=== PATIENT | female | born 1980 | race African-American/Black ===

== ENCOUNTER 2017-03-17 15:59 | Emergency (ER) | payer MEDICARE, SELFPAY ==
[2017-03-17 15:59] VITALS: BP 178/109; PULSE 102; RESP 20; TEMP 37.2; O2SAT 96; BMI 31.6
--- NOTE | 2017-03-17 16:37 | RAD_ITS ---
STUDY: X-RAY CHEST REASON FOR EXAM: Female, 37 years old. Cough TECHNIQUE: Frontal and lateral views of the chest. COMPARISON: None. FINDINGS: There is a right Port-A-Cath and/or mediport in place. The tip is in the superior vena cava. The lungs are clear and expanded. There is no demonstrated pleural abnormality. Normal size heart. Normal mediastinum and rolan. Normal visualized pulmonary arteries. Normal visualized aortic arch and descending thoracic aorta. Normal visualized thoracic spine. Normal visualized ribs, clavicles, and shoulders. There is no demonstrated abnormality of the visualized soft tissue structures of the upper abdomen. RAD/Chest PA and Lateral IMPRESSION: Normal x-ray examination of the chest. Electronically Signed: Chase Barraza MD at 17:09 EST , Service support ,
--- NOTE | 2017-03-17 16:41 | ED.VISSUMM ---
- ER Visit Summary Date of Service: 03/17/17 Chief Complaint: [] Shortness of breath History of Present Illness: The patient is a 37 F [] complaining of cough and shortness of breath. She reports she was seen at her PCPs office and diagnosed with influenza via nasal swab. She was provided outpatient prescriptions for doxycycline and dextromethorphan. She reports a history of Crohn's for which she gets Remicade. She reports because of the influenza diagnosis she was not allowed to get her Remicade today. She reports her PCP felt that if she had worsening symptoms she should go to the emergency department to get a chest x-ray to rule out a pneumonia. Patient reports nonproductive cough. Denies fevers. No other complaints at this time. Physical Examination: [] Afebrile, vital signs stable. Cardiovascular exam is regular rate and rhythm. Lungs are clear to auscultation. Abdomen is obese, soft, nontender. There was mild bilateral flank muscular tenderness on palpation. Test Results: [] Chest x-ray 2 views: Negative. Emergency Department Course and Treatment: [] Patient provided Phenergan and oxycodone for symptom relief. On serial exam she is feeling improvement of symptoms. She was counseled regarding her negative x-ray. She was given prescriptions for naproxen and Phenergan. She reports she can take naproxen despite her history of Crohn's as long as she takes it with food. The patient was encouraged to follow-up with her primary care physician. Treatment Plan: [] Follow-up with PCP. Disposition: [] Discharge, stable. Impression: [] Influenza History of Crohn's This note was generated with [employer] dictation software. It may contain incorrect words, spelling, and punctuation that were not noted in review of the chart prior to signing ED Disposition - Plan for ED Patient: Chief Complaint: Shortness of Breath Referrals: Araseli Bueno MD [Primary Care Provider] -
[2017-03-17] MEDS: oxyCODONE 5 MG Tablet 10 MG PO (16:52)
[2017-03-17 17:10] VITALS: O2SAT 98
--- NOTE | 2017-03-17 17:36 | ED.DEP ---
ED Disposition - Plan for ED Patient: Disposition: Home or Assisted Living Chief Complaint: Shortness of Breath Instructions: ED Flu Prescriptions: ProMETHAzine [Phenergan] 25 mg PO Q4H PRN PRN #20 tab PRN Reason: Nausea Naproxen [Naprosyn] 500 mg PO BID PRN #20 tab Referrals: Araseli Bueno MD [Primary Care Provider] -
[2017-03-17 17:54] VITALS: BP 160/106; PULSE 91; RESP 16; O2SAT 100
--- NOTE | 2017-03-17 17:54 | ED.RN ---
PT GIVEN WRITTEN AND VERBAL DISCHARGE INSTRUCTIONS, THIS RN PROVIDED PT WITH EDUCATION ON HOME GOING PRESCRIPTIONS WELL. PT VERBALIZES UNDERSTANDING. TOLD NOT TO DRIVE AFTER HAVING NARCOTIC MEDICATION. PT REPORTS NO FURTHER QUESTIONS. PT EDUCATED TO CHECK HER BP REGULARLY AND TAKE MEDICATION PRESCRIBED. PT TO RETURN FOR ANY WORSENED OR NEW SX.
== END 2017-03-17 17:57 | disposition home or self-care (01) ==
PROVIDERS: Emergency Provider Emergency Medicine; Family Provider Internal Medicine; PCP Internal Medicine
DX: J11.1 Influenza due to unidentified influenza virus with other respiratory manifestations (principal); K50.90 Crohn's disease, unspecified, without complications; K21.9 Gastro-esophageal reflux disease without esophagitis; E66.9 Obesity, unspecified; Z72.0 Tobacco use; Z90.49 Acquired absence of other specified parts of digestive tract
CPT/HCPCS: 71046; 99283

== ENCOUNTER 2017-05-26 02:02 | Emergency (ER) | payer MEDICARE, SELFPAY ==
[2017-05-26 02:03] VITALS: BP 190/97; PULSE 78; RESP 18; TEMP 36.9; O2SAT 99; BMI 45.1
[2017-05-26 03:00] LABS: Absolute Lymphocyte Count 4.12 X10^3/ul (0.83-4.51); Absolute Neutrophil Count 4.2 X10^3/uL (2.0-7.7); Basophil# 0.05 X10^3/uL; Basophil% 0.5 % (0-1); Eosinophil# 0.13 X10^3/uL; Eosinophils% 1.4 % (0-5); Hematocrit 35.3 % (37-47); Hemoglobin 11.6 g/dl (12.0-15.0); Lymphocyte # 4.12 X10^3/ul (4.0); Lymphocyte % 44.8 % (19-41); Mean Corp Hgb Conc 32.9 g/gl (32-36); Mean Corpuscular Volume 85.3 fL (81-99); Mean Platelet Vol. 12.1 fl (6.2-12.0); Monocyte% 7.6 % (0-10); Neutrophil # 4.18 X10^3/uL (2.7-7.7); Neutrophil % 45.5 % (47-70); Platelet Count 198 K/mm3 (150-450); RBC Distribution Width CV 14.7 % (11.6-14.6); Red Blood Count 4.14 M/mm3 (4.2-5.4); White Blood Count 9.2 K/mm3 (4.4-11.0)
[2017-05-26 03:02] LABS: POSITIVE COUNT NO; POSITIVE DIFFERENTIAL NO; POSITIVE MORPHOLOGY NO
--- NOTE | 2017-05-26 03:03 | ED.DCSUM_ITS ---
- ER Visit Summary Date of Service: 05/26/17 Chief Complaint: Vaginal bleeding History of Present Illness: The patient is a 37 F vaginal bleeding for 10 days. Small clots. Gone through 6 pads. Late on menstrual period for a month and a half. Negative urine 3 weeks ago. 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 Try calling her OB office, however states her physicians are currently not there. No chest pains or lightheaded symptoms. Occasional lower abdominal cramping. No urinary symptoms. Physical Examination: General: Alert and oriented ?3, no acute distress HEENT: Normocephalic, atraumatic. Moist mucosa membranes Neck: supple, nontender. Cardiovascular: Regular rate and rhythm, no murmurs Respiratory: Normal breath sounds, symmetric, no distress Abdomen: Soft, nontender, nondistended : No external lesions. Speculum noted small clots in the vault. No active bleeding. Cervix normal. Extremities: Nontender, no edema, pulses intact ?4 Neuro: no focal neurological deficits. Test Results: HCG negative. Hemoglobin 11.6. Emergency Department Course and Treatment: Patient no active bleeding. HCG negative. Hemoglobin 11.6. Started on Tylenol. Discussed dysfunctional uterine bleeding. She is given follow-up with on-call gynecology. Monitoring symptoms. Return if any worsening symptoms. All questions were answered. Treatment Plan: [] Disposition: Discharge Impression: 1. Dysfunctional uterine bleeding This note was generated with [employer] dictation software. It may contain incorrect words, spelling, and punctuation that were not noted in review of the chart prior to signing ED Disposition - Plan for ED Patient: Disposition: Home or Assisted Living Chief Complaint: Vag Bleeding Diagnosis: Dysfunctional uterine bleeding Instructions: ED Bleed Irregular Vaginal Referrals: Araseli Bueno MD [Primary Care Provider] - Iveth Lassiter [STAFF PHYSICIAN] - 3-5 Days Additional Instructions: Hemoglobin 11.6. Serum negative.
[2017-05-26] MEDS: Acetaminophen 500 MG Tablet 1000 MG PO (03:12)
[2017-05-26 03:34] LABS: Pregnancy, Serum, hCG Quali. NEGATIVE Negative (0-9 Nonpreg)
[2017-05-26 04:16] VITALS: BP 152/83; PULSE 82; RESP 18; O2SAT 98
== END 2017-05-26 04:16 | disposition home or self-care (01) ==
PROVIDERS: Emergency Provider Emergency Medicine; Family Provider Internal Medicine; PCP Internal Medicine
DX: N93.8 Other specified abnormal uterine and vaginal bleeding (principal); K50.90 Crohn's disease, unspecified, without complications; K21.9 Gastro-esophageal reflux disease without esophagitis; F41.9 Anxiety disorder, unspecified; Z79.899 Other long term (current) drug therapy; Z86.19 Personal history of other infectious and parasitic diseases
CPT/HCPCS: 84703; 85025; 99282

== ENCOUNTER 2017-09-26 18:57 | Emergency (ER) | payer MEDICARE, MEDICAID, SELFPAY ==
[2017-09-26 18:57] VITALS: BP 159/102; PULSE 69; RESP 16; TEMP 37.2; O2SAT 99; BMI 41.3
--- NOTE | 2017-09-26 19:14 | ED.DCSUM_ITS ---
- ER Visit Summary Date of Service: 09/26/17 Chief Complaint: Crohn's flare History of Present Illness: The patient is a 37 F with 3 day history of nausea, abdominal cramping, and diarrhea. She reports fever to the 101-102 range. Patient states today she had blood with her diarrhea. She believes this is secondary to a Crohn's flare, but states she has not had a flare this bad in quite some time. Patient is currently on Remicade and Imuran. Physical Examination: Blood pressure is 159/102, temperature 98.9, heart rate 69 , respiratory rate 16, pulse ox 99% on room air. Patient sitting upright in bed no acute distress. Heart is regular rate and rhythm. Lung sounds are clear. Abdomen is soft with mild diffuse tenderness. No guarding or rebound. Hypoactive bowel sounds are noted. Test Results: CBC was normal white count and differential. Hemoglobin is 11.4 which is consistent with her prior labs. Chemistry studies, LFTs, lipase normal. Coags normal. CT abdomen pelvis with IV contrast reveals no acute process or focal inflammation. Emergency Department Course and Treatment: Patient was given morphine, Zofran, and IV fluids. This was followed by a single small dose of Dilaudid for pain control. Repeat evaluation patient is resting comfortably. She has not been up to the bathroom with diarrhea. At this time patient be treated with Imodium , Zofran, and a few Percocet for breakthrough pain. She is to follow-up with her primary care physician or GI specialist. If her symptoms worsen she is to return for repeat evaluation. Treatment Plan: [] Disposition: Discharge Impression: Gastroenteritis This note was generated with [employer] dictation software. It may contain incorrect words, spelling, and punctuation that were not noted in review of the chart prior to signing ED Disposition - Plan for ED Patient: Disposition: Home or Assisted Living Chief Complaint: Abd Pain Instructions: ED Gastroenteritis Viral Prescriptions: Loperamide [Imodium] 2 mg PO Q6H PRN PRN #14 cap PRN Reason: Diarrhea Oxycodone HCl/Acetaminophen [Percocet 5/325] 1 tablet PO Q6H PRN PRN 5 Days #20 tablet PRN Reason: Pain Ondansetron [Zofran Odt] 4 mg PO Q8H PRN PRN #10 tab PRN Reason: Nausea Referrals: Abhi Ramírez MD [STAFF PHYSICIAN] - Araseli Bueno MD [Primary Care Provider] -
[2017-09-26] MEDS: Ondansetron 4 MG/2 ML Vial IV (19:33)
[2017-09-26] MEDS: Morphine 4 MG/ML Syringe IV (19:33)
[2017-09-26] MEDS: 0.9% Normal Saline 1,000 ML 150 ML IV (19:34)
[2017-09-26 19:41] LABS: Absolute Lymphocyte Count 3.92 X10^3/ul (0.83-4.51); Absolute Neutrophil Count 5.4 X10^3/uL (2.0-7.7); Basophil# 0.07 X10^3/uL; Basophil% 0.7 % (0-1); Differential Indicated SCAN CRITERIA MET; Eosinophil# 0.16 X10^3/uL; Eosinophils% 1.6 % (0-5); Hematocrit 37.3 % (37-47); Hemoglobin 11.4 g/dl (12.0-15.0); Lymphocyte # 3.92 X10^3/ul (4.0); Lymphocyte % 39.2 % (19-41); Mean Corp Hgb Conc 30.6 g/gl (32-36); Mean Corpuscular Volume 75.4 fL (81-99); Mean Platelet Vol. 11.5 fl (6.2-12.0); Monocyte# 0.42 X10^3/uL; Monocyte% 4.2 % (0-10); Neutrophil # 5.42 X10^3/uL (2.7-7.7); Neutrophil % 54.2 % (47-70); POSITIVE COUNT NO; POSITIVE DIFFERENTIAL NO; POSITIVE MORPHOLOGY YES; Platelet Count 198 K/mm3 (150-450); RBC Distribution Width CV 16.7 % (11.6-14.6); RBC Distribution Width SD 45.8 fl (35.1-43.9); Red Blood Count 4.95 M/mm3 (4.2-5.4)
[2017-09-26 19:42] LABS: Prothrombin Time (Protime)PT. 12.7 SECONDS (11.7-14.9)
[2017-09-26 19:43] LABS: Partial Thromboplast Time 40.6 Seconds (24.1-36.2)
[2017-09-26 19:58] LABS: Differential Comment SCANNED
[2017-09-26 20:10] LABS: AST(SGOT) 15 U/L (15-37); Alanine Aminotransfer ALT/SGPT 21 U/L (13-56); Albumin, Serum 3.5 g/dL (3.2-5.0); Alkaline Phosphatase 78 U/L (45-117); Anion Gap 5 (5-15); BUN 10 mg/dL (7-18); BUN/Creat Ratio 12.3 RATIO (10-20); Bilirubin, Direct 0.09 mg/dL (0.00-0.30); Calcium,Total 8.4 mg/dL (8.5-10.1); Chloride 108 mmol/L (98-107); Creatinine, Serum 0.81 mg/dL (0.55-1.02); EST Glomerular Filtration Rate 84 mL/min (>60); Est Glom Filt Rate - Afr Amer 101 mL/min (>60); Estimated Creatinine Clearance 108.67 ml/min; Globulin 4.6 g/dL (2.2-4.2); Glucose 92 mg/dL (74-106); Lipase 125 U/L (73-393); Potassium 3.8 mmol/L (3.5-5.1); Protein, Total 8.1 g/dL (6.4-8.2); Sodium Level 140 mmol/L (136-145)
[2017-09-26] MEDS: HYDROmorphone 0.5 MG/0.5 ML SYRINGE IV (20:25)
[2017-09-26 21:47] VITALS: BP 152/102; O2SAT 100
--- NOTE | 2017-09-26 22:25 | ED.DEP ---
ED Disposition - Plan for ED Patient: Disposition: Home or Assisted Living Chief Complaint: Abd Pain Instructions: ED Gastroenteritis Viral Prescriptions: Loperamide [Imodium] 2 mg PO Q6H PRN PRN #14 cap PRN Reason: Diarrhea Oxycodone HCl/Acetaminophen [Percocet 5/325] 1 tablet PO Q6H PRN PRN 5 Days #20 tablet PRN Reason: Pain Ondansetron [Zofran Odt] 4 mg PO Q8H PRN PRN #10 tab PRN Reason: Nausea Referrals: Araseli Bueno MD [Primary Care Provider] - Abhi Ramírez MD [STAFF PHYSICIAN] -
[2017-09-26] MEDS: Ondansetron ODT 4 MG Tablet PO (22:54)
[2017-09-26] MEDS: oxyCODONE 5 MG Tablet PO (22:54)
== END 2017-09-26 23:00 | disposition home or self-care (01) ==
PROVIDERS: Emergency Provider Emergency Medicine; Family Provider Internal Medicine; PCP Internal Medicine
DX: K50.90 Crohn's disease, unspecified, without complications (principal); K52.9 Noninfective gastroenteritis and colitis, unspecified; R50.9 Fever, unspecified; R10.9 Unspecified abdominal pain; I10 Essential (primary) hypertension; K21.9 Gastro-esophageal reflux disease without esophagitis; E66.9 Obesity, unspecified; Z72.0 Tobacco use; Z79.899 Other long term (current) drug therapy; Z86.19 Personal history of other infectious and parasitic diseases; Z90.49 Acquired absence of other specified parts of digestive tract
CPT/HCPCS: 36591; 74177; 80048; 80076; 83690; 85025; 85610; 85730; 96361; 96374; 96375; 99282; J7030; J7040; Q9967; A4216; J2405

== ENCOUNTER 2018-02-17 18:55 | Emergency (ER) | payer MEDICARE, BC, SELFPAY ==
[2018-01-17 09:52] VITALS: BMI 45.6
[2018-02-17 18:56] VITALS: BP 159/95; PULSE 102; RESP 24; TEMP 37.9; O2SAT 100; BMI 45.3
[2018-02-17 20:04] LABS: Absolute Lymphocyte Count 3.75 X10^3/ul (0.83-4.51); Absolute Neutrophil Count 11.8 X10^3/uL (2.0-7.7); Basophil# 0.04 X10^3/uL; Basophil% 0.2 % (0-1); Eosinophil# 0.03 X10^3/uL; Eosinophils% 0.2 % (0-5); Hematocrit 35.3 % (37-47); Hemoglobin 10.9 g/dl (12.0-15.0); Lymphocyte # 3.75 X10^3/ul (4.0); Lymphocyte % 22.5 % (19-41); Mean Corp Hgb Conc 30.9 g/gl (32-36); Mean Corpuscular Hgb 22.1 pg (27.0-32.0); Mean Corpuscular Volume 71.6 fL (81-99); Monocyte# 1.01 X10^3/uL; Neutrophil # 11.84 X10^3/uL (2.7-7.7); Neutrophil % 70.9 % (47-70); Platelet Count 185 K/mm3 (150-450); RBC Distribution Width CV 16.9 % (11.6-14.6); Red Blood Count 4.93 M/mm3 (4.2-5.4); White Blood Count 16.7 K/mm3 (4.4-11.0)
[2018-02-17] MEDS: HYDROmorphone 1 MG/ML Syringe 0.5 MG IV (20:04)
[2018-02-17] MEDS: Ondansetron 4 MG/2 ML Vial IV ×2 (20:04→21:02)
[2018-02-17 20:08] VITALS: BP 151/104; PULSE 89; RESP 17; TEMP 36.9; O2SAT 100
[2018-02-17 20:08] LABS: Anion Gap 8 (5-15); BUN 7 mg/dL (7-18); BUN/Creat Ratio 7.6 RATIO (10-20); Calcium,Total 8.5 mg/dL (8.5-10.1); Chloride 104 mmol/L (98-107); Creatinine, Serum 0.92 mg/dL (0.55-1.02); EST Glomerular Filtration Rate 73 mL/min (>60); Est Glom Filt Rate - Afr Amer 88 mL/min (>60); Estimated Creatinine Clearance 95.68 ml/min; Glucose 94 mg/dL (74-106); Potassium 3.4 mmol/L (3.5-5.1); Sodium Level 136 mmol/L (136-145)
[2018-02-17 20:17] LABS: Bacteria 0 SEEN /hpf (None Seen); Mucous, Urine 0 SEEN /hpf (<or=2+)
[2018-02-17 20:26] LABS: Differential Indicated SCAN CRITERIA MET; POSITIVE COUNT NO; POSITIVE DIFFERENTIAL NO; POSITIVE MORPHOLOGY YES
[2018-02-17 20:26] LABS: Color, Urine Yellow (Yellow); Glucose, Dipstick Normal (Normal); Ketone-Dipstick Negative (Negative); Leukocyte Esterase-Dipstick Negative /ul (Negative); Nitrite-Dipstick Negative (Negative); Occult Blood-Urine 25 /ul (Negative); Protein-Dipstick Negative (Negative); Urine Bilirubin Dipstick Negative (Negative); Urine Clarity Clear (Clear); Urine Urobilinogen Normal (Normal)
[2018-02-17 20:27] LABS: Anisocytosis 1+; Platelet Estimate ADEQUATE (ADEQ)
[2018-02-17 20:28] LABS: Hypochromasia RARE; Microcytosis 1+; Target Cells RARE
[2018-02-17 20:30] LABS: Red Blood Cells-Urine 0-5 SEEN /hpf (0-5); Squamous Epithelial Cells - UA 0-5 SEEN /hpf (5-10); White Blood Cells 0-5 SEEN /hpf (0-5)
--- NOTE | 2018-02-17 20:44 | CT_ITS ---
STUDY: CT ABDOMEN AND PELVIS WITH CONTRAST REASON FOR EXAM: Female, 37 years old. Abdominal pain and weakness with dizziness for 4 days, leukocytosis, history of Crohn's disease RADIATION DOSAGE (If Supplied By Facility): CTDIvol = ( 23.73 ) mGy, DLP = ( 1349.66 ) mGycm TECHNIQUE: Transaxial images were obtained from the dome of the diaphragm to the symphysis pubis with oral contrast. 100ML ml of Isovue 300 contrast was administered. Sagittal and coronal images were reconstructed. Individualized dose optimization techniques were used for this CT. COMPARISON: None. FINDINGS: The visualized lung bases are unremarkable. The visualized portions of the heart are within normal limits. Metallic density in the right atrium likely represents a central venous catheter tip. Normal liver. There are surgical clips in the gallbladder fossa consistent with a prior cholecystectomy. Normal spleen. Normal pancreas. Normal bilateral adrenal glands. Normal right kidney. Nonobstructing punctate calculus of the left kidney is evident on image 47. No hydronephrosis or ureteral calculi seen. Normal visualized stomach. Normal small intestine. No colon wall thickening. There are surgical sutures along the cecum. There is non-visualization of the appendix. Normal abdominal aorta. Normal inferior vena cava. Normal retroperitoneum. Normal urinary bladder. There is localized soft tissue thickening of the right paramedial anterior pubic wall on axial image 124 that is chronic and is evident on prior CT from 2016. May represent sequela of prior surgery, infection or injury. Normal osseous structures. CT/Abdomen/Pelvis WITH Contrast IMPRESSION: 1. No bowel wall thickening, obstruction or acute inflammatory process. No focal fluid collection. 2. Stable chronic changes as noted above and prior studies. Electronically Signed: Pj Tan MD at 23:09 EST , Service support ,
[2018-02-17 20:53] LABS: Pregnancy, Serum, hCG Quali. NEGATIVE Negative (0-9 Nonpreg)
[2018-02-17 21:00] VITALS: BP 147/99; PULSE 81; RESP 16; TEMP 37; O2SAT 98
[2018-02-17] MEDS: 0.9% Normal Saline 1,000 ML 150 ML IV (21:02)
[2018-02-17] MEDS: HYDROmorphone 1 MG/ML Syringe IV (21:02)
[2018-02-17 22:00] VITALS: BP 136/86; PULSE 88; RESP 17; TEMP 36.6; O2SAT 98
[2018-02-17 23:00] VITALS: BP 142/87; PULSE 84; RESP 19; TEMP 37; O2SAT 94
--- NOTE | 2018-02-17 23:38 | ED.DCSUM_ITS ---
- ER Visit Summary Date of Service: 02/17/18 Chief Complaint: Abdominal pain History of Present Illness: The patient is a 37 F with a 4-day history of left lower quadrant abdominal pain. She has had nausea but no vomiting. Patient states she always has diarrhea secondary to her Crohn's but has had more fr equent episodes of the past 4 days. She has had subjective fever at home. She reports prior cholecystectomy, appendectomy, and bowel resections. She follows with Dr. Ramírez at [facility]. Physical Examination: Vital signs significant for temperature 100.3, otherwise unremarkable. Patient is lying in bed. She appears ill but no acute distress. Heart is regular rate and rhythm. Lung sounds are clear. Abdomen is soft with tenderness in the left lower quadrant. No guarding or rebound. Hypoactive bowel sounds are noted throughout. Test Results: CBC was a white count of 16.7 and hemoglobin of 10.9. Differential is unremarkable. Chemistry studies significant only for potassium 3.4. Urinalysis normal. CT abdomen pelvis shows no bowel wall thickening, obstruction, or acute inflammatory process. No fluid collection noted. Emergency Department Course and Treatment: Patient was given Dilaudid, Zofran, and IV fluids. On repeat evaluation patient is sitting upright in bed eating a spicy chicken bowl from [facility]. She will be discharged with analgesics and antiemetics. She is to follow-up with her GI specialist. Treatment Plan: [] Disposition: Discharge Impression: Abdominal pain, uncertain etiology This note was generated with [employer] dictation software. It may contain incorrect words, spelling, and punctuation that were not noted in review of the chart prior to signing ED Disposition - Plan for ED Patient: Chief Complaint: Abd Pain Referrals: Araseli Bueno MD [Primary Care Provider] -
--- NOTE | 2018-02-17 23:39 | DCINST.ED_ITS ---
ED Disposition - Plan for ED Patient: Disposition: Home or Assisted Living Chief Complaint: Abd Pain Instructions: ED Abdominal Pain Unkn Cause Prescriptions: Hydrocodone Bitart/Apap 5-325 [[place] 5MG-325MG] 1 tablet PO Q6H PRN PRN 3 Days #10 tablet PRN Reason: Pain Ondansetron [Zofran Odt] 4 mg PO Q8H PRN PRN #10 tablet PRN Reason: Nausea Referrals: Araseli Bueno MD [Primary Care Provider] - 1 Week
[2018-02-18] MEDS: Ondansetron ODT 4 MG Tablet PO (00:01)
[2018-02-18] MEDS: HYDROcodone Bitartrate/Apap 5/325 Tablet PO (00:02)
[2018-02-18 00:03] VITALS: BP 124/110; BP 124/111; PULSE 89; RESP 16; TEMP 36.9; O2SAT 97
== END 2018-02-18 00:06 | disposition home or self-care (01) ==
PROVIDERS: Emergency Provider Emergency Medicine; Family Provider Internal Medicine; PCP Internal Medicine
DX: R10.32 Left lower quadrant pain (principal); K50.90 Crohn's disease, unspecified, without complications; R19.7 Diarrhea, unspecified; I10 Essential (primary) hypertension; K21.9 Gastro-esophageal reflux disease without esophagitis; Z72.0 Tobacco use; Z79.899 Other long term (current) drug therapy; Z86.14 Personal history of Methicillin resistant Staphylococcus aureus infection; Z86.19 Personal history of other infectious and parasitic diseases; Z90.49 Acquired absence of other specified parts of digestive tract
CPT/HCPCS: 36591; 74177; 80048; 81001; 84703; 85025; 96374; 96375; 96376; 99283; J7030; J7040; Q9967; A4216; J2405

== ENCOUNTER 2018-03-06 06:16 | Day surgery (SDC) | payer MEDICARE, SELFPAY ==
--- NOTE | 2018-03-05 21:51 | HP.PCM_ITS ---
History and Physical Date of Admission: 03/06/18 HISTORY OF PRESENT ILLNESS 37 year old woman presents for evaluation of her chronic hidradenitis because of recent flare ups in her left abdominal wall and right medial thigh. She also has complaints of painful scarring with some contracture involving her left vulval area and left inguinal area. She states that her urinary stream sprays at times. She has had previous excision of hidradenitis in her bilateral axillary areas and she has noticed intermittent flare ups in these areas as well. At present, her axillary areas are stable. She has also noticed over the last several months that she has developed some clitoral hypertrophy which has led to increased discomfort after sexual intercourse. She is still on Remicade for her Crohn's disease and she states it is stable presently. She presents today for further evaluation and treatment. PAST MEDICAL HISTORY Acute anxiety Anemia Crohns disease GERD (gastroesophageal reflux disease) Hepatitis B Hidradenitis suppurativa History of MRSA infection IBS (irritable bowel syndrome) Obesity Sinus problem Vitamin deficiency High blood pressure PAST SURGICAL HISTORY Hidradenitis suppurativa POWERPORT SMALL BOWEL SURGERIES Surgically constructed arteriovenous fistula ALLERGIES No Known Allergies MEDICATIONS Azathioprine [Imuran] Infliximab [Remicade] Lamivudine [Epivir] Omeprazole [Prilosec] minocycline FAMILY HISTORY Father - Hypertension, Anemia Mother - Arthritis, Hypertension, Anemia Brother - Asthma, History of psychiatric care Son - Asthma Daughter - Severe allergy Aunt -Hypertension Uncle - Arthritis, Hypertension, Asthma Grandmother - Arthritis, Asthma, Hypertension Other - Breast cancer, Cancer, Cervical cancer, Colon cancer SOCIAL HISTORY Smoking Status: Current every day smoker second hand exposure: Yes alcohol intake: current alcohol intake frequency: a few times a month Alcohol type: wine substance use type: does not use REVIEW OF SYSTEMS General - Denies fever and weight loss. Has fatigue. Has history of MRSA. Eyes - Denies cataracts and glaucoma. ENT - Denies nasal congestion and sore throat. Endocrine - Denies excessive thirst and urination. Has hepatitis. Skin - Denies skin cancer. Has hidradenitis flare ups involving left abdominal wall and right medial thigh and bilateral axillary areas. Has painful scar contracture left vulval and inguinal areas from previous hidradenitis surgery. Musculoskeletal - Denies joint pain, joint stiffness and back pain. Denies muscle weakness and arthritis. Neuro - Denies headaches. Cardiovascular - Denies chest pain, fatigue, and shortness of breath with exertion. Psych - Has anxiety. Denies depression. Respiratory - Denies chronic cough and shortness of breath. Patient is a smoker. Gastrointestinal - Denies nausea, vomiting and constipation. Has diarrhea. Has Crohn's disease. Hematologic - Denies abnormal bruising and bleeding. Genitourinary - Denies hematuria and urinary frequency. PHYSICAL EXAMINATION General - Alert and Oriented. HEENT - PERRL. EOMI. Throat is clear. Neck - Supple and nontender. No cervical adenopathy. Lungs - Clear to auscultation. Heart - Regular rate and rhythm. Abdomen - Soft and nondistended. Has an area of induration and redness left abdominal wall. In the left vulval and left inguinal areas are scar contractures from previous hidradenitis surgery. Tender to palpation. No ulceration. No evidence of infection. Measures 3 cm. No fluctuance. No purulent drainage. Some tenderness to palpation. Genital - There is clitoral hypertrophy that has some swelling and is tender to palpation. There is hidradenitis scar contracture left vulva involving the mons pubis and genitocrural area. Tender to palpation. Extremities - FROM. No axillary adenopathy. No inguinal adenopathy. Radial pulses are palpable. Dorsalis pedis pulses are palpable. In the right medial thigh is a cluster of induration and redness that is tender to palpation. Measures 6 cm. No fluctuance. No purulent drainage. In her bilateral axillary areas are scattered areas of induration. Nontender at this time. No evidence of infection at present. The right axillary area measures 8 cm. The left axillary area measures 6 cm. Neuro - CN II-XII grossly intact. Psych - Normal mood and affect. ASSESSMENT 1. Left abdominal wall hidradenitis. 2. Right medial thigh hidradenitis cluster. 3. Hidradenitis scar contracture left vulva involving the mons pubis and genitocrural area. 4. Hidradenitis scar contracture left inguinal area. 5. Recurrent bilateral axillary hidradenitis, stable. 6. Clitoral hypertrophy. 7. History of MRSA. 8. Smoker. PLAN For her recent flare ups of hidradenitis, will begin Doxycycline antibiotics. Will send script to her Pharmacy. This will temporize her flare ups until surgical excision is done. The painful areas on her right medial thigh and left abdominal wall will be done first. Will leave the wounds open and begin wound care with the VAC or with daily Silver dressing changes. Will send tissue to Pathology for analysis to rule out carcinoma and to Microbiology for culture. A positive culture will necessitate antibiotic therapy. After healing has occurred, will address the hidradenitis scar contractures in her left vulval area and left inguinal area. After excision of the scar contracture, will proceed with skin grafting. This should improve her intermittent urinary spraying. Her axillary areas are stable at this time. With regard to her clitoral hypertrophy, she may benefit from Urogynecological therapy. There is a therapist in [place]. Will set up that appointment. The therapist may also know referrals for surgical treatment of the clitoral hypertrophy. This would necessitate evaluation and treatment at a tertiary center with someone who specializes in aesthetic genital surgery or gender reassignment surgery. She would like to wait if possible to see if she can get symptomatic relief from her therapy before proceeding with surgical excision of her hidradenitis. Followup after her therapy. Encouraged patient to stop smoking as it may have deleterious effects on wound healing.
[2018-03-06] VITALS (10 sets, daily range): BP systolic 124–153; BP diastolic 66–93; PULSE 60–90; RESP 16–20; TEMP 36–36.8; O2SAT 95–100; BMI 47.3
--- NOTE | 2018-03-06 | MASS_PTH ---
PATIENT: KIARA ORTIZCCT #:[id number] [place] [facility] [id number] AGE/SX: 37/F ROOM: RE03/06/[address]: Dr. Maikol Feliciano MD : 1980 BED: DIS: 03/07/2018 SPEC #: [id number] RECD: 03/06/18 14:32 STATUS: RHIANNA REIsabel #: [id number] DEMOND: 03/06/18 00:[address]: Maikol Feliciano DEPT: SURGICAL PATHOLOGY RECD BY: Rohit Martin ENTERED: 03/06/18 14:33 SP TYPE: Mass OTHR DR: Dr. Araseli Bueno MD Tissues: A - Abdomen, NOS B - Thigh, NOS Procedures: Surgery Specimen Level III HEADER OPERATION: Incision & drain, excision hidradenitis, left abdominal wall and right medial thigh PRE-OP DIAGNOSIS: Left abdominal wall hidradenitis; right medial thigh hidradenitis cluster TISSUE SUBMITTED: A - Soft tissue abdomen, B - Soft tissue right medial thigh MICROSCOPIC DIAGNOSIS A. Skin and soft tissue of abdomen, excision: Epidermal inclusion cyst with associated reactive and inflammatory change consistent with hidradenitis. B. Soft tissue of right medial thigh, excision: Granulation with acute and chronic inflammation and associated reparative reactive change consistent with hidradenitis. AM:nithya 03/07/18 MICROSCOPIC DESCRIPTION Slides are reviewed. GROSS DESCRIPTION A - Received in fixative is one container labeled with the patient's name and designated soft tissue abdomen. The specimen consists of an ellipse of black skin with attached yellow fatty tissue measuring 7.8 x 4 x 1.5 cm. Serial sections do not reveal mass lesions. Regional Sales Engineer sections are submitted in one cassette. B - Received in fixative is one container labeled with the patient's name and designated right medial thigh soft tissue. The specimen consists of an ellipse of black skin with attached yellow fatty tissue measuring 8.5 x 7 x 3.5 cm. Serial sections do not reveal mass lesions. Regional Sales Engineer sections are submitted in one cassette. / AM:nithya 03/06/18 TC:2 CPT: 86922 x2
[2018-03-06 07:02] LABS: Internal QC Validated? YES +Cl - CLEAR BKGD; Pregnancy, Urine Negative Negative
[2018-03-06] MEDS: Vancomycin IV 1,000 MG/200 ML BAG 200 MG IV (07:27)
--- NOTE | 2018-03-06 09:47 | OP.PN_ITS ---
Immediate Post-Op Note Date of Procedure: 03/06/18 Primary Surgeon/Physician: Maikol Feliciano MD bobbin winder tender: None Pre-Operative Diagnosis: 1. 3 cm left abdominal wall hidradenitis. 2. 6 cm right medial thigh hidradenitis cluster. 3. History of MRSA. 4. Smoker. Post-Operative Diagnosis: Same. Surgery/Procedure Performed:: 1. Excision 3 cm left abdominal wall hidradenitis with 10 cm complex closure repair. 2. Surgical preparation right medial thigh with excision 6 cm hidradenitis cluster (70 cm2). Description of Surgical Findings:: 37 year old woman presents for evaluation of her chronic hidradenitis because of recent flare ups in her left abdominal wall and right medial thigh. She also has complaints of painful scarring with some contracture involving her left vulval area and left inguinal area. She states that her urinary stream sprays at times. She has had previous excision of hidradenitis in her bilateral axillary areas and she has noticed intermittent flare ups in these areas as well. At present, her axillary areas are stable. She has also noticed over the last several months that she has developed some clitoral hypertrophy which has led to increased discomfort after sexual intercourse. She is still on Remicade for her Crohn's disease and she states it is stable presently. Today the patient underwent excision 3 cm left abdominal wall hidradenitis with 10 cm complex closure repair and surgical preparation right medial thigh with excision 6 cm hidradenitis cluster (70 cm2). I used Pilar absorbable hemostat. Reference Number - [id number]. Lot Number - [id number]. Expiration - October 10, 2022. Estimated Blood Loss: 20 ml. Specimen's removed: 1. Left abdominal wall hidradenitis to Pathology and Microbiology. 2. Right medial thigh hidradenitis cluster to Pathology and Microbiology. Drains: None. Type of Anesthesia:: General - Admit VTE Documentation VTE Present on Admission: No VTE Mechan Device Prophylaxis: SCD's VTE Pharm Prophylaxis ordered?: No
[2018-03-06] MEDS: Mupirocin Ointment 22gm Tube 1 APPLIC (09:50)
[2018-03-06] MEDS: Lactated Ringers 1,000 ML 60 ML IV ×2 (10:24→22:47)
[2018-03-06] MEDS: HYDROmorphone 1 MG/ML Syringe IV ×4 (11:06→21:03)
[2018-03-06] MEDS: 0.9% NaCl VAD Flush 10 ML IV ×2 (14:22→17:42)
--- NOTE | 2018-03-06 15:08 | PCM.RX.CS ---
Consult Pharmacy has been consulted to manage selected antiobiotic: Vancomycin Type of Consult: New start Suspected Infection: Skin/Soft tissue Prior Doses of Antibiotics Received/Current Regimen: Vancomycin 1000mg IV x1 preop 03/06/18 at 0730 Microbiology: Microbiology 03/06/18 09:50 Tissue - Leg, Right Gram Stain - Final 03/06/18 09:50 Tissue - Abdominal Gram Stain - Final Weight used for dosin kg Estimated Creatinine Clearance: 96ml/min Goal Trough: 10-15 mcg/mL Pharmacy Plan for Drug Dosing: Recommend Vancomycin 1500mg IV q12h starting 03/06/18 at 1400. Trough will be drawn 03/07/18 at 1330. Goal trough is 10-15 Pharmacy Service will continue to monitor and adjust dosing as required. Follow-Up Labs: Trough Vancomycin - trough Labs to be done on [date and time ordered]: trough level 02/25/18 at 1330
--- NOTE | 2018-03-06 16:42 | PCM.OPRPT ---
Report of Operation Date of Procedure: 03/06/18 Pre-Operative Diagnosis: 1. 3 cm left abdominal wall hidradenitis. 2. 6 cm right medial thigh hidradenitis cluster. 3. History of MRSA. 4. Smoker. Post-Operative Diagnosis: Same. Surgery/Procedure Performed:: 1. Excision 3 cm left abdominal wall hidradenitis with 10 cm complex closure repair. 2. Surgical preparation right medial thigh with excision 6 cm hidradenitis cluster (70 cm2). Description of Surgical Findings:: 37 year old woman presents for evaluation of her chronic hidradenitis because of recent flare ups in her left abdominal wall and right medial thigh. She also has complaints of painful scarring with some contracture involving her left vulval area and left inguinal area. She states that her urinary stream sprays at times. She has had previous excision of hidradenitis in her bilateral axillary areas and she has noticed intermittent flare ups in these areas as well. At present, her axillary areas are stable. She has also noticed over the last several months that she has developed some clitoral hypertrophy which has led to increased discomfort after sexual intercourse. She is still on Remicade for her Crohn's disease and she states it is stable presently. Patient was informed of the risks and complications of the procedure including alternatives to surgery. These were discussed with the patient personally. Patient voices understanding and wishes to proceed. Some of the risks and complications were included in a form from the [employer] [employer]. Encouraged patient to stop smoking as it may have deleterious effects on wound healing. I used Pilar absorbable hemostat. Reference Number - [id number]. Lot Number - [id number]. Expiration - October 10, 2022. regional project manager: None Type of Anesthesia:: General Specimen's removed: 1. Left abdominal wall hidradenitis to Pathology and Microbiology. 2. Right medial thigh hidradenitis cluster to Pathology and Microbiology. Drains: None. Estimated Blood Loss (mL): 20 ml. Description of Procedure: Patient was taken to OR in supine position and was placed under general anesthesia. The left abdominal wall and right medial thigh areas were prepped and draped in the usual fashion. SCD's were placed for DVT prophylaxis. Perioperative antibiotics were given intravenously. Using xylocaine with epinephrine, the left abdominal wall and right medial thigh areas were infiltrated. After waiting 5 minutes for the anesthetic to take effect, I made a horizontal elliptical incision around the area of hidradenitis left abdominal wall. Excision was carried down deep to Lory's fascia to the abdominal wall fascia. The underlying fat necrosis was excised. No pus was seen today. Hemostasis was obtained with electrocautery. The wound was irrigated with saline. I sprayed the wound with Pilar absorbable hemostat to minimize seroma formation. Tissue that was excised was sent to Pathology for analysis to rule out carcinoma and to Microbiology for culture. A positive culture will necessitate antibiotic therapy. The size of the hidradenitis lesion was about 3 cm and was excised with a 2 mm margin in all directions thus making it a 3.4 cm excision and a 10 cm complex closure repair. The multiple layered repair was started with 2-0 Vicryl figure of eight interrupted sutures for Lory's fascial layer. The deep dermis and subcutaneous tissue was approximated with 3-0 Monocryl interrupted sutures. The skin was approximated with 3-0 Prolene simple interrupted and vertical mattress interrupted sutures. Antibiotic ointment was applied to the suture line followed by a gauze dressing. I then proceeded with surgical preparation of the hidradenitis cluster on her right medial thigh. The cluster measured 6 cm. I incised through the subcutaneous tissue until the muscular fascia was seen. A lot of fat necrosis was seen. No pus was noted today. Hemostasis was obtained with electrocautery. The wound was irrigated with saline. I sprayed the wound with Pilar absorbable hemostat to minimize seroma formation. Tissue that was excised was sent to Pathology for analysis to rule out carcinoma and to Microbiology for culture. A positive culture will necessitate antibiotic therapy. The size of the defect after excision of the hidradenitis cluster was 10 x 7 x 4 cm or 70 cm2. The wound was dressed with Mepitel nonadherent dressing followed by Kerlix gauze and Betadine followed by dry Kerlix gauze and an ABD pad compression dressing followed by an DA wrap. Patient tolerated the procedure well and was sent to PACU in satisfactory condition. Patient will be sent upstairs for continued postop care. The VAC will be applied tomorrow. Will followup [facility]. If there is a plateau in the healing process, can proceed with delayed closure with skin grafting. Will remove the sutures left abdominal wall in 2 weeks. Grafts/Implants Used: None. - Complications None. - Admit VTE Documentation VTE Present on Admission: No VTE Mechan Device Prophylaxis: SCD's VTE Pharm Prophylaxis ordered?: No Code Visit Surgery Charges CPT - 16963 ICD-10 - L73.2, Z86.14, F17.200 83034 L73.2, Z86.14, F17.200 86494 L73.2, Z86.14, F17.200 84665 S71.101A, L73.2, Z86.14, F17.200
[2018-03-06] MEDS: oxyCODONE 5 MG Tablet 10 MG PO (20:18)
[2018-03-07] MEDS: HYDROmorphone 1 MG/ML Syringe IV ×5 (00:03→14:43)
[2018-03-07 02:32] VITALS: BP 149/86; PULSE 55; RESP 18; TEMP 36.8; O2SAT 94
[2018-03-07 06:19] LABS: Hematocrit 32.9 % (37-47); Hemoglobin 9.9 g/dl (12.0-15.0); Mean Corp Hgb Conc 30.1 g/gl (32-36); Mean Corpuscular Volume 73.1 fL (81-99); Mean Platelet Vol. 11.1 fl (6.2-12.0); Platelet Count 160 K/mm3 (150-450); RBC Distribution Width CV 17.4 % (11.6-14.6); RBC Distribution Width SD 46.8 fl (35.1-43.9); White Blood Count 10.5 K/mm3 (4.4-11.0)
[2018-03-07 06:21] LABS: ALB/GLOB Ratio 0.8 RATIO (0.9-2.4); AST(SGOT) 14 U/L (15-37); Alanine Aminotransfer ALT/SGPT 22 U/L (13-56); Albumin, Serum 3.1 g/dL (3.2-5.0); Alkaline Phosphatase 69 U/L (45-117); Anion Gap 9 (5-15); BUN 9 mg/dL (7-18); BUN/Creat Ratio 9.9 RATIO (10-20); Calcium,Total 8.2 mg/dL (8.5-10.1); Chloride 107 mmol/L (98-107); Creatinine, Serum 0.91 mg/dL (0.55-1.02); EST Glomerular Filtration Rate 73 mL/min (>60); Est Glom Filt Rate - Afr Amer 89 mL/min (>60); Estimated Creatinine Clearance 93.69 ml/min; Globulin 4.1 g/dL (2.2-4.2); Glucose 121 mg/dL (74-106); Potassium 3.8 mmol/L (3.5-5.1); Protein, Total 7.2 g/dL (6.4-8.2); Sodium Level 140 mmol/L (136-145)
[2018-03-07 06:25] LABS: Scan Indicated on CBC? Y/N YES- FLAGS NOTED
[2018-03-07] MEDS: 0.9% NaCl VAD Flush 10 ML IV ×4 (06:52→14:44)
[2018-03-07 06:57] LABS: Differential Comment SCAN
[2018-03-07 07:33] VITALS: BP 156/87; PULSE 63; RESP 16; TEMP 36.6; O2SAT 100
[2018-03-07] MEDS: azaTHIOprine 50 MG Tablet PO (07:48)
[2018-03-07] MEDS: Pantoprazole Sodium 20 MG Tablet PO (07:51)
[2018-03-07] MEDS: Atenolol 25 MG Tablet PO (07:51)
[2018-03-07] MEDS: oxyCODONE 5 MG Tablet 10 MG PO (09:02)
--- NOTE | 2018-03-07 09:45 | NURSING ---
Wound Photo: Right Thigh
--- NOTE | 2018-03-07 09:46 | NURSING ---
Wound Photo: Left Lower Abdomen
[2018-03-07 10:09] VITALS: BP 155/82; PULSE 64; RESP 18; TEMP 36.7; O2SAT 98
--- NOTE | 2018-03-07 10:55 | CASEMGMT ---
RN CM Face to Face with patient for initial transition planning/care coordination assessment. RN CM introduced self and role at [facility]. Patient lying in bed, alert and oriented. Patient willing to participate in assessment and is able to answer all questions appropriately. Care providers, pharmacy, and demographics verified. Patient wishes to discharge home and would like [facility] for wound vac dressing changes. Referrals sent to [facility], [facility], [facility], A, and all denied patient either due to staffing or not in service area. Referral sent to [facility], pending response. Patient denies further needs at this time. Patient states she has no further needs or concerns at this time. CM to follow for discharge planning needs that may arise. Disposition Plan: Patient to discharge home with [facility], family support, and follow-up plans in place. Doris WINKLER, RN, CM
--- NOTE | 2018-03-07 12:45 | CASEMGMT ---
[facility] has accepted the patient with start of care for Monday with next vac change. SARAH YANG updated patient. Dr. Feliciano updated and discharge instructions faxed to [facility].
--- NOTE | 2018-03-07 13:43 | OP.PCM_ITS ---
Report of Operation Date of Procedure: 03/06/18 Pre-Operative Diagnosis: 1. 3 cm left abdominal wall hidradenitis. 2. 6 cm right medial thigh hidradenitis cluster. 3. History of MRSA. 4. Smoker. Post-Operative Diagnosis: Same. Surgery/Procedure Performed:: 1. Excision 3 cm left abdominal wall hidradenitis with 10 cm complex closure repair. 2. Surgical preparation right medial thigh with excision 6 cm hidradenitis cluster (70 cm2). Description of Surgical Findings:: 37 year old woman presents for evaluation of her chronic hidradenitis because of recent flare ups in her left abdominal wall and right medial thigh. She also has complaints of painful scarring with some contracture involving her left vulval area and left inguinal area. She states that her urinary stream sprays at times. She has had previous excision of hidradenitis in her bilateral axillary areas and she has noticed intermittent flare ups in these areas as well. At present, her axillary areas are stable. She has also noticed over the last several months that she has developed some clitoral hypertrophy which has led to increased discomfort after sexual intercourse. She is still on Remicade for her Crohn's disease and she states it is stable presently. Patient was informed of the risks and complications of the procedure including alternatives to surgery. These were discussed with the patient personally. Patient voices understanding and wishes to proceed. Some of the risks and complications were included in a form from the [place] [employer]. Encouraged patient to stop smoking as it may have deleterious effects on wound healing. I used Pilar absorbable hemostat. Reference Number - [id number]. Lot Number - [id number]. Expiration - October 10, 2022. washhouse hand: None Type of Anesthesia:: General Specimen's removed: 1. Left abdominal wall hidradenitis to Pathology and Microbiology. 2. Right medial thigh hidradenitis cluster to Pathology and Microbiology. Drains: None. Estimated Blood Loss (mL): 20 ml. Description of Procedure: Patient was taken to OR in supine position and was placed under general anesthesia. The left abdominal wall and right medial thigh areas were prepped and draped in the usual fashion. SCD's were placed for DVT prophylaxis. Perioperative antibiotics were given intravenously. Using xylocaine with epinephrine, the left abdominal wall and right medial thigh areas were infiltrated. After waiting 5 minutes for the anesthetic to take effect, I made a horizontal elliptical incision around the area of hidradenitis left abdominal wall. Excision was carried down deep to Lory's fascia to the abdominal wall fascia. The underlying fat necrosis was excised. No pus was seen today. Hemostasis was obtained with electrocautery. The wound was irrigated with saline. I sprayed the wound with Pilar absorbable hemostat to minimize seroma formation. Tissue that was excised was sent to Pathology for analysis to rule out carcinoma and to Microbiology for culture. A positive culture will necessitate antibiotic therapy. The size of the hidradenitis lesion was about 3 cm and was excised with a 2 mm margin in all directions thus making it a 3.4 cm excision and a 10 cm complex closure repair. The multiple layered repair was started with 2-0 Vicryl figure of eight interrupted sutures for Lory's fascial layer. The deep dermis and subcutaneous tissue was approximated with 3-0 Monocryl interrupted sutures. The skin was approximated with 3-0 Prolene simple interrupted and vertical mattress interrupted sutures. Antibiotic ointment was applied to the suture line followed by a gauze dressing. I then proceeded with surgical preparation of the hidradenitis cluster on her right medial thigh. The cluster measured 6 cm. I incised through the subcutaneous tissue until the muscular fascia was seen. A lot of fat necrosis was seen. No pus was noted today. Hemostasis was obtained with electrocautery. The wound was irrigated with saline. I sprayed the wound with Pilar absorbable hemostat to minimize seroma formation. Tissue that was excised was sent to Pathology for analysis to rule out carcinoma and to Microbiology for culture. A positive culture will necessitate antibiotic therapy. The size of the defect after excision of the hidradenitis cluster was 10 x 7 x 4 cm or 70 cm2. The wound was dressed with Mepitel nonadherent dressing followed by Kerlix gauze and Betadine followed by dry Kerlix gauze and an ABD pad compression dressing followed by an DA wrap. Patient tolerated the procedure well and was sent to PACU in satisfactory condition. Patient will be sent upstairs for continued postop care. The VAC will be applied tomorrow. Will followup at the [facility]. If there is a plateau in the healing process, can proceed with delayed closure with skin grafting. Will remove the sutures left abdominal wall in 2 weeks. Grafts/Implants Used: None. - Complications None. - Admit VTE Documentation VTE Present on Admission: No VTE Mechan Device Prophylaxis: SCD's VTE Pharm Prophylaxis ordered?: No Code Visit Surgery Charges CPT - 32921 ICD-10 - L73.2, Z86.14, F17.200 61484 L73.2, Z86.14, F17.200 18827 L73.2, Z86.14, F17.200 56104 S71.101A, L73.2, Z86.14, F17.200
--- NOTE | 2018-03-07 13:43 | PCM.PN.SRG ---
Subjective: Postop #1 Patient complains of wound pain. VAC applied today. - Physical Exam General: Alert, Oriented x3 HEENT: PERRLA, EOMI Oral: Moist Mucosa Neck: Supple Abdomen: Soft, Non-Distended Skin: Ulcer/ Wound - right medial thigh wound is stable. No bleeding noted. VAC applied today., Incision - left abdominal wall incision dry and intact. Neurological: Cranial nerves II-XII grossly intact Psych/Mental Status: Normal Affect, Appropriate Vital Signs Temp Pulse Resp BP Pulse Ox 98.1 F 64 18 155/82 H 98 03/07/18 10:09 03/07/18 10:09 03/07/18 10:09 03/07/18 10:09 03/07/18 10:09 Oxygen Delivery Method Room Air Weight: 339 lb 11.717 oz Body Mass Index (BMI) 47.3 Intake and Output for Last 24 Hours 03/05/18 03/06/18 03/07/18 23:59 23:59 23:59 Intake Total 2453 / 2453 2499 / 2499 Output Total 600 / 600 2350 / 2350 Balance 1853 / 1853 149 / 149 Microbiology Past 72 Hours 03/06/18 09:50 Gram Stain - Final Tissue - Leg, Right Wound Culture - Preliminary No growth-Final to follow 03/06/18 09:50 Gram Stain - Final Tissue - Abdominal Wound Culture - Preliminary No growth-Final to follow Laboratory Tests Past 24 Hrs 03/07/18 03/07/18 03/07/18 05:40 05:40 13:20 WBC 10.5 RBC 4.50 Hgb 9.9 L Hct 32.9 L MCV 73.1 L MCH 22.0 L MCHC 30.1 L RDW 17.4 H RDW Differential 46.8 H Plt Count 160 MPV 11.1 Differential Comment SCAN Sodium 140 Potassium 3.8 Chloride 107 Carbon Dioxide 24.0 Anion Gap 9 BUN 9 Creatinine 0.91 Estim Creat Clear Calc 93.69 Est GFR (MDRD) Af Amer 89 Est GFR (MDRD) Non-Af 73 BUN/Creatinine Ratio 9.9 L Glucose 121 H Calcium 8.2 L Total Bilirubin 0.30 AST 14 L ALT 22 Alkaline Phosphatase 69 Total Protein 7.2 Albumin 3.1 L Globulin 4.1 Albumin/Globulin Ratio 0.8 L Prealbumin 15.0 L Vancomycin Trough Pending Medical Necessity - Tobacco Use Smoking Status: Current every day smoker Assessment/Plan All Active Problems (Last Updated 01/17/18 @ 09:42 by Marli Chowdary) Open wound of left thigh (Acute) Open wound of inguinal region with complication (Acute) Hidradenitis (Acute) 1. Left abdominal wall hidradenitis and right medial thigh hidradenitis cluster. 2. Open surgical hidradenitis wound left abdominal wall. 3. Open surgical hidradenitis wound right medial thigh. 4. History of MRSA. 5. Smoker. 6. s/p excision 3 cm left abdominal wall hidradenitis with 10 cm complex closure repair and surgical preparation right medial thigh with excision 6 cm hidradenitis cluster (70 cm2). Right medial thigh wound is stable. No bleeding noted. VAC applied today. To be changed three times per week at 150 mmHg continuous suction. VAC has been approved for home. Home Health to assist with VAC changes. Operative cultures are pending. Will stop the Vancomycin and discharge her home on Minocycline. Prealbumin was 15.0. Encourage nutritional supplementation with protein to help the healing process. Discharge home today. Followup office one week. Wrote scripts for Minocycline for 30 days and 2 refills for flare-ups in the future and for Diflucan for 30 days and 2 refills. Wrote script for Acidophilus (60 tabs) and 2 refills. Wrote scripts for Percocet for pain (60 tabs) and for Valium for spasm (30 tabs) and for Duragesic Patch for pain, 50mcg (2 patches). Wrote script for Neurontin for burning nerve pain (60 tabs) and a refill. Wrote script for Colace for constipation (60 tabs) and 2 refills. She may shower on the days the vac is changed. Elevate right leg when sitting. Minimize standing. Encouraged patient to stop smoking as it may have deleterious effects on wound healing.
[2018-03-07 14:08] LABS: Vancomycin, Trough Level 9.8 ug/mL (5.0-15.0)
--- NOTE | 2018-03-07 14:13 | DCINST_ITS ---
You will use the following diet at home:: No restrictions, Other - encourage nutritional supplementation with protein to help the healing process. Discharge Activity: May not drive while taking narcotic pain medications., May Shower - on the days the vac is changed., - - elevate right leg when sitting. minimize standing. ok to ambulate. May shower in (days): 2 - on the days the vac is changed. May resume sexual activity in: No Restrictions Weight Bearing Status: Weight bearing as tolerated Keep extremity elevated above heart level: Right Leg Call your doctor if your incision/area has: Continuous Slow Oozing, Sudden Increased Bleeding, Increased Pain/ Swelling, Increased Redness, Foul Smelling Discharge, Swelling at the incision site Call your doctor if you observe: Fever of 101 or Higher, Coldness, Increased Pain, Shortness of breath, Chest pain, Calf discomfort, Uncontrolled pain Suture Line Care: - - apply antibiotic ointment to suture line left abdominal wall daily. vac changes to right thigh three times per week at 150 mmHg continuous suction. Change Dressing in (Days):: 2 - vac changes three times per week. Cleanse incision/area with: Soap & Water - may cleanse the right thigh wound with soap and water at the time of the vac change., - - may take a shower on the days the vac is changed. Additional Dressing/Incision Instructions:: Home Health to assist with the vac changes to right thigh three times per week at 150 mmHg continuous suction. may cleanse the wound with soap and water at the time of the vac change. Allergies/Adverse Reactions: Allergies No Known Allergies Allergy (Verified 03/06/18 07:05) Medications to take at Discharge Azathioprine [Imuran] 50 mg PO DAILY@0800 11/20/12 Infliximab [Remicade] 5 mg IV X1 11/20/12 Lamivudine [Epivir] 100 mg PO DAILY 11/20/12 Omeprazole [Prilosec] 20 mg PO DAILY 10/24/13 Atenolol [Tenormin (beta rashaad)] 25 mg PO DAILY 02/17/18 Lorazepam [Ativan] 1 mg PO DAILY PRN PRN 03/02/18 Nicotine [Nicoderm] 14 mg TRANSDERM. DAILY 03/02/18 Diazepam [Valium] 5 mg PO 4X/DAY PRN PRN #30 tab 03/07/18 Docusate Sodium [Colace] 100 mg PO BID #60 cap 03/07/18 Fluconazole [Diflucan] 100 mg PO DAILY #30 tab 03/07/18 Gabapentin [Neurontin] 300 mg PO BID #60 cap 03/07/18 Lactobacillus Acidophilus/Fos [Acidophilus Probiotic Tablet] 1 ea PO BID #60 tab 03/07/18 Minocycline [Minocin] 100 mg PO BID #60 cap 03/07/18 Oxycodone HCl/Acetaminophen [Percocet 5/325] 1 - 2 tab PO 4X/DAY PRN PRN 7 Days #60 tab 03/07/18 fentaNYL patch [Duragesic patch] 50 mcg TRANSDERM. Q72H 6 Days #2 patch 03/07/18 proMETHazine tablet [Phenergan tablet] 25 mg PO Q4H PRN PRN tablet 03/07/18 The following prescriptions were given: Diazepam [Valium] 5 mg PO 4X/DAY PRN PRN #30 tab PRN Reason: Spasms fentaNYL patch [Duragesic patch] 50 mcg TRANSDERM. Q72H 6 Days #2 patch Fluconazole [Diflucan] 100 mg PO DAILY #30 tab Oxycodone HCl/Acetaminophen [Percocet 5/325] 1 - 2 tab PO 4X/DAY PRN PRN 7 Days #60 tab PRN Reason: Pain Docusate Sodium [Colace] 100 mg PO BID #60 cap Gabapentin [Neurontin] 300 mg PO BID #60 cap Lactobacillus Acidophilus/Fos [Acidophilus Probiotic Tablet] 1 ea PO BID #60 tab Minocycline [Minocin] 100 mg PO BID #60 cap Orders to be completed after discharge: ,Urine Time Frame: 03/06/18, Location: Laboratory Primary Care Physician: Araseli Bueno MD [Primary Care Provider] - Test Results: Test results from this visit will be discussed in further detail at your follow- up appointment, if applicable. Please Follow Up With: Maikol Feliciano MD When: one week. call [phone] for appt. Proposed Discharge Date: 03/07/18
[2018-03-07 14:45] VITALS: BP 144/82; PULSE 61; RESP 16; TEMP 37.1; O2SAT 98
--- NOTE | 2018-03-07 16:40 | CASEMGMT ---
RN CM Face to Face with patient for initial transition planning/care coordination assessment. RN CM introduced self and role at [facility]. Patient lying in bed, alert and oriented. Patient willing to participate in assessment and is able to answer all questions appropriately. Care providers, pharmacy, and demographics verified. Patient wishes to discharge home and would like [facility] for wound vac dressing changes. Referrals sent to [facility], [facility], [facility], A, and all denied patient either due to staffing or not in service area. Referral sent to [facility], pending response. Patient denies further needs at this time. Patient states she has no further needs or concerns at this time. CM to follow for discharge planning needs that may arise. Disposition Plan: Patient to discharge home with [facility], family support, and follow-up plans in place. Doris WINKLER, RN, CM
--- OUTSIDE RECORDS SUMMARY | 2018-05-08 06:53 | XMS RPT_ITS ---
:1980 Author Organization OHIP Support Name Relationship Address Phone GISSEL, CHRISTIANO Unavailable [address] + [place] [address] GISSEL, CHRISTIANO Unavailable [address] + [place] [address] KIN KILGORE Unavailable [address] + [place] [address] D Unavailable Unavailable Unavailable GISSEL, CHRISTIANO Unavailable [address] + [place] [address] KIN KILGORE Unavailable [address] + [place] [address] D Unavailable Unavailable Unavailable GISSEL, CHRISTIANO Unavailable [address] + [place] [address] KIN KILGORE Unavailable [address] + [place] [address] D Unavailable Unavailable Unavailable GISSEL, CHRISTIANO Unavailable [address] + [place] [address] KIN KILGORE Unavailable [address] + [place] [address] D Unavailable Unavailable Unavailable GISSEL, CHRISTIANO Unavailable [address] + [place] [address] JAME MAVIS Unavailable [address] + [place] [address] D Unavailable Unavailable Unavailable GISSEL, CHRISTIANO Unavailable [address] + [place] [address] JAME MAVIS Unavailable [address] + [place] [address] D Unavailable Unavailable Unavailable GISSEL, CHRISTIANO Unavailable [address] + [place] [address] GISSEL, CHRISTIANO Unavailable [address] + [place] [address] GISSEL, CHRISTIANO Unavailable [address] + [place] [address] BROWN, MAVIS Unavailable [address] + [place] [address] D Unavailable Unavailable Unavailable GISSEL, CHRISTIANO Unavailable [address] [phone] [place] [address] BROWN, MAVIS Unavailable [address] + [place] [address] D Unavailable Unavailable Unavailable GISSEL, CHRISTIANO Unavailable [address] [phone] [place] [address] BROWN, MAVIS Unavailable [address] + [place] [address] D Unavailable Unavailable Unavailable GISSEL, CHRISTIANO Unavailable [address] [phone] [place] [address] Care Team Providers Name Role Phone BRADEN MILLER MD Attending Unavailable ASHLEIGH JACKSON, DR. EPPS Primary Care Unavailable ALMA JACKSON, DR. JONATHAN Burgess Attending Unavailable ASHLEIGH JACKSON, DR. EPPS Primary Care Unavailable TASIAGOTT, ABHI MONTILLA Referring Unavailable BAGGOTT, ABHI MONTILLA Referring Unavailable TALAMPAS, SUPRIYA D Referring Unavailable TALAMPAS, SUPRIYA D Attending Unavailable BAGGOTT, ABHI MONTILLA Referring Unavailable BAGGOTT, ABHI MONTILLA Referring Unavailable TALAMPAS, SUPRIYA D Referring Unavailable LESLEY LOPEZ (TELEVISION CABINET FINISHER) Attending Unavailable BAGGOTT, ABHI MONTILLA Referring Unavailable BAGGOTT, ABHI MONTILLA Referring Unavailable TALAMPAS, SUPRIYA D Attending Unavailable MAURO KENDRICK (TELEVISION CABINET FINISHER) Referring Unavailable TALAMPAS, SUPRIYA D Referring Unavailable BAGGOTT, ABHI MONTILLA Referring Unavailable MIKAELA HERNANDEZ (END MATCHER) Referring Unavailable BAGGOTT, ABHI MONTILLA Attending Unavailable TALAMPAS, SUPRIYA D Attending Unavailable BAGGOTT, ABHI MONTILLA Attending Unavailable BAGGOTT, ABHI MONTILLA Referring Unavailable BAGGOTT, ABHI MONTILLA Referring Unavailable THORPEMIKAELA (END MATCHER) Referring Unavailable BAGGOTT, ABHI MONTILLA Referring Unavailable BAGGOTT, ABHI MONTILLA Referring Unavailable Slaby, Jonathan Attending Unavailable Talampas, Supriya Referring Unavailable Talampas, Supriya Primary Care Unavailable Kita Vogt Attending Unavailable Slaby, Jonathan Attending Unavailable Slaby, Jonathan Referring Unavailable Talampas, Supriya Primary Care Unavailable Slaby, Jonathan Consulting Unavailable Slaby, Jonathan Attending Unavailable Slaby, Jonathan Referring Unavailable Talampas, Supriya Primary Care Unavailable Slaby, Jonathan Consulting Unavailable Talampas, Supriya Primary Care Unavailable Ahmed, Josh Attending Unavailable Slaby, Jonathan Attending Unavailable Slaby, Jonathan Referring Unavailable Talampas, Supriya Primary Care Unavailable Talampas, Supriya Primary Care Unavailable Vogt, Kita Attending Unavailable Talampas, Supriya Primary Care Unavailable Silverio Morejon Attending Unavailable Slaby, Jonathan Attending Unavailable Talampas, Supriya Referring Unavailable PROBLEMS PROBLEMS DATE TYPE CONDITION / CODE ATTENDING STATUS SOURCE 03/07/2018 Unknown G89.18 - Other acute Jonathan Feliciano Active [facility]ural [facility] / G89.18(ICD-10) Hospital Repository 02/22/2018 Active Unknown / NA Active [facility] UNK(Unknown) [facility] Main [place] Repository 02/18/2018 Unknown R10.9 - Unspecified Kita Vogt Active [facility] abdominal pain / Community R10.9(ICD-10) Hospital Repository 11/10/2016 Active Intestinal NA Active [facility] malabsorption, Clinic Main unspecified / [place] K90.9(ICD-10) Repository 03/17/2012 Active Vitamin D NA Active [facility] deficiency, Clinic Main unspecified / [place] E55.9(ICD-10) Repository 11/24/2017 Active Crohn's disease of NA Active [facility] small intestine Clinic Main without [place] complications / Repository K50.00(ICD-10) 11/24/2017 Active Essential (primary) NA Active [facility] hypertension / Clinic Main I10(ICD-10) [facility] Repository 11/03/2017 Unknown K50.90 - Crohn's Kita Vogt Active [facility] disease, Community unspecified, without Hospital complications / Repository K50.90(ICD-10) 05/04/2017 Active Gastro-esophageal ABHI RAMÍREZ Active [facility] reflux disease [facility] without esophagitis [place] / K21.9(ICD-10) Repository 04/27/2017 Active Iron deficiency NA Active [facility] anemia, unspecified Clinic Main / D50.9(ICD-10) [facility] Repository 04/27/2017 Active Other cigar packer NA Active [facility] (current) drug Clinic Main therapy / [facility] Z79.899(ICD-10) Repository 06/26/2017 Unknown R06.02 - Shortness Josh Alarcon Active [facility] of breath / Community R06.02(ICD-10) Hospital Repository PROCEDURES PROCEDURES No Procedure Records FoundRESULTS RESULTS HISTORY AND PHYSICAL Observed: 03/07/2018 Status: F Source: IAEGER EXAM 9:28 PM [facility] REPOSITORY [facility] Medical Records Department [address] [place] [address] History and Physical 03/05/18 2151 MR#: [id number] Acct: [id number] Name: NATIONEMILY DAVIS Rep #: [id number] : 1980 37 From: Jonathan Feliciano MD PCP: Supriya Sotelo MD Status: DEP [facility] Y Location: [facility] History and Physical Date of Admission: 03/06/18 HISTORY OF PRESENT ILLNESS 37 year old woman presents for evaluation of her chronic hidradenitis because of recent flare ups in her left abdominal wall and right medial thigh. She also has complaints of painful scarring with some contracture involving her left vulval area and left inguinal area. She states that her urinary stream sprays at times. She has had previous excision of hidradenitis in her bilateral axillary areas and she has noticed intermittent flare ups in these areas as well. At present, her axillary areas are stable. She has also noticed over the last several months that she has developed some clitoral hypertrophy which has led to increased discomfort after sexual intercourse. She is still on Remicade for her Crohn's disease and she states it is stable presently. She presents today for further evaluation and treatment. PAST MEDICAL HISTORY Acute anxiety Anemia Crohns disease GERD (gastroesophageal reflux disease) Hepatitis B Hidradenitis suppurativa History of MRSA infection IBS (irritable bowel syndrome) Obesity Sinus problem Vitamin deficiency High blood pressure PAST SURGICAL HISTORY Hidradenitis suppurativa POWERPORT SMALL BOWEL SURGERIES Surgically constructed arteriovenous fistula ALLERGIES No Known Allergies MEDICATIONS Azathioprine [Imuran] Infliximab [Remicade] Lamivudine [Epivir] Omeprazole [Prilosec] minocycline FAMILY HISTORY Father - Hypertension, Anemia Mother - Arthritis, Hypertension, Anemia Brother - Asthma, History of psychiatric care Son - Asthma Daughter - Severe allergy Aunt -Hypertension Uncle - Arthritis, Hypertension, Asthma Grandmother - Arthritis, Asthma, Hypertension Other - Breast cancer, Cancer, Cervical cancer, Colon cancer SOCIAL HISTORY Smoking Status: Current every day smoker second hand exposure: Yes alcohol intake: current alcohol intake frequency: a few times a month Alcohol type: wine substance use type: does not use REVIEW OF SYSTEMS General - Denies fever and weight loss. Has fatigue. Has history of MRSA. Eyes - Denies cataracts and glaucoma. ENT - Denies nasal congestion and sore throat. Endocrine - Denies excessive thirst and urination. Has hepatitis. Skin - Denies skin cancer. Has hidradenitis flare ups involving left abdominal wall and right medial thigh and bilateral axillary areas. Has painful scar contracture left vulval and inguinal areas from previous hidradenitis surgery. Musculoskeletal - Denies joint pain, joint stiffness and back pain. Denies muscle weakness and arthritis. Neuro - Denies headaches. Cardiovascular - Denies chest pain, fatigue, and shortness of breath with exertion. Psych - Has anxiety. Denies depression. Respiratory - Denies chronic cough and shortness of breath. Patient is a smoker. Gastrointestinal - Denies nausea, vomiting and constipation. Has diarrhea. Has Crohn's disease. Hematologic - Denies abnormal bruising and bleeding. Genitourinary - Denies hematuria and urinary frequency. PHYSICAL EXAMINATION General - Alert and Oriented. HEENT - PERRL. EOMI. Throat is clear. Neck - Supple and nontender. No cervical adenopathy. Lungs - Clear to auscultation. Heart - Regular rate and rhythm. Abdomen - Soft and nondistended. Has an area of induration and redness left abdominal wall. In the left vulval and left inguinal areas are scar contractures from previous hidradenitis surgery. Tender to palpation. No ulceration. No evidence of infection. Measures 3 cm. No fluctuance. No purulent drainage. Some tenderness to palpation. Genital - There is clitoral hypertrophy that has some swelling and is tender to palpation. There is hidradenitis scar contracture left vulva involving the mons pubis and genitocrural area. Tender to palpation. Extremities - FROM. No axillary adenopathy. No inguinal adenopathy. Radial pulses are palpable. Dorsalis pedis pulses are palpable. In the right medial thigh is a cluster of induration and redness that is tender to palpation. Measures 6 cm. No fluctuance. No purulent drainage. In her bilateral axillary areas are scattered areas of induration. Nontender at this time. No evidence of infection at present. The right axillary area measures 8 cm. The left axillary area measures 6 cm. Neuro - CN II-XII grossly intact. Psych - Normal mood and affect. ASSESSMENT 1. Left abdominal wall hidradenitis. 2. Right medial thigh hidradenitis cluster. 3. Hidradenitis scar contracture left vulva involving the mons pubis and genitocrural area. 4. Hidradenitis scar contracture left inguinal area. 5. Recurrent bilateral axillary hidradenitis, stable. 6. Clitoral hypertrophy. 7. History of MRSA. 8. Smoker. PLAN For her recent flare ups of hidradenitis, will begin Doxycycline antibiotics. Will send script to her Pharmacy. This will temporize her flare ups until surgical excision is done. The painful areas on her right medial thigh and left abdominal wall will be done first. Will leave the wounds open and begin wound care with the VAC or with daily Silver dressing changes. Will send tissue to Pathology for analysis to rule out carcinoma and to Microbiology for culture. A positive culture will necessitate antibiotic therapy. After healing has occurred, will address the hidradenitis scar contractures in her left vulval area and left inguinal area. After excision of the scar contracture, will proceed with skin grafting. This should improve her intermittent urinary spraying. Her axillary areas are stable at this time. With regard to her clitoral hypertrophy, she may benefit from Urogynecological therapy. There is a therapist in [place]. Will set up that appointment. The therapist may also know referrals for surgical treatment of the clitoral hypertrophy. This would necessitate evaluation and treatment at a tertiary center with someone who specializes in aesthetic genital surgery or gender reassignment surgery. She would like to wait if possible to see if she can get symptomatic relief from her therapy before proceeding with surgical excision of her hidradenitis. Followup after her therapy. Encouraged patient to stop smoking as it may have deleterious effects on wound healing. 01/23/19 2128 <Electronically signed by Jonathan Feliciano MD> Date Jonathan Feliciano MD Cosigner Signature: Date (if applicable) CC: Jonathan Feliciano MD; Supriya Sotelo MD; [facility] Signed DISCHARGE INSTRUCTION Observed: 03/07/2018 Status: F Source: IAEGER 2:15 PM [facility] REPOSITORY [facility] Medical Records Department [address] [place] [address] [place] [address] Instructions for Home/Discharge Instructions 03/07/18 1409 MR#: [id number] Acct: [id number] Name: EMILY ORTIZ Rep #: [id number] : 1980 37 From: Jonathan Feliciano MD PCP: Supriya Sotelo MD Status: REG [facility] You will use the following diet at home:: No restrictions, Other - encourage nutritional supplementation with protein to help the healing process. Discharge Activity: May not drive while taking narcotic pain medications., May Shower - on the days the vac is changed., - - elevate right leg when sitting. minimize standing. ok to ambulate. May shower in (days): 2 - on the days the vac is changed. May resume sexual activity in: No Restrictions Weight Bearing Status: Weight bearing as tolerated Keep extremity elevated above heart level: Right Leg Call your doctor if your incision/area has: Continuous Slow Oozing, Sudden Increased Bleeding, Increased Pain/ Swelling, Increased Redness, Foul Smelling Discharge, Swelling at the incision site Call your doctor if you observe: Fever of 101 or Higher, Coldness, Increased Pain, Shortness of breath, Chest pain, Calf discomfort, Uncontrolled pain Suture Line Care: - - apply antibiotic ointment to suture line left abdominal wall daily. vac changes to right thigh three times per week at 150 mmHg continuous suction. Change Dressing in (Days):: 2 - vac changes three times per week. Cleanse incision/area with: Soap AND Water - may cleanse the right thigh wound with soap and water at the time of the vac change., - - may take a shower on the days the vac is changed. Additional Dressing/Incision Instructions:: Home Health to assist with the vac changes to right thigh three times per week at 150 mmHg continuous suction. may cleanse the wound with soap and water at the time of the vac change. Allergies/Adverse Reactions: Allergies No Known Allergies Allergy (Verified 03/06/18 07:05) Medications to take at Discharge Azathioprine [Imuran] 50 mg PO DAILY@0800 11/20/12 Infliximab [Remicade] 5 mg IV X1 11/20/12 Lamivudine [Epivir] 100 mg PO DAILY 11/20/12 Omeprazole [Prilosec] 20 mg PO DAILY 10/24/13 Atenolol [Tenormin (beta rashaad)] 25 mg PO DAILY 02/17/18 Lorazepam [Ativan] 1 mg PO DAILY PRN PRN 03/02/18 Nicotine [Nicoderm] 14 mg TRANSDERM. DAILY 03/02/18 Diazepam [Valium] 5 mg PO 4X/DAY PRN PRN #30 tab 03/07/18 Docusate Sodium [Colace] 100 mg PO BID #60 cap 03/07/18 Fluconazole [Diflucan] 100 mg PO DAILY #30 tab 03/07/18 Gabapentin [Neurontin] 300 mg PO BID #60 cap 03/07/18 Lactobacillus Acidophilus/Fos [Acidophilus Probiotic Tablet] 1 ea PO BID #60 tab 03/07/18 Minocycline [Minocin] 100 mg PO BID #60 cap 03/07/18 Oxycodone HCl/Acetaminophen [Percocet 5/325] 1 - 2 tab PO 4X/DAY PRN PRN 7 Days #60 tab 03/07/18 fentaNYL patch [Duragesic patch] 50 mcg TRANSDERM. Q72H 6 Days #2 patch 03/07/18 proMETHazine tablet [Phenergan tablet] 25 mg PO Q4H PRN PRN tablet 03/07/18 The following prescriptions were given: Diazepam [Valium] 5 mg PO 4X/DAY PRN PRN #30 tab PRN Reason: Spasms fentaNYL patch [Duragesic patch] 50 mcg TRANSDERM. Q72H 6 Days #2 patch Fluconazole [Diflucan] 100 mg PO DAILY #30 tab Oxycodone HCl/Acetaminophen [Percocet 5/325] 1 - 2 tab PO 4X/DAY PRN PRN 7 Days #60 tab PRN Reason: Pain Docusate Sodium [Colace] 100 mg PO BID #60 cap Gabapentin [Neurontin] 300 mg PO BID #60 cap Lactobacillus Acidophilus/Fos [Acidophilus Probiotic Tablet] 1 ea PO BID #60 tab Minocycline [Minocin] 100 mg PO BID #60 cap Orders to be completed after discharge: ,Urine Time Frame: 03/06/18, Location: Laboratory Primary Care Physician: Supriya Sotelo MD [Primary Care Provider] - Test Results: Test results from this visit will be discussed in further detail at your follow-up appointment, if applicable. Please Follow Up With: Jonathan Feliciano MD When: one week. call [phone] for appt. Proposed Discharge Date: 03/07/18 03/07/18 1415 <Electronically signed by Jonathan Feliciano MD> Date Jonathan Feliciano MD CC: Supriya Sotelo MD; [facility] Signed VANCOMYCIN, TROUGH Collected: 03/07/2018 Status: F Source: IAEGER LEVEL 1:20 PM [facility] REPOSITORY Order Comment: Has pt arrived? Y Time Medication is to be Given? 1400 TYPE CODE TESTS RESULT OUT OF RANGE REFERENCE UNITS LAB L501.8820 5.0-15.0 ug/mL Normal VANCO, TROUGH 9.8 Result Comment: VANCOMYCIN STANDARED DRUG THERAPY TROUGH LEVEL: 5.0 - 15.0 mg/L VANCOMYCIN HIGH INTENSITY THERAPY TROUGH LEVEL: 15.0 - 20.0 mg/L High Intensity therapy recommended for serious life threatening infections include: - Meningitis -Endocarditis -Pneumonia (Ventilator/Healtcare Associated) -Sepsis PLEASE CONTACT PHARMACY SERVICES (#[id number]) FOR INTERPRETATION OF RESULTS. Performed By: #### L501.8820 #### [facility] [place], [address] COMPREHENSIVE METABOLIC Collected: 03/07/2018 Status: F Source: JAMIE ABDI 5:40 AM [facility] REPOSITORY Order Comment: SPECIMEN OBTAINED FROM LINE DRAW TYPE CODE TESTS RESULT OUT OF RANGE REFERENCE UNITS LAB L501.0100 74-106 mg/dL High GLU 121 Result Comment: Fasting Glucose result from 100 to 125 mg/dL suggests IMPAIRED HOMEOSTASIS per A.D.A. criteria. Please note revised GLUCOSE reference range effective 2017. LAB L501.1000 7-18 mg/dL Normal BUN 9 LAB L501.1100 0.55-1.02 mg/dL Normal CREAT,SERUM 0.91 Result Comment: The validity of the calculated GFR AND GFRAA in patients over 70 years has not been determined. Clinical correlation is essential. LAB L501.1110 >60 mL/min Normal EST GFR 73 Result Comment: Non- GFR Calc LAB L501.1115 >60 mL/min Normal EST GFR - AA 89 Result Comment: GFR Calc LAB L501.1255 ml/min Normal Estimated CRCL 93.69 LAB L501.1300 10-20 RATIO Low BUN/CRE 9.9 LAB L501.1500 6.4-8. g/dL Normal 2 T PROT 7.2 LAB L501.1800 3.2-5. g/dL Low 0 ALB 3.1 LAB L501.1950 2.2-4. g/dL Normal 2 GLOB 4.1 LAB L501.2000 0.9-2. RATIO Low 4 A/G 0.8 LAB L501.2200 8.5-10 mg/dL Low .1 CA 8.2 LAB L501.4100 15-37 U/L Low AST 14 LAB L501.4305 45-117 U/L Normal ALK P 69 LAB L501.4405 13-56 U/L Normal ALT 22 LAB L501.4600 0.20-1 mg/dL Normal .00 T BILI 0.30 LAB L501.5300 136-14 mmol/L Normal 5 NA 140 LAB L501.5600 3.5-5. mmol/L Normal 1 K 3.8 LAB L501.5900 98-107 mmol/L Normal CL 107 LAB L501.6100 21.0-3 mmol/L Normal 2.0 CO2 24.0 LAB L501.6200 5-15 Normal GAP 9 Performed By: #### L500.4050, L506.0500 #### [facility] [address] [place], [place], [id number] PREALBUMIN Collected: 03/07/2018 Status: F Source: JAMIE 5:40 AM [facility] REPOSITORY Order Comment: SPECIMEN OBTAINED FROM LINE DRAW TYPE CODE TESTS RESULT OUT OF REFERENCE UNITS RANGE LAB L506.0500 20.0-40.0 mg/dL Low PREALBUMIN 15.0 Performed By: #### L500.4050, L506.0500 #### [facility] [address] [place], [address] CBC-COMPLETE BLOOD CNT Collected: 03/07/2018 Status: F Source: JAMIE NO DIFF 5:40 AM [facility] REPOSITORY Order Comment: SPECIMEN OBTAINED FROM LINE DRAW TYPE CODE TESTS RESULT OUT OF RANGE REFERENCE UNITS LAB L100.1000 4.4-11.0 K/mm3 Normal WBC 10.5 LAB L100.1200 4.2-5.4 M/mm3 Normal RBC 4.50 LAB L100.1300 12.0-15.0 g/dl Low HGB 9.9 LAB L100.1400 37-47 % Low HCT 32.9 LAB L100.1500 81-99 fL Low MCV 73.1 LAB L100.1600 27.0-32.0 pg Low MCH 22.0 LAB L100.1700 32-36 g/gl Low MCHC 30.1 LAB L100.1810 11.6-14.6 % High RDW CV 17.4 LAB L100.1820 35.1-43.9 fl High RDW SD 46.8 LAB L100.1900 150-450 K/mm3 Normal PLT 160 LAB L100.2000 6.2-12.0 fl Normal MPV 11.1 Performed By: #### L100.0500, L100.4500 #### [facility] [address] [place], [place], [address] DIFFERENTIAL COMMENT Collected: 03/07/2018 Status: F Source: IAEGER 5:40 AM [facility] REPOSITORY Order Comment: SPECIMEN OBTAINED FROM LINE DRAW TYPE CODE TESTS RESULT OUT OF RANGE REFERENCE UNITS LAB L100.4500 Normal SMEAR COMMENT SCAN Result Comment: LARGE PLATELETS OBSERVED. Performed By: #### L100.0500, L100.4500 #### [facility] [address] [place], [address] Observed: 03/06/2018 Status: P Source: JAMIE CULTURE, DEEP WOUND 9:50 AM [facility] REPOSITORY Order Date: 09/14/16 Comments: SOFT TISSUE ABDOMEN Gram Stain Gram Stain 2+ Red Blood Cells No organisms seen Wound Culture No growth aerobically. Cult, Anaerobic No growth in 48 hours. Performed By: #### M100.1500 #### [facility] [address] [place], [address] Observed: 03/06/2018 Status: P Source: JAMIE CULTURE, DEEP WOUND 9:50 AM [facility] REPOSITORY Order Date: 09/14/16 Comments: SOFT TISSUE RIGHT MEDIAL THIGH Gram Stain Gram Stain No organisms seen Wound Culture No growth aerobically. Cult, Anaerobic No growth in 48 hours. Performed By: #### M100.1500 #### [facility] [address] [place], [address] ,URINE Collected: 03/06/2018 Status: F Source: JAMIE 6:55 AM [facility] REPOSIT[facility] TYPE CODE TESTS RESULT OUT OF REFERENCE UNITS RANGE LAB L400.8000 Negative Normal HCGUQUAL Negative Result Comment: Very dilute urine specimens, as indicated by a low specific gravity, may not contain school admissions representative levels of hCG. If is still suspected, a first morning urine specimen should be collected 48 hours later and tested. Performed By: #### L400.7600 #### [facility] [address] [place], [address] OBSOLETE Observed: 03/06/2018 Status: COMPLETED Source: NELY 12:00 AM [facility] REPOSITORY Refill (INTMWS) EMILY ORTIZ ([id number]) 1980 F Date Time Provider Department 03/06/18 SUPRIYA SOTELO INTMWS During your visit today, we recorded the following information about you: Carrie Yates RN, RN 03/06/2018 4:24 PM Signed Patient has been identified by name and date of : Yes Pharmacy phones for refill(s): Pending Prescriptions Disp Refills OMEPRAZOLE 20 MG CAPSULE,DELAYED RELEASE 30 capsule 11 Sig: Take 1 capsule by mouth daily before breakfast. 1/2 hr before meal. EDYTA: No Date of last office visit in primary care: 11/24/17, next 04/30/18 Last 2 Encounter Wt Readings: Date: Wt: 01/11/2018 151.5 kg (334 lb) 11/24/2017 150.6 kg (332 lb) Previous labs/tests for medication: Not applicable Please advise. Thank you. Carrie Yates RN Allergies As of Date: 03/06/2018 (No Known Allergies) Date Reviewed: 02/22/2018 Reviewed by: Mayte Hernandez (Rn) SARAH Galdamez - Fully Assessed Reason for Visit: Refill Request [94] Visit Diagnosis:Crohn's disease of small and large intestines with complication (HCC) [K50.819] Order(s):omeprazole (PRILOSEC) 20 mg capsuleTake 1 capsule by mouth daily before breakfast. 1/2 hr before meal.Disp: 30 capsuleRfl: 11 Prescriptions as of 03/06/2018 Sig: OMEPRAZOLE 20 MG CAPSULE,DARIELA* Take 1 capsule by mouth daily* INFLIXIMAB 100 MG INTRAVENOUS* Inject 1,500 mg intravenously* ATENOLOL 25 MG TABLET Take 1 tablet by mouth once d* KETOCONAZOLE 2 % SHAMPOO Apply 1 application to affect* MOMETASONE 0.1 % TOPICAL CREAM Apply 1 application to affect* LIDOCAINE-PRILOCAINE 2.5 %-2.* Apply to [place] [facility] * LAMIVUDINE 100 MG TABLET Take 1 tablet by mouth once d* AZATHIOPRINE 50 MG TABLET Take 1 tablet by mouth once d* NICOTINE 21 MG/24 HR DAILY TR* Apply 1 Patch as directed felton* CHOLECALCIFEROL (VITAMIN D3) * Take 1 capsule by mouth once * ZOLPIDEM 10 MG TABLET Take 1 tablet by mouth at bed* PYRIDOXINE (VITAMIN B6) 100 M* Take 1 tablet by mouth once d* BUDESONIDE-FORMOTEROL HFA 160* Inhale 2 Puffs as instructed * CLINDAMYCIN 1 % TOPICAL GEL Apply 1 application to affect* FERROUS GLUCONATE 324 MG (36 * Take 1 tablet by mouth twice * ALBUTEROL SULFATE HFA 90 MCG/* Inhale 2 Puffs as instructed * DIPHENHYDRAMINE 50 MG/ML INJE* Inject 25 mg intravenously as* SODIUM CHLORIDE 0.9% FLUSH Access implanted vascular acc* HEPARIN LOCK FLUSH (PORCINE) * Access implanted vascular acc* Problem List As Of Date 03/06/2018 Noted Resolved HEMATOCHEZIA [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 ABDOMINAL PAIN OTHER SPEC SITE [R10.9] INVALID FOR* JOINT PAIN-MULT JTS [M25.50] INVALID FOR* FISTULA ANAL [K60.3] INVALID FOR*02/10/2010 Hepatitis [K75.9] INVALID FOR* Reactive depression [F32.9] INVALID FOR* SLEEP APNEA NOS [G47.30] INVALID FOR* Headache [R51] INVALID FOR*02/10/2010 DEBILITY NOS [R53.81] INVALID FOR* MALAISE AND FATIGUE NEC [R53.81, R53.83] INVALID FOR* HIDRADENITIS [L73.2] INVALID FOR* ACNE NEC [L70.8] INVALID FOR* PYODERMA NOS [L08.0] INVALID FOR* SCAR AND FIBROSIS OF SKIN [L90.5] INVALID FOR* FOLLICULITIS///HAIR DISEASES NEC [L73.8] INVALID FOR* Sebaceous cyst [L72.3] INVALID FOR*02/10/2010 HYPERPIGMENTATION///DYSCHROMIA UNSPECIFIED [L81*INVALID FOR* GENERALIZED ANXIETY DIS [F41.1] INVALID FOR* PANIC ATTACKS [F41.0] INVALID FOR* CHRONIC PAIN NEC [G89.29] INVALID FOR* Vitamin d deficiency [E55.9] INVALID FOR* Rosacea [L71.9] More... Pustular psoriasis [L40.1] Regional enteritis of large intestine (HCC) [K5*INVALID FOR*01/15/2014 Low blood potassium [E87.6] INVALID FOR* Mild intermittent asthma without complication [*INVALID FOR* More... 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 1/2 hr before meal. Medications Discontinued During This Encounter omeprazole (PRILOSEC) 20 mg capsule 30 c* 11 03/14/2017 03/08/2018 Route: ORAL Sig: Take 1 capsule by mouth daily before breakfast. 1/2 hr before meal. Disc: Reason for discontinue is not on file. Encounter Status:Closed by WILVER DASILVA on 03/08/18 MASS (DEFINE AREA) Observed: 03/06/2018 Status: F Source: [place] 12:00 AM [facility] REPOSITORY Patient: EMILY ORTIZ : 1980 (37/F) Acct Num: [id number] Phys: Jonathan Feliciano MD Unit Num: [id number] Loc: MS3 [id number] Specimen: [id number] Received: 03/06/18 - 1432 Spec Type: Mass TISSUES 1 TISSUES: A. ABDOMINAL B. Thigh, NOS GROSS DESCRIPTION A - Received in fixative is one container labeled with the patient's name and designated soft tissue abdomen. The specimen consists of an ellipse of black skin with attached yellow fatty tissue measuring 7.8 x 4 x 1.5 cm. Serial sections do not reveal mass lesions. [employer] sections are submitted in one cassette. B - Received in fixative is one container labeled with the patient's name and designated right medial thigh soft tissue. The specimen consists of an ellipse of black skin with attached yellow fatty tissue measuring 8.5 x 7 x 3.5 cm. Serial sections do not reveal mass lesions. [employer] sections are submitted in one cassette. / AM:nithya 03/06/18 TC:2 CPT: 45747 x2 HEADER OPERATION: Incision AND drain, excision hidradenitis, left abdominal wall and right medial thigh PRE-OP DIAGNOSIS: Left abdominal wall hidradenitis; right medial thigh hidradenitis cluster TISSUE SUBMITTED: A - Soft tissue abdomen, B - Soft tissue right medial thigh MICROSCOPIC DESCRIPTION Slides are reviewed. MICROSCOPIC DIAGNOSIS A. Skin and soft tissue of abdomen, excision: Epidermal inclusion cyst with associated reactive and inflammatory change consistent with hidradenitis. B. Soft tissue of right medial thigh, excision: Granulation with acute and chronic inflammation and associated reparative reactive change consistent with hidradenitis. AM:nithya 03/07/18 Signed Scott Loving DO 03/07/18 <signature on file> Performed By: #### PMASS #### [facility] [address] [place] [address]. [place], [address] PROGRESS Observed: 02/22/2018 Status: COMPLETED Source: [place] 9:47 AM [facility] [place] REPOSITORY [facility] ID: [id number] Author: Anaid Moon (Sw) Service: (none) Author Type: Sport Intern Type: Progress Notes Filed: 02/22/2018 9:49 AM Note Text: Social Work Problem Referral Note INFORMATION/REFERRAL : Emily Chauhan 37 year old female [facility] for the following reason(s): financial assistance - meals, parking, etc. PERSONS INTERVIEWED: patient INTERVENTION: Phone Contact and Information AND Referral Service Co-ordination Affect/Mood: The patient is noted as appropriate IDENTIFIED PROBLEMS/NEEDS: Financial Intervention/Referral to be provided:Arrangements made for continuity of care Financial: Applications(s) sent to: Other: [employer] IMPRESSION/PLAN: MAYANK received referral from pharmacy to help patient apply for assistance for Remicade. MAYANK called patient on 02/21/18 and arranged for her to meet with MAYANK on 02/22/18 and to bring income information. MAYANK completed application with patient on this day and faxed to [employer]. Patient only had bank statements with her and they did not show spouse's income information. Application will likely be placed on hold until patient can bring in tax forms from last year. Patient is aware of this. F/U APPOINTMENT: HARDEEP Sparrow CNSW Observed: 02/22/2018 Status: COMPLETED Source: [place] 12:00 AM [facility] REPOSITORY Social Work (FRANKO) EMILY ORTIZ ([id number]) 1980 F Date Time Provider Department 02/22/18 ANAID MOON) FRANKO During your visit today, we recorded the following information about you: HARDEEP Flores 02/22/2018 9:49 AM Signed Social Work Problem Referral Note INFORMATION/REFERRAL : Emily Chauhan 37 year old female was referred by pharmacy to [facility] Social Work for the following reason(s): financial assistance - meals, parking, etc. PERSONS INTERVIEWED: patient INTERVENTION: Phone Contact and Information AND Referral Service Co-ordination Affect/Mood: The patient is noted as appropriate IDENTIFIED PROBLEMS/NEEDS: Financial Intervention/Referral to be provided:Arrangements made for continuity of care Financial: Applications(s) sent to: Other: [employer] IMPRESSION/PLAN: MAYANK received referral from pharmacy to help patient apply for assistance for Remicade. MAYANK called patient on 02/21/18 and arranged for her to meet with SW on 02/22/18 and to bring income information. MAYANK completed application with patient on this day and faxed to [employer]. Patient only had bank statements with her and they did not show spouse's income information. Application will likely be placed on hold until patient can bring in tax forms from last year. Patient is aware of this. F/U APPOINTMENT: HARDEEP Sparrow Allergies As of Date: 02/22/2018 (No Known Allergies) Date Reviewed: 02/22/2018 Reviewed by: Mayte Hernandez (Rn) SARAH Galdamez - Fully Assessed Reason for Visit: Social Work Services [507] Prescriptions as of 02/22/2018 Sig: INFLIXIMAB 100 MG INTRAVENOUS* Inject 1,500 mg intravenously* ATENOLOL 25 MG TABLET Take 1 tablet by mouth once d* KETOCONAZOLE 2 % SHAMPOO Apply 1 application to affect* MOMETASONE 0.1 % TOPICAL CREAM Apply 1 application to affect* LIDOCAINE-PRILOCAINE 2.5 %-2.* Apply to [facility] site 30-45 * LAMIVUDINE 100 MG TABLET Take 1 tablet by mouth once d* AZATHIOPRINE 50 MG TABLET Take 1 tablet by mouth once d* NICOTINE 21 MG/24 HR DAILY TR* Apply 1 Patch as directed felton* CHOLECALCIFEROL (VITAMIN D3) * Take 1 capsule by mouth once * OMEPRAZOLE 20 MG CAPSULE,DARIELA* Take 1 capsule by mouth daily* ZOLPIDEM 10 MG TABLET Take 1 tablet by mouth at bed* PYRIDOXINE (VITAMIN B6) 100 M* Take 1 tablet by mouth once d* BUDESONIDE-FORMOTEROL HFA 160* Inhale 2 Puffs as instructed * CLINDAMYCIN 1 % TOPICAL GEL Apply 1 application to affect* FERROUS GLUCONATE 324 MG (36 * Take 1 tablet by mouth twice * ALBUTEROL SULFATE HFA 90 MCG/* Inhale 2 Puffs as instructed * DIPHENHYDRAMINE 50 MG/ML INJE* Inject 25 mg intravenously as* SODIUM CHLORIDE 0.9% FLUSH Access implanted vascular acc* HEPARIN LOCK FLUSH (PORCINE) * Access implanted vascular acc* Problem List As Of Date 02/22/2018 Noted Resolved HEMATOCHEZIA [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 ABDOMINAL PAIN OTHER SPEC SITE [R10.9] INVALID FOR* JOINT PAIN-MULT JTS [M25.50] INVALID FOR* FISTULA ANAL [K60.3] INVALID FOR*02/10/2010 Hepatitis [K75.9] INVALID FOR* Reactive depression [F32.9] INVALID FOR* SLEEP APNEA NOS [G47.30] INVALID FOR* Headache [R51] INVALID FOR*02/10/2010 DEBILITY NOS [R53.81] INVALID FOR* MALAISE AND FATIGUE NEC [R53.81, R53.83] INVALID FOR* HIDRADENITIS [L73.2] INVALID FOR* ACNE NEC [L70.8] INVALID FOR* PYODERMA NOS [L08.0] INVALID FOR* SCAR AND FIBROSIS OF SKIN [L90.5] INVALID FOR* FOLLICULITIS///HAIR DISEASES NEC [L73.8] INVALID FOR* Sebaceous cyst [L72.3] INVALID FOR*02/10/2010 HYPERPIGMENTATION///DYSCHROMIA UNSPECIFIED [L81*INVALID FOR* GENERALIZED ANXIETY DIS [F41.1] INVALID FOR* PANIC ATTACKS [F41.0] INVALID FOR* CHRONIC PAIN NEC [G89.29] INVALID FOR* Vitamin d deficiency [E55.9] INVALID FOR* Rosacea [L71.9] More... Pustular psoriasis [L40.1] Regional enteritis of large intestine (HCC) [K5*INVALID FOR*01/15/2014 Low blood potassium [E87.6] INVALID FOR* Mild intermittent asthma without complication [*INVALID FOR* More... 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] INVALID FOR* Iron deficiency anemia due to chronic blood los*INVALID FOR* Crohn's disease of small intestine with complic*INVALID FOR* Encounter Status:Closed by ANAID MOON on 02/22/18 PROGRESS Observed: 02/21/2018 Status: COMPLETED Source: [place] 2:01 PM [facility] [place] REPOSITORY O ID: [id number] Author: Anaid Singh) Arie Service: (none) Author Type: Sport Intern Type: Progress Notes Filed: 02/21/2018 2:02 PM Note Text: Social Work Problem Referral Note INFORMATION/REFERRAL : Emily Chauhan 37 year old female was referred by pharmacy to [facility] Work for the following reason(s): financial assistance - meals, parking, etc. PERSONS INTERVIEWED: patient INTERVENTION: Phone Contact Affect/Mood: The patient is noted as appropriate IDENTIFIED PROBLEMS/NEEDS: Financial Intervention/Referral to be provided:Arrangements made for continuity of care IMPRESSION/PLAN: SW received referral for financial assistance for Remicade from pharmacy. SW completed and had doctor review/sign. SW then called patient to ask her to bring income documentation to her appointment tomorrow and patient is agreeable. Patient denies other needs. F/U APPOINTMENT: 02/22/18 HARDEEP Flores CNSW Observed: 02/21/2018 Status: COMPLETED Source: [place] 12:00 AM [facility] REPOSITORY Social Work (FRANKO) EMILY ORTIZ ([id number]) 1980 F [facility] Date Time Provider Department 02/21/18 ANAID MOON) FRANKO During your visit today, we recorded the following information about you: HARDEEP Flores 02/21/2018 2:02 PM Signed Social Work Problem Referral Note INFORMATION/REFERRAL : Emily Chauhan 37 year old female was referred by pharmacy to [facility] Social Work for the following reason(s): financial assistance - meals, parking, etc. PERSONS INTERVIEWED: patient INTERVENTION: Phone Contact Affect/Mood: The patient is noted as appropriate IDENTIFIED PROBLEMS/NEEDS: Financial Intervention/Referral to be provided:Arrangements made for continuity of care IMPRESSION/PLAN: SW received referral for financial assistance for Remicade from pharmacy. SW completed and had doctor review/sign. SW then called patient to ask her to bring income documentation to her appointment tomorrow and patient is agreeable. Patient denies other needs. F/U APPOINTMENT: 02/22/18 HARDEEP Flores Allergies As of Date: 02/21/2018 (No Known Allergies) Date Reviewed: 01/11/2018 Reviewed by: Rosa Torres, RN, RN - Fully Assessed Reason for Visit: Social Work Services [507] Prescriptions as of 02/21/2018 Sig: INFLIXIMAB 100 MG INTRAVENOUS* Inject 1,500 mg intravenously* ATENOLOL 25 MG TABLET Take 1 tablet by mouth once d* KETOCONAZOLE 2 % SHAMPOO Apply 1 application to affect* MOMETASONE 0.1 % TOPICAL CREAM Apply 1 application to affect* LIDOCAINE-PRILOCAINE 2.5 %-2.* Apply to [facility] site 30-45 * LAMIVUDINE 100 MG TABLET Take 1 tablet by mouth once d* AZATHIOPRINE 50 MG TABLET Take 1 tablet by mouth once d* NICOTINE 21 MG/24 HR DAILY TR* Apply 1 Patch as directed felton* CHOLECALCIFEROL (VITAMIN D3) * Take 1 capsule by mouth once * OMEPRAZOLE 20 MG CAPSULE,DARIELA* Take 1 capsule by mouth daily* ZOLPIDEM 10 MG TABLET Take 1 tablet by mouth at bed* PYRIDOXINE (VITAMIN B6) 100 M* Take 1 tablet by mouth once d* BUDESONIDE-FORMOTEROL HFA 160* Inhale 2 Puffs as instructed * CLINDAMYCIN 1 % TOPICAL GEL Apply 1 application to affect* FERROUS GLUCONATE 324 MG (36 * Take 1 tablet by mouth twice * ALBUTEROL SULFATE HFA 90 MCG/* Inhale 2 Puffs as instructed * DIPHENHYDRAMINE 50 MG/ML INJE* Inject 25 mg intravenously as* SODIUM CHLORIDE 0.9% FLUSH Access implanted vascular acc* HEPARIN LOCK FLUSH (PORCINE) * Access implanted vascular acc* Problem List As Of Date 02/21/2018 Noted Resolved HEMATOCHEZIA [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 ABDOMINAL PAIN OTHER SPEC SITE [R10.9] INVALID FOR* JOINT PAIN-MULT JTS [M25.50] INVALID FOR* FISTULA ANAL [K60.3] INVALID FOR*02/10/2010 Hepatitis [K75.9] INVALID FOR* Reactive depression [F32.9] INVALID FOR* SLEEP APNEA NOS [G47.30] INVALID FOR* Headache [R51] INVALID FOR*02/10/2010 DEBILITY NOS [R53.81] INVALID FOR* MALAISE AND FATIGUE NEC [R53.81, R53.83] INVALID FOR* HIDRADENITIS [L73.2] INVALID FOR* ACNE NEC [L70.8] INVALID FOR* PYODERMA NOS [L08.0] INVALID FOR* SCAR AND FIBROSIS OF SKIN [L90.5] INVALID FOR* FOLLICULITIS///HAIR DISEASES NEC [L73.8] INVALID FOR* Sebaceous cyst [L72.3] INVALID FOR*02/10/2010 HYPERPIGMENTATION///DYSCHROMIA UNSPECIFIED [L81*INVALID FOR* GENERALIZED ANXIETY DIS [F41.1] INVALID FOR* PANIC ATTACKS [F41.0] INVALID FOR* CHRONIC PAIN NEC [G89.29] INVALID FOR* Vitamin d deficiency [E55.9] INVALID FOR* Rosacea [L71.9] More... Pustular psoriasis [L40.1] Regional enteritis of large intestine (HCC) [K5*INVALID FOR*01/15/2014 Low blood potassium [E87.6] INVALID FOR* Mild intermittent asthma without complication [*INVALID FOR* More... 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] INVALID FOR* Iron deficiency anemia due to chronic blood los*INVALID FOR* Crohn's disease of small intestine with complic*INVALID FOR* Encounter Status:Closed by ANAID MOON on 02/21/18 OBSOLETE Observed: 02/21/2018 Status: COMPLETED Source: [place] 12:00 AM [facility] REPOSITORY Refill (GASTMN) EMILY ORTIZ ([id number]) 1980 F Date Time Provider Department 02/21/18 ABHI RAMÍREZ GASTMN During your visit today, we recorded the following information about you: Yara Villagomez 02/21/2018 10:31 AM Signed Patient's request for medication is as follows: Pending Prescriptions Disp Refills INFLIXIMAB 100 MG INTRAVENOUS SOLUTION 15 Vial 6 Sig: Inject 1,500 mg intravenously as directed. Every six weeks EDYTA: No Please approve the above prescription(s) to electronically send to pharmacy. Yara Villagomez Allergies As of Date: 02/21/2018 (No Known Allergies) Date Reviewed: 01/11/2018 Reviewed by: Rosa Torres RN, RN - Fully Assessed Reason for Visit: Refill Request [94] Order(s):inFLIXimab (REMICADE) 100 mg injectionInject 1,500 mg intravenously as directed. Every six weeksDisp: 15 VialRfl: 6 Prescriptions as of 02/21/2018 Sig: INFLIXIMAB 100 MG INTRAVENOUS* Inject 1,500 mg intravenously* ATENOLOL 25 MG TABLET Take 1 tablet by mouth once d* KETOCONAZOLE 2 % SHAMPOO Apply 1 application to affect* MOMETASONE 0.1 % TOPICAL CREAM Apply 1 application to affect* LIDOCAINE-PRILOCAINE 2.5 %-2.* Apply to [facility] site 30-45 * LAMIVUDINE 100 MG TABLET Take 1 tablet by mouth once d* AZATHIOPRINE 50 MG TABLET Take 1 tablet by mouth once d* NICOTINE 21 MG/24 HR DAILY TR* Apply 1 Patch as directed felton* CHOLECALCIFEROL (VITAMIN D3) * Take 1 capsule by mouth once * OMEPRAZOLE 20 MG CAPSULE,DARIELA* Take 1 capsule by mouth daily* ZOLPIDEM 10 MG TABLET Take 1 tablet by mouth at bed* PYRIDOXINE (VITAMIN B6) 100 M* Take 1 tablet by mouth once d* BUDESONIDE-FORMOTEROL HFA 160* Inhale 2 Puffs as instructed * CLINDAMYCIN 1 % TOPICAL GEL Apply 1 application to affect* FERROUS GLUCONATE 324 MG (36 * Take 1 tablet by mouth twice * ALBUTEROL SULFATE HFA 90 MCG/* Inhale 2 Puffs as instructed * DIPHENHYDRAMINE 50 MG/ML INJE* Inject 25 mg intravenously as* SODIUM CHLORIDE 0.9% FLUSH Access implanted vascular acc* HEPARIN LOCK FLUSH (PORCINE) * Access implanted vascular acc* Problem List As Of Date 02/21/2018 Noted Resolved HEMATOCHEZIA [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 ABDOMINAL PAIN OTHER SPEC SITE [R10.9] INVALID FOR* JOINT PAIN-MULT JTS [M25.50] INVALID FOR* FISTULA ANAL [K60.3] INVALID FOR*02/10/2010 Hepatitis [K75.9] INVALID FOR* Reactive depression [F32.9] INVALID FOR* SLEEP APNEA NOS [G47.30] INVALID FOR* Headache [R51] INVALID FOR*02/10/2010 DEBILITY NOS [R53.81] INVALID FOR* MALAISE AND FATIGUE NEC [R53.81, R53.83] INVALID FOR* HIDRADENITIS [L73.2] INVALID FOR* ACNE NEC [L70.8] INVALID FOR* PYODERMA NOS [L08.0] INVALID FOR* SCAR AND FIBROSIS OF SKIN [L90.5] INVALID FOR* FOLLICULITIS///HAIR DISEASES NEC [L73.8] INVALID FOR* Sebaceous cyst [L72.3] INVALID FOR*02/10/2010 HYPERPIGMENTATION///DYSCHROMIA UNSPECIFIED [L81*INVALID FOR* GENERALIZED ANXIETY DIS [F41.1] INVALID FOR* PANIC ATTACKS [F41.0] INVALID FOR* CHRONIC PAIN NEC [G89.29] INVALID FOR* Vitamin d deficiency [E55.9] INVALID FOR* Rosacea [L71.9] More... Pustular psoriasis [L40.1] Regional enteritis of large intestine (HCC) [K5*INVALID FOR*01/15/2014 Low blood potassium [E87.6] INVALID FOR* Mild intermittent asthma without complication [*INVALID FOR* More... 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 Every six weeks Medications Discontinued During This Encounter inFLIXimab (REMICADE) 100 mg injecti* 15 V* 6 03/16/2017 02/21/2018 Route: INTRAVENOUS Sig: Inject 1,500 mg intravenously as directed. Every six weeks Disc: Reason for discontinue is not on file. Encounter Status:Closed by YARA VILLAGOMEZ on 02/28/18 EMERGENCY DEPARTMENT Observed: 02/18/2018 Status: F Source: [place] SUMMARY 12:09 AM [facility] REPOSITORY [facility] Medical Records Department [address] [place] [address] Emergency Department Summary 02/17/18 2336 MR#: [id number] Acct: [id number] Name: EMILY ORTIZ Rep #: [id number] : 1980 37 From: Kita Vogt MD PCP: Supriya Sotelo MD Status: DEP ER - ER Visit Summary Date of Service: 02/17/18 Chief Complaint: Abdominal pain History of Present Illness: The patient is a 37 F with a 4- day history of left lower quadrant abdominal pain. She has had nausea but no vomiting. Patient states she always has diarrhea secondary to her Crohn's but has had more frequent episodes of the past 4 days. She has had subjective fever at home. She reports prior cholecystectomy, appendectomy, and bowel resections. She follows with Dr. Ramírez at [facility]. Physical Examination: Vital signs significant for temperature 100.3, otherwise unremarkable. Patient is lying in bed. She appears ill but no acute distress. Heart is regular rate and rhythm. Lung sounds are clear. Abdomen is soft with tenderness in the left lower quadrant. No guarding or rebound. Hypoactive bowel sounds are noted throughout. Test Results: CBC was a white count of 16.7 and hemoglobin of 10.9. Differential is unremarkable. Chemistry studies significant only for potassium 3.4. Urinalysis normal. CT abdomen pelvis shows no bowel wall thickening, obstruction, or acute inflammatory process. No fluid collection noted. Emergency Department Course and Treatment: Patient was given Dilaudid, Zofran, and IV fluids. On repeat evaluation patient is sitting upright in bed eating a spicy chicken bowl from [facility]. She will be discharged with analgesics and antiemetics. She is to follow-up with her GI specialist. Treatment Plan: [] Disposition: Discharge Impression: Abdominal pain, uncertain etiology This note was generated with [employer] software. It may contain incorrect words, spelling, and punctuation that were not noted in review of the chart prior to signing ED Disposition - Plan for ED Patient: Chief Complaint: Abd Pain Referrals: Supriya Sotelo MD [Primary Care Provider] - What to do if you have Problems For any increased pain, shortness of breath, bleeding, nausea or vomiting, chest pain, or any unexpected problems, contact your Primary Care Provider. Call [facility] ([phone]) or report to the closest Emergency Room. Call 911 if necessary. 02/18/18 0009 <Electronically signed by Kita Vogt MD> Date Kita Vogt MD Cosigner Signature (If Indicated): Date CC: Supriya Sotelo MD DISCHARGE INSTRUCTION Observed: 02/17/2018 Status: F Source: [place] 11:39 PM [facility] REPOSITORY [facility] Medical Records Department [address] [place] [address] Discharge Instruction 02/17/18 2338 MR#: [id number] Acct: [id number] Name: EMILY ORTIZ Rep #: [id number] : 1980 37 From: Kita Vogt MD PCP: Supriya Sotelo MD Status: REG ER ED Disposition - Plan for ED Patient: Disposition: Home or Assisted Living Chief Complaint: Abd Pain Instructions: ED Abdominal Pain Unkn Cause Prescriptions: Hydrocodone Bitart/Apap 5-325 [Hemet 5MG-325MG] 1 tablet PO Q6H PRN PRN 3 Days #10 tablet PRN Reason: Pain Ondansetron [Zofran Odt] 4 mg PO Q8H PRN PRN #10 tablet PRN Reason: Nausea Referrals: Supriya Sotelo MD [Primary Care Provider] - 1 Week What to do if you have Problems For any increased pain, shortness of breath, bleeding, nausea or vomiting, chest pain, or any unexpected problems, contact your Primary Care Provider. Call [facility] ([phone]) or report to the closest Emergency Room. Call 911 if necessary. 02/17/18 4169 <Electronically signed by Kita Vogt MD> Date Kita Vogt MD Cosigner Signature (If Indicated): Date CC: Supriya Sotelo MD ABDOMEN/PELVIS WITH Observed: 02/17/2018 Status: F Source: IAEGER CONTRAST 8:44 PM [facility] REPOSITORY [facility] Imaging Services [address] [place] [id number] Abdomen/Pelvis WITH Contrast MR#: [id number] Acct: [id number] Name: CHAPIS CHAUHANPAULOMARMary Sarthak Rep #: [id number] : 1980 F 37 From: Christiano Tan MD PCP: Supriya Sotelo MD Status: REG ER Study: Abdomen/Pelvis WITH Contrast Date of Exam: 02/17/18 Exam# [id number] Ordering Dr: Kita Vogt MD STUDY: CT ABDOMEN AND PELVIS WITH CONTRAST REASON FOR EXAM: Female, 37 years old. Abdominal pain and weakness with dizziness for 4 days, leukocytosis, history of Crohn's disease RADIATION DOSAGE (If Supplied By Facility): CTDIvol = ( 23.73 ) mGy, DLP = ( 1349.66 ) mGycm TECHNIQUE: Transaxial images were obtained from the dome of the diaphragm to the symphysis pubis with oral contrast. 100ML ml of Isovue 300 contrast was administered. Sagittal and coronal images were reconstructed. Individualized dose optimization techniques were used for this CT. COMPARISON: None. FINDINGS: The visualized lung bases are unremarkable. The visualized portions of the heart are within normal limits. Metallic density in the right atrium likely represents a central venous catheter tip. Normal liver. There are surgical clips in the gallbladder fossa consistent with a prior cholecystectomy. Normal spleen. Normal pancreas. Normal bilateral adrenal glands. Normal right kidney. Nonobstructing punctate calculus of the left kidney is evident on image 47. No hydronephrosis or ureteral calculi seen. Normal visualized stomach. Normal small intestine. No colon wall thickening. There are surgical sutures along the cecum. There is non-visualization of the appendix. Normal abdominal aorta. Normal inferior vena cava. Normal retroperitoneum. Normal urinary bladder. There is localized soft tissue thickening of the right paramedial anterior pubic wall on axial image 124 that is chronic and is evident on prior CT from 2016. May represent sequela of prior surgery, infection or injury. Normal osseous structures. CT/Abdomen/Pelvis WITH Contrast IMPRESSION: 1. No bowel wall thickening, obstruction or acute inflammatory process. No focal fluid collection. 2. Stable chronic changes as noted above and prior studies. Electronically Signed: Christiano Tan MD at 23:09 EST , Service support , CC: Kita Vogt MD; Supriya Sotelo MD Nurse Clinician: Signed URINALYSIS, COMPLETE Collected: 02/17/2018 Status: F Source: JAMIE 7:55 PM [facility] REPOSITORY Order Comment: Order Date: 02/17/18 How was Urine Obtained? CLEAN CATCH TYPE CODE TESTS RESULT OUT OF RANGE REFERENCE UNITS LAB L400.3000 Yellow COLOR Normal Yellow LAB L400.3050 Clear Normal CLARITY Clear LAB L400.3200 Normal mg/dl Normal GLUCOSE, UR Normal LAB L400.3300 Negative mg/dL Normal BILIRUBIN URINE Negative LAB L400.3400 Negative mg/dl Normal KETONE UR Negative LAB L400.3465 1.002-1.030 Normal SP.GR. DIPSTX 1.010 LAB L400.3550 5.0 - 8.0 pH UR Normal 7.0 LAB L400.3600 Negative mg/dl PROT Normal DIPSTX Negative LAB L400.3700 Normal mg/dl Normal UROBILI Normal LAB L400.3750 Negative Normal NITRITE UR Negative LAB L400.3780 Negative /ul High 25 OCCULT BLOOD-UR LAB L400.3800 Negative /ul LEUK Normal ESTERASE Negative LAB L400.4050 0-5 /hpf WBC Normal 0-5 SEEN LAB L400.4100 0-5 /hpf Normal RBC-UA 0-5 SEEN LAB L400.4150 5-10 /hpf SQUAM Normal EPI 0-5 SEEN LAB L400.4300 None Seen /hpf 0 Normal BACTERIA SEEN LAB L400.4350 <or=2+ /hpf 0 Normal MUCUS, URINE SEEN Performed By: #### L400.0001 #### [facility] [address] [place], [address] BASIC METABOLIC Collected: 02/17/2018 Status: F Source: [facility]AEGER PROFILE ([facility]) 7:50 PM [facility] REPOSITORY TYPE CODE TESTS RESULT OUT OF RANGE REFERENCE UNITS LAB L501.0100 74-106 mg/dL Normal GLU 94 Result Comment: Please note revised GLUCOSE reference range effective 2017. LAB L501.1000 7-18 mg/dL Normal BUN 7 LAB L501.1100 0.55-1.02 mg/dL Normal CREAT,SERUM 0.92 Result Comment: The validity of the calculated GFR AND GFRAA in patients over 70 years has not been determined. Clinical correlation is essential. LAB L501.1110 >60 mL/min Normal EST GFR 73 Result Comment: Non- GFR Calc LAB L501.1115 >60 mL/min Normal EST GFR - AA 88 Result Comment: GFR Calc LAB L501.1255 ml/min Normal Estimated CRCL 95.68 LAB L501.1300 10-20 RATIO Low BUN/CRE 7.6 LAB L501.2200 8.5-10 mg/dL Normal .1 CA 8.5 LAB L501.5300 136-14 mmol/L Normal 5 NA 136 LAB L501.5600 3.5-5. mmol/L Low 1 K 3.4 LAB L501.5900 98-107 mmol/L Normal CL 104 LAB L501.6100 21.0-3 mmol/L Normal 2.0 CO2 24.0 LAB L501.6200 5-15 Normal GAP 8 Performed By: #### L500.2500 #### [facility] [address] [place], [address] CBC W/DIFF, AUTOMATED Collected: 02/17/2018 Status: F Source: JAMIE 7:50 PM [facility] REPOSITORY TYPE CODE TESTS RESULT OUT OF RANGE REFERENCE UNITS LAB L100.1000 4.4-11.0 K/mm3 High 16.7 WBC LAB L100.1200 4.2-5.4 M/mm3 4.93 Normal RBC LAB L100.1300 12.0-15.0 g/dl Low 10.9 HGB LAB L100.1400 37-47 % Low 35.3 HCT LAB L100.1500 81-99 fL Low 71.6 MCV LAB L100.1600 27.0-32.0 pg Low 22.1 MCH LAB L100.1700 32-36 g/gl Low 30.9 MCHC LAB L100.1810 11.6-14.6 % High 16.9 RDW CV LAB L100.1820 35.1-43.9 fl High 44.0 RDW SD LAB L100.1900 150-450 K/mm3 185 Normal PLT LAB L100.2000 6.2-12.0 fl Test Normal MPV not performed LAB L100.2100 47-70 % High 70.9 NEUT% LAB L100.2200 19-41 % 22.5 Normal LY% LAB L100.2300 0-10 % 6.0 Normal MONO% LAB L100.2400 0-5 % 0.2 Normal EO% LAB L100.2500 0-1 % 0.2 Normal BASO% LAB L100.2550 0.0-0.9 % 0.200 Normal IM GRAN % Result Comment: IG% - Immature Granulocytes (promyelocytes, myelocytes and metamyelocytes) > 1% indicates that a LEFT SHIFT is Present. LAB L100.2620 2.0-7.7 X10 3/uL Absolute Neut High 11.8 LAB L100.2720 0.83-4.51 X10 3/ul Absolute Lymph Normal 3.75 LAB L100.5500 ADEQ PLT EST Normal ADEQUATE LAB L100.7300 ANISO Normal 1+ LAB L100.7600 HYPOCHROMASIA Normal RARE LAB L100.7700 MICROCYTES Normal 1+ LAB L100.8600 TARGET CELLS Normal RARE Performed By: #### L100.0100 #### [facility] [address] [place], [address] ,SERUM,HCG QUALI. Collected: Status: F Source: IAEGER 02/17/2018 7:50 PM [facility] REPOSITORY TYPE CODE TESTS RESULT OUT OF REFERENCE UNITS RANGE LAB L700.6700 =>Qualitative mIU/mL Normal HCG Qual < 1 triggr LAB L700.7000 0-9 Nonpreg Negative Normal HCGSQUAL NEGATIVE Performed By: #### L700.6800 #### [facility] [address] [place], [place], [id number] PLASTIC SURGERY Observed: 01/21/2018 Status: F Source: [place]AEGER VISIT REPORT 11:31 AM [facility] REPOSITORY [facility] [address] [place] [address] OFFICE VISIT Date of Service: 01/17/18 MR#: [id number] Acct: [id number] Name: EMILY ORTIZ Rep #: [id number] : 1980 Provider: Jonathan Feliciano MD Age/Sex: 37/F Location: [facility] Status: Signed Intake Vital Signs01/17/18 Height 6 ft 01/17/18 Weight: 336 lb 6 oz Intake Visit Reasons: evaluation hidradenitis Supervisor Order Takers Required: No Accompanied by: None Is patient in pain?: Yes (GROIN AND UPPER THIGH AREA PAIN STABBING AND ACHING) Pain scale (1-10): 6 Allergies No Known Allergies Allergy (Verified 01/17/18 09:46) Medications Azathioprine [Imuran] 50 mg PO DAILY@0800 11/20/12 [History Confirmed 01/17/18] Infliximab [Remicade] 5 mg IV X1 11/20/12 [History Confirmed 01/17/18] Lamivudine [Epivir] 100 mg PO DAILY 11/20/12 [History Confirmed 01/17/18] Omeprazole [Prilosec] 20 mg PO DAILY 10/24/13 [History Confirmed 01/17/18] minocycline 100 mg capsule 100 mg PO BID #30 cap 01/17/18 [Rx Confirmed 01/17/18] Is last menstrual period known: Yes Post menopausal: No Patient : No PFSH Medical History Acute anxiety (Acute) Anemia (Acute) Crohns disease (Acute) GERD (gastroesophageal reflux disease) (Acute) GI problem (Acute) Heart murmur (Acute) Hepatitis B (Acute) Hidradenitis suppurativa (Acute) History of MRSA infection (Acute) History of blood transfusion (Acute) IBS (irritable bowel syndrome) (Acute) Obesity (Acute) Sinus problem (Acute) Vitamin deficiency (Acute) High blood pressure (Chronic) Surgical History Hidradenitis suppurativa (Acute) POWERPORT (Acute) SMALL BOWEL SURGERIES (Acute) Surgically constructed arteriovenous fistula (Acute) Family History Father Hypertension Anemia Mother Arthritis Hypertension Anemia Brother Asthma History of psychiatric care Son Asthma Daughter Severe allergy Aunt Hypertension Uncle Arthritis Hypertension Asthma Grandmother Arthritis Asthma Hypertension Other Breast cancer Cancer Cervical cancer Colon cancer Social History Smoking Status: Current every day smoker second hand exposure: Yes alcohol intake: current alcohol intake frequency: a few times a month Alcohol type: wine substance use type: does not use what type of physical activity do you participate in: walking seatbelt use: always additional social history: SUN EXPOSURE: FREQUENTLY DOES NOT USE ASPIRIN DOES NOT USE IBUPROFEN HPI evaluation hidradenitis: Details: HISTORY OF PRESENT ILLNESS 37 year old woman presents for evaluation of her chronic hidradenitis because of recent flare ups in her left abdominal wall and right medial thigh. She also has complaints of painful scarring with some contracture involving her left vulval area and left inguinal area. She states that her urinary stream sprays at times. She has had previous excision of hidradenitis in her bilateral axillary areas and she has noticed intermittent flare ups in these areas as well. At present, her axillary areas are stable. She has also noticed over the last several months that she has developed some clitoral hypertrophy which has led to increased discomfort after sexual intercourse. She is still on Remicade for her Crohn's disease and she states it is stable presently. She presents today for further evaluation and treatment. REVIEW OF SYSTEMS General - Denies fever and weight loss. Has fatigue. Has history of MRSA. Eyes - Denies cataracts and glaucoma. ENT - Denies nasal congestion and sore throat. Endocrine - Denies excessive thirst and urination. Has hepatitis. Skin - Denies skin cancer. Has hidradenitis flare ups involving left abdominal wall and right medial thigh and bilateral axillary areas. Has painful scar contracture left vulval and inguinal areas from previous hidradenitis surgery. Musculoskeletal - Denies joint pain, joint stiffness and back pain. Denies muscle weakness and arthritis. Neuro - Denies headaches. Cardiovascular - Denies chest pain, fatigue, and shortness of breath with exertion. Psych - Has anxiety. Denies depression. Respiratory - Denies chronic cough and shortness of breath. Patient is a smoker. Gastrointestinal - Denies nausea, vomiting and constipation. Has diarrhea. Has Crohn's disease. Hematologic - Denies abnormal bruising and bleeding. Genitourinary - Denies hematuria and urinary frequency. PHYSICAL EXAMINATION General - Alert and Oriented. HEENT - PERRL. EOMI. Throat is clear. Neck - Supple and nontender. No cervical adenopathy. Lungs - Clear to auscultation. Heart - Regular rate and rhythm. Abdomen - Soft and nondistended. Has an area of induration and redness left abdominal wall. In the left vulval and left inguinal areas are scar contractures from previous hidradenitis surgery. Tender to palpation. No ulceration. No evidence of infection. Measures 3 cm. No fluctuance. No purulent drainage. Some tenderness to palpation. Genital - There is clitoral hypertrophy that has some swelling and is tender to palpation. There is hidradenitis scar contracture left vulva involving the mons pubis and genitocrural area. Tender to palpation. Extremities - FROM. No axillary adenopathy. No inguinal adenopathy. Radial pulses are palpable. Dorsalis pedis pulses are palpable. In the right medial thigh is a cluster of induration and redness that is tender to palpation. Measures 6 cm. No fluctuance. No purulent drainage. In her bilateral axillary areas are scattered areas of induration. Nontender at this time. No evidence of infection at present. The right axillary area measures 8 cm. The left axillary area measures 6 cm. Neuro - CN II-XII grossly intact. Psych - Normal mood and affect. ASSESSMENT 1. Left abdominal wall hidradenitis. 2. Right medial thigh hidradenitis cluster. 3. Hidradenitis scar contracture left vulva involving the mons pubis and genitocrural area. 4. Hidradenitis scar contracture left inguinal area. 5. Recurrent bilateral axillary hidradenitis, stable. 6. Clitoral hypertrophy. 7. History of MRSA. 8. Smoker. PLAN For her recent flare ups of hidradenitis, will begin Doxycycline antibiotics. Will send script to her Pharmacy. This will temporize her flare ups until surgical excision is done. The painful areas on her right medial thigh and left abdominal wall will be done first. Will leave the wounds open and begin wound care with the VAC or with daily Silver dressing changes. Will send tissue to Pathology for analysis to rule out carcinoma and to Microbiology for culture. A positive culture will necessitate antibiotic therapy. After healing has occurred, will address the hidradenitis scar contractures in her left vulval area and left inguinal area. After excision of the scar contracture, will proceed with skin grafting. This should improve her intermittent urinary spraying. Her axillary areas are stable at this time. With regard to her clitoral hypertrophy, she may benefit from Urogynecological therapy. There is a therapist in [place]. Will set up that appointment. The therapist may also know referrals for surgical treatment of the clitoral hypertrophy. This would necessitate evaluation and treatment at a tertiary center with someone who specializes in aesthetic genital surgery or gender reassignment surgery. She would like to wait if possible to see if she can get symptomatic relief from her therapy before proceeding with surgical excision of her hidradenitis. Followup after her therapy. Encouraged patient to stop smoking as it may have deleterious effects on wound healing. Assessment AND Plan Problems 1. Hidradenitis L73.2 2. Unspecified open wound of vagina and vulva, sequela S31.40XS 3. Unspecified open wound of abdominal wall, left lower quadrant without penetration into peritoneal cavity, sequela S31.104S 4. Hx MRSA infection Z86.14 5. Smoker F17.200 6. Clitoral hypertrophy N90.89 Orders Referrals: Medications New: Coding Level of Care Code Off vis,est,level 4 Diagnoses Hidradenitis L73.2 Unspecified open wound of vagina and vulva, sequela S31.40XS Unspecified open wound of abdominal wall, left lower quadrant without penetration into peritoneal cavity, sequela S31.104S Hx MRSA infection Z86.14 Smoker F17.200 Clitoral hypertrophy N90.89 01/21/18 1131 <Electronically signed by Jonathan Feliciano MD> Date Jonathan Feliciano MD Cosigner Signature: Date (if applicable) CC: Supriya Sotelo MD SED RATE ATTICAERGREN Collected: 11/24/2017 Status: F Source: [place] 2:12 PM [facility] REPOSITORY TYPE CODE TESTS RESULT OUT OF REFERENCE UNITS RANGE LAB WSR 0-20 mm/hr Sed Rate High Westergren 33 Performed By: #### WSR, CBC, IRON, FERR, CMP, VITD #### [facility] [address] [place] [id number] CBC Collected: 11/24/2017 Status: F Source: [place] 2:12 PM [facility] REPOSITORY TYPE CODE TESTS RESULT OUT OF REFERENCE UNITS RANGE LAB WBC 3.70-11.00 k/uL WBC 7.85 LAB RBC 3.90-5.20 m/uL RBC 5.02 LAB HGB 11.5-15.5 g/dL Low Hemoglobin 11.3 LAB HCT 36.0-46.0 % Hematocrit 38.6 LAB MCV 80.0-100.0 fL Low MCV 76.9 LAB MCH 26.0-34.0 pG Low MCH 22.5 LAB MCHC 30.5-36.0 g/dL Low MCHC 29.3 LAB RDWCV 11.5-15.0 % RDW-CV High 17.0 LAB PLTCT 150-400 k/uL Platelet Count 227 Result Comment: Result checked and verified No clot detected. LAB MPV 9.0-12.7 fL MPV 12.5 LAB ABSNUC <0.01 k/uL Absolute nRBC <0.01 Performed By: #### WSR, CBC, IRON, FERR, CMP, VITD #### [facility] [address] [place] [id number] IRON AND TIBC Collected: 11/24/2017 Status: F Source: [place] 2:12 PM [facility] REPOSITORY TYPE CODE TESTS RESULT OUT OF REFERENCE UNITS RANGE LAB IRN 41-186 ug/dL Low Iron 27 LAB TIBC 232-386 ug/dL TIBC High 410 LAB SAT 15-57 % Low Transferrin Saturatn 7 Performed By: #### WSR, CBC, IRON, FERR, CMP, VITD #### [facility] [address] [place] [id number] FERRITIN Collected: 11/24/2017 Status: F Source: [place] 2:12 PM [facility] REPOSITORY TYPE CODE TESTS RESULT OUT OF REFERENCE UNITS RANGE LAB FERR 14.7-205.1 ng/mL Ferritin 20.5 Performed By: #### WSR, CBC, IRON, FERR, CMP, VITD #### [place] [address] COMP METABOLIC PANEL Collected: 11/24/2017 Status: F Source: [place] 2:12 PM [facility] REPOSITORY TYPE CODE TESTS RESULT OUT OF REFERENCE UNITS RANGE LAB TP 6.3-8.0 g/dL Protein, High Total 8.5 LAB ALB 3.9-4.9 g/dL Albumin 4.4 LAB CA 8.5-10.2 mg/dL Calcium, Total 9.8 LAB TBIL 0.2-1.3 mg/dL Bilirubin, Total 0.2 LAB ALKP 34-123 U/L Alkaline Phosphatase 69 LAB AST 13-35 U/L AST 17 LAB GLU 74-99 mg/dL Low Glucose 63 Result Comment: The [place] Diabetes Association (ADA) provides guidance for cutoff values for fasting glucose and random glucose. The ADA defines fasting as no caloric intake for at least 8 hours. Fas ting plasma glucose results between 100 to 125 mg/dL indicate increased risk for diabetes (prediabetes). Fasting plasma glucose results greater than or equal to 126 mg/dL meet the criteria for diagnosis of diabetes. In the absence of unequivocal hyperglycemia, results should be confirmed by repeat testing. In a patient with classic symptoms of hyperglycemia or hyperglycemic crisis, random plasma glucose results greater than or equal to 200 mg/dL meet the criteria for diagnosis of diabetes. Reference: Standards of Medical Care in Diabetes 2016, [place] [employer] Association. Diabetes Care. 2016.39(Suppl 1). LAB BUN 7-21 mg/dL BUN 7 LAB CRET 0.58-0.96 mg/dL Creatinine High 1.03 LAB NA 136-144 mmol/L Sodium 140 LAB K 3.7-5.1 mmol/L Low Potassium 3.6 LAB CL 97-105 mmol/L Chloride 102 LAB CO2 22-30 mmol/L CO2 24 LAB AGAP 9-18 mmol/L Anion Gap 14 LAB ALT 7-38 U/L ALT 13 LAB GFRAA eGFR- Amer. >60 LAB GFRNAA . eGFR-All Other Races 60 Result Comment: eGFR (Estimated GFR) Units of measure: mL/min/1.73 meters squared eGFR is derived from the reexpressed MDRD Study equation using the following parameters: serum creatinine, age, gender and race. The creatinine assay has been calibrated to be traceable to IDMS. An eGFR <60 mL/min/1.73m2 for >3 months is consistent with chronic kidney disease. Refer to KDOQI guidelines for clinical interpretation. In patients with unstable renal function, e.g. those with acute kidney injury, the eGFR may not accurately reflect actual GFR. Performed By: #### WSR, CBC, IRON, FERR, CMP, VITD #### [facility] [place] [address] [place] [id number] VITAMIN D 25 HYDROXY Collected: 11/24/2017 Status: F Source: [place] 2:12 PM [facility] REPOSITORY TYPE CODE TESTS RESULT OUT OF REFERENCE UNITS RANGE LAB VITD 31.0-80.0 ng/mL Low Vitamin D 25 30.7 Hydroxy Result Comment: Classification of 25 [place] Vitamin D status: Insufficiency/Moderate Deficiency: < or = 30 ng/mL Sufficiency/Optimal Levels: 31 to 80 ng/mL Toxicity: > 100 ng/mL Test performed by chemiluminescent immunoassay. Performed By: #### WSR, CBC, IRON, FERR, CMP, VITD #### [facility] [place] [address] [place], [place] [address] PROGRESS Observed: 11/24/2017 Status: COMPLETED Source: [place] 1:05 PM [facility] REPOSITORY HNO ID: [id number] Author: Supriya Sotelo Service: (none) Author Type: Physician Type: Progress Notes Filed: 12/11/2017 12:32 AM Note Text: Patient presents with: Recheck: Follow up SUBJECTIVE: Wanderanalilia Chauhan is a 37 year old year old lady here today for follow up appointment for review of medical conditions. BPs still high at home. Has needed treatments for Crohn's again. Up to 190/101. Issues with problems with hidradenitis noted. To follow up with general surgeon. Issues with weight gain; trouble keeping weight off after makes changes that help lose weight. PAST MEDICAL HISTORY Diagnosis Date - Abnormal Pap smear 12/2007 LGSIL - Acute gastritis without mention of hemorrhage - Anal fistula - Cataract bilateral - Chronic hepatitis B (HCC) - CHRONIC PAIN NEC 05/01/2008 - Cough 06/21/2011 - Crohn disease (HCC) - DEBILITY NOS 07/24/2007 - Duodenitis without mention of hemorrhage - GERD (gastroesophageal reflux disease) - Hemorrhage of gastrointestinal tract, unspecified - Hemorrhage of rectum and anus - Hidradenitis 07/27/2007 - Palpitations 04/11/2008 - PANIC ATTACKS 04/01/2008 - PMH - PAST MEDICAL HISTORY OF duodenal ulcerations - PMH - PAST MEDICAL HISTORY OF bile stasis - PMH - PAST MEDICAL HISTORY OF Hydrenitis - Pustular psoriasis - Regional enteritis of unspecified site - Rosacea cystular - Tachycardia, unspecified 04/11/2008 - Viral hepatitis B without mention of hepatic coma, chronic, without mention of hepatitis delta - Vitamin D deficiency 03/17/2012 Current Outpatient Prescriptions: lamiVUDine HBV (EPIVIR HBV) 100 mg tablet Take 1 tablet by mouth once daily. LORazepam (ATIVAN) 1 mg tablet Take 1 tablet by mouth once daily for 180 days. as needed (prior for Remicade infusion and for anxiety) azaTHIOprine (IMURAN) 50 mg tablet Take 1 tablet by mouth once daily. nicotine (NICODERM) 21 mg/24 hr Apply 1 Patch as directed every 24 hours. atenolol (TENORMIN) 25 mg tablet Take 1 tablet by mouth once daily. inFLIXimab (REMICADE) 100 mg injection Inject 1,500 mg intravenously as directed. Every six weeks cholecalciferol, Vitamin D3, (VITAMIN D3) 50,000 unit cap capsule Take 1 capsule by mouth once each week. omeprazole (PRILOSEC) 20 mg capsule Take 1 capsule by mouth daily before breakfast. 1/2 hr before meal. ketoconazole (NIZORAL) 2 % shampoo Apply 1 application to affected area once daily as needed. Apply to scalp and lather as directed mometasone (ELOCON) 0.1 % cream Apply 1 application to affected area once daily. To scalp as directed pyridoxine, vitamin B6, (VITAMIN B6) 100 mg tablet Take 1 tablet by mouth once daily. budesonide-formoterol (SYMBICORT) 160-4.5 mcg/actuation inhaler Inhale 2 Puffs as instructed twice daily. clindamycin (CLEOCIN-T) 1 % gel Apply 1 application to affected area twice daily. Ferrous Gluconate 324 mg (36 mg iron) tab Take 1 tablet by mouth twice daily with meals. lidocaine-prilocaine (EMLA) cream Apply to Mediport site 30- 45 minutes prior to coming for infusion. albuterol HFA (PROAIR HFA) 90 mcg/actuation inhaler Inhale 2 Puffs as instructed every 6 hours as needed. diphenhydrAMINE 50 mg/mL injection Inject 25 mg intravenously as directed. 25mg IV push as premedication for Remicade infusion. MAY GIVE ADDITIONAL 25mg during infusion if patient complains of feeling jittery. 0.9% NaCl Access implanted vascular access device (IVAD) as needed for flush, blood draw or treatment.Flush IVAD with 10-20 mL NS every 4 weeks and PRN when IVAD not in use. heparin 100 unit/mL syrg Access implanted vascular access device (IVAD) as needed for flush, blood draw or treatment. Before de-accessing port, flush with 10-20ml normal saline and follow with 5 mL heparin (100 units/mL) (if no heparin allergy). De-access port on treatment completion. zolpidem (AMBIEN) 10 mg tab Take 1 tablet by mouth at bedtime as needed (insomnia) for up to 180 days. No current facility-administered medications for this visit. OBJECTIVE: BP 156/92 Pulse 96 Resp 20 Wt (!) 150.6 kg (332 lb) BMI 45.46 kg/m? Patient is alert, oriented times 3, no apparent distress, affect is bright, reactive. Last 5 Encounter BP Readings: Date: BP: 11/24/2017 156/92 10/19/2017 149/91 09/07/2017 144/93 08/03/2017 134/82 08/03/2017 142/80 Last 5 Encounter Wt Readings: Date: Wt: 11/24/2017 150.6 kg (332 lb) 08/03/2017 148.3 kg (327 lb) 06/15/2017 145.6 kg (321 lb) 06/02/2017 146.5 kg (323 lb) 03/22/2017 142.4 kg (314 lb) Heart: Regular rate, rhythm, no murmurs, gallops, rubs. Lungs: Clear to auscultation, bilaterally, breathing non labored. Ext: No cyanosis, clubbing, or edema. CBC W/DIFF, AUTOMATED Collected: 09/26/2017 7:25 PM Status: F Source: [facility] REPOSITORY TYPE CODE TESTS RESULT OUT OF RANGE REFERENCE UNITS LAB L100.1000 WBC 10.0 Normal 4.4-11.0 K/mm3 LAB L100.1200 RBC 4.95 Normal 4.2-5.4 M/mm3 LAB L100.1300 HGB 11.4 Low 12.0-15.0 g/dl LAB L100.1400 HCT 37.3 Normal 37-47 % LAB L100.1500 MCV 75.4 Low 81-99 fL LAB L100.1600 MCH 23.0 Low 27.0-32.0 pg LAB L100.1700 MCHC 30.6 Low 32-36 g/gl LAB L100.1810 RDW CV 16.7 High 11.6-14.6 % LAB L100.1820 RDW SD 45.8 High 35.1-43.9 fl LAB L100.1900 PLT 198 Normal 150-450 K/mm3 LAB L100.2000 MPV 11.5 Normal 6.2-12.0 fl LAB L100.2100 NEUT% 54.2 Normal 47-70 % LAB L100.2200 LY% 39.2 Normal 19-41 % LAB L100.2300 MONO% 4.2 Normal 0-10 % LAB L100.2400 EO% 1.6 Normal 0-5 % LAB L100.2500 BASO% 0.7 Normal 0-1 % LAB L100.2550 IM GRAN % 0.100 Normal 0.0-0.9 % Result Comment: IG% - Immature Granulocytes (promyelocytes, myelocytes and metamyelocytes) > 1% indicates that a LEFT SHIFT is Present. LAB L100.2620 Absolute Neut 5.4 Normal 2.0-7.7 X10 3/uL LAB L100.2720 Absolute Lymph 3.92 Normal 0.83-4.51 X10 3/ul LAB L100.4500 SMEAR COMMENT SCANNED Normal ? ? Result Comment: AUTO DIFF OK Performed By:#### L100.0100 #### [facility] [address] [place], [address] Component Latest Ref Rng AND Units 06/02/2017 Protein, Total 6.3 - 8.0 g/dL 8.2 (H) Albumin 3.9 - 4.9 g/dL 4.4 Calcium 8.5 - 10.2 mg/dL 9.2 Bilirubin, Total 0.2 - 1.3 mg/dL 0.3 Alkaline Phosphatase 32 - 117 U/L 61 AST 13 - 35 U/L 21 Glucose 74 - 99 mg/dL 88 BUN 7 - 21 mg/dL 8 Creatinine 0.58 - 0.96 mg/dL 0.89 Sodium 136 - 144 mmol/L 140 Potassium 3.7 - 5.1 mmol/L 3.6 (L) Chloride 97 - 105 mmol/L 101 CO2 22 - 30 mmol/L 25 Anion Gap 9 - 18 mmol/L 14 ALT 7 - 38 U/L 12 eGFR- >60 eGFR-All Other Races . >60 WBC 3.70 - 11.00 k/uL 9.44 RBC 3.90 - 5.20 m/uL 4.56 Hemoglobin 11.5 - 15.5 g/dL 12.2 Hematocrit 36.0 - 46.0 % 39.2 MCV 80.0 - 100.0 fL 86.0 MCH 26.0 - 34.0 pG 26.8 MCHC 30.5 - 36.0 g/dL 31.1 RDW-CV 11.5 - 15.0 % 14.7 Platelet Count 150 - 400 k/uL 237 MPV 9.0 - 12.7 fL 12.5 Absolute nRBC <0.01 k/uL <0.01 Vitamin D 25 Hydroxy 31.0 - 80.0 ng/mL 29.2 (L) TSH 0.400 - 5.500 uU/mL 1.080 Free T3 2.3 - 4.1 pg/mL 3.3 Free T4 0.9 - 1.7 ng/dL 1.3 Magnesium 1.7 - 2.3 mg/dL 2.1 ASSESSMENT AND PLAN: Encounter Diagnosis ICD-10-CM 1. Psoriasis of scalp L40.9 ketoconazole (NIZORAL) 2 % shampoo mometasone (ELOCON) 0.1 % cream 2. Vitamin D deficiency E55.9 VITAMIN D 25 HYDROXY 3. Fatigue, unspecified type R53.83 4. Obesity, Class III, BMI >= 40 (morbid obesity) E66.01 E66.01 5. Iron malabsorption K90.9 CBC FERRITIN BLD IRON + TIBC 6. Hidradenitis L73.2 7. Crohn's disease of small intestine without complication (HCC) K50.00 COMP METABOLIC PANEL CBC SED RATE WESTERGREN 8. Essential hypertension I10 atenolol (TENORMIN) 25 mg tablet COMP METABOLIC PANEL 9. Bacterial vaginosis--symptoms consistent with recurrence N76.0 B96.89 Multiple issues patient needed to address today. Above issues addressed with patient. Patient involved in shared decision making for management of medical issues. History and medications reviewed. Epic updated as needed Refills taken care of and meds adjusted as indicated after reviewed history, exam and labs. Health Maintenance reviewed. Updated record and/or ordered tests as recorded. Encouraged on efforts at healthy diet and regular exercise and adequate sleep. Further evaluation and treatment as indicated. The majority of the visit was spent counseling and/or coordinating care for the patient. Njec-mi-[id number] time was at least 25 minutes. Supriya Sotelo MD CNOV Observed: 11/24/2017 Status: COMPLETED Source: [place] 1:00 PM [facility] REPOSITORY Office Visit (INTMWS) EMILY ORTIZ ([id number]) 1980 F Date Time Provider Department 11/24/17 1:00 PM SUPRIYA SOTELO INTMWS During your visit today, we recorded the following information about you: Pulse Respiration Blood pressure Weight 96/minute 20/minute 156/92 150.6 kg Supriya Sotelo MD 12/11/2017 12:32 AM Signed Patient presents with: Recheck: Follow up SUBJECTIVE: Emily De León Chapis Chauhan is a 37 year old year old lady here today for follow up appointment for review of medical conditions. BPs still high at home. Has needed treatments for Crohn's again. Up to 190/101. Issues with problems with hidradenitis noted. To follow up with general surgeon. Issues with weight gain; trouble keeping weight off after makes changes that help lose weight. PAST MEDICAL HISTORY Diagnosis Date - Abnormal Pap smear 12/2007 LGSIL - Acute gastritis without mention of hemorrhage - Anal fistula - Cataract bilateral - Chronic hepatitis B (HCC) - CHRONIC PAIN NEC 05/01/2008 - Cough 06/21/2011 - Crohn disease (HCC) - DEBILITY NOS 07/24/2007 - Duodenitis without mention of hemorrhage - GERD (gastroesophageal reflux disease) - Hemorrhage of gastrointestinal tract, unspecified - Hemorrhage of rectum and anus - Hidradenitis 07/27/2007 - Palpitations 04/11/2008 - PANIC ATTACKS 04/01/2008 - PMH - PAST MEDICAL HISTORY OF duodenal ulcerations - PMH - PAST MEDICAL HISTORY OF bile stasis - PMH - PAST MEDICAL HISTORY OF Hydrenitis - Pustular psoriasis - Regional enteritis of unspecified site - Rosacea cystular - Tachycardia, unspecified 04/11/2008 - Viral hepatitis B without mention of hepatic coma, chronic, without mention of hepatitis delta - Vitamin D deficiency 03/17/2012 Current Outpatient Prescriptions: lamiVUDine HBV (EPIVIR HBV) 100 mg tablet Take 1 tablet by mouth once daily. LORazepam (ATIVAN) 1 mg tablet Take 1 tablet by mouth once daily for 180 days. as needed (prior for Remicade infusion and for anxiety) azaTHIOprine (IMURAN) 50 mg tablet Take 1 tablet by mouth once daily. nicotine (NICODERM) 21 mg/24 hr Apply 1 Patch as directed every 24 hours. atenolol (TENORMIN) 25 mg tablet Take 1 tablet by mouth once daily. inFLIXimab (REMICADE) 100 mg injection Inject 1,500 mg intravenously as directed. Every six weeks cholecalciferol, Vitamin D3, (VITAMIN D3) 50,000 unit cap capsule Take 1 capsule by mouth once each week. omeprazole (PRILOSEC) 20 mg capsule Take 1 capsule by mouth daily before breakfast. 1/2 hr before meal. ketoconazole (NIZORAL) 2 % shampoo Apply 1 application to affected area once daily as needed. Apply to scalp and lather as directed mometasone (ELOCON) 0.1 % cream Apply 1 application to affected area once daily. To scalp as directed pyridoxine, vitamin B6, (VITAMIN B6) 100 mg tablet Take 1 tablet by mouth once daily. budesonide-formoterol (SYMBICORT) 160-4.5 mcg/actuation inhaler Inhale 2 Puffs as instructed twice daily. clindamycin (CLEOCIN-T) 1 % gel Apply 1 application to affected area twice daily. Ferrous Gluconate 324 mg (36 mg iron) tab Take 1 tablet by mouth twice daily with meals. lidocaine-prilocaine (EMLA) cream Apply to [facility] site 30- 45 minutes prior to coming for infusion. albuterol HFA (PROAIR HFA) 90 mcg/actuation inhaler Inhale 2 Puffs as instructed every 6 hours as needed. diphenhydrAMINE 50 mg/mL injection Inject 25 mg intravenously as directed. 25mg IV push as premedication for Remicade infusion. MAY GIVE ADDITIONAL 25mg during infusion if patient complains of feeling jittery. 0.9% NaCl Access implanted vascular access device (IVAD) as needed for flush, blood draw or treatment.Flush IVAD with 10-20 mL NS every 4 weeks and PRN when IVAD not in use. heparin 100 unit/mL syrg Access implanted vascular access device (IVAD) as needed for flush, blood draw or treatment. Before de-accessing port, flush with 10-20ml normal saline and follow with 5 mL heparin (100 units/mL) (if no heparin allergy). De-access port on treatment completion. zolpidem (AMBIEN) 10 mg tab Take 1 tablet by mouth at bedtime as needed (insomnia) for up to 180 days. No current facility-administered medications for this visit. OBJECTIVE: BP 156/92 Pulse 96 Resp 20 Wt (!) 150.6 kg (332 lb) BMI 45.46 kg/m? Patient is alert, oriented times 3, no apparent distress, affect is bright, reactive. Last 5 Encounter BP Readings: Date: BP: 11/24/2017 156/92 10/19/2017 149/91 09/07/2017 144/93 08/03/2017 134/82 08/03/2017 142/80 Last 5 Encounter Wt Readings: Date: Wt: 11/24/2017 150.6 kg (332 lb) 08/03/2017 148.3 kg (327 lb) 06/15/2017 145.6 kg (321 lb) 06/02/2017 146.5 kg (323 lb) 03/22/2017 142.4 kg (314 lb) Heart: Regular rate, rhythm, no murmurs, gallops, rubs. Lungs: Clear to auscultation, bilaterally, breathing non labored. Ext: No cyanosis, clubbing, or edema. CBC W/DIFF, AUTOMATED Collected: 09/26/2017 7:25 PM Status: F Source: [facility] REPOSITORY TYPE CODE TESTS RESULT OUT OF RANGE REFERENCE UNITS LAB L100.1000 WBC 10.0 Normal 4.4-11.0 K/mm3 LAB L100.1200 RBC 4.95 Normal 4.2-5.4 M/mm3 LAB L100.1300 HGB 11.4 Low 12.0-15.0 g/dl LAB L100.1400 HCT 37.3 Normal 37-47 % LAB L100.1500 MCV 75.4 Low 81-99 fL LAB L100.1600 MCH 23.0 Low 27.0-32.0 pg LAB L100.1700 MCHC 30.6 Low 32-36 g/gl LAB L100.1810 RDW CV 16.7 High 11.6-14.6 % LAB L100.1820 RDW SD 45.8 High 35.1-43.9 fl LAB L100.1900 PLT 198 Normal 150-450 K/mm3 LAB L100.2000 MPV 11.5 Normal 6.2-12.0 fl LAB L100.2100 NEUT% 54.2 Normal 47-70 % LAB L100.2200 LY% 39.2 Normal 19-41 % LAB L100.2300 MONO% 4.2 Normal 0-10 % LAB L100.2400 EO% 1.6 Normal 0-5 % LAB L100.2500 BASO% 0.7 Normal 0-1 % LAB L100.2550 IM GRAN % 0.100 Normal 0.0-0.9 % Result Comment: IG% - Immature Granulocytes (promyelocytes, myelocytes and metamyelocytes) > 1% indicates that a LEFT SHIFT is Present. LAB L100.2620 Absolute Neut 5.4 Normal 2.0-7.7 X10 3/uL LAB L100.2720 Absolute Lymph 3.92 Normal 0.83-4.51 X10 3/ul LAB L100.4500 SMEAR COMMENT SCANNED Normal ? ? Result Comment: AUTO DIFF OK Performed By:#### L100.0100 #### [facility] [address] [place], [address] Component Latest Ref Rng AND Units 06/02/2017 Protein, Total 6.3 - 8.0 g/dL 8.2 (H) Albumin 3.9 - 4.9 g/dL 4.4 Calcium 8.5 - 10.2 mg/dL 9.2 Bilirubin, Total 0.2 - 1.3 mg/dL 0.3 Alkaline Phosphatase 32 - 117 U/L 61 AST 13 - 35 U/L 21 Glucose 74 - 99 mg/dL 88 BUN 7 - 21 mg/dL 8 Creatinine 0.58 - 0.96 mg/dL 0.89 Sodium 136 - 144 mmol/L 140 Potassium 3.7 - 5.1 mmol/L 3.6 (L) Chloride 97 - 105 mmol/L 101 CO2 22 - 30 mmol/L 25 Anion Gap 9 - 18 mmol/L 14 ALT 7 - 38 U/L 12 eGFR- >60 eGFR-All Other Races . >60 WBC 3.70 - 11.00 k/uL 9.44 RBC 3.90 - 5.20 m/uL 4.56 Hemoglobin 11.5 - 15.5 g/dL 12.2 Hematocrit 36.0 - 46.0 % 39.2 MCV 80.0 - 100.0 fL 86.0 MCH 26.0 - 34.0 pG 26.8 MCHC 30.5 - 36.0 g/dL 31.1 RDW-CV 11.5 - 15.0 % 14.7 Platelet Count 150 - 400 k/uL 237 MPV 9.0 - 12.7 fL 12.5 Absolute nRBC <0.01 k/uL <0.01 Vitamin D 25 Hydroxy 31.0 - 80.0 ng/mL 29.2 (L) TSH 0.400 - 5.500 uU/mL 1.080 Free T3 2.3 - 4.1 pg/mL 3.3 Free T4 0.9 - 1.7 ng/dL 1.3 Magnesium 1.7 - 2.3 mg/dL 2.1 ASSESSMENT AND PLAN: Encounter Diagnosis ICD-10-CM 1. Psoriasis of scalp L40.9 ketoconazole (NIZORAL) 2 % shampoo mometasone (ELOCON) 0.1 % cream 2. Vitamin D deficiency E55.9 VITAMIN D 25 HYDROXY 3. Fatigue, unspecified type R53.83 4. Obesity, Class III, BMI >= 40 (morbid obesity) E66.01 E66.01 5. Iron malabsorption K90.9 CBC FERRITIN BLD IRON + TIBC 6. Hidradenitis L73.2 7. Crohn's disease of small intestine without complication (HCC) K50.00 COMP METABOLIC PANEL CBC SED RATE WESTERGREN 8. Essential hypertension I10 atenolol (TENORMIN) 25 mg tablet COMP METABOLIC PANEL 9. Bacterial vaginosis--symptoms consistent with recurrence N76.0 B96.89 Multiple issues patient needed to address today. Above issues addressed with patient. Patient involved in shared decision making for management of medical issues. History and medications reviewed. Epic updated as needed Refills taken care of and meds adjusted as indicated after reviewed history, exam and labs. Health Maintenance reviewed. Updated record and/or ordered tests as recorded. Encouraged on efforts at healthy diet and regular exercise and adequate sleep. Further evaluation and treatment as indicated. The majority of the visit was spent counseling and/or coordinating care for the patient. Ilsp-ej-pbfc time was at least 25 minutes. Supriya Sotelo MD Referring Provider: SELF [200] Allergies As of Date: 11/24/2017 (No Known Allergies) Date Reviewed: 11/24/2017 Reviewed by: Denise Calvin LPN - Fully Assessed Reason for Visit: Recheck [92] Cmt: Follow up Imm/Inj [58] Cmt: Flu Vaccine Reason For Visit History Recorded Primary Visit Diagnosis:Psoriasis of scalp [L40.9] Other Visit Diagnoses:Vitamin D deficiency [E55.9] Fatigue, unspecified type [R53.83] Obesity, Class III, BMI >= 40 (morbid obesity) E66.01 [E66.01] Iron malabsorption [K90.9] Hidradenitis [L73.2] Crohn's disease of small intestine without complication (HCC) [K50.00] Essential hypertension [I10] Bacterial vaginosis--symptoms consistent with recurrence [N76.0, B96.89] Need for vaccination [Z23] Reactive depression [F32.9] Order(s):atenolol (TENORMIN) 25 mg tabletTake 1 tablet by mouth once daily.Disp: 30 tabletRfl: 5 ketoconazole (NIZORAL) 2 % shampooApply 1 application to affected area once daily as needed. Apply to scalp and lather as directedDisp: 120 mLRfl: 3 mometasone (ELOCON) 0.1 % creamApply 1 application to affected area once daily. To scalp as directedDisp: 45 gRfl: 1 lidocaine-prilocaine (EMLA) creamApply to Mediport site 30-45 minutes prior to coming for infusion.Disp: 30 gRfl: 3 COMP METABOLIC PANEL [SQCMP] Order #: [id number] FUTURE CBC [SQCBC] Order #: [id number] FUTURE SED RATE WESTERGREN [SQWSR] Order #: [id number] FUTURE VITAMIN D 25 HYDROXY [SQVITD] Order #: [id number] FUTURE FERRITIN BLD [SQFERR] Order #: [id number] FUTURE IRON + TIBC [SQIRON] Order #: [id number] FUTURE [] metroNIDAZOLE (FLAGYL) 500 mg tabletTake 1 tablet by mouth three times daily for 10 days.Disp: 30 tabletRfl: 0 [] fluconazole (DIFLUCAN) 150 mg tabletTake 1 tablet by mouth one time only for 1 dose. (Repeat in 3 days as needed.)Disp: 2 tabletRfl: 0 INFLUENZA VACCINE QUADRIVALENT AGE 3 YRS PLUS + IM [45697EIS] Order #: [id number] Prescriptions as of 11/24/2017 Sig: ATENOLOL 25 MG TABLET Take 1 tablet by mouth once d* KETOCONAZOLE 2 % SHAMPOO Apply 1 application to affect* MOMETASONE 0.1 % TOPICAL CREAM Apply 1 application to affect* LIDOCAINE-PRILOCAINE 2.5 %-2.* Apply to [facility] site 30-45 * LAMIVUDINE 100 MG TABLET Take 1 tablet by mouth once d* LORAZEPAM 1 MG TABLET Take 1 tablet by mouth once d* AZATHIOPRINE 50 MG TABLET Take 1 tablet by mouth once d* NICOTINE 21 MG/24 HR DAILY TR* Apply 1 Patch as directed felton* INFLIXIMAB 100 MG INTRAVENOUS* Inject 1,500 mg intravenously* CHOLECALCIFEROL (VITAMIN D3) * Take 1 capsule by mouth once * OMEPRAZOLE 20 MG CAPSULE,DARIELA* Take 1 capsule by mouth daily* PYRIDOXINE (VITAMIN B6) 100 M* Take 1 tablet by mouth once d* BUDESONIDE-FORMOTEROL HFA 160* Inhale 2 Puffs as instructed * CLINDAMYCIN 1 % TOPICAL GEL Apply 1 application to affect* FERROUS GLUCONATE 324 MG (36 * Take 1 tablet by mouth twice * ALBUTEROL SULFATE HFA 90 MCG/* Inhale 2 Puffs as instructed * DIPHENHYDRAMINE 50 MG/ML INJE* Inject 25 mg intravenously as* SODIUM CHLORIDE 0.9% FLUSH Access implanted vascular acc* HEPARIN LOCK FLUSH (PORCINE) * Access implanted vascular acc* METRONIDAZOLE 500 MG TABLET Take 1 tablet by mouth three * FLUCONAZOLE 150 MG TABLET Take 1 tablet by mouth one ti* ZOLPIDEM 10 MG TABLET Take 1 tablet by mouth at bed* Problem List As Of Date 11/24/2017 Noted Resolved HEMATOCHEZIA [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 ABDOMINAL PAIN OTHER SPEC SITE [R10.9] INVALID FOR* JOINT PAIN-MULT JTS [M25.50] INVALID FOR* FISTULA ANAL [K60.3] INVALID FOR*02/10/2010 Hepatitis [K75.9] INVALID FOR* DEPRESSIVE DISORDER NEC [F32.9] INVALID FOR* SLEEP APNEA NOS [G47.30] INVALID FOR* Headache [R51] INVALID FOR*02/10/2010 DEBILITY NOS [R53.81] INVALID FOR* MALAISE AND FATIGUE NEC [R53.81, R53.83] INVALID FOR* HIDRADENITIS [L73.2] INVALID FOR* ACNE NEC [L70.8] INVALID FOR* PYODERMA NOS [L08.0] INVALID FOR* SCAR AND FIBROSIS OF SKIN [L90.5] INVALID FOR* FOLLICULITIS///HAIR DISEASES NEC [L73.8] INVALID FOR* Sebaceous cyst [L72.3] INVALID FOR*02/10/2010 HYPERPIGMENTATION///DYSCHROMIA UNSPECIFIED [L81*INVALID FOR* GENERALIZED ANXIETY DIS [F41.1] INVALID FOR* PANIC ATTACKS [F41.0] INVALID FOR* CHRONIC PAIN NEC [G89.29] INVALID FOR* Vitamin d deficiency [E55.9] INVALID FOR* Rosacea [L71.9] More... Pustular psoriasis [L40.1] Regional enteritis of large intestine (HCC) [K5*INVALID FOR*01/15/2014 Low blood potassium [E87.6] INVALID FOR* Mild intermittent asthma without complication [*INVALID FOR* More... 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] INVALID FOR* Iron deficiency anemia due to chronic blood los*INVALID FOR* Prescriptions ordered this encounter Disp Refills Start End ATENOLOL 25 MG TABLET 30 t* 5 11/24/2017 Route: ORAL Sig: Take 1 tablet by mouth once daily. KETOCONAZOLE 2 % SHAMPOO 120 * 3 11/24/2017 Route: TOPICAL Sig: Apply 1 application to affected area once daily as needed. Apply to scalp and lather as directed MOMETASONE 0.1 % TOPICAL CREAM 45 g 1 11/24/2017 Route: TOPICAL Sig: Apply 1 application to affected area once daily. To scalp as directed LIDOCAINE-PRILOCAINE 2.5 %-2.5 % TOP* 30 g 3 11/24/2017 Sig: Apply to Mediport site 30-45 minutes prior to coming for infusion. METRONIDAZOLE 500 MG TABLET 30 t* 0 11/24/2017 12/04/2017 Route: ORAL Sig: Take 1 tablet by mouth three times daily for 10 days. FLUCONAZOLE 150 MG TABLET 2 ta* 0 11/24/2017 11/24/2017 Route: ORAL Sig: Take 1 tablet by mouth one time only for 1 dose. (Repeat in 3 days as needed.) Medications Discontinued During This Encounter atenolol (TENORMIN) 25 mg tablet 30 t* 5 06/02/2017 11/24/2017 Route: ORAL Sig: Take 1 tablet by mouth once daily. Disc: Reason for discontinue is not on file. ketoconazole (NIZORAL) 2 % shampoo 120 * 3 11/24/2016 11/24/2017 Route: TOPICAL Sig: Apply 1 application to affected area once daily as needed. Apply to scalp and lather as directed Disc: Reason for discontinue is not on file. mometasone (ELOCON) 0.1 % cream 45 g 1 11/24/2016 11/24/2017 Route: TOPICAL Sig: Apply 1 application to affected area once daily. To scalp as directed Disc: Reason for discontinue is not on file. lidocaine-prilocaine (EMLA) cream 30 g 3 08/30/2016 11/24/2017 Sig[facility] to coming for infusion. Disc: Reason for discontinue is not on file. metroNIDAZOLE (FLAGYL) 500 mg tablet 30 t* 0 11/14/2014 11/24/2017 Route: ORAL Sig: Take 1 tablet by mouth three times daily for 10 days. Disc: Reason for discontinue is not on file. fluconazole (DIFLUCAN) 150 mg tablet 2 ta* 0 03/14/2017 11/24/2017 Route: ORAL Sig: Take 1 tablet by mouth one time only for 1 dose. (Repeat in 3 days as needed.) Disc: Reason for discontinue is not on file. Disposition: Return for 4 to 6 month FU. Follow-up and Disposition History Recorded Encounter Status:Closed by SUPRIYA SOTELO MD on 12/11/17 EMERGENCY DEPARTMENT Observed: 09/27/2017 Status: F Source: [facility] SUMMARY 12:11 AM [facility] REPOSITORY [facility] Medical Records Department [address] [place] [address] Emergency Department Summary 09/26/17 1913 MR#: [id number] Acct: [id number] Name: EMILY ORTIZ Rep #: [id number] : 1980 37 From: Kita Vogt MD PCP: Supriya Sotelo MD Status: DEP ER - ER Visit Summary Date of Service: 09/26/17 Chief Complaint: Crohn's flare History of Present Illness: The patient is a 37 F with 3 day history of nausea, abdominal cramping, and diarrhea. She reports fever to the 101-102 range. Patient states today she had blood with her diarrhea. She believes this is secondary to a Crohn's flare, but states she has not had a flare this bad in quite some time. Patient is currently on Remicade and Imuran. Physical Examination: Blood pressure is 159/102, temperature 98.9, heart rate 69, respiratory rate 16, pulse ox 99% on room air. Patient sitting upright in bed no acute distress. Heart is regular rate and rhythm. Lung sounds are clear. Abdomen is soft with mild diffuse tenderness. No guarding or rebound. Hypoactive bowel sounds are noted. Test Results: CBC was normal white count and differential. Hemoglobin is 11.4 which is consistent with her prior labs. Chemistry studies, LFTs, lipase normal. Coags normal. CT abdomen pelvis with IV contrast reveals no acute process or focal inflammation. Emergency Department Course and Treatment: Patient was given morphine, Zofran, and IV fluids. This was followed by a single small dose of Dilaudid for pain control. Repeat evaluation patient is resting comfortably. She has not been up to the bathroom with diarrhea. At this time patient be treated with Imodium, Zofran, and a few Percocet for breakthrough pain. She is to follow-up with her primary care physician or GI specialist. If her symptoms worsen she is to return for repeat evaluation. Treatment Plan: [] Disposition: Discharge Impression: Gastroenteritis This note was generated with [employer] dictation software. It may contain incorrect words, spelling, and punctuation that were not noted in review of the chart prior to signing ED Disposition - Plan for ED Patient: Disposition: Home or Assisted Living Chief Complaint: Abd Pain Instructions: ED Gastroenteritis Viral Prescriptions: Loperamide [Imodium] 2 mg PO Q6H PRN PRN #14 cap PRN Reason: Diarrhea Oxycodone HCl/Acetaminophen [Percocet 5/325] 1 tablet PO Q6H PRN PRN 5 Days #20 tablet PRN Reason: Pain Ondansetron [Zofran Odt] 4 mg PO Q8H PRN PRN #10 tab PRN Reason: Nausea Referrals: Abhi Ramírez MD [STAFF PHYSICIAN] - Supriya Sotelo MD [Primary Care Provider] - What to do if you have Problems For any increased pain, shortness of breath, bleeding, nausea or vomiting, chest pain, or any unexpected problems, contact your Primary Care Provider. Call [facility] ([phone]) or report to the closest Emergency Room. Call 911 if necessary. 09/27/17 0011 <Electronically signed by Kita Vogt MD> Date Kita Vogt MD Cosigner Signature (If Indicated): Date CC: Supriya Sotelo MD DISCHARGE INSTRUCTION Observed: 09/26/2017 Status: F Source: [facility] 10:31 PM [facility] REPOSITORY [facility] Medical Records Department [address] [place] [address] Discharge Instruction 09/26/17 2225 MR#: [id number] Acct: [id number] Name: EMILY ORTIZ Rep #: [id number] : 1980 37 From: Kita Vogt MD PCP: Supriya Sotelo MD Status: REG ER ED Disposition - Plan for ED Patient: Disposition: Home or Assisted Living Chief Complaint: Abd Pain Instructions: ED Gastroenteritis Viral Prescriptions: Loperamide [Imodium] 2 mg PO Q6H PRN PRN #14 cap PRN Reason: Diarrhea Oxycodone HCl/Acetaminophen [Percocet 5/325] 1 tablet PO Q6H PRN PRN 5 Days #20 tablet PRN Reason: Pain Ondansetron [Zofran Odt] 4 mg PO Q8H PRN PRN #10 tab PRN Reason: Nausea Referrals: Supriya Sotelo MD [Primary Care Provider] - Abhi Ramírez MD [STAFF PHYSICIAN] - What to do if you have Problems For any increased pain, shortness of breath, bleeding, nausea or vomiting, chest pain, or any unexpected problems, contact your Primary Care Provider. Call [facility] ([phone]) or report to the closest Emergency Room. Call 911 if necessary. 09/26/17 2231 <Electronically signed by Kita Vogt MD> Date Kita Vogt MD Cosigner Signature (If Indicated): Date CC: Supriya Sotelo MD ABDOMEN/PELVIS W IV CONT Observed: 09/26/2017 Status: F Source: JAMIE ONLY 8:17 PM [facility] REPOSITORY [facility] Imaging Services [address] [place] [address] Abdomen/Pelvis W IV Cont ONLY MR#: [id number] Acct: [id number] Name: EMILY ORTIZ Rep #: [id number] : 1980 F 37 From: Tino Roberts DO PCP: Supriya Sotelo MD Status: REG ER Study: Abdomen/Pelvis W IV Cont ONLY Date of Exam: 09/26/17 Exam# [id number] Ordering Dr: Kita Vogt MD STUDY: CT ABDOMEN AND PELVIS WITH CONTRAST REASON FOR EXAM: Female, 37 years old. Abdomen pain for 3 days. History of Crohn's with PowerPort. RADIATION DOSAGE (If Supplied By Facility): CTDIvol = ( 18.74 ) mGy, DLP = ( 1272.14 ) mGycm TECHNIQUE: Transaxial images were obtained from the dome of the diaphragm to the symphysis pubis without oral contrast. 100ML ml of Isovue 300 contrast was administered. Sagittal and coronal images were reconstructed. Individualized dose optimization techniques were used for this CT. COMPARISON: None. FINDINGS: The visualized lung bases are unremarkable. The visualized portions of the heart are within normal limits. Normal liver. There are surgical clips in the gallbladder fossa consistent with a prior cholecystectomy. Normal spleen. Normal pancreas. Normal bilateral adrenal glands. Normal right kidney. Normal left kidney. Normal visualized stomach. Normal small intestine. Normal colon. There are surgical clips in the region of the appendix consistent with a prior appendectomy. Normal abdominal aorta. Normal inferior vena cava. Normal retroperitoneum. Normal urinary bladder. Normal visualized uterus. There is a small umbilical hernia containing fat. Normal osseous structures. CT/Abdomen/Pelvis W IV Cont ONLY IMPRESSION: 1. No evidence of acute intra-abdominal process or focal inflammation. No evidence of air-fluid levels or bowel dilatation to suggest ileus versus obstruction. Cholecystectomy and appendectomy. Small anterior umbilical fat-containing hernia is present. Electronically Signed: Tino Roberts DO at 21:42 EDT , Service support , CC: Kita Vogt MD; Supriya Sotelo MD Nurse Clinician: Signed CBC W/DIFF, AUTOMATED Collected: 09/26/2017 Status: F Source: [place] 7:25 PM [facility] REPOSITORY TYPE CODE TESTS RESULT OUT OF RANGE REFERENCE UNITS LAB L100.1000 4.4-11.0 K/mm3 Normal WBC 10.0 LAB L100.1200 4.2-5.4 M/mm3 Normal RBC 4.95 LAB L100.1300 12.0-15.0 g/dl Low HGB 11.4 LAB L100.1400 37-47 % Normal HCT 37.3 LAB L100.1500 81-99 fL Low MCV 75.4 LAB L100.1600 27.0-32.0 pg Low MCH 23.0 LAB L100.1700 32-36 g/gl Low MCHC 30.6 LAB L100.1810 11.6-14.6 % High RDW CV 16.7 LAB L100.1820 35.1-43.9 fl High RDW SD 45.8 LAB L100.1900 150-450 K/mm3 Normal PLT 198 LAB L100.2000 6.2-12.0 fl Normal MPV 11.5 LAB L100.2100 47-70 % Normal NEUT% 54.2 LAB L100.2200 19-41 % Normal LY% 39.2 LAB L100.2300 0-10 % Normal MONO% 4.2 LAB L100.2400 0-5 % Normal EO% 1.6 LAB L100.2500 0-1 % Normal BASO% 0.7 LAB L100.2550 0.0-0.9 % Normal IM GRAN % 0.100 Result Comment: IG% - Immature Granulocytes (promyelocytes, myelocytes and metamyelocytes) > 1% indicates that a LEFT SHIFT is Present. LAB L100.2620 2.0-7.7 X10 3/uL Normal Absolute Neut 5.4 LAB L100.2720 0.83-4.51 X10 3/ul Normal Absolute Lymph 3.92 LAB L100.4500 Normal SMEAR COMMENT SCANNED Result Comment: AUTO DIFF OK Performed By: #### L100.0100 #### [facility] [address] [place], [place], [id number] PROTHROMBIN TIME W/INR Collected: 09/26/2017 Status: F Source: [place] 7:25 PM [facility] REPOSITORY TYPE CODE TESTS RESULT OUT OF RANGE REFERENCE UNITS LAB L300.4150 11.7-14.9 SECONDS Normal PROTIME 12.7 LAB L300.4200 Normal INR 1.0 Performed By: #### L300.3900, L300.4310 #### [facility] [address] [place], [place], [id number] PARTIAL THROMBOPLAST Collected: 09/26/2017 Status: F Source: [place] TIME 7:25 PM [facility] REPOSITORY TYPE CODE TESTS RESULT OUT OF REFERENCE UNITS RANGE LAB L300.4310 24.1-36.2 Seconds High PTT 40.6 Performed By: #### L300.3900, L300.4310 #### [facility] [address] [place], [address] BASIC METABOLIC Collected: 09/26/2017 Status: F Source: JAMIE PROFILE (BMP) 7:25 PM [facility] REPOSITORY TYPE CODE TESTS RESULT OUT OF RANGE REFERENCE UNITS LAB L501.0100 74-106 mg/dL Normal GLU 92 Result Comment: Please note revised GLUCOSE reference range effective 2017. LAB L501.1000 7-18 mg/dL Normal BUN 10 LAB L501.1100 0.55-1.02 mg/dL Normal CREAT,SERUM 0.81 Result Comment: The validity of the calculated GFR AND GFRAA in patients over 70 years has not been determined. Clinical correlation is essential. LAB L501.1110 >60 mL/min Normal EST GFR 84 Result Comment: Non- GFR Calc LAB L501.1115 >60 mL/min Normal EST GFR - AA 101 Result Comment: GFR Calc LAB L501.1255 ml/min Normal Estimated CRCL 108.67 LAB L501.1300 10-20 RATIO BUN/CRE Normal 12.3 LAB L501.2200 8.5-10 mg/dL Low .1 CA 8.4 LAB L501.5300 136-14 mmol/L 5 NA Normal 140 LAB L501.5600 3.5-5. mmol/L 1 K Normal 3.8 LAB L501.5900 98-107 mmol/L High CL 108 LAB L501.6100 21.0-3 mmol/L 2.0 CO2 Normal 27.0 LAB L501.6200 5-15 GAP Normal 5 Performed By: #### L500.2500, L500.3400, L501.2450 #### [facility] [address] [place], [address] LIVER PROFILE Collected: 09/26/2017 Status: F Source: JMAIE 7:25 PM [facility] REPOSITORY TYPE CODE TESTS RESULT OUT OF RANGE REFERENCE UNITS LAB L501.1500 6.4-8.2 g/dL Normal T PROT 8.1 LAB L501.1800 3.2-5.0 g/dL Normal ALB 3.5 LAB L501.1950 2.2-4.2 g/dL High GLOB 4.6 LAB L501.4100 15-37 U/L Normal AST 15 LAB L501.4305 45-117 U/L Normal ALK P 78 LAB L501.4405 13-56 U/L Normal ALT 21 LAB L501.4600 0.20-1.00 mg/dL Normal T BILI 0.20 LAB L501.4700 0.00-0.30 mg/dL Normal D BILI 0.09 Performed By: #### L500.2500, L500.3400, L501.2450 #### [facility] [address] [place], [address] LIPASE Collected: 09/26/2017 Status: F Source: IAEGER 7:25 PM [facility] REPOSITORY TYPE CODE TESTS RESULT OUT OF RANGE REFERENCE UNITS LAB L501.2450 73-393 U/L Normal LIPASE 125 Performed By: #### L500.2500, L500.3400, L501.2450 #### [facility] [address] [place], [address] PROGRESS Observed: 08/09/2017 Status: COMPLETED Source: [place] 7:21 AM [facility] REPOSITORY HNO ID: [id number] Author: Lesley Lebron Psr Service: (none) Author Type: (none) Type: Progress Notes Filed: 08/09/2017 7:21 AM Note Text: Pap logged and normal pap letter mailed to patient. Lesley Lebron Psr HPV W/GENOTYPE Collected: 08/03/2017 Status: F Source: [place] 11:35 AM [facility] REPOSITORY TYPE CODE TESTS RESULT OUT OF REFERENCE UNITS RANGE LAB HPVT16 HPV HighRisk Negative for Type 16 HPV DNA high risk type 16 by PCR. LAB HPVT18 HPV HighRisk Negative for Type 18 HPV DNA high risk type 18 by PCR. LAB HPVHRO HPV HighRisk Negative for Other HPV DNA high risk types: 31,33,35,39,45 ,51,52,56,58,5 9,66,68 by PCR. Result Comment: This test was developed and its performance characteristics determined by [facility]'s [facility] [place] ([facility] It has not been cleared or approved by the FDA. [facility] is regulated under CLIA as qualified to perform high-complexity testing. This test is used for clinical purposes. It should not be regarded as inv estigational or for research. Performed By: #### HPVHRR #### [facility] [address] [place], [place] [address] CYTOLOGY Observed: 08/03/2017 Status: C Source: [place] 11:35 [facility] REPOSITORY ADDITIONAL PROCEDURES PRESENT Specimen originated from [facility] Specimen #: [id number] Submitting Physician: LESLEY LOPEZ CNP SPECIMEN SUBMITTED A: CERVICAL, SCREENING, FLUID FINAL DIAGNOSIS A. CERVICAL, SCREENING, FLUID Satisfactory for interpretation. Negative for intraepithelial lesion or malignancy. This specimen has been analyzed by the ThinPrep Imaging System, an automated imaging and review system, which assists the laboratory in evaluating cells on ThinPrep Pap tests. Following automated imaging, selected naranjo from every slide are reviewed by a cutter finisher. RAFY Hicks(ASCP) (Electronic Signature) ADDITIONAL PROCEDURE(S) HUMAN PAPILLOMA VIRUS Date Ordered: 08/04/2017 Date Reported: 08/07/2017 Procedure Results and Interpretation Negative for HPV DNA high risk type 16 by PCR. Negative for HPV DNA high risk type 18 by PCR. Negative for HPV DNA high risk types: 31,33,35,39,45,51,52,56,58,59,66,68 by PCR. This test was developed and its performance characteristics determined by [facility]'s [facility] [place] ([facility]). It has not been cleared or approved by the FDA. [facility] is regulated under CLIA as qualified to perform high-complexity testing. This test is used for clinical purposes. It should not be regarded as investigational or for research. CLINICAL DATA ROUTINE EXAM, HPV Testing: Yes, automatic HPV patients over 30 Date of Last Menstrual Period: 07/19/2017 STAINS A: CERVICAL, SCREENING, FLUID THIN PREP PREMIX CONCRETE BATCHER Kita Avery M.D., Mail Messenger Date of Report: 08/08/2017 Date of Procedure: 08/03/2017 Date of Receipt: 08/04/2017 Submitted by: LESLEY LOPEZ CNP Location: [facility] Diagnostic interpretation performed at [facility], [address] [place] [address]. The Pap Smear is a screening test for cervical cancer. False negative results occur with all screening tests, emphasizing the need for rescreening at recommended intervals, and clinical correlation. CNNURSE Observed: 08/03/2017 Status: COMPLETED Source: [place] 11:15 AM [facility] REPOSITORY Nurse Visit (FAMPWS) EMILY ORTIZ ([id number]) 1980 F Date Time Provider Department 08/03/17 11:15 AM [facility] NURSE FAMPWS During your visit today, we recorded the following information about you: Pulse Blood pressure 60/minute 134/82 Stacy Ramon LPN 08/03/2017 11:08 AM Signed Manual Readin/82 Pulse: 60 Reason for blood pressure check - Last BP elevated and Medication adjustment. Blood pressure was 152/102 on 06/02/17 visit with pcp. Atenolol 25mg was started then. Patient is: Taking medication as prescribed Yes Took medication today Yes If no, date medication last taken na Experiencing side effects Yes, occasionally has lightheadedness. Pt denies chest pain, sob, headaches or dizziness. Pt is a daily smoker. Pt cut down on caffeine, Has a pop usually 1X a week. Pt is working on a healthy diet. Pt is alert AND oriented. Pt has been identified by name and birthdate: Yes Allergies reviewed: Yes Latex allergy: no. Medication - prescribed and OTC reviewed and updated: Yes Do you need any prescription refills prior to your next visit: No Health Maintenance: Reviewed and up to date Pt advised she will be contacted by pcp after review. Stacy Ramon LPN Referring Provider: SUPRIYA SOTELO [[id number]] Allergies As of Date: 08/03/2017 (No Known Allergies) Date Reviewed: 08/03/2017 Reviewed by: Stacy Ramon LPN - Fully Assessed Reason for Visit: Blood Pressure Check [195] Visit Diagnosis:Elevated blood pressure reading without diagnosis of hypertension [R03.0] Prescriptions as of 08/03/2017 Sig: LAMIVUDINE 100 MG TABLET Take 1 tablet by mouth once d* LORAZEPAM 1 MG TABLET Take 1 tablet by mouth once d* AZATHIOPRINE 50 MG TABLET Take 1 tablet by mouth once d* NICOTINE 21 MG/24 HR DAILY TR* Apply 1 Patch as directed felton* ATENOLOL 25 MG TABLET Take 1 tablet by mouth once d* INFLIXIMAB 100 MG INTRAVENOUS* Inject 1,500 mg intravenously* CHOLECALCIFEROL (VITAMIN D3) * Take 1 capsule by mouth once * OMEPRAZOLE 20 MG CAPSULE,DARIELA* Take 1 capsule by mouth daily* ZOLPIDEM 10 MG TABLET Take 1 tablet by mouth at bed* KETOCONAZOLE 2 % SHAMPOO Apply 1 application to affect* MOMETASONE 0.1 % TOPICAL CREAM Apply 1 application to affect* PYRIDOXINE (VITAMIN B6) 100 M* Take 1 tablet by mouth once d* BUDESONIDE-FORMOTEROL HFA 160* Inhale 2 Puffs as instructed * CLINDAMYCIN 1 % TOPICAL GEL Apply 1 application to affect* LIDOCAINE-PRILOCAINE 2.5 %-2.* Apply to [facility] site 30-45 * ALBUTEROL SULFATE HFA 90 MCG/* Inhale 2 Puffs as instructed * DIPHENHYDRAMINE 50 MG/ML INJE* Inject 25 mg intravenously as* SODIUM CHLORIDE 0.9% FLUSH Access implanted vascular acc* HEPARIN LOCK FLUSH (PORCINE) * Access implanted vascular acc* FERROUS GLUCONATE 324 MG (36 * Take 1 tablet by mouth twice * Patient not taking: Reported on 08/03/2017 Problem List As Of Date 08/03/2017 Noted Resolved HEMATOCHEZIA [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 ABDOMINAL PAIN OTHER SPEC SITE [R10.9] INVALID FOR* JOINT PAIN-MULT JTS [M25.50] INVALID FOR* FISTULA ANAL [K60.3] INVALID FOR*02/10/2010 Hepatitis [K75.9] INVALID FOR* DEPRESSIVE DISORDER NEC [F32.9] INVALID FOR* SLEEP APNEA NOS [G47.30] INVALID FOR* Headache [R51] INVALID FOR*02/10/2010 DEBILITY NOS [R53.81] INVALID FOR* MALAISE AND FATIGUE NEC [R53.81, R53.83] INVALID FOR* HIDRADENITIS [L73.2] INVALID FOR* ACNE NEC [L70.8] INVALID FOR* PYODERMA NOS [L08.0] INVALID FOR* SCAR AND FIBROSIS OF SKIN [L90.5] INVALID FOR* FOLLICULITIS///HAIR DISEASES NEC [L73.8] INVALID FOR* Sebaceous cyst [L72.3] INVALID FOR*02/10/2010 HYPERPIGMENTATION///DYSCHROMIA UNSPECIFIED [L81*INVALID FOR* GENERALIZED ANXIETY DIS [F41.1] INVALID FOR* PANIC ATTACKS [F41.0] INVALID FOR* CHRONIC PAIN NEC [G89.29] INVALID FOR* Vitamin d deficiency [E55.9] INVALID FOR* Rosacea [L71.9] More... Pustular psoriasis [L40.1] Regional enteritis of large intestine (HCC) [K5*INVALID FOR*01/15/2014 Low blood potassium [E87.6] INVALID FOR* Mild intermittent asthma without complication [*INVALID FOR* More... 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] INVALID FOR* Iron deficiency anemia due to chronic blood los*INVALID FOR* Encounter Status:Closed by STACY RAMON LPN on 08/03/17 PROGRESS Observed: 08/03/2017 Status: COMPLETED Source: [place] 11:00 AM [facility] REPOSITORY HNO ID: [id number] Author: Stacy Ramon LPN Service: (none) Author Type: (none) Type: Progress Notes Filed: 08/03/2017 11:08 AM Note Text: Manual Readin/82 Pulse: 60 Reason for blood pressure check - Last BP elevated and Medication adjustment. Blood pressure was 152/102 on 06/02/17 visit with pcp. Atenolol 25mg was started then. Patient is: Taking medication as prescribed Yes Took medication today Yes If no, date medication last taken na Experiencing side effects Yes, occasionally has lightheadedness. Pt denies chest pain, sob, headaches or dizziness. Pt is a daily smoker. Pt cut down on caffeine, Has a pop usually 1X a week. Pt is working on a healthy diet. Pt is alert AND oriented. Pt has been identified by name and birthdate: Yes Allergies reviewed: Yes Latex allergy: no. Medication - prescribed and OTC reviewed and updated: Yes Do you need any prescription refills prior to your next visit: No Health Maintenance: Reviewed and up to date Pt advised she will be contacted by pcp after review. Stacy Ramon LPN PROGRESS Observed: 08/03/2017 Status: COMPLETED Source: [place] 10:04 AM [facility] REPOSITORY HNO ID: [id number] Author: Lesley Lopez Service: (none) Author Type: Nurse Practitioner Type: Progress Notes Filed: 08/03/2017 12:43 PM Note Text: Puppet Maker offered: Patient declines. Emily Chauhan is a 37 year old who presents for her annual gynecologic exam with concerns, . 1. Had cyst close to clitoris evaluated by Dr Owen - states cyst has now fallen and looks erect, rubs against underwear and causes an orgasm. Last evaluated by Dr Owen 3-4 months ago but did not get a plan of treatment. Wants cyst removed. 2. Periods are bimonthly but flow is mostly clots instead of a flow. Has a history of episodes of secondary amenorrhea. 3. Pelvic pain - sharp, stabbing pain below umbilicus which becomes achy. Pain occurs a few times a day, is unable to reproduce pain or alleviate pain. Pain treated with ibuprofen/aleve. Has Crohn's disease and states pain is not due to Crohn's. 4. Pain with intercourse x 1 year. Pain sharp and stabbing initially then feels pelvic aching for hours. Position changes not very effective. Menses: cycles every 60 days and 6 days of flow. Contraception: none Happy if occurs HPV vaccine: No Last Pap: 2013 normal HPV: negative History of abnormal pap: Yes 2007 - [facility] Colposcopy and LEEP 2008 Last mammogram: 2013normal Sexually active: Yes Patient concerns for STD exposure: No. Time with current partner: 10 years Pain with intercourse: Yes x 1 year, sharp stabbing pain then aching Postcoital bleeding: No Obstetric History T0 L2 SAB4 TAB0 Ectopic0 Multiple0 Live Births0 PAST MEDICAL HISTORY Diagnosis Date - Abnormal Pap smear 12/2007 LGS[facility] - Acute gastritis without mention of hemorrhage - Anal fistula - Cataract bilateral - Chronic hepatitis B (HCC) - CHRONIC PAIN NEC 05/01/2008 - Cough 06/21/2011 - Crohn disease (HCC) - DEBILITY NOS 07/24/2007 - Duodenitis without mention of hemorrhage - GERD (gastroesophageal reflux disease) - Hemorrhage of gastrointestinal tract, unspecified - Hemorrhage of rectum and anus - Hidradenitis 07/27/2007 - Palpitations 04/11/2008 - PANIC ATTACKS 04/01/2008 - PMH - PAST MEDICAL HISTORY OF duodenal ulcerations - PMH - PAST MEDICAL HISTORY OF bile stasis - PMH - PAST MEDICAL HISTORY OF Hydrenitis - Pustular psoriasis - Regional enteritis of unspecified site - Rosacea cystular - Tachycardia, unspecified 04/11/2008 - Viral hepatitis B without mention of hepatic coma, chronic, without mention of hepatitis delta - Vitamin D deficiency 03/17/2012 PAST SURGICAL HISTORY Procedure Laterality Date - COLONOSCOP W/ OR W/O [facility] SPEC 2004 Colonoscopy - COLONOSCOP W/ OR W/O [facility] SPEC 07/17/06 - COLONOSCOP W/ OR W/O [facility] SPEC 01/20/11 - COLONOSCOPY W/BX 05/06/09 - EXC SKIN HIDRADENITIS AX; COMPLEX 08/2009,has had 9more sugeries second in 09/26, axillary bilateral , groin bilateral - OFFICE LEEP 2008 - PAST SURGICAL HISTORY OF 2004 history of crohns S/P esection of terminal ileum - PAST SURGICAL HISTORY OF 11/2008, 01/2008 Colposcopy - REMOVAL ANAL FISTULA,COMPLEX/MULTI 09/27/2006 [place] Fistula - REMOVAL ANAL FISTULA,SECOND STAGE 12/27/2006 - REMOVAL GALLBLADDER 2004 During Crohn's surgery - TUNNEL VAD W SUB Q PORT >=5 06/21/11 RIght subclavian FAMILY HISTORY Problem Relation Age of Onset - Hypertension Mother - Hypertension Father - Cancer Maternal Grandfather PROSTATE AND COLON - Coronary Artery Disease Maternal Grandfather - Hypertension Maternal Grandfather - Stroke Maternal Grandfather - Allergies Maternal Grandmother - Hypertension Maternal Grandmother - Thyroid Maternal Grandmother SOCIAL HISTORY Social History Substance Use Topics - Smoking status: Current Every Day Smoker Packs/day: 0.50 Years: 21.00 Types: Cigarettes - Smokeless tobacco: Never Used Comment: 1/2 pack daily - Alcohol use Yes Comment: Seldom REVIEW OF SYSTEMS Abdomen: See HPI No nausea, vomiting, diarrhea, or constipation. No bloating, early satiety, indigestion, or increased flatulence. Bladder: No dysuria, gross hematuria, urinary frequency, urinary urgency, or incontinence. Breast: No breast lumps, nipple d/c, overlying skin changes, redness or skin retraction. Allergies and current medication updated:Yes EXAM: BP 142/80 Ht 5' 11.654 (1.82m) Wt 327 lb (148.3kg) LMP 07/19/2017 BMI 44.78 kg/(m2). GENERAL: pleasant, female in no apparent distress HEENT: Normocephalic, atraumatic, mucus membranes moist and no lesions NECK: Supple, full range of motion, no adenopathy and thyroid normal DERMATOLOGY: Normal, without lesions, non-icteric and non-hirsute. Hydradenitis. BREAST: soft, non-tender, symmetric, no dominant mass, normal nipple-areolar complex, no lymphadenopathy and no nipple discharge CHEST: Normal inspiratory effort ABDOMEN: soft, no masses and Mild tenderness in periumbilical area PELVIC: Multiple healed scars and depigmented areas on mons and outer sides bilateral labia. Normal Bartholin's glands, urethra, [place]'s glands, no active vulvar lesions, no cervical lesions, good vaginal support, physiologic discharge present, normal appearing perineal body and perianal region, pendulous skin 2 cm x 1 cm adjacent to clitoris. BIMANUAL: uterus normal size, shape and consistency, no adnexal masses and non-tender RECTOVAGINAL: deferred. NEURO: alert and oriented x3,exam grossly non-focal EXTREMITIES: normal ASSESSMENT/PLAN: 1) Health maintenance: Pap done with HPV. Nutrition, exercise and routine health maintenance exams reviewed. Calcium/Vitamin D supplementation information provided. 2. Excess skin cyst at clitoris - see Dr Owen 3. Irregular menses - menses every other month, reassurance given 4. Pelvic pain and dyspareunia - Pelvic US 5) Contraception: none. Contraceptive options reviewed and information provided. 6) STD screening: Declined STD check. 5) Follow up one year or sooner as needed MIRIAM Alas Observed: 08/03/2017 Status: COMPLETED Source: [place] 10:00 AM [facility] REPOSITORY Office Visit (WOOB) EMILY ORTIZ ([id number]) 1980 F Date Time Provider Department 08/03/17 10:00 AM LESLEY LOPEZ (VANNA) WOOB During your visit today, we recorded the following information about you: Blood pressure Weight Height Last Period 142/80 148.3 kg 1.82 m 07/19/17 Lesley Lopez APRN.CNP 08/03/2017 12:43 PM Signed Puppet Maker offered: Patient declines. Emily Chauhan is a 37 year old who presents for her annual gynecologic exam with concerns, . 1. Had cyst close to clitoris evaluated by Dr Owen - states cyst has now fallen and looks erect, rubs against underwear and causes an orgasm. Last evaluated by Dr Owen 3-4 months ago but did not get a plan of treatment. Wants cyst removed. 2. Periods are bimonthly but flow is mostly clots instead of a flow. Has a history of episodes of secondary amenorrhea. 3. Pelvic pain - sharp, stabbing pain below umbilicus which becomes achy. Pain occurs a few times a day, is unable to reproduce pain or alleviate pain. Pain treated with ibuprofen/aleve. Has Crohn's disease and states pain is not due to Crohn's. 4. Pain with intercourse x 1 year. Pain sharp and stabbing initially then feels pelvic aching for hours. Position changes not very effective. Menses: cycles every 60 days and 6 days of flow. Contraception: none Happy if occurs HPV vaccine: No Last Pap: 2013 normal HPV: negative History of abnormal pap: Yes 2007 - [facility] Colposcopy and LEEP 2008 Last mammogram: 2013normal Sexually active: Yes Patient concerns for STD exposure: No. Time with current partner: 10 years Pain with intercourse: Yes x 1 year, sharp stabbing pain then aching Postcoital bleeding: No Obstetric History T0 L2 SAB4 TAB0 Ectopic0 Multiple0 Live Births0 PAST MEDICAL HISTORY Diagnosis Date - Abnormal Pap smear 12/2007 LGSIL - Acute gastritis without mention of hemorrhage - Anal fistula - Cataract bilateral - Chronic hepatitis B (HCC) - CHRONIC PAIN NEC 05/01/2008 - Cough 06/21/2011 - Crohn disease (HCC) - DEBILITY NOS 07/24/2007 - Duodenitis without mention of hemorrhage - GERD (gastroesophageal reflux disease) - Hemorrhage of gastrointestinal tract, unspecified - Hemorrhage of rectum and anus - Hidradenitis 07/27/2007 - Palpitations 04/11/2008 - PANIC ATTACKS 04/01/2008 - PMH - PAST MEDICAL HISTORY OF duodenal ulcerations - PMH - PAST MEDICAL HISTORY OF bile stasis - PMH - PAST MEDICAL HISTORY OF Hydrenitis - Pustular psoriasis - Regional enteritis of unspecified site - Rosacea cystular - Tachycardia, unspecified 04/11/2008 - Viral hepatitis B without mention of hepatic coma, chronic, without mention of hepatitis delta - Vitamin D deficiency 03/17/2012 PAST SURGICAL HISTORY Procedure Laterality Date - COLONOSCOP W/ OR W/O [facility] SPEC 2004 Colonoscopy - COLONOSCOP W/ OR W/O BRSH SPEC 07/17/06 - COLONOSCOP W/ OR W/O BRSH SPEC 01/20/11 - COLONOSCOPY W/BX 05/06/09 - EXC SKIN HIDRADENITIS AX; COMPLEX 08/2009,has had 9more sugeries second in 09/26, axillary bilateral , groin bilateral - OFFICE LEEP 2008 - PAST SURGICAL HISTORY OF 2004 history of crohns S/P esection of terminal ileum - PAST SURGICAL HISTORY OF 11/2008, 01/2008 Colposcopy - REMOVAL ANAL FISTULA,COMPLEX/MULTI 09/27/2006 [place] - REMOVAL ANAL FISTULA,SECOND STAGE 12/27/2006 - REMOVAL GALLBLADDER 2004 During Crohn's surgery - TUNNEL VAD W SUB Q PORT >=5 06/21/11 RIght subclavian FAMILY HISTORY Problem Relation Age of Onset - Hypertension Mother - Hypertension Father - Cancer Maternal Grandfather PROSTATE AND COLON - Coronary Artery Disease Maternal Grandfather - Hypertension Maternal Grandfather - Stroke Maternal Grandfather - Allergies Maternal Grandmother - Hypertension Maternal Grandmother - Thyroid Maternal Grandmother SOCIAL HISTORY Social History Substance Use Topics - Smoking status: Current Every Day Smoker Packs/day: 0.50 Years: 21.00 Types: Cigarettes - Smokeless tobacco: Never Used Comment: 1/2 pack daily - Alcohol use Yes Comment: Seldom REVIEW OF SYSTEMS Abdomen: See HPI No nausea, vomiting, diarrhea, or constipation. No bloating, early satiety, indigestion, or increased flatulence. Bladder: No dysuria, gross hematuria, urinary frequency, urinary urgency, or incontinence. Breast: No breast lumps, nipple d/c, overlying skin changes, redness or skin retraction. Allergies and current medication updated:Yes EXAM: BP 142/80 Ht 5' 11.654 (1.82m) Wt 327 lb (148.3kg) LMP 07/19/2017 BMI 44.78 kg/(m2). GENERAL: pleasant, female in no apparent distress HEENT: Normocephalic, atraumatic, mucus membranes moist and no lesions NECK: Supple, full range of motion, no adenopathy and thyroid normal DERMATOLOGY: Normal, without lesions, non-icteric and non-hirsute. Hydradenitis. BREAST: soft, non-tender, symmetric, no dominant mass, normal nipple-areolar complex, no lymphadenopathy and no nipple discharge CHEST: Normal inspiratory effort ABDOMEN: soft, no masses and Mild tenderness in periumbilical area PELVIC: Multiple healed scars and depigmented areas on mons and outer sides bilateral labia. Normal Bartholin's glands, urethra, [place]'s glands, no active vulvar lesions, no cervical lesions, good vaginal support, physiologic discharge present, normal appearing perineal body and perianal region, pendulous skin 2 cm x 1 cm adjacent to clitoris. BIMANUAL: uterus normal size, shape and consistency, no adnexal masses and non-tender RECTOVAGINAL: deferred. NEURO: alert and oriented x3,exam grossly non-focal EXTREMITIES: normal ASSESSMENT/PLAN: 1) Health maintenance: Pap done with HPV. Nutrition, exercise and routine health maintenance exams reviewed. Calcium/Vitamin D supplementation information provided. 2. Excess skin cyst at clitoris - see Dr Owen 3. Irregular menses - menses every other month, reassurance given 4. Pelvic pain and dyspareunia - Pelvic US 5) Contraception: none. Contraceptive options reviewed and information provided. 6) STD screening: Declined STD check. 5) Follow up one year or sooner as needed Lesley Lopez APRN.VANNA Lebron Psr 08/09/2017 7:21 AM Signed Pap logged and normal pap letter mailed to patient. Lesley Lebron Psr Referring Provider: SELF [[id number]] Allergies As of Date: 08/03/2017 (No Known Allergies) Date Reviewed: 08/03/2017 Reviewed by: Lesley Lopez - Fully Assessed Primary Visit Diagnosis:Encounter for gynecological examination with abnormal finding [Z01.411] Other Visit Diagnoses:Pelvic pain in female [R10.2] Other specified dyspareunia [N94.19] Special screening examination for human papillomavirus (HPV) [Z11.51] Pap smear for cervical cancer screening [Z12.4] Order(s):PELVIC US WHI [[id number]] Order #: [id number]: 1 PAP FLUID CERVICAL SCREENING [[id number]] Order #: [id number]. #:[id number] HPV W/GENOTYPE [[id number]] Order #: [id number]. #:[id number] Prescriptions as of 08/03/2017 Sig: LAMIVUDINE 100 MG TABLET Take 1 tablet by mouth once d* LORAZEPAM 1 MG TABLET Take 1 tablet by mouth once d* AZATHIOPRINE 50 MG TABLET Take 1 tablet by mouth once d* NICOTINE 21 MG/24 HR DAILY TR* Apply 1 Patch as directed felton* ATENOLOL 25 MG TABLET Take 1 tablet by mouth once d* INFLIXIMAB 100 MG INTRAVENOUS* Inject 1,500 mg intravenously* CHOLECALCIFEROL (VITAMIN D3) * Take 1 capsule by mouth once * OMEPRAZOLE 20 MG CAPSULE,DARIELA* Take 1 capsule by mouth daily* ZOLPIDEM 10 MG TABLET Take 1 tablet by mouth at bed* KETOCONAZOLE 2 % SHAMPOO Apply 1 application to affect* MOMETASONE 0.1 % TOPICAL CREAM Apply 1 application to affect* PYRIDOXINE (VITAMIN B6) 100 M* Take 1 tablet by mouth once d* BUDESONIDE-FORMOTEROL HFA 160* Inhale 2 Puffs as instructed * CLINDAMYCIN 1 % TOPICAL GEL Apply 1 application to affect* LIDOCAINE-PRILOCAINE 2.5 %-2.* [facility] * ALBUTEROL SULFATE HFA 90 MCG/* Inhale 2 Puffs as instructed * DIPHENHYDRAMINE 50 MG/ML INJE* Inject 25 mg intravenously as* SODIUM CHLORIDE 0.9% FLUSH Access implanted vascular acc* HEPARIN LOCK FLUSH (PORCINE) * Access implanted vascular acc* FERROUS GLUCONATE 324 MG (36 * Take 1 tablet by mouth twice * Patient not taking: Reported on 08/03/2017 Problem List As Of Date 08/03/2017 Noted Resolved HEMATOCHEZIA [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 ABDOMINAL PAIN OTHER SPEC SITE [R10.9] INVALID FOR* JOINT PAIN-MULT JTS [M25.50] INVALID FOR* FISTULA ANAL [K60.3] INVALID FOR*02/10/2010 Hepatitis [K75.9] INVALID FOR* DEPRESSIVE DISORDER NEC [F32.9] INVALID FOR* SLEEP APNEA NOS [G47.30] INVALID FOR* Headache [R51] INVALID FOR*02/10/2010 DEBILITY NOS [R53.81] INVALID FOR* MALAISE AND FATIGUE NEC [R53.81, R53.83] INVALID FOR* HIDRADENITIS [L73.2] INVALID FOR* ACNE NEC [L70.8] INVALID FOR* PYODERMA NOS [L08.0] INVALID FOR* SCAR AND FIBROSIS OF SKIN [L90.5] INVALID FOR* FOLLICULITIS///HAIR DISEASES NEC [L73.8] INVALID FOR* Sebaceous cyst [L72.3] INVALID FOR*02/10/2010 HYPERPIGMENTATION///DYSCHROMIA UNSPECIFIED [L81*INVALID FOR* GENERALIZED ANXIETY DIS [F41.1] INVALID FOR* PANIC ATTACKS [F41.0] INVALID FOR* CHRONIC PAIN NEC [G89.29] INVALID FOR* Vitamin d deficiency [E55.9] INVALID FOR* Rosacea [L71.9] More... Pustular psoriasis [L40.1] Regional enteritis of large intestine (HCC) [K5*INVALID FOR*01/15/2014 Low blood potassium [E87.6] INVALID FOR* Mild intermittent asthma without complication [*INVALID FOR* More... 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] INVALID FOR* Iron deficiency anemia due to chronic blood los*INVALID FOR* Medications Discontinued During This Encounter desonide (DESOWEN) 0.05 % ointment 60 g 1 08/30/2016 08/03/2017 Route: TOPICAL Sig: Apply 1 application to affected area three times daily as needed. For psoriasis sparingly to affected skin on torso, extremities and face Patient not taking: Reported on 08/03/2017 Disc: Reason for discontinue is not on file. Disposition: Return in 1 year (on 08/03/2018) for Annual Exam. Follow-up and Disposition History Recorded Letter Text Lesley Lopez, [address] [address] Emily Shahgaurang Grantt [address] [facility] [address] 08/09/2017 [facility]: [id number] Dear Emily, We are pleased to inform you that your recent Pap Test was within normal limits. Because Pap tests are so effective in the early detection of cervical cancer, you are encouraged to continue having the test at regular intervals. You will be due for a 1 year Gynecological Exam after this date 08/03/2018. If you have any questions regarding the above information, do not hesitate to call our office at between the hours of 8:00 a.m. and 5:00 p.m. Sincerely, Lesley Lopez CNP Encounter Status:Closed by LESLEY LOPEZ on 08/03/17 CBC Collected: 06/02/2017 Status: F Source: [place] 10:19 AM [facility] REPOSITORY TYPE CODE TESTS RESULT OUT OF REFERENCE UNITS RANGE LAB WBC 3.70-11.00 k/uL WBC 9.44 LAB RBC 3.90-5.20 m/uL RBC 4.56 LAB HGB 11.5-15.5 g/dL Hemoglobin 12.2 LAB HCT 36.0-46.0 % Hematocrit 39.2 LAB MCV 80.0-100.0 fL MCV 86.0 LAB MCH 26.0-34.0 pG MCH 26.8 LAB MCHC 30.5-36.0 g/dL MCHC 31.1 LAB RDWCV 11.5-15.0 % RDW-CV 14.7 LAB PLTCT 150-400 k/uL Platelet Count 237 LAB MPV 9.0-12.7 fL MPV 12.5 LAB ABSNUC <0.01 k/uL Absolute nRBC <0.01 Performed By: #### CBC, CMP, MG1, TSH, FREET3, FT4, VITD #### [facility] [address] [place], [place] [address] COMP METABOLIC PANEL Collected: 06/02/2017 Status: F Source: [place] 10:19 AM [facility] REPOSITORY TYPE CODE TESTS RESULT OUT OF REFERENCE UNITS RANGE LAB TP 6.3-8.0 g/dL Protein, High Total 8.2 LAB ALB 3.9-4.9 g/dL Albumin 4.4 LAB CA 8.5-10.2 mg/dL Calcium, Total 9.2 LAB TBIL 0.2-1.3 mg/dL Bilirubin, Total 0.3 LAB ALKP 32-117 U/L Alkaline Phosphatase 61 LAB AST 13-35 U/L AST 21 LAB GLU 74-99 mg/dL Glucose 88 Result Comment: The [place] Diabetes Association (ADA) provides guidance for cutoff values for fasting glucose and random glucose. The ADA defines fasting as no caloric intake for at least 8 hours. Fas ting plasma glucose results between 100 to 125 mg/dL indicate increased risk for diabetes (prediabetes). Fasting plasma glucose results greater than or equal to 126 mg/dL meet the criteria for diagnosis of diabetes. In the absence of unequivocal hyperglycemia, results should be confirmed by repeat testing. In a patient with classic symptoms of hyperglycemia or hyperglycemic crisis, random plasma glucose results greater than or equal to 200 mg/dL meet the criteria for diagnosis of diabetes. Reference: Standards of Medical Care in Diabetes 2016, [place] Diabetes Association. Diabetes Care. 2016.39(Suppl 1). LAB BUN 7-21 mg/dL BUN 8 LAB CRET 0.58-0.96 mg/dL Creatinine 0.89 LAB NA 136-144 mmol/L Sodium 140 LAB K 3.7-5.1 mmol/L Potassium Low 3.6 LAB CL 97-105 mmol/L Chloride 101 LAB CO2 22-30 mmol/L CO2 25 LAB AGAP 9-18 mmol/L Anion Gap 14 LAB ALT 7-38 U/L ALT 12 LAB GFRAA eGFR- Amer. >60 LAB GFRNAA . eGFR-All Other Races >60 Result Comment: eGFR (Estimated GFR) Units of measure: mL/min/1.73 meters squared eGFR is derived from the reexpressed MDRD Study equation using the following parameters: serum creatinine, age, gender and race. The creatinine assay has been calibrated to be traceable to IDMS. An eGFR <60 mL/min/1.73m2 for >3 months is consistent with chronic kidney disease. Refer to KDOQI guidelines for clinical interpretation. In patients with unstable renal function, e.g. those with acute kidney injury, the eGFR may not accurately reflect actual GFR. Performed By: #### CBC, CMP, MG1, TSH, FREET3, FT4, VITD #### [facility] [address] [place], [place] [address] MAGNESIUM Collected: 06/02/2017 Status: F Source: [place] 10:19 AM [facility] REPOSITORY TYPE CODE TESTS RESULT OUT OF REFERENCE UNITS RANGE LAB MG 1.7-2.3 mg/dL Magnesium 2.1 Performed By: #### CBC, CMP, MG1, TSH, FREET3, FT4, VITD #### [place] [id number] [place] [id number] TSH Collected: 06/02/2017 Status: F Source: [place] 10:19 AM [facility] REPOSITORY TYPE CODE TESTS RESULT OUT OF RANGE REFERENCE UNITS LAB TSH 0.400-5.500 uU/mL TSH 1.080 Result Comment: If the patient is , TSH reference range varies by gestational period: First Trimester 0.100-2.500 uU/mL Second Trimester 0.200-3.000 uU/mL Third Trimester 0.300-3.000 uU/mL References: 1. Glover L, Soha M, Blair EK, et al. Management of Thyroid Dysfunction during and : An Endocrine Society Clinical Practice Guideline. J Clin Endocrinol Metab, 2012:97:6852-7305. 2. Hiro LUONG. Overview of thyroid disease in . UpToDate. 2016. Accessed on July 31, 2015. Performed By: #### CBC, CMP, MG1, TSH, FREET3, FT4, VITD #### [facility] [address] [place] [address] FREE T3 Collected: 06/02/2017 Status: F Source: [place] 10:19 AM [facility] REPOSITORY TYPE CODE TESTS RESULT OUT OF RANGE REFERENCE UNITS LAB FREET3 2.3-4.1 pg/mL Free T3 3.3 Performed By: #### CBC, CMP, MG1, TSH, FREET3, FT4, VITD #### [facility] [address] [place], [place] [address] FREE T4 Collected: 06/02/2017 Status: F Source: [place] 10:19 AM [facility] REPOSITORY TYPE CODE TESTS RESULT OUT OF RANGE REFERENCE UNITS LAB FT4 0.9-1.7 ng/dL Free T4 1.3 Performed By: #### CBC, CMP, MG1, TSH, FREET3, FT4, VITD #### [facility] [place] [address] [place], [place] [address] VITAMIN D 25 HYDROXY Collected: 06/02/2017 Status: F Source: [place] 10:19 AM [facility] REPOSITORY TYPE CODE TESTS RESULT OUT OF REFERENCE UNITS RANGE LAB VITD 31.0-80.0 ng/mL Low Vitamin D 25 29.2 Hydroxy Result Comment: Classification of 25 [place] Vitamin D status: Insufficiency/Moderate Deficiency: < or = 30 ng/mL Sufficiency/Optimal Levels: 31 to 80 ng/mL Toxicity: > 100 ng/mL Test performed by chemiluminescent immunoassay. Performed By: #### CBC, CMP, MG1, TSH, FREET3, FT4, VITD #### [facility] [place] [address] [place], [place] [address] PROGRESS Observed: 06/02/2017 Status: COMPLETED Source: [place] 9:31 AM [facility] REPOSITORY HNO ID: [id number] Author: Supriya Sotelo Service: (none) Author Type: Physician Type: Progress Notes Filed: 06/12/2017 12:37 AM Note Text: Patient presents with: Recheck SUBJECTIVE: Johnmary Sarthak Chapis Chauhan is a 37 year old year old lady here today for 6 month follow up appointment for review of medical conditions. Had seen GI--colonoscopy good. Stable from Crohn's standpoint. Fatigue despite getting enough rest. Iron levels good now but still fatigued. Noted irregular menses. Had passed clots. Every few months will skip for like 4 months then have heavy period. PAST MEDICAL HISTORY Diagnosis Date - Abnormal Pap smear 12/2007 LGSIL - Acute gastritis without mention of hemorrhage - Anal fistula - Cataract bilateral - Chronic hepatitis B (HCC) - CHRONIC PAIN NEC 05/01/2008 - Cough 06/21/2011 - Crohn disease (HCC) - DEBILITY NOS 07/24/2007 - Duodenitis without mention of hemorrhage - GERD (gastroesophageal reflux disease) - Hemorrhage of gastrointestinal tract, unspecified - Hemorrhage of rectum and anus - Hidradenitis 07/27/2007 - Palpitations 04/11/2008 - PANIC ATTACKS 04/01/2008 - PMH - PAST MEDICAL HISTORY OF duodenal ulcerations - PMH - PAST MEDICAL HISTORY OF bile stasis - PMH - PAST MEDICAL HISTORY OF Hydrenitis - Pustular psoriasis - Regional enteritis of unspecified site - Rosacea cystular - Tachycardia, unspecified 04/11/2008 - Viral hepatitis B without mention of hepatic coma, chronic, without mention of hepatitis delta - Vitamin D deficiency 03/17/2012 Current Outpatient Prescriptions: inFLIXimab (REMICADE) 100 mg injection Inject 1,500 mg intravenously as directed. Every six weeks azaTHIOprine (IMURAN) 50 mg tablet Take 1 tablet by mouth once daily. cholecalciferol, Vitamin D3, (VITAMIN D3) 50,000 unit cap capsule Take 1 capsule by mouth once each week. LORazepam (ATIVAN) 1 mg tablet Take 1 tablet by mouth once daily for 180 days. as needed (prior for Remicade infusion and for anxiety) omeprazole (PRILOSEC) 20 mg capsule Take 1 capsule by mouth daily before breakfast. 1/2 hr before meal. zolpidem (AMBIEN) 10 mg tab Take 1 tablet by mouth at bedtime as needed (insomnia) for up to 180 days. ketoconazole (NIZORAL) 2 % shampoo Apply 1 application to affected area once daily as needed. Apply to scalp and lather as directed mometasone (ELOCON) 0.1 % cream Apply 1 application to affected area once daily. To scalp as directed pyridoxine, vitamin B6, (VITAMIN B6) 100 mg tablet Take 1 tablet by mouth once daily. budesonide-formoterol (SYMBICORT) 160-4.5 mcg/actuation inhaler Inhale 2 Puffs as instructed twice daily. clindamycin (CLEOCIN-T) 1 % gel Apply 1 application to affected area twice daily. desonide (DESOWEN) 0.05 % ointment Apply 1 application to affected area three times daily as needed. For psoriasis sparingly to affected skin on torso, extremities and face Ferrous Gluconate 324 mg (36 mg iron) tab Take 1 tablet by mouth twice daily with meals. lidocaine-prilocaine (EMLA) cream Apply to Mediport site 30- 45 minutes prior to coming for infusion. lamiVUDine HBV (EPIVIR HBV) 100 mg tablet Take 1 tablet by mouth once daily. albuterol HFA (PROAIR HFA) 90 mcg/actuation inhaler Inhale 2 Puffs as instructed every 6 hours as needed. diphenhydrAMINE 50 mg/mL injection Inject 25 mg intravenously as directed. 25mg IV push as premedication for Remicade infusion. MAY GIVE ADDITIONAL 25mg during infusion if patient complains of feeling jittery. 0.9% NaCl Access implanted vascular access device (IVAD) as needed for flush, blood draw or treatment.Flush IVAD with 10-20 mL NS every 4 weeks and PRN when IVAD not in use. heparin 100 unit/mL syrg Access implanted vascular access device (IVAD) as needed for flush, blood draw or treatment. Before de-accessing port, flush with 10-20ml normal saline and follow with 5 mL heparin (100 units/mL) (if no heparin allergy). De-access port on treatment completion. No current facility-administered medications for this visit. OBJECTIVE: BP 152/102 Pulse 78 Resp 18 Wt (!) 146.5 kg (323 lb) BMI 45.05 kg/m2 Patient is alert, oriented times 3, no apparent distress, affect is bright, reactive. Last 5 Encounter BP Readings: Date: BP: 06/02/2017 152/102 04/27/2017 159/90 03/22/2017 147/88 03/17/2017 155/107 03/14/2017 150/92 Last 5 Encounter Wt Readings: Date: Wt: 06/02/2017 146.5 kg (323 lb) 03/22/2017 142.4 kg (314 lb) 03/14/2017 143.3 kg (316 lb) 12/30/2016 137.2 kg (302 lb 6.4 oz) 12/08/2016 135.6 kg (299 lb) 06/02/17 0909 06/02/17 0952 BP: 152/102 152/94 Pulse: 78 Resp: 18 Weight: (!) 146.5 kg (323 lb) Heart: Regular rate, rhythm, no murmurs, gallops, rubs. Lungs: Clear to auscultation, bilaterally, breathing non labored. Ext: No cyanosis, clubbing, or edema. CBC W/DIFF, AUTOMATED Collected: 01/28/2017 4:15 AM Status: F Source: [facility] REPOSITORY TYPE CODE TESTS RESULT OUT OF RANGE REFERENCE UNITS LAB L100.1000 WBC 9.6 Normal 4.4-11.0 K/mm3 LAB L100.1200 RBC 4.94 Normal 4.2-5.4 M/mm3 LAB L100.1300 HGB 12.8 Normal 12.0-15.0 g/dl LAB L100.1400 HCT 40.1 Normal 37-47 % LAB L100.1500 MCV 81.2 Normal 81-99 fL LAB L100.1600 MCH 25.9 Low 27.0-32.0 pg LAB L100.1700 MCHC 31.9 Low 32-36 g/gl LAB L100.1810 RDW CV Test not performed Normal 11.6-14.6 % LAB L100.1820 RDW SD Test not performed Normal 35.1-43.9 fl LAB L100.1900 PLT 163 Normal 150-450 K/mm3 LAB L100.2000 MPV Test not performed Normal 6.2-12.0 fl LAB L100.2100 NEUT% 47.7 Normal 47-70 % LAB L100.2200 LY% 43.4 High 19-41 % LAB L100.2300 MONO% 7.1 Normal 0-10 % LAB L100.2400 EO% 1.1 Normal 0-5 % LAB L100.2500 BASO% 0.6 Normal 0-1 % LAB L100.2550 IM GRAN % 0.100 Normal 0.0-0.9 % Result Comment: IG% - Immature Granulocytes (promyelocytes, myelocytes and metamyelocytes) > 1% indicates that a LEFT SHIFT is Present. LAB L100.2620 Absolute Neut 4.6 Normal 2.0-7.7 X10 3/uL LAB L100.2720 Absolute Lymph 4.16 Normal 0.83-4.51 X10 3/ul LAB L100.4500 SMEAR COMMENT SCANNED Normal ? ? LAB L100.4700 REACTIVE LYMPH 1+ Normal ? ? LAB L100.5500 PLT EST ADEQUATE Normal ADEQ ? LAB L100.7300 ANISO 4+ Normal ? ? LAB L100.7600 HYPOCHROMASIA 2+ Normal ? ? LAB L100.8600 TARGET CELLS RARE Normal ? ? Performed By: #### L100.0100 #### [facility] [place], [address] BASIC METABOLIC PROFILE (BMP) Collected: 01/28/2017 4:15 AM Status: F Source: [facility] REPOSITORY TYPE CODE TESTS RESULT OUT OF RANGE REFERENCE UNITS LAB L501.0100 GLU 93 Normal 70-110 mg/dL LAB L501.1000 BUN 10 Normal 7-18 mg/dL LAB L501.1100 CREAT,SERUM 0.86 Normal 0.55-1.02 mg/dL Result Comment: The validity of the calculated GFR AND GFRAA in patients over 70 years has not been determined. Clinical correlation is essential. LAB L501.1110 EST GFR 79 Normal >60 mL/min Result Comment: Non- GFR Calc LAB L501.1115 EST GFR - AA 96 Normal >60 mL/min Result Comment: GFR Calc LAB L501.1255 Estimated CRCL 103.36 Normal ? ml/min LAB L501.1300 BUN/CRE 11.7 Normal 10-20 RATIO LAB L501.2200 CA 8.8 Normal 8.5-10.1 mg/dL LAB L501.5300 NA 139 Normal 136-145 mmol/L LAB L501.5600 K 3.4 Low 3.5-5.1 mmol/L LAB L501.5900 CL 105 Normal 98-107 mmol/L LAB L501.6100 CO2 26.0 Normal 21.0-32.0 mmol/L LAB L501.6200 GAP 8 Normal 5-15 ? Performed By: #### L500.2500, L500.3400, L501.2450 #### [facility] [address] [facility] [place] [place], [address] LIVER PROFILE Collected: 01/28/2017 4:15 AM Status: F Source: [facility] REPOSITORY TYPE CODE TESTS RESULT OUT OF RANGE REFERENCE UNITS LAB L501.1500 T PROT 7.9 Normal 6.4-8.2 g/dL LAB L501.1800 ALB 3.5 Normal 3.4-5.0 g/dL Result Comment: Please note revised Albumin AND Globulin reference range effective 2016. LAB L501.1950 GLOB 4.4 High 2.2-4.2 g/dL LAB L501.4100 AST 15 Normal 15-37 U/L LAB L501.4305 ALK P 82 Normal 45-117 U/L LAB L501.4405 ALT 24 Normal 12-78 U/L LAB L501.4600 T BILI 0.40 Normal 0.20-1.00 mg/dL LAB L501.4700 D BILI 0.07 Normal 0.00-0.30 mg/dL Performed By: #### L500.2500, L500.3400, L501.2450 #### [facility] [address] [place], [address] LIPASE Collected: 01/28/2017 4:15 AM Status: F Source: [facility] REPOSITORY TYPE CODE TESTS RESULT OUT OF RANGE REFERENCE UNITS LAB L501.2450 LIPASE 117 Normal 73-393 U/L Performed By: #### L500.2500, L500.3400, L501.2450 #### [facility] [address] [place], [address] Component Latest Ref Rng AND Units 05/24/2012 06/13/2013 03/10/2016 TSH 0.400 - 5.500 uU/mL 1.100 0.668 0.883 ASSESSMENT AND PLAN: Encounter Diagnosis ICD-10-CM 1. Crohn's disease of small and large intestines with complication (HCC) K50.819 lamiVUDine HBV (EPIVIR HBV) 100 mg tablet azaTHIOprine (IMURAN) 50 mg tablet 2. Vitamin D deficiency E55.9 VITAMIN D 25 HYDROXY 3. Low blood potassium E87.6 COMP METABOLIC PANEL 4. Iron deficiency anemia due to chronic blood loss D50.0 CBC 5. Chronic fatigue R53.82 COMP METABOLIC PANEL CBC VITAMIN D 25 HYDROXY TSH BLD T3 FREE BLD T4 FREE/FREE THYROX MAGNESIUM BLD 6. Irregular menses N92.6 7. Encounter for long-term current use of medication Z79.899 COMP METABOLIC PANEL CBC MAGNESIUM BLD 8. PANIC ATTACKS F41.0 LORazepam (ATIVAN) 1 mg tablet 9. Gastroesophageal reflux disease, esophagitis presence not specified K21.9 10. Smoker F17.200 nicotine (NICODERM) 21 mg/24 hr motivated to quit Above issues addressed with patient. Patient involved in shared decision making for management of her medical issues. History and medications reviewed. Epic updated as needed Refills taken care of and meds adjusted as indicated after reviewed history, exam and labs. Health Maintenance reviewed. Updated record and/or ordered tests as recorded. Encouraged on efforts at healthy diet and regular exercise and adequate sleep. Encouraged on smoking cessation. OARRS website checked and validated. All prescriptions have been APPROPRIATELY filled. No suspicious activity was identified.- 06/12/2017 by Supriya Sotelo MD Stable with control of anxiety and insomnia. No signs of diversion or abuse of medication(s); no adverse effects. Continue present management. Does not need benzodiazepine daily. Further evaluation and treatment as indicated. Further evaluation and treatment as indicated after labs for issues including fatigue and irregular menses.. The majority of the visit was spent counseling and/or coordinating care for the patient. Hqqc-id-nwci time was at least 25 minutes. Supriya Sotelo MD CNOV Observed: 06/02/2017 Status: COMPLETED Source: [place] 8:40 AM [facility] REPOSITORY Office Visit (INTMWS) EMILY ORTIZ ([id number]) 1980 F Date Time Provider Department 06/02/17 8:40 AM SUPRIYA SOTELO INTMWS During your visit today, we recorded the following information about you: Pulse Respiration Blood pressure Weight 78/minute 18/minute 152/94 146.5 kg Supriya Sotelo MD 06/12/2017 12:37 AM Signed Patient presents with: Recheck SUBJECTIVE: Emily Chauhan is a 37 year old year old lady here today for 6 month follow up appointment for review of medical conditions. Had seen GI--colonoscopy good. Stable from Crohn's standpoint. Fatigue despite getting enough rest. Iron levels good now but still fatigued. Noted irregular menses. Had passed clots. Every few months will skip for like 4 months then have heavy period. PAST MEDICAL HISTORY Diagnosis Date - Abnormal Pap smear 12/2007 LGSIL - Acute gastritis without mention of hemorrhage - Anal fistula - Cataract bilateral - Chronic hepatitis B (HCC) - CHRONIC PAIN NEC 05/01/2008 - Cough 06/21/2011 - Crohn disease (HCC) - DEBILITY NOS 07/24/2007 - Duodenitis without mention of hemorrhage - GERD (gastroesophageal reflux disease) - Hemorrhage of gastrointestinal tract, unspecified - Hemorrhage of rectum and anus - Hidradenitis 07/27/2007 - Palpitations 04/11/2008 - PANIC ATTACKS 04/01/2008 - PMH - PAST MEDICAL HISTORY OF duodenal ulcerations - PMH - PAST MEDICAL HISTORY OF bile stasis - PMH - PAST MEDICAL HISTORY OF Hydrenitis - Pustular psoriasis - Regional enteritis of unspecified site - Rosacea cystular - Tachycardia, unspecified 04/11/2008 - Viral hepatitis B without mention of hepatic coma, chronic, without mention of hepatitis delta - Vitamin D deficiency 03/17/2012 Current Outpatient Prescriptions: inFLIXimab (REMICADE) 100 mg injection Inject 1,500 mg intravenously as directed. Every six weeks azaTHIOprine (IMURAN) 50 mg tablet Take 1 tablet by mouth once daily. cholecalciferol, Vitamin D3, (VITAMIN D3) 50,000 unit cap capsule Take 1 capsule by mouth once each week. LORazepam (ATIVAN) 1 mg tablet Take 1 tablet by mouth once daily for 180 days. as needed (prior for Remicade infusion and for anxiety) omeprazole (PRILOSEC) 20 mg capsule Take 1 capsule by mouth daily before breakfast. 1/2 hr before meal. zolpidem (AMBIEN) 10 mg tab Take 1 tablet by mouth at bedtime as needed (insomnia) for up to 180 days. ketoconazole (NIZORAL) 2 % shampoo Apply 1 application to affected area once daily as needed. Apply to scalp and lather as directed mometasone (ELOCON) 0.1 % cream Apply 1 application to affected area once daily. To scalp as directed pyridoxine, vitamin B6, (VITAMIN B6) 100 mg tablet Take 1 tablet by mouth once daily. budesonide-formoterol (SYMBICORT) 160-4.5 mcg/actuation inhaler Inhale 2 Puffs as instructed twice daily. clindamycin (CLEOCIN-T) 1 % gel Apply 1 application to affected area twice daily. desonide (DESOWEN) 0.05 % ointment Apply 1 application to affected area three times daily as needed. For psoriasis sparingly to affected skin on torso, extremities and face Ferrous Gluconate 324 mg (36 mg iron) tab Take 1 tablet by mouth twice daily with meals. lidocaine-prilocaine (EMLA) cream Apply to [facility] site 30- 45 minutes prior to coming for infusion. lamiVUDine HBV (EPIVIR HBV) 100 mg tablet Take 1 tablet by mouth once daily. albuterol HFA (PROAIR HFA) 90 mcg/actuation inhaler Inhale 2 Puffs as instructed every 6 hours as needed. diphenhydrAMINE 50 mg/mL injection Inject 25 mg intravenously as directed. 25mg IV push as premedication for Remicade infusion. MAY GIVE ADDITIONAL 25mg during infusion if patient complains of feeling jittery. 0.9% NaCl Access implanted vascular access device (IVAD) as needed for flush, blood draw or treatment.Flush IVAD with 10-20 mL NS every 4 weeks and PRN when IVAD not in use. heparin 100 unit/mL syrg Access implanted vascular access device (IVAD) as needed for flush, blood draw or treatment. Before de-accessing port, flush with 10-20ml normal saline and follow with 5 mL heparin (100 units/mL) (if no heparin allergy). De-access port on treatment completion. No current facility-administered medications for this visit. OBJECTIVE: BP 152/102 Pulse 78 Resp 18 Wt (!) 146.5 kg (323 lb) BMI 45.05 kg/m2 Patient is alert, oriented times 3, no apparent distress, affect is bright, reactive. Last 5 Encounter BP Readings: Date: BP: 06/02/2017 152/102 04/27/2017 159/90 03/22/2017 147/88 03/17/2017 155/107 03/14/2017 150/92 Last 5 Encounter Wt Readings: Date: Wt: 06/02/2017 146.5 kg (323 lb) 03/22/2017 142.4 kg (314 lb) 03/14/2017 143.3 kg (316 lb) 12/30/2016 137.2 kg (302 lb 6.4 oz) 12/08/2016 135.6 kg (299 lb) 06/02/17 0909 06/02/17 0952 BP: 152/102 152/94 Pulse: 78 Resp: 18 Weight: (!) 146.5 kg (323 lb) Heart: Regular rate, rhythm, no murmurs, gallops, rubs. Lungs: Clear to auscultation, bilaterally, breathing non labored. Ext: No cyanosis, clubbing, or edema. CBC W/DIFF, AUTOMATED Collected: 01/28/2017 4:15 AM Status: F Source: [facility] REPOSITORY TYPE CODE TESTS RESULT OUT OF RANGE REFERENCE UNITS LAB L100.1000 WBC 9.6 Normal 4.4-11.0 K/mm3 LAB L100.1200 RBC 4.94 Normal 4.2-5.4 M/mm3 LAB L100.1300 HGB 12.8 Normal 12.0-15.0 g/dl LAB L100.1400 HCT 40.1 Normal 37-47 % LAB L100.1500 MCV 81.2 Normal 81-99 fL LAB L100.1600 MCH 25.9 Low 27.0-32.0 pg LAB L100.1700 MCHC 31.9 Low 32-36 g/gl LAB L100.1810 RDW CV Test not performed Normal 11.6-14.6 % LAB L100.1820 RDW SD Test not performed Normal 35.1-43.9 fl LAB L100.1900 PLT 163 Normal 150-450 K/mm3 LAB L100.2000 MPV Test not performed Normal 6.2-12.0 fl LAB L100.2100 NEUT% 47.7 Normal 47-70 % LAB L100.2200 LY% 43.4 High 19-41 % LAB L100.2300 MONO% 7.1 Normal 0-10 % LAB L100.2400 EO% 1.1 Normal 0-5 % LAB L100.2500 BASO% 0.6 Normal 0-1 % LAB L100.2550 IM GRAN % 0.100 Normal 0.0-0.9 % Result Comment: IG% - Immature Granulocytes (promyelocytes, myelocytes and metamyelocytes) > 1% indicates that a LEFT SHIFT is Present. LAB L100.2620 Absolute Neut 4.6 Normal 2.0-7.7 X10 3/uL LAB L100.2720 Absolute Lymph 4.16 Normal 0.83-4.51 X10 3/ul LAB L100.4500 SMEAR COMMENT SCANNED Normal ? ? LAB L100.4700 REACTIVE LYMPH 1+ Normal ? ? LAB L100.5500 PLT EST ADEQUATE Normal ADEQ ? LAB L100.7300 ANISO 4+ Normal ? ? LAB L100.7600 HYPOCHROMASIA 2+ Normal ? ? LAB L100.8600 TARGET CELLS RARE Normal ? ? Performed By: #### L100.0100 #### [facility] [address] [place], [place], [id number] BASIC METABOLIC PROFILE (BMP) Collected: 01/28/2017 4:15 AM Status: F Source: [facility] REPOSITORY TYPE CODE TESTS RESULT OUT OF RANGE REFERENCE UNITS LAB L501.0100 GLU 93 Normal 70-110 mg/dL LAB L501.1000 BUN 10 Normal 7-18 mg/dL LAB L501.1100 CREAT,SERUM 0.86 Normal 0.55-1.02 mg/dL Result Comment: The validity of the calculated GFR AND GFRAA in patients over 70 years has not been determined. Clinical correlation is essential. LAB L501.1110 EST GFR 79 Normal >60 mL/min Result Comment: Non- GFR Calc LAB L501.1115 EST GFR - AA 96 Normal >60 mL/min Result Comment: GFR Calc LAB L501.1255 Estimated CRCL 103.36 Normal ? ml/min LAB L501.1300 BUN/CRE 11.7 Normal 10-20 RATIO LAB L501.2200 CA 8.8 Normal 8.5-10.1 mg/dL LAB L501.5300 NA 139 Normal 136-145 mmol/L LAB L501.5600 K 3.4 Low 3.5-5.1 mmol/L LAB L501.5900 CL 105 Normal 98-107 mmol/L LAB L501.6100 CO2 26.0 Normal 21.0-32.0 mmol/L LAB L501.6200 GAP 8 Normal 5-15 ? Performed By: #### L500.2500, L500.3400, L501.2450 #### [facility] [address] [place], [place], [id number] LIVER PROFILE Collected: 01/28/2017 4:15 AM Status: F Source: [facility] REPOSITORY TYPE CODE TESTS RESULT OUT OF RANGE REFERENCE UNITS LAB L501.1500 T PROT 7.9 Normal 6.4-8.2 g/dL LAB L501.1800 ALB 3.5 Normal 3.4-5.0 g/dL Result Comment: Please note revised Albumin AND Globulin reference range effective 2016. LAB L501.1950 GLOB 4.4 High 2.2-4.2 g/dL LAB L501.4100 AST 15 Normal 15-37 U/L LAB L501.4305 ALK P 82 Normal 45-117 U/L LAB L501.4405 ALT 24 Normal 12-78 U/L LAB L501.4600 T BILI 0.40 Normal 0.20-1.00 mg/dL LAB L501.4700 D BILI 0.07 Normal 0.00-0.30 mg/dL Performed By: #### L500.2500, L500.3400, L501.2450 #### [facility] [address] [place], [address] LIPASE Collected: 01/28/2017 4:15 AM Status: F Source: [facility] REPOSITORY TYPE CODE TESTS RESULT OUT OF RANGE REFERENCE UNITS LAB L501.2450 LIPASE 117 Normal 73-393 U/L Performed By: #### L500.2500, L500.3400, L501.2450 #### [facility] [address] [place], [address] Component Latest Ref Rng AND Units 05/24/2012 06/13/2013 03/10/2016 TSH 0.400 - 5.500 uU/mL 1.100 0.668 0.883 ASSESSMENT AND PLAN: Encounter Diagnosis ICD-10-CM 1. Crohn's disease of small and large intestines with complication (HCC) K50.819 lamiVUDine HBV (EPIVIR HBV) 100 mg tablet azaTHIOprine (IMURAN) 50 mg tablet 2. Vitamin D deficiency E55.9 VITAMIN D 25 HYDROXY 3. Low blood potassium E87.6 COMP METABOLIC PANEL 4. Iron deficiency anemia due to chronic blood loss D50.0 CBC 5. Chronic fatigue R53.82 COMP METABOLIC PANEL CBC VITAMIN D 25 HYDROXY TSH BLD T3 FREE BLD T4 FREE/FREE THYROX MAGNESIUM BLD 6. Irregular menses N92.6 7. Encounter for long-term current use of medication Z79.899 COMP METABOLIC PANEL CBC MAGNESIUM BLD 8. PANIC ATTACKS F41.0 LORazepam (ATIVAN) 1 mg tablet 9. Gastroesophageal reflux disease, esophagitis presence not specified K21.9 10. Smoker F17.200 nicotine (NICODERM) 21 mg/24 hr motivated to quit Above issues addressed with patient. Patient involved in shared decision making for management of her medical issues. History and medications reviewed. Epic updated as needed Refills taken care of and meds adjusted as indicated after reviewed history, exam and labs. Health Maintenance reviewed. Updated record and/or ordered tests as recorded. Encouraged on efforts at healthy diet and regular exercise and adequate sleep. Encouraged on smoking cessation. [employer] website checked and validated. All prescriptions have been APPROPRIATELY filled. No suspicious activity was identified.- 06/12/2017 by Supriya Sotelo MD Stable with control of anxiety and insomnia. No signs of diversion or abuse of medication(s); no adverse effects. Continue present management. Does not need benzodiazepine daily. Further evaluation and treatment as indicated. Further evaluation and treatment as indicated after labs for issues including fatigue and irregular menses.. The majority of the visit was spent counseling and/or coordinating care for the patient. Oibb-gd-iwmr time was at least 25 minutes. Supriya Sotelo MD Referring Provider: MAURO KENDRICK ([facility]) [[id number]] Allergies As of Date: 06/02/2017 (No Known Allergies) Date Reviewed: 06/02/2017 Reviewed by: Erika Ty Stock Grader - Fully Assessed Reason for Visit: Recheck [92] Primary Visit Diagnosis:Crohn's disease of small and large intestines with complication (HCC) [K50.819] Other Visit Diagnoses:Vitamin D deficiency [E55.9] Low blood potassium [E87.6] Iron deficiency anemia due to chronic blood loss [D50.0] Chronic fatigue [R53.82] Irregular menses [N92.6] Encounter for long-term current use of medication [Z79.899] PANIC ATTACKS [F41.0] Gastroesophageal reflux disease, esophagitis presence not specified [K21.9] Smoker [F17.200] Comment:motivated to quit Order(s):lamiVUDine HBV (EPIVIR HBV) 100 mg tabletTake 1 tablet by mouth once daily.Disp: 30 tabletRfl: 11 COMP METABOLIC PANEL [SQCMP] Order #: [id number]. #:[id number] CBC [SQCBC] Order #: [id number]. #:[id number] VITAMIN D 25 HYDROXY [SQVITD] Order #: [id number]. #:[id number] TSH BLD [SQTSH] Order #: [id number]. #:[id number] T3 FREE BLD [SQFREET3] Order #: [id number]. #:[id number] T4 FREE/FREE THYROX [SQFT4] Order #: [id number]. #:[id number] MAGNESIUM BLD [SQMG1] Order #: [id number]. #:[id number] LORazepam (ATIVAN) 1 mg tabletTake 1 tablet by mouth once daily for 180 days. as needed (prior for Remicade infusion and for anxiety)Disp: 30 tabletRfl: 1 azaTHIOprine (IMURAN) 50 mg tabletTake 1 tablet by mouth once daily.Disp: 30 tabletRfl: 5 nicotine (NICODERM) 21 mg/24 hrApply 1 Patch as directed every 24 hours.Disp: 30 PatchRfl: 1 atenolol (TENORMIN) 25 mg tabletTake 1 tablet by mouth once daily.Disp: 30 tabletRfl: 5 Prescriptions as of 06/02/2017 Sig: LAMIVUDINE 100 MG TABLET Take 1 tablet by mouth once d* LORAZEPAM 1 MG TABLET Take 1 tablet by mouth once d* AZATHIOPRINE 50 MG TABLET Take 1 tablet by mouth once d* NICOTINE 21 MG/24 HR DAILY TR* Apply 1 Patch as directed [place]* ATENOLOL 25 MG TABLET Take 1 tablet by mouth once d* INFLIXIMAB 100 MG INTRAVENOUS* Inject 1,500 mg intravenously* CHOLECALCIFEROL (VITAMIN D3) * Take 1 capsule by mouth once * OMEPRAZOLE 20 MG CAPSULE,DARIELA* Take 1 capsule by mouth daily* ZOLPIDEM 10 MG TABLET Take 1 tablet by mouth at bed* KETOCONAZOLE 2 % SHAMPOO Apply 1 application to affect* MOMETASONE 0.1 % TOPICAL CREAM Apply 1 application to affect* PYRIDOXINE (VITAMIN B6) 100 M* Take 1 tablet by mouth once d* BUDESONIDE-FORMOTEROL HFA 160* Inhale 2 Puffs as instructed * CLINDAMYCIN 1 % TOPICAL GEL Apply 1 application to affect* DESONIDE 0.05 % TOPICAL OINTM* Apply 1 application to affect* FERROUS GLUCONATE 324 MG (36 * Take 1 tablet by mouth twice * LIDOCAINE-PRILOCAINE 2.5 %-2.* Apply to [facility] site 30-45 * ALBUTEROL SULFATE HFA 90 MCG/* Inhale 2 Puffs as instructed * DIPHENHYDRAMINE 50 MG/ML INJE* Inject 25 mg intravenously as* SODIUM CHLORIDE 0.9% FLUSH Access implanted vascular acc* HEPARIN LOCK FLUSH (PORCINE) * Access implanted vascular acc* Problem List As Of Date 06/02/2017 Noted Resolved HEMATOCHEZIA [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 ABDOMINAL PAIN OTHER SPEC SITE [R10.9] INVALID FOR* JOINT PAIN-MULT JTS [M25.50] INVALID FOR* FISTULA ANAL [K60.3] INVALID FOR*02/10/2010 Hepatitis [K75.9] INVALID FOR* DEPRESSIVE DISORDER NEC [F32.9] INVALID FOR* SLEEP APNEA NOS [G47.30] INVALID FOR* Headache [R51] INVALID FOR*02/10/2010 DEBILITY NOS [R53.81] INVALID FOR* MALAISE AND FATIGUE NEC [R53.81, R53.83] INVALID FOR* HIDRADENITIS [L73.2] INVALID FOR* ACNE NEC [L70.8] INVALID FOR* PYODERMA NOS [L08.0] INVALID FOR* SCAR AND FIBROSIS OF SKIN [L90.5] INVALID FOR* FOLLICULITIS///HAIR DISEASES NEC [L73.8] INVALID FOR* Sebaceous cyst [L72.3] INVALID FOR*02/10/2010 HYPERPIGMENTATION///DYSCHROMIA UNSPECIFIED [L81*INVALID FOR* GENERALIZED ANXIETY DIS [F41.1] INVALID FOR* PANIC ATTACKS [F41.0] INVALID FOR* CHRONIC PAIN NEC [G89.29] INVALID FOR* Vitamin d deficiency [E55.9] INVALID FOR* Rosacea [L71.9] More... Pustular psoriasis [L40.1] Regional enteritis of large intestine (HCC) [K5*INVALID FOR*01/15/2014 Low blood potassium [E87.6] INVALID FOR* Mild intermittent asthma without complication [*INVALID FOR* More... 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] INVALID FOR* Iron deficiency anemia due to chronic blood los*INVALID FOR* Prescriptions ordered this encounter Disp Refills Start End LAMIVUDINE 100 MG TABLET 30 t* 11 06/02/2017 Route: ORAL Sig: Take 1 tablet by mouth once daily. LORAZEPAM 1 MG TABLET 30 t* 1 06/02/2017 11/29/2017 Class: Print RX Cmt: Patient;s RX bottle says no RF on February RX Route: ORAL Sig: Take 1 tablet by mouth once daily for 180 days. as needed (prior for Remicade infusion and for anxiety) AZATHIOPRINE 50 MG TABLET 30 t* 5 06/02/2017 Route: ORAL Sig: Take 1 tablet by mouth once daily. NICOTINE 21 MG/24 HR DAILY TRANSDERM* 30 P* 1 06/02/2017 Class: Print RX Route: TRANSDERM. Sig: Apply 1 Patch as directed every 24 hours. ATENOLOL 25 MG TABLET 30 t* 5 06/02/2017 Route: ORAL Sig: Take 1 tablet by mouth once daily. Medications Discontinued During This Encounter lamiVUDine HBV (EPIVIR HBV) 100 mg t* 30 t* 11 03/01/2016 06/02/2017 Route: ORAL Sig: Take 1 tablet by mouth once daily. Disc: Reason for discontinue is not on file. LORazepam (ATIVAN) 1 mg tablet 30 t* 1 03/14/2017 06/02/2017 Class: Print RX Route: ORAL Sig: Take 1 tablet by mouth once daily for 180 days. as needed (prior for Remicade infusion and for anxiety) Disc: Reason for discontinue is not on file. azaTHIOprine (IMURAN) 50 mg tablet 30 t* 2 03/14/2017 06/02/2017 Route: ORAL Sig: Take 1 tablet by mouth once daily. Disc: Reason for discontinue is not on file. Disposition: Return for BP check with nurse in 1 month; 4 months FU with me. Follow-up and Disposition History Recorded Encounter Status:Closed by SUPRIYA SOTELO MD on 06/12/17 EMERGENCY DEPARTMENT Observed: 05/26/2017 Status: F Source: JAMIE SUMMARY 4:05 AM [facility] REPOSITORY [facility] Medical Records Department [address] [place] [address] Emergency Department Summary 05/26/17 0301 MR#: [id number] Acct: [id number] Name: EMILY ORTIZ Rep #: [id number] : 1980 37 From: Silverio Castillo PCP: Supriya Sotelo MD Status: REG ER - ER Visit Summary Date of Service: 05/26/17 Chief Complaint: Vaginal bleeding History of Present Illness: The patient is a 37 F vaginal bleeding for 10 days. Small clots. Gone through 6 pads. Late on menstrual period for a month and a half. Negative urine 3 weeks ago. 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 Try calling her OB office, however states her physicians are currently not there. No chest pains or lightheaded symptoms. Occasional lower abdominal cramping. No urinary symptoms. Physical Examination: General: Alert and oriented 3, no acute distress HEENT: Normocephalic, atraumatic. Moist mucosa membranes Neck: supple, nontender. Cardiovascular: Regular rate and rhythm, no murmurs Respiratory: Normal breath sounds, symmetric, no distress Abdomen: Soft, nontender, nondistended : No external lesions. Speculum noted small clots in the vault. No active bleeding. Cervix normal. Extremities: Nontender, no edema, pulses intact 4 Neuro: no focal neurological deficits. Test Results: HCG negative. Hemoglobin 11.6. Emergency Department Course and Treatment: Patient no active bleeding. HCG negative. Hemoglobin 11.6. Started on Tylenol. Discussed dysfunctional uterine bleeding. She is given follow-up with on-call gynecology. Monitoring symptoms. Return if any worsening symptoms. All questions were answered. Treatment Plan: [] Disposition: Discharge Impression: 1. Dysfunctional uterine bleeding This note was generated with [employer] software. It may contain incorrect words, spelling, and punctuation that were not noted in review of the chart prior to signing ED Disposition - Plan for ED Patient: Disposition: Home or Assisted Living Chief Complaint: Vag Bleeding Diagnosis: Dysfunctional uterine bleeding Instructions: ED Bleed Irregular Vaginal Referrals: Supriya Sotelo MD [Primary Care Provider] - Iveth Lassiter [STAFF PHYSICIAN] - 3-5 Days Additional Instructions: Hemoglobin 11.6. Serum negative. What to do if you have Problems For any increased pain, shortness of breath, bleeding, nausea or vomiting, chest pain, or any unexpected problems, contact your Primary Care Provider. Call [facility] ([phone]) or report to the closest Emergency Room. Call 911 if necessary. 05/26/17 0405 <Electronically signed by Silverio Castillo> Date Silverio Castillo Cosigner Signature (If Indicated): Date CC: Supriya Sotelo MD CBC W/DIFF, AUTOMATED Collected: 05/26/2017 Status: F Source: [place] 2:45 AM [facility] REPOSITORY TYPE CODE TESTS RESULT OUT OF RANGE REFERENCE UNITS LAB L100.1000 4.4-11.0 K/mm3 Normal WBC 9.2 LAB L100.1200 4.2-5.4 M/mm3 Low RBC 4.14 LAB L100.1300 12.0-15.0 g/dl Low HGB 11.6 LAB L100.1400 37-47 % Low HCT 35.3 LAB L100.1500 81-99 fL Normal MCV 85.3 LAB L100.1600 27.0-32.0 pg Normal MCH 28.0 LAB L100.1700 32-36 g/gl Normal MCHC 32.9 LAB L100.1810 11.6-14.6 % High RDW CV 14.7 LAB L100.1820 35.1-43.9 fl High RDW SD 45.0 LAB L100.1900 150-450 K/mm3 Normal PLT 198 LAB L100.2000 6.2-12.0 fl High MPV 12.1 LAB L100.2100 47-70 % Low NEUT% 45.5 LAB L100.2200 19-41 % High LY% 44.8 LAB L100.2300 0-10 % Normal MONO% 7.6 LAB L100.2400 0-5 % Normal EO% 1.4 LAB L100.2500 0-1 % Normal BASO% 0.5 LAB L100.2550 0.0-0.9 % Normal IM GRAN % 0.200 Result Comment: IG% - Immature Granulocytes (promyelocytes, myelocytes and metamyelocytes) > 1% indicates that a LEFT SHIFT is Present. LAB L100.2620 2.0-7.7 X10 3/uL Normal Absolute Neut 4.2 LAB L100.2720 0.83-4.51 X10 3/ul Normal Absolute Lymph 4.12 Performed By: #### L100.0100 #### [facility] [address] [place], [place], [address] ,SERUM,HCG QUALI. Collected: Status: F Source: [place] 05/26/2017 2:45 AM [facility] REPOSITORY TYPE CODE TESTS RESULT OUT OF REFERENCE UNITS RANGE LAB L700.7000 0-9 Nonpreg Negative Normal HCGSQUAL NEGATIVE LAB L700.6700 =>Qualitative mIU/mL Normal HCG Qual < 1 triggr Performed By: #### L700.6800 #### [facility] [address] [place], [address] SURGICAL PATHOLOGY Observed: 05/04/2017 Status: F Source: [place] 9:09 AM [facility] [place] REPOSITORY Specimen originated from [facility] Specimen #: [id number] Submitting Physician: ABHI RAMÍREZ MD FINAL DIAGNOSIS Random colon, biopsy - Colonic mucosa with no diagnostic alteration. - Negative for dysplasia. TP/dss 05/05/2017 Jhonny Gaviria M.D. (Electronic Signature) SPECIMEN SUBMITTED A: RANDOM COLON, BIOPSY CLINICAL DATA HX OF CROHN'S R/O CROHN'S GROSS DESCRIPTION A. Received in formalin are six pieces of gillis, soft tissue aggregating to 2.2 x 0.2 x 0.1 cm. Totally submitted in one cassette. Gross examination performed at [facility], [address] [place] [address] 05/04/2017 2:07:34 PM Date of Report: 05/05/2017 Date of Procedure: 05/04/2017 Date of Receipt: 05/04/2017 Submitted by: ABHI RAMÍREZ MD Location: [facility] A3 Diagnostic interpretation performed at [place] [address]. IRON AND TIBC Collected: 04/27/2017 Status: F Source: [place] 9:45 AM [facility] REPOSITORY TYPE CODE TESTS RESULT OUT OF REFERENCE UNITS RANGE LAB IRN 41-186 ug/dL Iron 70 LAB TIBC 232-386 ug/dL TIBC 313 LAB SAT 15-57 % Transferrin Saturatn 22 Performed By: #### IRON, FERR, VITD, CBC #### [place] [address] FERRITIN Collected: 04/27/2017 Status: F Source: [place] 9:45 AM [facility] REPOSITORY TYPE CODE TESTS RESULT OUT OF REFERENCE UNITS RANGE LAB FERR 14.7-205.1 ng/mL Ferritin 36.5 Performed By: #### IRON, FERR, VITD, CBC #### [place] [address] VITAMIN D 25 HYDROXY Collected: 04/27/2017 Status: F Source: [place] 9:45 AM [facility] REPOSITORY TYPE CODE TESTS RESULT OUT OF REFERENCE UNITS RANGE LAB VITD 31.0-80.0 ng/mL Low Vitamin D 25 29.6 Hydroxy Result Comment: Classification of 25 [place] Vitamin D status: Insufficiency/Moderate Deficiency: < or = 30 ng/mL Sufficiency/Optimal Levels: 31 to 80 ng/mL Toxicity: > 100 ng/mL Test performed by chemiluminescent immunoassay. Performed By: #### IRON, FERR, VITD, CBC #### [facility] [address] [place], [place] [address] CBC Collected: 04/27/2017 Status: F Source: [place] 9:45 AM [facility] REPOSITORY TYPE CODE TESTS RESULT OUT OF REFERENCE UNITS RANGE LAB WBC 3.70-11.00 k/uL WBC 7.46 LAB RBC 3.90-5.20 m/uL RBC 4.88 LAB HGB 11.5-15.5 g/dL Hemoglobin 13.2 LAB HCT 36.0-46.0 % Hematocrit 43.3 LAB MCV 80.0-100.0 fL MCV 88.7 LAB MCH 26.0-34.0 pG MCH 27.0 LAB MCHC 30.5-36.0 g/dL MCHC 30.5 LAB RDWCV 11.5-15.0 % RDW-CV 15.0 LAB PLTCT 150-400 k/uL Platelet Count 152 LAB MPV 9.0-12.7 fL MPV High 12.9 LAB ABSNUC <0.01 k/uL Absolute nRBC <0.01 Performed By: #### IRON, FERR, VITD, CBC #### [facility] [address] [place], [place] [address] NURSING PROG Observed: 04/06/2017 Status: COMPLETED Source: [place] 9:37 AM [facility] REPOSITORY HNO ID: [id number] Author: Juana (Rn) SARAH Garnica Service: Radiology Author Type: Registered Nurse Type: Nursing Progress Note Filed: 04/06/2017 9:39 AM Note Text: Radiology Service Progress Note PATIENT NAME: Emily Chauhan DATE OF SERVICE: April 06, 2017 TIME: 9:37 AM PATIENT WEIGHT: 314 LBS PATIENT IDENTITY VERIFICATION COMPLETED USING TWO (2) METHODS: Patient confirmed name verbally and ID band matches.. PATIENT GENDER DATA: Female. status: : No status: NO. CONTRAST INDUCED NEPHROPATHY RISK FACTORS: Not applicable CREATININE: Creatinine Date Value Ref Range Status 11/10/2016 0.77 0.58 - 0.96 mg/dL Final 08/30/2016 0.91 0.58 - 0.96 mg/dL Final 03/01/2016 0.97 (H) 0.58 - 0.96 mg/dL Final eGFR-All Other Races Date Value Ref Range Status 11/10/2016 >60 . Final Comment: eGFR (Estimated GFR) Units of measure: mL/min/1.73 meters squared eGFR is derived from the reexpressed MDRD Study equation using the following parameters: serum creatinine, age, gender and race. The creatinine assay has been calibrated to be traceable to IDMS. An eGFR <60 mL/min/1.73m2 for >3 months is consistent with chronic kidney disease. Refer to KDOQI guidelines for clinical interpretation. In patients with unstable renal function, e.g. those with acute kidney injury, the eGFR may not accurately reflect actual GFR. eGFR- Date Value Ref Range Status 11/10/2016 >60 Final P.O.C.T. RESULTS: POC done: Yes, See Lab Tab April 06, 2017 TREATMENT: Oral Hydration. ALLERGIES: Reviewed and unchanged CONTRAST ALLERGY: NO. IV SITE: Ambulatory: A power injectable Mediport was accessed in the Right chest with a 0.75 inch 20 gauge needle. Blood Return, Flushed easily with normal saline, Good Blood Return Post Injection, Flushed with 20 cc saline followed by Heparin 500 units/5 cc, Needle Removed and No Complications IV SITE APPEARANCE: Clean,Dry and Intact SIGNED BY: Juana Garnica RN April 06, 2017 9:[address] ENTEROGRAPHY W IVCON Observed: 04/06/2017 Status: F Source: [facility] 9:33 AM CLINIC OTHER CAMPUS REPOSITORY * * *Final Report* * * DATE OF EXAM: Apr 06 2017 9:33AM [facility] [place] ENTERO[place]AP[place] W IVCON / PROCEDURE REASON: K21.7-Cdttis-swxwhpjkph reflux disease without esophagitis * * * * Physician Interpretation * * * * CT ENTEROGRAPHY HISTORY: 37 years old Clinical information: Gastro-esophageal reflux disease without esophagitis COMPARISON: 08/28/2013 TECHNIQUE: CT scan of the abdomen and pelvis was performed utilizing standard technique. The data was reformatted into coronal projections. Contrast information: Contrast1: Omnipaque 300 Contrast Dose1: 150 ContrastAdminRoute1: IV Contrast2: Breeza ContrastDose2 : 1000 ContrastAdminRoute2: Oral CT Dose-Length Product (DLP): 1302.790 mGy*cm. CT Dose Reduction Employed: Yes RESULT: GI Tract: Small Bowel:There is no bowel dilatation or abnormal bowel wall thickening. No abnormal enhancing mucosa is seen. Surgical sutures are seen in the distal small bowel. Probably has been previous resection of the terminal ileum. Colon: Colon is normal in caliber. No abnormal enhancing mucosa is seen. Strictures: None identified. Fistulae/Sinus Tracts: No fistula or sinus tract is identified. Abscesses: None. Bones: Unremarkable Lung bases: Unremarkable CT ABDOMEN FINDINGS Liver: Diffuse decrease in attenuation of the liver is compatible with fatty changes. No focal masses. Biliary tree: Common duct normal in size. No intrahepatic bile duct dilatation is seen. Gallbladder has been removed surgically Pancreas: Unremarkable Spleen: Spleen normal size. No focal masses. Adrenals: Normal size. Kidneys: Are seen to function bilaterally. No focal abnormalities. Punctate nonobstructing calcification LEFT kidney noted Lymph nodes: No enlarged lymph nodes are seen. Mesentery/Peritoneum: No enlarged lymph nodes or other abnormalities.. Retroperitoneum: The aorta is normal in size. Otherwise unremarkable. CT PELVIS FINDINGS: Sacroiliac joints are unremarkable. Lymph Nodes: No enlarged lymph nodes. Urinary bladder: Unremarkable IMPRESSION: 1. No evidence of active inflammatory bowel disease 2. Sacroiliac joints are patent 3. Postsurgical changes in the distal small bowel 4. Punctate nonobstructing calcification LEFT kidney 5. Fatty liver Nurse Clinician: PSCB Transcribe Date/Time: Apr 06 2017 1:16P Dictated by : AVERY WATTERS DO This examination was interpreted and the report reviewed and electronically signed by: AVERY WATTERS DO on Apr 07 2017 3:35PM EST [id number] PROGRESS Observed: 03/22/2017 Status: COMPLETED Source: [facility] 12:00 AM [facility] REPOSITORY HNO ID: [id number] Author: Abhi Ramírez Service: Abstract Author Type: Physician Type: Progress Notes Filed: 03/23/2017 6:53 AM Note Text: [facility] NOTE NAME: EMILY ORTIZ CLINIC NO.: [id number] DATE OF SERVICE: 03/22/2017 SUBJECTIVE: Emily was last seen by me in the office on March 02, 2016. She has a history of Crohn's disease, status post resection of TI, cholecystectomy and anal fistula surgery. She has chronic hepatitis B infection and is on Epivir for this. She has been on Remicade for her Crohn's for several years and has been doing well. She states that currently, she is having slightly more diarrhea, occasional rectal bleeding. No unusual abdominal pain. Since her last visit, she had a blood TV screen that was negative. Infliximab drug level that was greater than 40 and nondetectable antibodies. Her 6-TG level was at the lower limit of detection. C. difficile was negative. TSH was normal. Her last CBC that is pending. Her last iron level on December 08, 2016 was normal with a normal percent saturation. OBJECTIVE: Vital sign show a blood pressure of 147/88, a pulse of 88, a weight of 314 with a BMI of 43.79. Abdomen soft, nontender. MEDICATIONS: Include Remicade, Imuran, Ativan, Prilosec, Ambien, Monodox, Nizoral, Elocon, B6, Symbicort, desonide, Epivir, albuterol, diphenhydramine. IMPRESSION AND RECOMMENDATION: At this time, I feel that we should reevaluate the luminal gastrointestinal tract especially since she has had a slight increase in her symptoms. Would plan on a CT enterography and we will plan for repeat colonoscopy. The last of which was January 2014 in which looked excellent with no active inflammation. Sincerely, DICTATED BY: Alexander Grey JOB# [id number] EMERGENCY DEPARTMENT Observed: 03/17/2017 Status: F Source: [facility] SUMMARY 10:34 PM [facility] REPOSITORY [facility] Medical Records Department [address] [place] [address] Emergency Department Summary 03/17/17 1641 MR#: [id number] Acct: [id number] Name: EMILY ORTIZ Rep #: [id number] : 1980 37 From: Josh Alarcon DO PCP: Supriya Sotelo MD Status: DEP ER - ER Visit Summary Date of Service: 03/17/17 Chief Complaint: [] Shortness of breath History of Present Illness: The patient is a 37 F [] complaining of cough and shortness of breath. She reports she was seen at her PCPs office and diagnosed with influenza via nasal swab. She was provided outpatient prescriptions for doxycycline and dextromethorphan. She reports a history of Crohn's for which she gets Remicade. She reports because of the influenza diagnosis she was not allowed to get her Remicade today. She reports her PCP felt that if she had worsening symptoms she should go to the emergency department to get a chest x-ray to rule out a pneumonia. Patient reports nonproductive cough. Denies fevers. No other complaints at this time. Physical Examination: [] Afebrile, vital signs stable. Cardiovascular exam is regular rate and rhythm. Lungs are clear to auscultation. Abdomen is obese, soft, nontender. There was mild bilateral flank muscular tenderness on palpation. Test Results: [] Chest x-ray 2 views: Negative. Emergency Department Course and Treatment: [] Patient provided Phenergan and oxycodone for symptom relief. On serial exam she is feeling improvement of symptoms. She was counseled regarding her negative x-ray. She was given prescriptions for naproxen and Phenergan. She reports she can take naproxen despite her history of Crohn's as long as she takes it with food. The patient was encouraged to follow-up with her primary care physician. Treatment Plan: [] Follow-up with PCP. Disposition: [] Discharge, stable. Impression: [] Influenza History of Crohn's This note was generated with [employer] dictation software. It may contain incorrect words, spelling, and punctuation that were not noted in review of the chart prior to signing ED Disposition - Plan for ED Patient: Chief Complaint: Shortness of Breath Referrals: Supriya Sotelo MD [Primary Care Provider] - What to do if you have Problems For any increased pain, shortness of breath, bleeding, nausea or vomiting, chest pain, or any unexpected problems, contact your Primary Care Provider. Call [facility] ([phone]) or report to the closest Emergency Room. Call 911 if necessary. 03/17/172233 <Electronically signed by Josh Alarcon DO> Date Josh Alarcon DO Cosigner Signature (If Indicated): Date CC: Supriya Sotelo MD DISCHARGE INSTRUCTION Observed: 03/17/2017 Status: F Source: [place] 5:39 PM [facility] REPOSITORY [facility] Medical Records Department [address] [place] [address] Discharge Instruction 03/17/171735 MR#: [id number] Acct: [id number] Name: EMILY ORTIZ Rep #: [id number] : 1980 37 From: Josh Alarcon DO PCP: Supriya Sotelo MD Status: REG ER ED Disposition - Plan for ED Patient: Disposition: Home or Assisted Living Chief Complaint: Shortness of Breath Instructions: ED Flu Prescriptions: ProMETHAzine [Phenergan] 25 mg PO Q4H PRN PRN #20 tab PRN Reason: Nausea Naproxen [Naprosyn] 500 mg PO BID PRN #20 tab Referrals: Supriya Sotelo MD [Primary Care Provider] - What to do if you have Problems For any increased pain, shortness of breath, bleeding, nausea or vomiting, chest pain, or any unexpected problems, contact your Primary Care Provider. Call [facility] ([phone]) or report to the closest Emergency Room. Call 911 if necessary. 03/17/171738 <Electronically signed by Josh Alarcon DO> Date Josh Alarcon DO Cosigner Signature (If Indicated): Date CC: Supriya Sotelo MD CHEST PA AND LATERAL Observed: 03/17/2017 Status: F Source: [place] 4:38 PM [facility] REPOSITORY [facility] Imaging Services [address] [place] [address] Chest PA and Lateral MR#: [id number] Acct: [id number] Name: EMILY ORTIZ Rep #: [id number] : 1980 F 37 From: Chase Barraza MD PCP: Supriya Sotelo MD Status: REG ER Study: Chest PA and Lateral Date of Exam: 03/17/17 Exam# [id number] Ordering Dr: Josh Alarcon DO STUDY: X-RAY CHEST REASON FOR EXAM: Female, 37 years old. Cough TECHNIQUE: Frontal and lateral views of the chest. COMPARISON: None. FINDINGS: There is a right Port-A-Cath and/or mediport in place. The tip is in the superior vena cava. The lungs are clear and expanded. There is no demonstrated pleural abnormality. Normal size heart. Normal mediastinum and rolan. Normal visualized pulmonary arteries. Normal visualized aortic arch and descending thoracic aorta. Normal visualized thoracic spine. Normal visualized ribs, clavicles, and shoulders. There is no demonstrated abnormality of the visualized soft tissue structures of the upper abdomen. RAD/Chest PA and Lateral IMPRESSION: Normal x-ray examination of the chest. Electronically Signed: Chase Barraza MD at 17:09 EST , Service support , CC: Supriya Sotelo MD; Josh Alarcon DO Nurse Clinician: Signed CNPN Observed: 03/16/2017 Status: COMPLETED Source: [facility] [place] 12:00 AM [facility] REPOSITORY Telephone (HEMAWS) EMILY ORTIZ ([id number]) 1980 F Date Time Provider Department 03/16/17 ANDRA JACKSON During your visit today, we recorded the following information about you: Balbina Rosales, RN, RN 03/16/2017 8:40 AM Signed No orders for Remicade today.Todays infusion cancelled. Pt No Show for Dr Ramírez 03/06/17. Left message for patient to reschedule OV with Dr Ramírez so he can provide new orders for Remicade. Rosa Blackwell UTILIZATION MANAGEMENT RN 03/16/2017 8:47 AM Signed Patient returned call and went over notes below with understanding. Upset was on her way for appt for infusion. Assisted with transfer to [facility] to get appt with Dr Ramírez. Allergies As of Date: 03/16/2017 (No Known Allergies) Date Reviewed: 03/14/2017 Reviewed by: Erika Ty Stock Grader - Fully Assessed Reason for Visit: Appointment Cancelled [1023] Prescriptions as of 03/16/2017 Sig: AZATHIOPRINE 50 MG TABLET Take 1 tablet by mouth once d* CHOLECALCIFEROL (VITAMIN D3) * Take 1 capsule by mouth once * LORAZEPAM 1 MG TABLET Take 1 tablet by mouth once d* OMEPRAZOLE 20 MG CAPSULE,DARIELA* Take 1 capsule by mouth daily* ZOLPIDEM 10 MG TABLET Take 1 tablet by mouth at bed* DOXYCYCLINE MONOHYDRATE 100 M* Take 1 capsule by mouth twice* CODEINE 10 MG-GUAIFENESIN 100* Take 5 mL by mouth every 4 ho* KETOCONAZOLE 2 % SHAMPOO Apply 1 application to affect* MOMETASONE 0.1 % TOPICAL CREAM Apply 1 application to affect* PYRIDOXINE (VITAMIN B6) 100 M* Take 1 tablet by mouth once d* BUDESONIDE-FORMOTEROL HFA 160* Inhale 2 Puffs as instructed * CLINDAMYCIN 1 % TOPICAL GEL Apply 1 application to affect* DESONIDE 0.05 % TOPICAL OINTM* Apply 1 application to affect* FERROUS GLUCONATE 324 MG (36 * Take 1 tablet by mouth twice * LIDOCAINE-PRILOCAINE 2.5 %-2.* Apply to Mediport site 30-45 * INFLIXIMAB 100 MG INTRAVENOUS* Inject 1,500 mg intravenously* LAMIVUDINE 100 MG TABLET Take 1 tablet by mouth once d* ALBUTEROL SULFATE HFA 90 MCG/* Inhale 2 Puffs as instructed * DIPHENHYDRAMINE 50 MG/ML INJE* Inject 25 mg intravenously as* SODIUM CHLORIDE 0.9% FLUSH Access implanted vascular acc* HEPARIN LOCK FLUSH (PORCINE) * Access implanted vascular acc* Problem List As Of Date 03/16/2017 Noted Resolved HEMATOCHEZIA [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 ABDOMINAL PAIN OTHER SPEC SITE [R10.9] INVALID FOR* JOINT PAIN-MULT JTS [M25.50] INVALID FOR* FISTULA ANAL [K60.3] INVALID FOR*02/10/2010 Hepatitis [K75.9] INVALID FOR* DEPRESSIVE DISORDER NEC [F32.9] INVALID FOR* SLEEP APNEA NOS [G47.30] INVALID FOR* Headache [R51] INVALID FOR*02/10/2010 DEBILITY NOS [R53.81] INVALID FOR* MALAISE AND FATIGUE NEC [R53.81, R53.83] INVALID FOR* HIDRADENITIS [L73.2] INVALID FOR* ACNE NEC [L70.8] INVALID FOR* PYODERMA NOS [L08.0] INVALID FOR* SCAR AND FIBROSIS OF SKIN [L90.5] INVALID FOR* FOLLICULITIS///HAIR DISEASES NEC [L73.8] INVALID FOR* Sebaceous cyst [L72.3] INVALID FOR*02/10/2010 HYPERPIGMENTATION///DYSCHROMIA UNSPECIFIED [L81*INVALID FOR* GENERALIZED ANXIETY DIS [F41.1] INVALID FOR* PANIC ATTACKS [F41.0] INVALID FOR* CHRONIC PAIN NEC [G89.29] INVALID FOR* Vitamin d deficiency [E55.9] INVALID FOR* Rosacea [L71.9] More... Pustular psoriasis [L40.1] Regional enteritis of large intestine (HCC) [K5*INVALID FOR*01/15/2014 Low blood potassium [E87.6] INVALID FOR* Mild intermittent asthma without complication [*INVALID FOR* More... 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] INVALID FOR* Iron deficiency anemia due to chronic blood los*INVALID FOR* Encounter Status:Closed by BALBINA ROSALES on 03/16/17 PROGRESS Observed: 03/14/2017 Status: COMPLETED Source: [facility] 11:02 AM [facility] REPOSITORY HNO ID: [id number] Author: Supriya Sotelo Service: (none) Author Type: Physician Type: Progress Notes Filed: 03/19/2017 11:23 PM Note Text: Patient presents with: Recheck SUBJECTIVE: Emily De León Chapis Chauhan is a 37 year old year old lady here today for 3 month follow up appointment for review of medical conditions. Sick since Monday. Hit her out of the blue. Ill contacts--one with flu, one with other viral illness (neg flu). Coughing up bright yellow mucus. Cough keeping her up at night. Worse when lays down. Noted wheezing and SOB Some headache. Dudley feverish; Chills off and on. Noted both ears feel clogged. Vaginal yeast infection symptoms noted. Due for Remicade for Crohn's. Had been doing okay on current treatment. PAST MEDICAL HISTORY Diagnosis Date - Abnormal Pap smear 12/2007 LGSIL - Acute gastritis without mention of hemorrhage - Anal fistula - Cataract bilateral - Chronic hepatitis B (HCC) - CHRONIC PAIN NEC 05/01/2008 - Cough 06/21/2011 - Crohn disease (HCC) - DEBILITY NOS 07/24/2007 - Duodenitis without mention of hemorrhage - GERD (gastroesophageal reflux disease) - Hemorrhage of gastrointestinal tract, unspecified - Hemorrhage of rectum and anus - Hidradenitis 07/27/2007 - Palpitations 04/11/2008 - PANIC ATTACKS 04/01/2008 - PMH - PAST MEDICAL HISTORY OF duodenal ulcerations - PMH - PAST MEDICAL HISTORY OF bile stasis - PMH - PAST MEDICAL HISTORY OF Hydrenitis - Pustular psoriasis - Regional enteritis of unspecified site - Rosacea cystular - Tachycardia, unspecified 04/11/2008 - Viral hepatitis B without mention of hepatic coma, chronic, without mention of hepatitis delta - Vitamin D deficiency 03/17/2012 Current Outpatient Prescriptions: ketoconazole (NIZORAL) 2 % shampoo Apply 1 application to affected area once daily as needed. Apply to scalp and lather as directed mometasone (ELOCON) 0.1 % cream Apply 1 application to affected area once daily. To scalp as directed hydrOXYzine HCl (ATARAX) 25 mg tablet Take 1-2 tablets by mouth every 4 hours as needed for Itching/Rash. pyridoxine, vitamin B6, (VITAMIN B6) 100 mg tablet Take 1 tablet by mouth once daily. azaTHIOprine (IMURAN) 50 mg tablet Take 1 tablet by mouth once daily. budesonide-formoterol (SYMBICORT) 160-4.5 mcg/actuation inhaler Inhale 2 Puffs as instructed twice daily. cholecalciferol, Vitamin D3, (VITAMIN D3) 50,000 unit cap capsule Take 1 capsule by mouth once each week. clindamycin (CLEOCIN-T) 1 % gel Apply 1 application to affected area twice daily. desonide (DESOWEN) 0.05 % ointment Apply 1 application to affected area three times daily as needed. For psoriasis sparingly to affected skin on torso, extremities and face Ferrous Gluconate 324 mg (36 mg iron) tab Take 1 tablet by mouth twice daily with meals. lidocaine-prilocaine (EMLA) cream Apply to Mediport site 30- 45 minutes prior to coming for infusion. LORazepam (ATIVAN) 1 mg tablet Take 1 tablet by mouth once daily. as needed (prior for Remicade infusion and for anxiety) omeprazole (PRILOSEC) 20 mg capsule Take 1 capsule by mouth daily before breakfast. 1/2 hr before meal. zolpidem (AMBIEN) 10 mg tab Take 1 tablet by mouth at bedtime as needed (insomnia). inFLIXimab (REMICADE) 100 mg injection Inject 1,500 mg intravenously as directed. Every six weeks lamiVUDine HBV (EPIVIR HBV) 100 mg tablet Take 1 tablet by mouth once daily. albuterol HFA (PROAIR HFA) 90 mcg/actuation inhaler Inhale 2 Puffs as instructed every 6 hours as needed. diphenhydrAMINE 50 mg/mL injection Inject 25 mg intravenously as directed. 25mg IV push as premedication for Remicade infusion. MAY GIVE ADDITIONAL 25mg during infusion if patient complains of feeling jittery. heparin 100 unit/mL syrg Access implanted vascular access device (IVAD) as needed for flush, blood draw or treatment. Before de-accessing port, flush with 10-20ml normal saline and follow with 5 mL heparin (100 units/mL) (if no heparin allergy). De-access port on treatment completion. 0.9% NaCl Access implanted vascular access device (IVAD) as needed for flush, blood draw or treatment.Flush IVAD with 10-20 mL NS every 4 weeks and PRN when IVAD not in use. No current facility-administered medications for this visit. OBJECTIVE: BP 150/92 Pulse 100 Temp 38.6 ?C (101.4 ?F) (Temporal Artery) Resp 18 Wt (!) 143.3 kg (316 lb) SpO2 98% BMI 42.86 kg/m2 Patient is alert, oriented times 3, no apparent distress, affect is bright, reactive. Heart: Regular rate, rhythm, no murmurs, gallops, rubs. Lungs: Clear to auscultation, bilaterally, breathing non labored. Ext: No cyanosis, clubbing, or edema. ASSESSMENT AND PLAN: Encounter Diagnosis ICD-10-CM 1. Sinobronchitis J32.9 doxycycline monohydrate (MONODOX) 100 mg capsule J40 codeine-guaiFENesin (GUAIFENESIN AC) 10-100 mg/5 mL syrup 2. Flu syndrome J11.1 RAPID PCR ASSAY FOR FLU/RSV codeine-guaiFENesin (GUAIFENESIN AC) 10-100 mg/5 mL syrup 3. Mild intermittent asthma without complication J45.20 codeine-guaiFENesin (GUAIFENESIN AC) 10-100 mg/5 mL syrup ?cough variant asthma; flares up when gets acute bronchitis 4. Crohn's disease of small and large intestines with complication (HCC) K50.819 azaTHIOprine (IMURAN) 50 mg tablet omeprazole (PRILOSEC) 20 mg capsule 5. Vitamin D deficiency E55.9 cholecalciferol, Vitamin D3, (VITAMIN D3) 50,000 unit cap capsule VITAMIN D 25 HYDROXY 6. Itching L29.9 7. PANIC ATTACKS F41.0 LORazepam (ATIVAN) 1 mg tablet 8. Primary insomnia F51.01 zolpidem (AMBIEN) 10 mg tab 9. Iron deficiency anemia, unspecified iron deficiency anemia type D50.9 CBC IRON + TIBC FERRITIN BLD 10. Encounter for long-term current use of medication Z79.899 COMP METABOLIC PANEL CBC Given exposure to family member with influenza, checked influenza swab. Has been beyond 48 hours since illness started, so antiviral not given. Given antibiotic for signs of bacterial infection with asthma exacerbation. Above issues addressed with patient. Patient involved in shared decision making for management of her medical issues. History and medications reviewed. Epic updated as needed Refills and prescriptions taken care of and meds adjusted as indicated after reviewed history, exam and labs. Does not need to take Ambien routinely. [employer] website checked and validated. All prescriptions have been APPROPRIATELY filled. No suspicious activity was identified.- 03/19/2017 by Supriya Sotelo MD Further evaluation and treatment as indicated. Health Maintenance reviewed. Updated record and/or ordered tests as recorded. Encouraged on efforts at healthy diet and regular exercise and adequate sleep. The majority of the visit was spent counseling and/or coordinating care for the patient. Cnwo-fz-swfv time was at least 25 minutes. Supriya Sotelo MD RAPID PCR FLU/RSV Collected: 03/14/2017 Status: F Source: [place] 12:49 AM [facility]INIC [facility] REPOSITORY TYPE CODE TESTS RESULT OUT OF RANGE REFERENCE UNITS LAB [facility] Nasopharyngeal Specimen Swab Source LAB PCRFLA Negative for Influenza A Influenza A by RT PCR PCR LAB PCRFLB Positive for Abnormal Influenza B Influenza B by RT Alert PCR PCR LAB PCRRSV Negative for RSV PCR RSV by RT PCR Performed By: #### FLRSV #### [facility] [address] [place], [place] [address] ALLERGIES ALLERGIES DATE TYPE / CODE NAME / CODE REACTION SEVERITY SOURCE 03/06/2018 Drug No Known Unknown [place] [facility] Allergy/416 Allergies/J44939 [facility] 740216(SNOM 0388(RXNORM) Repository ED CT) Drug NO KNOWN [facility] Class/15613 ALLERGIES [address] [place] 1003(SNOMED Repository CT) ENCOUNTERS ENCOUNTERS ADMIT/DISCHARGE ACCOUNT NUMBER ADMITTING ENCOUNTER LOCATION SOURCE CLASS 03/08/2018 [id number] Ambulatory RBuilding:[facility] Repository 03/07/2018 [id number] Ambulatory BMSBuilding: [place] [facility] Repository 03/06/2018/03/07/19 [id number] Ambulatory [address] ding:SDCRoom Repository : [id number] 03/05/2018 [id number] Ambulatory BMSBuilding: [place] [facility] Repository 02/22/2018/02/23/19 [id number] Ambulatory [address] Repository 02/17/2018/02/18/19 [id number] Emergency [address] ding:ED Repository 01/17/2018/01/18/20 [id number] Ambulatory BMSBuilding: [place] 18 BMS.[facility] Repository 01/11/2018/02/01/20 [id number] Ambulatory [address] Repository 11/30/2017/12/21/19 [id number] Ambulatory [address] Repository 11/24/2017/11/25/19 [id number] Ambulatory [address] Repository 11/24/2017/12/14/19 [id number] Ambulatory [address] Repository 10/19/2017/10/21/19 [id number] Ambulatory [address] Repository 09/26/2017/09/27/19 [id number] Emergency [place] ding:ED Repository 09/07/2017/10/03/19 [id number] Ambulatory [address] [place] Repository 08/03/2017/08/05/19 [id number] Ambulatory [address] Repository 08/03/2017/08/05/19 [id number] Ambulatory [address] [place] Repository 07/27/2017/08/15/19 [id number] Ambulatory [address] Repository 06/30/2017/05/18/20 [id number] Emergency BBuilding:[address] Repository 06/15/2017/07/06/19 [id number] Ambulatory [address] Repository 06/02/2017/06/14/19 [id number] Ambulatory [address] Repository 05/26/2017/05/27/19 [id number] [place] ding:ED Repository 05/24/2017 [id number] Ambulatory BMSBuilding: Jamie BMS.S [facility] Repository 05/04/2017/05/05/19 [id number] Ambulatory [address] Repository 04/27/2017 [id number] Ambulatory [facility] Repository 04/27/2017/05/18/19 [id number] Ambulatory [address] Repository 04/06/2017 [id number] Ambulatory [facility] [place] Repository 04/06/2017 [id number] Ambulatory [facility] Repository 03/23/2017/04/14/19 [id number] Ambulatory [address] Repository 03/22/2017/03/22/19 [id number] Ambulatory [address] Repository 03/17/2017/03/17/19 [id number] Emergency [place] [address] ding:ED Repository 03/17/2017 [id number] Ambulatory [facility] Repository 03/14/2017/03/14/19 [id number] Ambulatory [address] Repository PAYERS PAYERS ENCOUNTER GUARANTOR PAYER SUBSCRIBER SOURCE 03/08/2018 EMILY De León [facility] EMILY De León [facility] Insurance:SELF PAY [facility] Foundation : [id number] INSCOPolicy Number: : Madonna MARRERO Effective [id number] [place], [place] Date:2018-03-08 Melva MARRERO 13690Nkv: [phone] [id number] Name:[address] [place] [address] [phone] () [phone]: () () 03/07/2018 NAKEILEE D Primary CHRISTIANO E [place] N[place] Insurance:ANTHEMPolic DEHARTDOB: Community [id number] N y Number: [id number] [id number] Repository [place], [place] Date:5085-15-63[address] [address]Nvy: [phone]) [phone], [place] [phone] () 38867EX: 03/07/2018 Secondary NAKEILEE D [place] Insurance:MEDICARE [facility] Community PART A BPolicy DEHARTDOB: Hospital Number: [id number] Repository [id number] Date:2018-03-01 03/07/2018 Tertiary NOT GIVENUNK [place] Insurance:SELF PAY [facility] Number: Effective Repository Date:2018-03-07 03/06/2018 NAKEILEE D Primary CHRISTIANO E [place] N[place] Insurance:ANTHEMPolic DEHARTDOB: Community [id number] N y Number: [id number] [id number] Repository [place], [place] Date:1536-59-02CQ [address] [address]Dcw: [phone], [place] [phone] () 81136IY: 03/06/2018 Secondary NAKEILEE D [place] Insurance:MEDICARE [facility] Community PART A BPolicy DEHARTDOB: Hospital Number: [id number] Repository [id number] Date:2018-03-01 03/06/2018 Tertiary NOT GIVENUNK [place] Insurance:SELF PAY [facility] Number: Effective Repository Date:2018-03-01 03/05/2018 NAKEILEE D Primary CHRISTIANO E [place] Insurance:ANTHEMPolic DEHARTDOB: Community [id number] N y Number: [id number] [id number] Repository [place] Date:7196-34-34CO [address] [address]Ata: [phone], [place] [phone] () 62023LB: 03/05/2018 Secondary NAKEILEE D [place] Insurance:MEDICARE [place] Community PART A BPolicy DEHARTDOB: Hospital Number: [id number] Repository [id number] Date:2018-03-01 03/05/2018 Tertiary NOT GIVENUNK [place] Insurance:SELF PAY [facility] Number: Effective Repository Date:2018-03-05 02/17/2018 NAKEILEE D Primary NOT GIVENUNK [place] Insurance:SELF PAY [facility] [id number] N [facility] Number: Effective Repository [place] Date:2018-02-17 62363Aau: () 01/17/2018 NAKEILEE D Primary NAKEILEE D [place] Insurance:MEDICARE [place] Community [id number] N PART A [facility] DEHARTDOB: [facility] Number: [id number] Repository [place] [id number]: ([phone]) Date:2017-11-15 [phone] () 01/17/2018 Secondary NOT GIVENUNK [place] Insurance:SELF PAY [facility] Number: Effective Repository Date:2018-01-17 09/26/2017 NAKEILEE D Primary NAKEILEE D [place] Insurance:MEDICARE [place] Community [id number] N PART A BPolic DEHARTDOB: [facility] Number: [id number] Repository [place], [place] [id number]: ([phone]) Date:2017-09-26 [phone] () 09/26/2017 Secondary NAKEILEE D [place] Insurance:MEDICAIDPol [place] Community icy Number: DEHARTDOB: [facility] [id number] Repository Date:2017-09-26 09/26/2017 Tertiary NOT GIVENUNK [place] Insurance:SELF PAY [facility] Number: Effective Repository Date:2017-09-26 06/30/2017 NAKEILEE D [facility] Foundation : [id number] PART BPolicy Number: : Repository N JANES [id number] [place] [address] Date:2017-06-30 N JANES 00816Iop: [phone] [id number] [place], [place] [phone] () Name:[facility] [id number]: [phone]) [facility] [id number] [address] [address]Wumsdnwyz, (HP)Tel: [phone] YI [phone]: () [phone] 05/26/2017 NAKBHAVESHLEMary SHAHNATION Primary NAKBHAVESHLEE D [place] [id number] N Insurance:MEDICARE [place] Community [place] PART A BPolicy DEHARTDOB: [place] Number: [id number] Repository 83997Hbc: [id number] [phone] Date:2017-05-26 () 05/26/2017 Secondary NOT GIVENUNK [place] Insurance:SELF PAY [facility] Number: Effective Repository Date:2017-05-26 05/24/2017 NAKBHAVESHLEMary [facility] Primary NAKBHAVESHLEE D [place] [id number] N Insurance:MEDICARE [place] Community [place] PART A BPolicy DEHARTDOB: [place] Number: [id number] Repository 15609Szi: [id number] [phone] Date:2017-05-16 () 05/24/2017 Secondary NAKEILEE [place] Insurance:MEDICAIDPol DEHARTDOB: [facility] Number: [id number] Hospital 1Effective Repository Date:2017-05-16 05/24/2017 Tertiary NOT GIVENUNK [place] Insurance:SELF PAY [facility] Number: Effective Repository Date:2017-05-16 03/17/2017 NAKANALILIA [facility] Primary [facility] [place] [id number] N Insurance:MEDICARE [place] Community [place] PART A BPolicy DEHARTDOB: [place] Number: [id number] Repository 434[address]Rkv: [id number] [phone] Date:2017-03-17 () 03/17/2017 Secondary NOT GIVENUNK [place] Insurance:SELF PAY [facility] Number: Effective Repository Date:2017-03-17
== END 2018-03-07 15:35 | disposition home or self-care (01) ==
LOC: SDC 06:17 → AC 06:19 → MS3 08:55
PROVIDERS: Family Provider Internal Medicine; PCP Internal Medicine; Referring Provider Surgery; Visit Provider Surgery
PROC: (CPT 11404; principal; 2018-03-06 07:45)
DX: L90.5 Scar conditions and fibrosis of skin (principal); L73.2 Hidradenitis suppurativa; N90.89 Other specified noninflammatory disorders of vulva and perineum; K50.90 Crohn's disease, unspecified, without complications; R10.2 Pelvic and perineal pain; R10.32 Left lower quadrant pain; D64.9 Anemia, unspecified; B19.10 Unspecified viral hepatitis B without hepatic coma; I10 Essential (primary) hypertension; G47.30 Sleep apnea, unspecified; K21.9 Gastro-esophageal reflux disease without esophagitis; F41.9 Anxiety disorder, unspecified; F17.200 Nicotine dependence, unspecified, uncomplicated; E66.9 Obesity, unspecified; Z68.42 Body mass index [BMI] 45.0-49.9, adult; Z79.891 Long term (current) use of opiate analgesic; Z79.899 Other long term (current) drug therapy; Z86.14 Personal history of Methicillin resistant Staphylococcus aureus infection; M79.651 Pain in right thigh
CPT/HCPCS: 11404; 11406; 12034; 80053; 80202; 81025; 84134; 85027; 87070; 87075; 87102; 87205; 87206; 88304; 94762; J7040; J7120; A4216; J2405

== ENCOUNTER 2018-03-12 16:18 | Emergency (ER) | payer MEDICARE, SELFPAY ==
[2018-03-06 10:56] VITALS: BMI 47.3
[2018-03-12 16:19] VITALS: BP 191/110; PULSE 100; RESP 18; TEMP 36.7; O2SAT 99; BMI 48.8
[2018-03-12 16:30] VITALS: BP 163/92; PULSE 92; RESP 14; O2SAT 98
[2018-03-12] MEDS: HYDROmorphone 1 MG/ML Syringe IM (16:50)
--- NOTE | 2018-03-12 17:06 | ED.DCSUM_ITS ---
- ER Visit Summary Date of Service: 03/12/18 Chief Complaint: Right thigh pain History of Present Illness: The patient is a [address] Bueno and Dr. Feliciano. March 04 section she had an excision of hidradenitis to the left abdominal wall and to the right medial thigh. The abdominal wall was closed. She reports this is healing well and minimally painful. She reports that she has a wound VAC on the right thigh. States pain here is 10 at 10 worsening a 10 currently. Is a sharp, burning pain. She has a fentanyl patch on and is taking Percocet without relief. Patient denies any signs of infection. She has had no redness or drainage. No fever or chills. Physical Examination: Vitals: Stable. Afebrile. General: Well-nourished and well-developed. Head: Normocephalic atraumatic. Neck: Supple, no lymphadenopathy. No JVD. Nontender. Cardiovascular: Regular rate and rhythm. No murmurs. Respiratory: No respiratory distress. Clear to auscultation bilaterally. Abdominal: Soft, nontender, nondistended, normal bowel sounds. No guarding, rebound, or peritoneal signs. Back: Nontender. Extremities: Nontender, no edema. Skin: Incision in the left lower quadrant is clean, dry, and intact. There is no erythema or induration. Is healing well. There is no drainage. The wound VAC was removed from her right thigh. There is granulation tissue and muscle exposed. There is no purulent drainage. There is no surrounding erythema or induration.. Neurologic: Alert and oriented ?3. Cranial nerves II through XII are intact. Normal strength and sensation. Psych: Normal affect. Emergency Department Course and Treatment: Patient was treated with a dose of Dilaudid IM. She had the wound VAC removed and a wet-to-dry dressing was placed Treatment Plan: The patient was discussed with Dr. Feliciano. He states that the pain may be due to the wound VAC and asked that she be changed to wet-to-dry dressings. Also asked that she increase her Neurontin from twice a day to 3 times a day. Does not want her placed on a other opiate-based medications. Follow-up with him in the office in 2 days for wound check. Return to the emergency department for any worsening symptoms. Disposition: To home in improved and stable condition. Impression: 1. 6 days status post surgical excision right thigh/abdomen. This note was generated with [employer] dictation software. It may contain incorrect words, spelling, and punctuation that were not noted in review of the chart prior to signing ED Disposition - Plan for ED Patient: Disposition: Home or Assisted Living Chief Complaint: Wound Check Instructions: ED Post Op Pain Referrals: Maikol Feliciano MD [STAFF PHYSICIAN] - Keep Ella appointment Additional Instructions: Increase gabapentin to 3 times a day.
[2018-03-12 17:32] VITALS: BP 165/93; PULSE 84; RESP 15; O2SAT 99
--- NOTE | 2018-03-12 17:35 | ED.RN ---
Wound vac pulled from left thigh under dr colin's order. Occlusive Wet to dry dressing applied. ed dr evaluated wound prior to application of wet to dry. no wound cultures obtained. no visible s/s of infection. wound bed was pink with serous fluid in wound vac and on bandages. wound penetrated multiple layers of tissue. muscle visible. pain medication give prior to starting wound vacc removal. Attempted to call wound and ostomy nurse prior to removal with no answer. wound vacc taken home by patient. dianna chavez rn [id number]
== END 2018-03-12 17:41 | disposition home or self-care (01) ==
PROVIDERS: Emergency Provider Emergency Medicine; Family Provider Internal Medicine; PCP Internal Medicine
DX: M79.651 Pain in right thigh (principal); Z98.890 Other specified postprocedural states; R11.0 Nausea; R21 Rash and other nonspecific skin eruption; K50.90 Crohn's disease, unspecified, without complications; B19.10 Unspecified viral hepatitis B without hepatic coma; I10 Essential (primary) hypertension; Z72.0 Tobacco use; Z79.899 Other long term (current) drug therapy
CPT/HCPCS: 96372; 99284

== ENCOUNTER 2018-04-10 13:15 | Outpatient (RCR) | payer MEDICARE, SELFPAY ==
[2018-03-21 08:27] VITALS: BMI 48.8
[2018-03-28 09:03] VITALS: BMI 48.8
[2018-04-02 09:20] VITALS: BP 165/111; PULSE 97; RESP 20; TEMP 37.2; BMI 42.3
--- NOTE | 2018-04-02 17:23 | PCM.WC.PN ---
Type of Wound Date of Service: 04/02/18 Chief Complaint: Open surgical hidradenitis wound right medial thigh. History of Wound: Surgery 03/06/18 - Excision 3 cm left abdominal wall hidradenitis with 10 cm complex closure repair and surgical preparation right medial thigh with excision 6 cm hidradenitis cluster (70 cm2). Wound care - Silver. Operative culture - negative. She uses Doxycycline for hidradenitis flare ups. Prealbumin from 03/07/18 was 15.0. She takes nutritional supplementation with protein to help the healing process. Today she denies any fever. Her appetite is ok. Progress of Wound: Improved. - Physical Exam Vital Signs Temp Pulse Resp BP 98.9 F 97 20 H 165/111 H 04/02/18 09:20 04/02/18 09:20 04/02/18 09:20 04/02/18 09:20 Wound Measurements and Assessment WC - Nurse 1 - General Ulcer Measurement Start: 04/02/18 09:20 Freq: Status: Active Protocol: Activity Type Activity Date Activity User E-Sign Co-Sign Detail Recorded Client Recorded Date Recorded By Document 04/02/18 09:20 MW [id number] 04/02/18 09:39 MW 04/02/18 09:20 Wound Center Nurse 1 [Ulcer Assessment] # 2 RIGHT GROIN -Combined with other wound No -Current Size (cm) - Length 4.6 -Current Size (cm) - Width 6.9 -Current Size (cm) - Depth 3.0 -Total Square Cm 31.74 -Date of Last Picture (Recall this 04/02/18 field) -Photo Taken Yes -Epithelialization Small 1-33% -Tunneling No -Undermining/Tunneling No -Circular Undermining No -Exudate Amt Small -Exudate Type Serosanguineous -Wound Margin Distinct, Outline Attached -Granulation Amt Large (67-100%) -Granulation Quality Red -Slough/Fibrin Yes -Necrosis Amt Small (1-33%) -Necrotic Tissue Type Adherent Slough -Structure Exposed N/A -Texture (Dede-wound Skin Appearance) Assessed Scarring -Moisture (Dede-wound Skin Appearance Assessed ) Dry/Scaly -Color (Dede-wound Skin Appearance) No Abnormality Assessed -Temperature (Dede-wound Skin No Abnormality Appearance) (Pt Warm) -Tenderness on Palpation (Dede-wound Yes Skin Appearance) -Ulcer Cleansing SAOP AND WATER -Foul Odor after Cleansing No -Anesthetic Used 4% Lidocaine Solution 5% Lidocaine Gel [Edema Assessment] -Lower Limb Edema Present No WC - Nurse 2 - General Ulcer CM Notes Start: 04/02/18 09:20 Freq: Status: Active Protocol: Activity Type Activity Date Activity User E-Sign Co-Sign Detail Recorded Client Recorded Date Recorded By Document 04/02/18 10:02 BAL [id number] 04/02/18 10:03 BAL 04/02/18 10:02 Wound Center Nurse 2 [Procedure/Treatment] # 2 RIGHT GROIN -Time 10:03 -Correct Patient Yes -Correct Side, Site, Position Yes -Correct Procedure Yes -Procedure Performed Yes -Type of Procedure Debridement -Clinical Debridement Subcutaneous -Post Debridement Size (cm) - Length 4.3 -Post Debridement Size (cm) - Width 7 -Post Debridement Size (cm) - Depth 3.0 -Total Square Cm 30.1 -Wound/Ulcer Outcome Not Healed -Ulcer Cleansing Rinsed/ Irrigated with Saline -Foul Odor after Cleansing No -Bioengineered Tissue No -Bleeding Controlled with Pressure -Offloading No -Treatment Response Procedure Tolerated Well [See Physician Procedure note for Specifics] Pain Scale: 0-10 Numeric [Pain] -Is Patient Pain Free? Yes Debridement Note Post-Debridement Measurements/Treatment MARYLOU - Nurse 2 - General Ulcer CM Notes Start: 04/02/18 09:20 Freq: Status: Active Protocol: Activity Type Activity Date Activity User E-Sign Co-Sign Detail Recorded Client Recorded Date Recorded By Document 04/02/18 10:02 BAL [id number] 04/02/18 10:03 BAL 04/02/18 10:02 Wound Center Nurse 2 # 2 RIGHT GROIN -Time 10:03 -Correct Patient Yes -Correct Side, Site, Position Yes -Correct Procedure Yes -Procedure Performed Yes -Type of Procedure Debridement -Clinical Debridement Subcutaneous -Post Debridement Size (cm) - Length 4.3 -Post Debridement Size (cm) - Width 7 -Post Debridement Size (cm) - Depth 3.0 -Total Square Cm 30.1 -Wound/Ulcer Outcome Not Healed -Ulcer Cleansing Rinsed/ Irrigated with Saline -Foul Odor after Cleansing No -Bioengineered Tissue No -Bleeding Controlled with Pressure -Offloading No -Treatment Response Procedure Tolerated Well Pain Scale: 0-10 Numeric Is Patient Pain Free? Yes Wound debrided: #2 Right medial thigh. Laterality: Right Wound Grade/Stage: 2. Type of Debridement: Excisional debridement Anesthesia Used: 4% Lidocaine Solution Depth: Down to and including healthy tissue, in the subcutaneous layer Percentage of wound debrided: 100 Instrument Used: 5mm curette Tissue Removed: subcutaneous tissue. Severity: Fat Layer Exposed Amount of bleeding with debridement: Mild Bleeding Controlled with: Pressure Patient tolerated procedure well Assessment/Plan Assessment: 1. Right medial thigh hidradenitis cluster, recently excised. 2. Open surgical hidradenitis wound right medial thigh. 3. History of MRSA. 4. Smoker. Plan: Continue Silver dressing changes daily. The hidradenitis wound continues to improve. She is a candidate for the SNAP VAC. She is willing to try it. Will plan on applying it next week. It will need to be changed twice a week at the Wound Center. She voices understanding. Operative culture was negative. She takes Doxycycline as needed for hidradenitis flare ups. Prealbumin from 03/07/18 was 15.0. Encourage nutritional supplementation with protein to help the healing process. Renewed her Dilaudid for pain (30 tabs). Renewed her Morphine ER for pain (14 tabs). Followup one week.
[2018-04-05 13:24] VITALS: BP 141/89; PULSE 93; RESP 20; TEMP 35.9; BMI 42.3
[2018-04-10 13:04] VITALS: BP 109/91; PULSE 89; RESP 20; TEMP 36.5; BMI 42.3
--- NOTE | 2018-04-10 16:25 | PN.PCM_ITS ---
(1) Open wound of right thigh Status: Acute Current Visit: Yes Code(s): S71.101A - Unspecified open wound, right thigh, initial encounter Comment: open hidradenitis wound right medial thigh (2) Hx MRSA infection Status: Chronic Current Visit: Yes Code(s): Z86.14 - Personal history of Methicillin resistant Staphylococcus aureus infection Comment: Z86.14 (3) Hidradenitis Status: Chronic Current Visit: Yes Code(s): L73.2 - Hidradenitis suppurativa Comment: right medial thigh hidradenitis cluster left abdominal wall hidradenitis recurrent bilateral axillary hidradenitis Type of Wound Date of Service: 04/12/18 Chief Complaint: Open surgical hidradenitis wound right medial thigh. History of Wound: Surgery 03/06/18 - Excision 3 cm left abdominal wall hidradenitis with 10 cm complex closure repair and surgical preparation right medial thigh with excision 6 cm hidradenitis cluster (70 cm2). Wound care - SNAP vac. Operative culture - negative. She uses Doxycycline for hidradenitis flare ups. Prealbumin from 03/07/18 was 15.0. She takes nutritional supplementation with protein to help the healing process. Today she denies any fever. Her appetite is ok. Progress of Wound: Improved. - Physical Exam Vital Signs Temp Pulse Resp BP 97.7 F L 89 20 H 109/91 H 04/10/18 13:04 04/10/18 13:04 04/10/18 13:04 04/10/18 13:04 General: Alert, Oriented x3, Cooperative HEENT: Atraumatic, PERRLA Oral: Moist Mucosa Lungs: Normal air movement Cardiovascular: Regular rate Extremities: No edema, Capillary Refill Less than 3 Seconds, No Calf Tenderness Skin: Ulcer/ Wound - Right thigh wound, looking much smaller after using the SNAP vac for one week Wound Measurements and Assessment WC - Nurse 1 - General Ulcer Measurement Start: 04/02/18 09:20 Freq: Status: Active Protocol: Activity Type Activity Date Activity User E-Sign Co-Sign Detail Recorded Client Recorded Date Recorded By Document 04/10/18 13:04 DL [id number] 04/10/18 13:10 DL 04/10/18 13:04 Wound Center Nurse 1 [Ulcer Assessment] # 2 RIGHT GROIN -Current Size (cm) - Length 3 -Current Size (cm) - Width 4.5 -Current Size (cm) - Depth 2.5 -Total Square Cm 13.5 -Photo Taken No -Exudate Amt Medium -Exudate Type Serosanguineous -Wound Margin Distinct, Outline Attached -Granulation Amt Large (67-100%) -Granulation Quality [place] Red -Necrosis Amt None Present (0 %) -Structure Exposed N/A -Texture (Dede-wound Skin Appearance) Scarring -Moisture (Dede-wound Skin Appearance No Abnormality ) -Color (Dede-wound Skin Appearance) No Abnormality -Temperature (Dede-wound Skin No Abnormality Appearance) (Pt Warm) -Tenderness on Palpation (Dede-wound Yes Skin Appearance) -Ulcer Cleansing Wound Cleanser -Foul Odor after Cleansing No -Anesthetic Used 5% Lidocaine Gel WC - Nurse 2 - General Ulcer CM Notes Start: 04/02/18 09:20 Freq: Status: Active Protocol: Activity Type Activity Date Activity User E-Sign Co-Sign Detail Recorded Client Recorded Date Recorded By Document 04/10/18 13:33 [id number] 04/10/18 13:36 04/10/18 13:33 Wound Center Nurse 2 [Procedure/Treatment] -Time 13:36 -Correct Patient Yes -Correct Side, Site, Position Yes -Correct Procedure Yes -Procedure Performed Yes -Type of Procedure Debridement -Clinical Debridement Subcutaneous -Post Debridement Size (cm) - Length 3.4 -Post Debridement Size (cm) - Width 4 -Post Debridement Size (cm) - Depth 2.5 -Total Square Cm 13.6 -Wound/Ulcer Outcome Not Healed -Ulcer Cleansing Rinsed/ Irrigated with Saline -Foul Odor after Cleansing No -Bioengineered Tissue No -Bleeding Controlled with Pressure -Offloading No -Treatment Response Procedure Tolerated Well [See Physician Procedure note for Specifics] Pain Scale: 0-10 Numeric [Pain] -Is Patient Pain Free? Yes Musculoskeletal: No Tenderness to Palpation of Joints or Extremities Neurological: Neuro grossly intact Psych/Mental Status: Normal Affect, Appropriate Debridement Note Post-Debridement Measurements/Treatment - Nurse 2 - General Ulcer CM Notes Start: 04/02/18 09:20 Freq: Status: Active Protocol: Activity Type Activity Date Activity User E-Sign Co-Sign Detail Recorded Client Recorded Date Recorded By Document 04/02/18 10:02 [id number] 04/02/18 10:03 JF Document 04/10/18 13:33 [id number] 04/10/18 13:36 JF 04/02/18 04/10/18 10:02 13:33 Wound Center Nurse 2 # 2 RIGHT GROIN -Time 10:03 13:36 -Correct Patient Yes Yes -Correct Side, Site, Position Yes Yes -Correct Procedure Yes Yes -Procedure Performed Yes Yes -Type of Procedure Debridement Debridement -Clinical Debridement Subcutaneous Subcutaneous -Post Debridement Size (cm) - Length 4.3 3.4 -Post Debridement Size (cm) - Width 7 4 -Post Debridement Size (cm) - Depth 3.0 2.5 -Total Square Cm 30.1 13.6 -Wound/Ulcer Outcome Not Healed Not Healed -Ulcer Cleansing Rinsed/ Rinsed/ Irrigated with Irrigated with Saline Saline -Foul Odor after Cleansing No No -Bioengineered Tissue No No -Bleeding Controlled with Pressure Pressure -Offloading No No -Treatment Response Procedure Procedure Tolerated Well Tolerated Well Pain Scale: 0-10 Numeric Is Patient Pain Free? Yes Yes Wound debrided: Right medial thigh Laterality: Right Type of Debridement: Excisional debridement Anesthesia Used: 5% Lidocaine Gel Depth: Down to and including healthy tissue, in the subcutaneous layer Percentage of wound debrided: 100 Instrument Used: 7mm curette Tissue Removed: Subcutaneous tissue and slough Severity: Limited To Skin Breakdown Amount of bleeding with debridement: Mild Bleeding Controlled with: Compression and gauze Patient tolerated procedure well Assessment/Plan Active Problems (Last Updated 01/17/18 @ 09:42 by Marli Chowdary) Open wound of right thigh (Acute) open hidradenitis wound right medial thigh Hx MRSA infection (Chronic) Z86.14 Hidradenitis (Chronic) right medial thigh hidradenitis cluster left abdominal wall hidradenitis recurrent bilateral axillary hidradenitis Assessment: 1. Right medial thigh hidradenitis cluster, recently excised. 2. Open surgical hidradenitis wound right medial thigh. 3. History of MRSA. 4. Smoker. Plan: The hidradenitis wound continues to improve. She is a candidate for the SNAP VAC. She is willing to try it. She started the SNAP vac last week and has much improvement in the size of her wound. She will return Monday for a nurse visit to have the SNAP vac changed and return next Monday or Monday to see either Dr. Feliciano or myself. Operative culture was negative. She takes Doxycycline as needed for hidradenitis flare ups. Prealbumin from 03/07/18 was 15.0. Encourage nutritional supplementation with protein to help the healing process. Followup one week. Code Visit [id number]: [id number] Carissa subq tissue 20 sq cm/<
== END 2018-04-12 23:59 ==
LOC: WC 13:15
PROVIDERS: Family Provider Internal Medicine; PCP Internal Medicine; Visit Provider Surgery
DX: L73.2 Hidradenitis suppurativa (principal); F17.200 Nicotine dependence, unspecified, uncomplicated; Z86.14 Personal history of Methicillin resistant Staphylococcus aureus infection; L97.112 Non-pressure chronic ulcer of right thigh with fat layer exposed
CPT/HCPCS: 11042; 11045; 97607; 99212; 99213; G0463

== ENCOUNTER 2018-04-24 15:45 | Outpatient (RCR) | payer MEDICARE, BC, SELFPAY ==
[2018-04-13 01:36] VITALS: BP 109/91; PULSE 89; RESP 20; TEMP 36.5
[2018-04-16 11:45] VITALS: BP 150/81; PULSE 75; RESP 16; TEMP 36.2; BMI 42.3
--- NOTE | 2018-04-16 17:46 | PCM.WC.PN ---
Type of Wound Date of Service: 04/16/18 Chief Complaint: Nonhealing hidradenitis ulcer right medial thigh. History of Wound: Surgery 03/06/18 - Excision 3 cm left abdominal wall hidradenitis with 10 cm complex closure repair and surgical preparation right medial thigh with excision 6 cm hidradenitis cluster (70 cm2). Wound care - SNAP VAC. Operative culture - negative. She uses Doxycycline for hidradenitis flare ups. Prealbumin from 03/07/18 was 15.0. She takes nutritional supplementation with protein to help the healing process. Today she denies any fever. Her appetite is ok. Progress of Wound: Improved. - Physical Exam Vital Signs Temp Pulse Resp BP 97.1 F L 75 16 150/81 H 04/16/18 11:45 04/16/18 11:45 04/16/18 11:45 04/16/18 11:45 Wound Measurements and Assessment WC - Nurse 1 - General Ulcer Measurement Start: 04/16/18 11:44 Freq: Status: Active Protocol: Activity Type Activity Date Activity User E-Sign Co-Sign Detail Recorded Client Recorded Date Recorded By Document 04/16/18 11:45 DV [id number] 04/16/18 11:59 DV 04/16/18 11:45 Wound Center Nurse 1 [Ulcer Assessment] # 2 RIGHT Medial Thigh -Combined with other wound No -Current Size (cm) - Length 3.5 -Current Size (cm) - Width 3.2 -Current Size (cm) - Depth 1.7 -Total Square Cm 11.20 -Photo Taken No -Epithelialization Medium 34-66% -Tunneling No -Undermining/Tunneling No -Circular Undermining No -Classification - Thickness Full Thickness without Exposed Support Structure -Wound Margin Distinct, Outline Attached -Granulation Amt Large (67-100%) -Granulation Quality Red -Slough/Fibrin Yes -Necrosis Amt Small (1-33%) -Necrotic Tissue Type Adherent Slough -Structure Exposed Fat Layer Exposed -Texture (Dede-wound Skin Appearance) Assessed Scarring -Moisture (Dede-wound Skin Appearance Assessed ) Weeping -Color (Dede-wound Skin Appearance) No Abnormality Assessed -Temperature (Dede-wound Skin No Abnormality Appearance) (Pt Warm) -Tenderness on Palpation (Dede-wound Yes Skin Appearance) -Ulcer Cleansing Rinsed/ Irrigated with Saline -Foul Odor after Cleansing No -Anesthetic Used 5% Lidocaine Gel [Edema Assessment] -Lower Limb Edema Present No WC - Nurse 2 - General Ulcer CM Notes Start: 04/16/18 11:44 Freq: Status: Active Protocol: Activity Type Activity Date Activity User E-Sign Co-Sign Detail Recorded Client Recorded Date Recorded By Document 04/16/18 12:17 [id number] 04/16/18 12:21 04/16/18 12:17 Wound Center Nurse 2 [Procedure/Treatment] # 2 RIGHT Medial Thigh -Time 12:20 -Correct Patient Yes -Correct Side, Site, Position Yes -Correct Procedure Yes -Procedure Performed Yes -Type of Procedure Debridement -Clinical Debridement Subcutaneous -Post Debridement Size (cm) - Length 3.5 -Post Debridement Size (cm) - Width 3.3 -Post Debridement Size (cm) - Depth 1.8 -Total Square Cm 11.55 -Wound/Ulcer Outcome Not Healed -Ulcer Cleansing Rinsed/ Irrigated with Saline -Foul Odor after Cleansing No -Bioengineered Tissue No -Bleeding Controlled with Pressure -Offloading No -Treatment Response Procedure Tolerated Well [See Physician Procedure note for Specifics] Pain Scale: 0-10 Numeric [Pain] -Is Patient Pain Free? Yes Debridement Note Post-Debridement Measurements/Treatment WC - Nurse 2 - General Ulcer CM Notes Start: 04/16/18 11:44 Freq: Status: Active Protocol: Activity Type Activity Date Activity User E-Sign Co-Sign Detail Recorded Client Recorded Date Recorded By Document 04/16/18 12:17 [id number] 04/16/18 12:21 04/16/18 12:17 Wound Center Nurse 2 # 2 RIGHT Medial Thigh -Time 12:20 -Correct Patient Yes -Correct Side, Site, Position Yes -Correct Procedure Yes -Procedure Performed Yes -Type of Procedure Debridement -Clinical Debridement Subcutaneous -Post Debridement Size (cm) - Length 3.5 -Post Debridement Size (cm) - Width 3.3 -Post Debridement Size (cm) - Depth 1.8 -Total Square Cm 11.55 -Wound/Ulcer Outcome Not Healed -Ulcer Cleansing Rinsed/ Irrigated with Saline -Foul Odor after Cleansing No -Bioengineered Tissue No -Bleeding Controlled with Pressure -Offloading No -Treatment Response Procedure Tolerated Well Pain Scale: 0-10 Numeric Is Patient Pain Free? Yes Wound debrided: #2 Right medial thigh. Laterality: Right Wound Grade/Stage: 2. Type of Debridement: Excisional debridement Anesthesia Used: 4% Lidocaine Solution Depth: Down to and including healthy tissue, in the subcutaneous layer Percentage of wound debrided: 100 Instrument Used: 5mm curette Tissue Removed: subcutaneous tissue. Severity: Fat Layer Exposed Amount of bleeding with debridement: Mild Bleeding Controlled with: Pressure Patient tolerated procedure well Assessment/Plan Assessment: 1. Right medial thigh hidradenitis cluster, recently excised. 2. Nonhealing hidradenitis ulcer right medial thigh. 3. History of MRSA. 4. Smoker. Plan: Continue SNAP VAC. It will need to be changed twice a week at the Wound Center. She voices understanding. Operative culture was negative. She takes Doxycycline as needed for hidradenitis flare ups. Prealbumin from 03/07/18 was 15.0. Encourage nutritional supplementation with protein to help the healing process. Renewed her Dilaudid for pain (20 tabs). Followup one week to see Marika Nurse Practitioner. Encouraged patient to stop smoking as it may have deleterious effects on wound healing.
[2018-04-24 16:27] VITALS: BP 154/96; PULSE 84; RESP 18; TEMP 36.7; BMI 42.3
--- NOTE | 2018-04-24 17:40 | PN.PCM_ITS ---
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: Chronic Current Visit: Yes Code(s): L97.912 - Non-pressure chronic ulcer of unspecified part of right lower leg with fat layer exposed Comment: nonhealing hidradenitis ulcer right medial thigh (2) Hidradenitis Status: Chronic Current Visit: Yes Code(s): L73.2 - Hidradenitis suppurativa Comment: right medial thigh hidradenitis cluster left abdominal wall hidradenitis recurrent bilateral axillary hidradenitis (3) Hx MRSA infection Status: Chronic Current Visit: Yes Code(s): Z86.14 - Personal history of Methicillin resistant Staphylococcus aureus infection Comment: Z86.14 (4) Smoker Status: Chronic Current Visit: Yes Code(s): F17.200 - Nicotine dependence, unspecified, uncomplicated Comment: F17.200 Type of Wound Date of Service: 04/24/18 Chief Complaint: Nonhealing hidradenitis ulcer right medial thigh. History of Wound: Surgery 03/06/18 - Excision 3 cm left abdominal wall hidradenitis with 10 cm complex closure repair and surgical preparation right medial thigh with excision 6 cm hidradenitis cluster (70 cm2). Wound care - SNAP VAC, will stop today and start daily Aquacel silver dressing changes. Operative culture - negative. She uses Doxycycline for hidradenitis flare ups. Prealbumin from 03/07/18 was 15.0. She takes nutritional supplementation with protein to help the healing process. Today she denies any fever. Her appetite is ok. Progress of Wound: Improved. - Physical Exam Vital Signs Temp Pulse Resp BP 98.0 F 84 18 154/96 H 04/24/18 16:27 04/24/18 16:27 04/24/18 16:27 04/24/18 16:27 General: Alert, Oriented x3, Cooperative HEENT: Atraumatic Oral: Moist Mucosa Lungs: Normal air movement Cardiovascular: Regular rate Extremities: No edema, Capillary Refill Less than 3 Seconds, Peripheral Pulses Normal Skin: Ulcer/ Wound - right medial thigh Wound Measurements and Assessment WC - Nurse 1 - General Ulcer Measurement Start: 04/16/18 11:44 Freq: Status: Active Protocol: Activity Type Activity Date Activity User E-Sign Co-Sign Detail Recorded Client Recorded Date Recorded By Document 04/24/18 16:27 DV [id number] 04/24/18 16:35 DV 04/24/18 16:27 Wound Center Nurse 1 [Ulcer Assessment] # 2 RIGHT Medial Thigh -Combined with other wound No -Current Size (cm) - Length 2.0 -Current Size (cm) - Width 2.0 -Current Size (cm) - Depth 0.6 -Total Square Cm 4.00 -Photo Taken No -Epithelialization Small 1-33% -Tunneling No -Undermining/Tunneling No -Circular Undermining No -Classification - Thickness Full Thickness without Exposed Support Structure -Exudate Amt None Present -Wound Margin Flat & Intact -Granulation Amt Medium (34-66%) -Granulation Quality Red -Slough/Fibrin Yes -Necrosis Amt Small (1-33%) -Necrotic Tissue Type Adherent Slough -Structure Exposed N/A -Texture (Dede-wound Skin Appearance) No Abnormality Assessed Scarring -Moisture (Dede-wound Skin Appearance No Abnormality ) Assessed -Color (Dede-wound Skin Appearance) No Abnormality Not Assessed -Temperature (Dede-wound Skin No Abnormality Appearance) (Pt Warm) -Tenderness on Palpation (Dede-wound No Skin Appearance) -Ulcer Cleansing Rinsed/ Irrigated with Saline -Foul Odor after Cleansing No -Anesthetic Used 5% Lidocaine Gel WC - Nurse 2 - General Ulcer CM Notes Start: 04/16/18 11:44 Freq: Status: Active Protocol: Activity Type Activity Date Activity User E-Sign Co-Sign Detail Recorded Client Recorded Date Recorded By Document 04/24/18 17:09 [id number] 04/24/18 17:13 AN 04/24/18 17:09 Wound Center Nurse 2 [Procedure/Treatment] -Time 17:11 -Correct Patient Yes -Correct Side, Site, Position Yes -Correct Procedure Yes -Procedure Performed Yes -Type of Procedure Debridement -Clinical Debridement Subcutaneous -Post Debridement Size (cm) - Length 2 -Post Debridement Size (cm) - Width 3 -Post Debridement Size (cm) - Depth 0.6 -Total Square Cm 6 -Wound/Ulcer Outcome Not Healed -Ulcer Cleansing Rinsed/ Irrigated with Saline -Foul Odor after Cleansing No -Bleeding Controlled with Pressure -Offloading No -Treatment Response Procedure Tolerated Well [See Physician Procedure note for Specifics] Pain Scale: 0-10 Numeric [Pain] -Is Patient Pain Free? Yes Musculoskeletal: No Tenderness to Palpation of Joints or Extremities Neurological: Neuro grossly intact Psych/Mental Status: Normal Affect, Appropriate Debridement Note Post-Debridement Measurements/Treatment WC - Nurse 2 - General Ulcer CM Notes Start: 04/16/18 11:44 Freq: Status: Active Protocol: Activity Type Activity Date Activity User E-Sign Co-Sign Detail Recorded Client Recorded Date Recorded By Document 04/16/18 12:17 [email or web address] 04/16/18 12:21 JF Document 04/24/18 17:09 AN [id number] 04/24/18 17:13 AN 04/16/18 04/24/18 12:17 17:09 Wound Center Nurse 2 # 2 RIGHT Medial Thigh -Time 12:20 17:11 -Correct Patient Yes Yes -Correct Side, Site, Position Yes Yes -Correct Procedure Yes Yes -Procedure Performed Yes Yes -Type of Procedure Debridement Debridement -Clinical Debridement Subcutaneous Subcutaneous -Post Debridement Size (cm) - Length 3.5 2 -Post Debridement Size (cm) - Width 3.3 3 -Post Debridement Size (cm) - Depth 1.8 0.6 -Total Square Cm 11.55 6 -Wound/Ulcer Outcome Not Healed Not Healed -Ulcer Cleansing Rinsed/ Rinsed/ Irrigated with Irrigated with Saline Saline -Foul Odor after Cleansing No No -Bioengineered Tissue No -Bleeding Controlled with Pressure Pressure -Offloading No No -Treatment Response Procedure Procedure Tolerated Well Tolerated Well Pain Scale: 0-10 Numeric Is Patient Pain Free? Yes Yes Wound debrided: Right medial thigh Laterality: Right Type of Debridement: Excisional debridement Anesthesia Used: 5% Lidocaine Gel Depth: Down to and including healthy tissue, in the subcutaneous layer Percentage of wound debrided: 100 Instrument Used: 5mm curette Tissue Removed: Subcutaneous tissue and slough Amount of bleeding with debridement: Mild Bleeding Controlled with: Pressure Patient tolerated procedure well Assessment/Plan Active Problems (Last Updated 01/17/18 @ 09:42 by Marli Chowdary) Nonhealing ulcer of right lower extremity with fat layer exposed (Chronic) nonhealing hidradenitis ulcer right medial thigh Smoker (Chronic) F17.200 Hx MRSA infection (Chronic) Z86.14 Hidradenitis (Chronic) right medial thigh hidradenitis cluster left abdominal wall hidradenitis recurrent bilateral axillary hidradenitis Assessment: 1. Right medial thigh hidradenitis cluster, recently excised. 2. Nonhealing hidradenitis ulcer right medial thigh. 3. History of MRSA. 4. Sm oker. Plan: Discontinue SNAP VAC at patient request. Will start daily aquacel silver dressing changes. Operative culture was negative. She takes Doxycycline as needed for hidradenitis flare ups. Prealbumin from 03/07/18 was 15.0. Encourage nutritional supplementation with protein to help the healing process. Followup two weeks. Encouraged patient to stop smoking as it may have deleterious effects on wound healing. Code Visit [id number]: [id number] Carissa subq tissue 20 sq cm/<
== END 2018-05-13 23:59 ==
LOC: WC 15:45
PROVIDERS: Family Provider Internal Medicine; PCP Internal Medicine; Visit Provider Surgery
DX: L73.2 Hidradenitis suppurativa (principal); L97.112 Non-pressure chronic ulcer of right thigh with fat layer exposed; Z86.14 Personal history of Methicillin resistant Staphylococcus aureus infection; F17.200 Nicotine dependence, unspecified, uncomplicated
CPT/HCPCS: 11042; 97607

== ENCOUNTER 2018-07-26 01:26 | Emergency (ER) | payer MEDICARE, MEDICAID, SELFPAY ==
[2018-07-26 01:28] VITALS: BP 164/94; PULSE 87; RESP 14; TEMP 36.9; O2SAT 100; BMI 45.2
--- NOTE | 2018-07-26 01:45 | ED.VIS.GEN ---
History of Present Illness Chief Complaint: Abd Pain Informant: Patient Narrative: States she is having a Crohn's flareup for the last 4 days. She has had intermittent nausea with a couple episodes of emesis per day. She is now having soft stools but she was having a few loose diarrheas per day. She has diffuse abdominal cramping. She is on Remicade injections and oral Imuran. She sees Dr. Alarcon with GI. She states she gets 8-10 flareups per year. Nothing that she could think of brought it on. Current severity is mild to moderate. Requesting symptom control. - Past Medical History (1) Clitoral hypertrophy Status: Chronic (2) Hidradenitis Status: Chronic Comment: right medial thigh hidradenitis cluster left abdominal wall hidradenitis recurrent bilateral axillary hidradenitis (3) Hx MRSA infection Status: Chronic Comment: Z86.14 (4) Nonhealing ulcer of right lower extremity with fat layer exposed Status: Chronic Comment: nonhealing hidradenitis ulcer right medial thigh (5) Smoker Status: Chronic Comment: F17.200 (6) Unspecified open wound of abdominal wall, left lower quadrant without penetration into peritoneal cavity, sequela Status: Chronic Comment: hidradenitis scar contracture left inguinal area (7) Unspecified open wound of vagina and vulva, sequela Status: Chronic Comment: hidradenitis scar contracture left vulva involving the mons pubis and genitocrural area (8) Open wound of inguinal region with complication Status: Inactive Comment: open hidradenitis wound left inguinal area with extension to anteromedial thigh (9) Open wound of left thigh Status: Inactive Comment: open hidradenitis wound left anteromedial thigh (10) Open wound of right thigh Status: Inactive Comment: open hidradenitis wound right medial thigh Past Medical History - Allergies and Home Meds Allergies/Adverse Reactions: Allergies No Known Allergies Allergy (Verified 07/26/18 01:27) Primary Care Physician: Araseli Bueno MD [Primary Care Provider] - Prior records reviewed: Yes Surgical History: appendectomy, cholecystectomy, - - bowel resection 2004 Smoking Status: Current every day smoker Alcohol: None Drugs: None Review of Systems General: Denies: Chills, Fever, Sweats Eyes: Denies: Visual changes - bilaterally, Diplopia ENT: Denies: Rhinorrhea, Sore throat Cardiovascular: Denies: Chest pain, Palpitations Respiratory: Denies: Dyspnea, Cough, Dyspnea on exertion Gastrointestinal: Reports: Abdominal pain, Nausea, Vomiting, Diarrhea. Denies: Melena, Hematochezia Genitourinary: Denies: Dysuria, Hematuria, Frequency Musculoskeletal: Denies: Back pain, Extremity Pain Skin: Denies: Rash, Wounds Neurological: Denies: Headache, Weakness, Numbness Physical Exam Vital Signs/Narrative: Vital Signs Temp Pulse Resp BP Pulse Ox 07/26/18 01:28 98.4 F 87 14 164/94 H 100 General: Well nourished, Well developed, No Acute Distress Head: Normocephalic, Atraumatic Eyes: Perrl, EOMI ENT: Moist mucous membranes, No rhinorrhea Neck: Supple, Nontender Cardiovascular: Regular rate, Regular rhythm, No murmurs Respiratory: No distress, CTA bilaterally, Chest nontender Abdomen: Soft, Nontender, Nondistended, Normal bowel sounds Back: Nontender, Normal Inspection Extremities: Nontender, No edema Skin: Normal color, No rash Neurological: Alert, Oriented x3, Cranial nerves II-XII grossly intact, Normal Strength, Normal Sensation Psychological: Normal affect, Normal Mood Diagnostic/Tx/Re-eval - Medical Decision Making Given IV fluids, Phenergan, Dilaudid. Lab work obtained. Lab work shows no major new abnormalities. Patient's resting comfortably after treatment. No vomiting or diarrhea. At this time I think she is having a Crohn's flare. I do not think she needs acute steroids. 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 Given Phenergan for home. ED Disposition - Plan for ED Patient: Disposition: [place] Hospital Diagnosis: Crohns disease Instructions: What is Crohn's Disease? Prescriptions: proMETHazine tablet [Phenergan] 25 mg PO Q6H PRN PRN #10 tab PRN Reason: Nausea Referrals: Araseli Bueno MD [Primary Care Provider] - Additional Instructions: Follow-up with your hydrate thickener operator
[2018-07-26] MEDS: 0.9% Normal Saline 1,000 ML 1000 ML IV (02:24)
[2018-07-26] MEDS: HYDROmorphone 1 MG/ML Syringe 0.5 MG IV (02:24)
[2018-07-26] MEDS: proMETHazine 25 MG/ML Syringe 6.25 MG IV (02:24)
[2018-07-26 02:28] LABS: Absolute Lymphocyte Count 3.96 X10^3/ul (0.83-4.51); Absolute Neutrophil Count 3.8 X10^3/uL (2.0-7.7); Basophil# 0.05 X10^3/uL; Basophil% 0.6 % (0-1); Eosinophil# 0.13 X10^3/uL; Eosinophils% 1.5 % (0-5); Hematocrit 30.4 % (37-47); Hemoglobin 9.2 g/dl (12.0-15.0); Lymphocyte # 3.96 X10^3/ul (4.0); Lymphocyte % 46.8 % (19-41); Mean Corp Hgb Conc 30.3 g/gl (32-36); Mean Corpuscular Hgb 19.9 pg (27.0-32.0); Mean Corpuscular Volume 65.8 fL (81-99); Monocyte# 0.48 X10^3/uL; Monocyte% 5.7 % (0-10); Neutrophil # 3.84 X10^3/uL (2.7-7.7); Neutrophil % 45.3 % (47-70); Platelet Count 207 K/mm3 (150-450); RBC Distribution Width CV 17.9 % (11.6-14.6); RBC Distribution Width SD 42.9 fl (35.1-43.9); Red Blood Count 4.62 M/mm3 (4.2-5.4); White Blood Count 8.5 K/mm3 (4.4-11.0)
[2018-07-26 02:32] LABS: Differential Indicated SCAN CRITERIA MET; POSITIVE COUNT NO; POSITIVE DIFFERENTIAL NO; POSITIVE MORPHOLOGY YES
[2018-07-26 02:39] LABS: ALB/GLOB Ratio 0.8 RATIO (0.9-2.4); AST(SGOT) 11 U/L (15-37); Alanine Aminotransfer ALT/SGPT 18 U/L (13-56); Albumin, Serum 3.3 g/dL (3.2-5.0); Alkaline Phosphatase 84 U/L (45-117); Anion Gap 3 (5-15); BUN 9 mg/dL (7-18); BUN/Creat Ratio 10.5 RATIO (10-20); Chloride 112 mmol/L (98-107); Creatinine, Serum 0.86 mg/dL (0.55-1.02); EST Glomerular Filtration Rate 78 mL/min (>60); Est Glom Filt Rate - Afr Amer 94 mL/min (>60); Estimated Creatinine Clearance 104.54 ml/min; Globulin 4.1 g/dL (2.2-4.2); Glucose 113 mg/dL (74-106); Lipase 148 U/L (73-393); Potassium 3.4 mmol/L (3.5-5.1); Protein, Total 7.4 g/dL (6.4-8.2); Sodium Level 139 mmol/L (136-145)
[2018-07-26 02:47] LABS: Differential Comment SCANNED; Hypochromasia 1+; Microcytosis 3+; Platelet Estimate ADEQUATE (ADEQ)
[2018-07-26] MEDS: HYDROmorphone 0.5 MG/0.5 ML SYRINGE IV (04:12)
[2018-07-26 04:17] VITALS: BP 169/98; PULSE 69; RESP 18; O2SAT 100
== END 2018-07-26 04:18 | disposition home or self-care (01) ==
PROVIDERS: Emergency Provider Emergency Medicine; Family Provider Internal Medicine; PCP Internal Medicine
DX: K50.90 Crohn's disease, unspecified, without complications (principal); F17.200 Nicotine dependence, unspecified, uncomplicated; Z79.899 Other long term (current) drug therapy; Z86.14 Personal history of Methicillin resistant Staphylococcus aureus infection; Z90.49 Acquired absence of other specified parts of digestive tract
CPT/HCPCS: 36591; 80053; 83690; 85025; 96361; 96374; 96375; 99284; J7030; A4216

== ENCOUNTER 2018-08-21 15:58 | Emergency (ER) | payer MEDICARE, MEDICAID, SELFPAY ==
[2018-08-21 15:59] VITALS: BP 166/104; PULSE 89; RESP 20; TEMP 36.8; O2SAT 100; BMI 42.9
--- NOTE | 2018-08-21 16:13 | ED.VISSUMM ---
- ER Visit Summary Date of Service: 08/21/18 Chief Complaint: Diarrhea History of Present Illness: The patient is a 38 F presenting with abdominal pain, diarrhea. Patient states these symptoms started 5 days ago. States she started to not feel well with URI symptoms and body aches. She states 2 days ago she developed diarrhea. She states she has blood in her stool chronically that is no worse than usual. She has nausea without vomiting. She believes she had about 10 episodes of diarrhea today. She has a history of Crohn's disease and IBS. She sees GI in [place]. Physical Examination: Vitals are stable. Patient is afebrile. Alert no acute distress. HEENT exam is unremarkable. Neck is supple. Lungs are clear and equal bilaterally. Heart is regular rate and rhythm. Abdomen is soft left lower quadrant tenderness with no rebound or guarding Extremities are unremarkable. Skin is warm and dry. Remainder of exam is unremarkable. Emergency Department Course and Treatment: Patient was given morphine, Zofran, IV fluids. CBC normal except hemoglobin 9.5 which is at her baseline. Chemistries unremarkable. HCG negative. CT abdomen pelvis showed no acute abdominal or pelvic pathology. Bilateral nonobstructing 1 mm stones. On repeat evaluation patient is resting comfortably. She is given prescription for Bentyl and Zofran. Advised to follow-up with her GI physician. Advised return to ED for worsening complaints. Disposition: Discharge home Impression: Abdominal pain, diarrhea This note was generated with [employer] dictation software. It may contain incorrect words, spelling, and punctuation that were not noted in review of the chart prior to signing ED Disposition - Plan for ED Patient: Instructions: ABDOMINAL PAIN, Unknown Cause, (Female) Prescriptions: Dicyclomine HCl [Bentyl] 20 mg PO TIDAC #20 cap Prescription Printed Benzonatate [Tessalon Perle] 200 mg PO TID PRN PRN #20 cap PRN Reason: Cough Prescription Printed Ondansetron [Zofran Odt] 4 mg PO Q8H PRN PRN #10 tab PRN Reason: Nausea Prescription Printed Referrals: Araseli Bueno MD [Primary Care Provider] -
[2018-08-21] MEDS: Morphine 4 MG/ML Syringe IV ×2 (16:43→18:40)
[2018-08-21] MEDS: 0.9% Normal Saline 1,000 ML 1000 ML IV (16:43)
[2018-08-21] MEDS: Ondansetron 4 MG/2 ML Vial IV (16:43)
[2018-08-21 18:28] LABS: Anion Gap 7 (5-15); BUN 8 mg/dL (7-18); BUN/Creat Ratio 8.5 RATIO (10-20); Calcium,Total 8.4 mg/dL (8.5-10.1); Chloride 107 mmol/L (98-107); Creatinine, Serum 0.94 mg/dL (0.55-1.02); EST Glomerular Filtration Rate 71 mL/min (>60); Est Glom Filt Rate - Afr Amer 85 mL/min (>60); Estimated Creatinine Clearance 89.81 ml/min; Glucose 85 mg/dL (74-106); Potassium 3.8 mmol/L (3.5-5.1); Sodium Level 140 mmol/L (136-145)
[2018-08-21 18:30] LABS: Absolute Lymphocyte Count 2.39 X10^3/ul (0.83-4.51); Absolute Neutrophil Count 3.6 X10^3/uL (2.0-7.7); Basophil# 0.04 X10^3/uL; Basophil% 0.6 % (0-1); Eosinophil# 0.27 X10^3/uL; Hematocrit 32.1 % (37-47); Hemoglobin 9.5 g/dl (12.0-15.0); Lymphocyte # 2.39 X10^3/ul (4.0); Lymphocyte % 35.4 % (19-41); Mean Corp Hgb Conc 29.6 g/gl (32-36); Mean Corpuscular Hgb 19.5 pg (27.0-32.0); Mean Corpuscular Volume 65.9 fL (81-99); Monocyte# 0.45 X10^3/uL; Monocyte% 6.7 % (0-10); Neutrophil # 3.59 X10^3/uL (2.7-7.7); Neutrophil % 53.2 % (47-70); Platelet Count 218 K/mm3 (150-450); RBC Distribution Width CV 18.6 % (11.6-14.6); RBC Distribution Width SD 44.3 fl (35.1-43.9); Red Blood Count 4.87 M/mm3 (4.2-5.4); White Blood Count 6.8 K/mm3 (4.4-11.0)
[2018-08-21 18:31] LABS: Differential Indicated SCAN CRITERIA MET; POSITIVE COUNT NO; POSITIVE DIFFERENTIAL NO; POSITIVE MORPHOLOGY YES
--- NOTE | 2018-08-21 18:34 | CT_ITS ---
STUDY: CT ABDOMEN AND PELVIS WITH CONTRAST REASON FOR EXAM: Female, 38 years old. Pain RADIATION DOSAGE (If Supplied By Facility): DLP = ( 1356.16 ) mGycm TECHNIQUE: Transaxial images were obtained from the dome of the diaphragm to the symphysis pubis with oral contrast. 100ml ml of Isovue 300 contrast was administered. Sagittal and coronal images were reconstructed. Individualized dose optimization techniques were used for this CT. COMPARISON: CT abdomen pelvis February 17, 2018 FINDINGS: The visualized lung bases are clear. The visualized portions of the heart and pericardium are within normal limits. The gallbladder has been removed. The liver is within normal limits. There are no suspicious hepatic lesions. The spleen is normal in size. The pancreas is within normal limits. The adrenal glands are within normal limits. There are no obstructing renal stones. There is a left renal upper pole 1 mm stone. There is a right renal mid pole 1 mm stone. There is no hydronephrosis. There are no focal renal lesions. Normal visualized stomach. There is no bowel obstruction or inflammation. The aorta is normal in caliber. There is no abdominal or pelvic free air, free fluid, fluid collection or lymphadenopathy. There are no destructive osseous lesions. CT/Abdomen/Pelvis WITH Contrast IMPRESSION: No acute abdominal or pelvic pathology. Bilateral nonobstructing 1 mm stones. Electronically Signed: Giancarlo Guzman, at 20:43 EDT Tel , Service support ,
[2018-08-21 18:39] LABS: Internal QC Validated? YES +Cl - CLEAR BKGD; Pregnancy, Serum, hCG Quali. NEGATIVE Negative
[2018-08-21 18:50] LABS: Differential Comment SCANNED
[2018-08-21 18:51] LABS: Anisocytosis 1+; Hypochromasia 2+; Ovalocyte RARE; Platelet Morphology LARGE; Schistocytes RARE
[2018-08-21] MEDS: Ipratropium/Albuterol Sulfate 3 ML AMPUL.NEB INHALATION (21:06)
[2018-08-21 21:09] VITALS: PULSE 92; RESP 18
--- NOTE | 2018-08-21 22:00 | ED.DEP ---
ED Disposition - Plan for ED Patient: Instructions: ABDOMINAL PAIN, Unknown Cause, (Female) Prescriptions: Dicyclomine HCl [Bentyl] 20 mg PO TIDAC #20 capsule Benzonatate [Tessalon Perle] 200 mg PO TID PRN PRN #20 capsule PRN Reason: Cough Ondansetron [Zofran Odt] 4 mg PO Q8H PRN PRN #10 tablet PRN Reason: Nausea Referrals: Araseli Bueno MD [Primary Care Provider] -
--- NOTE | 2018-08-21 22:30 | ED.RN ---
UPON ENTERING PATIENTS ROOM TO DISCHARGE HER, ROOM WAS EMPTY AND PATIENT HAD LEFT THE DEPARTMENT. BED AND TRASH CAN WAS SEARCHED FOR SIGNS THAT SHE D/C'D HER OWN IV, NOTHING FOUND. SAFE TO ASSUME PATIENT LEFT WITH IV IN ARM AND POSSIBLE PORT STILL ACCESSED.
--- NOTE | 2018-08-21 22:45 | ED.RN ---
PT'S CELL PHONE AND HOME PHONE CALLED WITH NO ANSWER. NEXT OF KIN AND EMERGENCY CONTACT CALLED WITH NO ANSWER. GAUDENCIO ALEXANDER NOTIFIED WHO IS CONTACTED [facility] DONOVAN TO DO A WELL CHECK ON PATIENT TO SEE IF IV AND PORT ARE D/C'D.
--- NOTE | 2018-08-21 23:08 | ED.RN ---
PT CALLS BACK AND STATES SHE TOOK HER OWN IV OUT AND PLACED IT IN THE SHARPS CONTAINER. THEN STATES SHE NEVER HAD HER PORT ACCESSED. PD STILL OUT TO CHECK ON PATIENT
--- NOTE | 2018-08-21 23:10 | ED.RN ---
[place] PD OFFICER CALLED FROM PATIENTS RESIDENCE CONFIRMING PATIENT NO LONGER HAD IV IN PLACE OR PORT ACCESSED.
== END 2018-08-21 23:11 | disposition home or self-care (01) ==
LOC: ED 16:36
PROVIDERS: Emergency Provider Emergency Medicine; Family Provider Internal Medicine; PCP Internal Medicine
DX: R10.32 Left lower quadrant pain (principal); R19.7 Diarrhea, unspecified; R11.0 Nausea; N20.0 Calculus of kidney; K50.90 Crohn's disease, unspecified, without complications; Z90.49 Acquired absence of other specified parts of digestive tract; Z79.899 Other long term (current) drug therapy; Z72.0 Tobacco use
CPT/HCPCS: 36591; 74177; 80048; 84703; 85025; 94640; 96361; 96374; 96375; 96376; 99284; J7030; Q9967; A4216; J2405

== ENCOUNTER 2019-02-28 00:23 | Emergency (ER) | payer OTHER, MEDICARE, SELFPAY ==
[2019-02-28 00:24] VITALS: BP 183/92; PULSE 88; RESP 16; TEMP 36.8; O2SAT 100; BMI 47.4
--- NOTE | 2019-02-28 00:38 | CT_ITS ---
STUDY: CT ABDOMEN AND PELVIS WITH CONTRAST REASON FOR EXAM: Female, 38 years old. ABD PAIN x 4 days/HX OF CROHN''S. Pt has power port. Prior appendectomy,cholecystectomy and multiple bowel surgeries d/t/ Crohn''s RADIATION DOSAGE (If Supplied By Facility): CTDIvol = ( 27.05 ) mGy, DLP = ( 1289.52 ) mGycm TECHNIQUE: Transaxial images were obtained from the dome of the diaphragm to the symphysis pubis without oral contrast. IV 100mL Isovue-370 was administered. Sagittal and coronal images were reconstructed. Individualized dose optimization techniques were used for this CT. COMPARISON: None. FINDINGS: The lung bases are clear. The liver is normal. No dilated intrahepatic biliary radicles. Previous cholecystectomy. The spleen is normal. The pancreas is normal. Both adrenals are normal. The kidneys are normal with no masses, calculi or hydronephrosis The stomach is normal. There is no bowel distention, acute appendicitis or diverticulitis. No constricting lesions are seen in large bowel. Surgical clips in the right lower quadrant The abdominal wall is intact with no hernias. There is no ascites or any free intraperitoneal air. No indication of epiploic appendagitis The vascular structures in the retroperitoneum are normal. There is no retrocrural, retroperitoneal or mesenteric adenopathy. The bones and joints are normal. The urinary bladder is normal.--The uterus is normal. There is no inguinal or pelvic adenopathy. There is no inguinal hernia. . CT/Abdomen/Pelvis WITH Contrast IMPRESSION: No acute findings in the abdomen or pelvis. Specifically there is no acute appendicitis or diverticulitis. No renal stones. No hydronephrosis. Electronically Signed: Sunil Muhammad MD at 3:07 EST Tel , Service support ,
--- NOTE | 2019-02-28 00:45 | ED.DCSUM_ITS ---
History of Present Illness Chief Complaint: Abd Pain Informant: Patient - Abdominal Pain/Flank Pain Onset: Days - 4 Context: Gradual Onset Timing: Continuous Quality: Aching Location: Epigastric, LUQ, LLQ Current Severity: Moderate Maximum Severity: Moderate Worsened by: Nothing Relieved by: Nothing - Nausea/Vomiting/Emesis GI Symptom: Nausea. Negative for: Vomiting - Diarrhea/Melena/Hematochezia GI Symptom: Diarrhea, Hematochezia. Negative for: Melena Stool Quality: Loose Severity: Moderate Associated Symptoms: Negative for: Dysuria, Frequency, Hematuria, Urgency Narrative: Patient with a history of Crohn's disease, she has had these symptoms with a Crohn's flareup in the past, except now it is radiating throughout her back for the last day or 2, which is new and different. She has had several surgeries for Crohn's in the past, none recent. She has had fistulas with her Crohn's that she needed surgery for. She follows with a general education professor with [facility] in [place]. She denies any urinary symptoms. She does Remicade injections every 6 weeks or so, she is due in about 1 week for next 1. She has not missed any. She is not well controlled with regards to her Crohn's, on a typical day she has 6-8 loose bloody bowel movements. Currently she is having 8-10 loose bloody bowel movements, with no more blood than usual. She states she always has small amounts of blood. - Past Medical History (1) Crohn's disease Status: Chronic (2) Hidradenitis Status: Chronic Comment: right medial thigh hidradenitis cluster left abdominal wall hidradenitis recurrent bilateral axillary hidradenitis Past Medical History - Allergies and Home Meds Allergies/Adverse Reactions: Allergies No Known Allergies Allergy (Verified 07/26/18 01:27) Primary Care Physician: Araseli Bueno MD [Primary Care Provider] - Doctors: Dr. Cuevas Surgical History: appendectomy, cholecystectomy, - - bowel resection 2004 Lives: With Family Smoking Status: Current every day smoker Review of Systems General: Denies: Chills, Fever, Sweats Eyes: Denies: Visual changes - bilaterally, Diplopia ENT: Denies: Rhinorrhea, Sore throat Cardiovascular: Denies: Chest pain, Palpitations Respiratory: Denies: Dyspnea, Cough, Dyspnea on exertion Gastrointestinal: Reports: Abdominal pain, Nausea, Diarrhea, Hematochezia. Denies: Vomiting, Melena Genitourinary: Denies: Dysuria, Hematuria, Frequency Musculoskeletal: Reports: Back pain. Denies: Neck pain, Swelling, Extremity Pain Skin: Denies: Rash, Wounds Neurological: Denies: Headache, Weakness, Numbness Physical Exam Vital Signs/Narrative: Vital Signs Temp Pulse Resp BP Pulse Ox 02/28/19 00:24 98.2 F 88 16 183/92 H 100 Inital Vital Signs reviewed: Yes General: Well nourished, Well developed, Obese, No Acute Distress Head: Normocephalic, Atraumatic Eyes: Perrl, EOMI ENT: Moist mucous membranes, No rhinorrhea Neck: Supple, Nontender Cardiovascular: Regular rate, Regular rhythm, No murmurs. Negative for: Tachycardia Respiratory: No distress, CTA bilaterally, Chest nontender Abdomen: Soft, Nondistended, Normal bowel sounds, Tender - epigastrium, throughout left side, worse in LUQ. Negative for: Guarding, Rebound tenderness Back: Normal Inspection, - - diffuse tenderness across mid-back; nml inspection Extremities: Nontender, No edema Skin: Normal color, No rash, No Trauma Neurological: Alert, Oriented x3, Cranial nerves II-XII grossly intact, Normal Strength, Normal Sensation, Normal Gait Psychological: Normal affect, Normal Mood Diagnostic/Tx/Re-eval Laboratory Tests 02/28/19 02/28/19 02/28/19 Range/Units 01:00 00:50 00:50 WBC 9.2 (4.4-11.0) K/mm3 RBC 4.76 (4.2-5.4) M/mm3 Hgb 8.9 L (12.0-15.0) g/dL Hct 31.5 L (37-47) % MCV 66.2 L (81-99) fL MCH 18.7 L (27.0-32.0) pg MCHC 28.3 L (32-36) g/dL RDW Std Deviation 41.9 (35.1-43.9) fl RDW Coeff of Renny 17.8 H (11.6-14.6) % Plt Count 293 (150-450) K/mm3 MPV 10.4 (6.2-12.0) fl Immature Gran % (Auto) 0.200 (0.0-0.9) % Neut % (Auto) 45.8 L (47-70) % Lymph % (Auto) 44.9 H (19-41) % Floyd % (Auto) 6.3 (0-10) % Eos % (Auto) 2.0 (0-5) % Baso % (Auto) 0.8 (0-1) % Absolute Neuts (auto) 4.2 (2.0-7.7) X10^3/uL Absolute Lymphs (auto) 4.14 (0.83-4.51) X10^3/uL Nucleated RBC % 0 (0-5) % Reactive Lymphocytes 1+ Platelet Estimate ADEQUATE (ADEQ) Hypochromasia 2+ Anisocytosis 1+ Microcytosis 3+ Sodium 139 (136-145) mmol/L Potassium 3.7 (3.5-5.1) mmol/L Chloride 111 H (98-107) mmol/L Carbon Dioxide 25.0 (21.0-32.0) mmol/L Anion Gap 3 L (5-15) BUN 11 (7-18) mg/dL Creatinine 0.92 (0.55-1.02) mg/dL Estim Creat Clear Calc 91.76 ml/min Est GFR (MDRD) Af Amer 86 (>60) mL/min Est GFR (MDRD) Non-Af 71 (>60) mL/min BUN/Creatinine Ratio 11.9 (10-20) RATIO Glucose 105 (74-106) mg/dL Calcium 8.5 (8.5-10.1) mg/dL Total Bilirubin 0.10 L (0.20-1.00) mg/dL AST 16 (15-37) U/L ALT 30 (13-56) U/L Alkaline Phosphatase 84 (45-117) U/L Total Protein 8.0 (6.4-8.2) g/dL Albumin 3.3 (3.2-5.0) g/dL Globulin 4.7 H (2.2-4.2) g/dL Albumin/Globulin Ratio 0.7 L (0.9-2.4) RATIO Lipase 125 (73-393) U/L Urine Color Yellow (Yellow) Urine Clarity Sl. Cloudy (Clear) Urine pH 6.0 (5.0 - 8.0) Ur Specific [place] 1.025 (1.002-1.030) Urine Protein 30 H (Negative) mg/dl Urine Glucose (UA) Normal (Normal) mg/dl Urine Ketones Negative (Negative) mg/dl Urine Occult Blood 150 H (Negative) /ul Urine Nitrite Negative (Negative) Urine Bilirubin Negative (Negative) mg/dL Urine Urobilinogen Normal (Normal) mg/dl Ur Leukocyte Esterase 25 H (Negative) /ul Urine RBC 0 SEEN (0-5) /hpf Urine WBC 10-25 SEEN (0-5) /hpf Ur Squamous Epith Cells 25-50 SEEN (5-10) /hpf Urine Bacteria 0 SEEN (None Seen) /hpf Urine Mucus 2+ (<or=2+) /hpf Clinical Impression(s) from Imaging Studies Abdomen/Pelvis CT 02/28/19 00:38 IMPRESSION: No acute findings in the abdomen or pelvis. Specifically there is no acute appendicitis or diverticulitis. No renal stones. No hydronephrosis. Electronically Signed: Sunil Muhammad MD at 3:07 EST Tel , Service support , - Medical Decision Making Oral and IV contrasted CT shows nothing acute. Her labs show relatively stable anemia at 8.9, she does not need transfused at that level in context. I suspect she has a Crohn's exacerbation. She is reassured that we see no complications on CT. In the past she has had a week or less of prednisone and it has helped. I am comfortable prescribing her some prednisone and starting her on a dose of Solu-Medrol tonight prior to discharge. She was initially treated with fluids, Zofran, morphine, followed by some Toradol and Phenergan and she does feel better. Advised to follow-up with her general education professor. ED Disposition - Plan for ED Patient: Disposition: Home or Assisted Living Diagnosis: Exacerbation of Crohn's disease Instructions: Crohn's Disease Prescriptions: Prednisone [Deltasone] 40 mg PO DAILY #12 tab Prescription Printed Referrals: Araseli Bueno MD [Primary Care Provider] - 1 Week if not improving (And/or your general education professor)
[2019-02-28 01:00] LABS: Absolute Lymphocyte Count 4.14 X10^3/uL (0.83-4.51); Absolute Neutrophil Count 4.2 X10^3/uL (2.0-7.7); Basophil# 0.07 X10^3/uL; Basophil% 0.8 % (0-1); Eosinophil# 0.18 X10^3/uL; Hematocrit 31.5 % (37-47); Hemoglobin 8.9 g/dL (12.0-15.0); Lymphocyte # 4.14 X10^3/ul (4.0); Lymphocyte % 44.9 % (19-41); Mean Corp Hgb Conc 28.3 g/dL (32-36); Mean Corpuscular Hgb 18.7 pg (27.0-32.0); Mean Corpuscular Volume 66.2 fL (81-99); Mean Platelet Vol. 10.4 fl (6.2-12.0); Monocyte# 0.58 X10^3/uL; Monocyte% 6.3 % (0-10); NRBC Flagged by Analyzer 0 % (0-5); Neutrophil # 4.23 X10^3/uL (2.7-7.7); Neutrophil % 45.8 % (47-70); POSITIVE MORPHOLOGY YES; Platelet Count 293 K/mm3 (150-450); RBC Distribution Width CV 17.8 % (11.6-14.6); RBC Distribution Width SD 41.9 fl (35.1-43.9); Red Blood Count 4.76 M/mm3 (4.2-5.4); White Blood Count 9.2 K/mm3 (4.4-11.0)
[2019-02-28] MEDS: 0.9% Normal Saline 1,000 ML 1000 ML IV (01:02)
[2019-02-28] MEDS: Ondansetron 4 MG/2 ML Vial IV (01:03)
[2019-02-28] MEDS: Morphine 4 MG/ML Syringe IV (01:03)
[2019-02-28 01:10] LABS: Differential Indicated SCAN CRITERIA MET
[2019-02-28 01:15] LABS: Bacteria 0 SEEN /hpf (None Seen); Red Blood Cells-Urine 0 SEEN /hpf (0-5)
[2019-02-28 01:16] LABS: Color, Urine Yellow (Yellow); Glucose, Dipstick Normal (Normal); Ketone-Dipstick Negative (Negative); Leukocyte Esterase-Dipstick 25 /ul (Negative); Nitrite-Dipstick Negative (Negative); Occult Blood-Urine 150 /ul (Negative); Protein-Dipstick 30 mg/dl (Negative); Specific Gravity, Urine 1.025 (1.002-1.030); Urine Bilirubin Dipstick Negative (Negative); Urine Clarity Sl. Cloudy (Clear); Urine Urobilinogen Normal (Normal)
[2019-02-28 01:21] LABS: ALB/GLOB Ratio 0.7 RATIO (0.9-2.4); AST(SGOT) 16 U/L (15-37); Alanine Aminotransfer ALT/SGPT 30 U/L (13-56); Albumin, Serum 3.3 g/dL (3.2-5.0); Alkaline Phosphatase 84 U/L (45-117); Anion Gap 3 (5-15); BUN 11 mg/dL (7-18); BUN/Creat Ratio 11.9 RATIO (10-20); Calcium,Total 8.5 mg/dL (8.5-10.1); Chloride 111 mmol/L (98-107); Creatinine, Serum 0.92 mg/dL (0.55-1.02); EST Glomerular Filtration Rate 71 mL/min (>60); Est Glom Filt Rate - Afr Amer 86 mL/min (>60); Estimated Creatinine Clearance 91.76 ml/min; Globulin 4.7 g/dL (2.2-4.2); Glucose 105 mg/dL (74-106); Lipase 125 U/L (73-393); Potassium 3.7 mmol/L (3.5-5.1); Sodium Level 139 mmol/L (136-145)
[2019-02-28 01:25] LABS: White Blood Cells 10-25 SEEN /hpf (0-5)
[2019-02-28 01:26] LABS: Mucous, Urine 2+ /hpf (<or=2+); Squamous Epithelial Cells - UA 25-50 SEEN /hpf (5-10)
[2019-02-28 01:30] LABS: Anisocytosis 1+; Hypochromasia 2+; Microcytosis 3+; Platelet Estimate ADEQUATE (ADEQ)
[2019-02-28 01:32] LABS: Reactive Lymphocyte 1+
[2019-02-28 02:16] VITALS: BP 136/79; PULSE 66; RESP 15; O2SAT 99
[2019-02-28] MEDS: Ketorolac 30 MG/ML Syringe IV (02:18)
[2019-02-28] MEDS: proMETHazine 25 MG/ML Syringe 12.5 MG IV (02:18)
[2019-02-28] MEDS: MethylPREDNISolone 125 MG/2 ML Vial IV (03:23)
[2019-02-28 03:26] VITALS: BP 152/90; PULSE 80; RESP 16; O2SAT 97
== END 2019-02-28 03:28 | disposition home or self-care (01) ==
PROVIDERS: Emergency Provider Emergency Medicine; PCP Internal Medicine
DX: K50.90 Crohn's disease, unspecified, without complications (principal); E66.9 Obesity, unspecified; F17.200 Nicotine dependence, unspecified, uncomplicated; Z90.49 Acquired absence of other specified parts of digestive tract
CPT/HCPCS: 36591; 74177; 80053; 81001; 83690; 85025; 96361; 96374; 96375; 99283; J7030; Q9967; A4216; J2405

== ENCOUNTER 2019-04-09 21:54 | Emergency (ER) | payer OTHER, MEDICARE, SELFPAY ==
[2019-04-09 21:55] VITALS: BP 163/95; PULSE 82; RESP 16; TEMP 36.7; O2SAT 100; BMI 47.4
--- NOTE | 2019-04-09 22:07 | ED.VIS.GEN ---
History of Present Illness Chief Complaint: Cold Sx Informant: Patient Onset: Days Context: Gradual Onset Current Severity: Moderate Maximum Severity: Moderate Narrative: Patient presents with cold symptoms for the past couple of days. She describes head congestion with sinus pressure, cough, body aches. Today her right eye got red and has been watering. She has been getting some drainage out of it as well. She has had subjective fever at home. - Past Medical History (1) Crohn's disease Status: Chronic (2) Hidradenitis Status: Chronic Comment: right medial thigh hidradenitis cluster left abdominal wall hidradenitis recurrent bilateral axillary hidradenitis Past Medical History - Allergies and Home Meds Allergies/Adverse Reactions: Allergies No Known Allergies Allergy (Verified 04/09/19 21:56) Primary Care Physician: Araseli Bueno MD [Primary Care Provider] - Prior records reviewed: Yes Surgical History: appendectomy, cholecystectomy, - - bowel resection 2004 Lives: Spouse/ Significant Other Smoking Status: Current every day smoker Review of Systems General: Reports: Chills, Fever, Subjective Eyes: Reports: - - Right eye redness and watering ENT: Reports: - - Sinus pressure Cardiovascular: Denies: Chest pain Respiratory: Reports: Cough Gastrointestinal: Denies: Abdominal pain, Vomiting, Diarrhea Genitourinary: Denies: Dysuria Musculoskeletal: Reports: Myalgias, Extremity Pain Skin: Reports: Rash Neurological: Reports: Headache Allergy: Reports: Uticaria Physical Exam Vital Signs/Narrative: Vital Signs Temp Pulse Resp BP Pulse Ox 04/09/19 21:55 98.1 F 82 16 163/95 H 100 Inital Vital Signs reviewed: Yes General: Well nourished, Well developed Head: Normocephalic Eyes: - - Right eye injection and watering. No eyelid edema. No periorbital cellulitis. ENT: Moist mucous membranes, TM's clear, Sinus tenderness, - - Posterior pharynx reveals mild drainage. Neck: Supple Cardiovascular: Regular rate, Regular rhythm Respiratory: No distress, CTA bilaterally Abdomen: Soft, Nontender Extremities: Nontender Skin: Normal color, No rash Neurological: Alert, Oriented x3 Psychological: Normal affect Diagnostic/Tx/Re-eval - Medical Decision Making Patient does have significant tenderness over the frontal and maxillary sinuses. Should be covered with antibiotics. She will be given antibiotic eyedrops for conjunctivitis. ED Disposition - Plan for ED Patient: Disposition: Home or Assisted Living Diagnosis: Conjunctivitis, Sinusitis Instructions: SINUSITIS, Abx Tx, CONJUNCTIVITIS, Non-Specific Prescriptions: Amox/Clavulanate Tablet [Augmentin Tablet] 875 mg PO Q12H #20 tab Transmission Status: Pending to [address] Referrals: Araseli Bueno MD [Primary Care Provider] - 1 Week if not improving Additional Instructions: Gentamicin eye drops - 2 drops to right eye every 4 hours until symptoms resolved for 24 hours.
[2019-04-09] MEDS: Gentamicin Sulfate 1 OPTH.BTL 2 DRP RIGHT EYE (22:20)
[2019-04-09] MEDS: Amox/Clavulanate 875 MG Tablet PO (22:20)
[2019-04-09 22:27] VITALS: PULSE 82; RESP 16; O2SAT 100
== END 2019-04-09 22:28 | disposition home or self-care (01) ==
PROVIDERS: Emergency Provider Emergency Medicine; PCP Internal Medicine
DX: H10.9 Unspecified conjunctivitis (principal); J32.9 Chronic sinusitis, unspecified; K50.90 Crohn's disease, unspecified, without complications; F17.200 Nicotine dependence, unspecified, uncomplicated
CPT/HCPCS: 99283

== ENCOUNTER 2019-08-12 05:00 | Emergency (ER) | payer OTHER, MEDICARE, SELFPAY ==
[2019-08-12 05:01] VITALS: BP 148/97; PULSE 124; RESP 18; TEMP 36.4; O2SAT 97; BMI 46.8
--- NOTE | 2019-08-12 05:23 | ED.DCSUM_ITS ---
- ER Visit Summary Date of Service: 08/12/19 Chief Complaint: History of Crohn's disease concerned about exacerbation History of Present Illness: The patient is a 39 F Crohn's disease, hepatitis B and chronic anemia. Patient's had an appendectomy, cholecystectomy and right hemicolectomy. States that she was recently diagnosed with M?ni?re's disease. She was placed on hydrochlorothiazide. And she believes that this caused her irritation to her bowels. Says she has caused some loose stools that is not new or different. She denies any melena or fever. No dysuria. No fever. She denies vomiting. Says she is able to keep in fluids. She also states she quit smoking 6 to 8 weeks ago. Physical Examination: Well-appearing middle-aged female. Vital signs are stable. She is afebrile. She does not look septic or toxic. She does not look dehydrated. H EENT exam unremarkable. Moist his membranes. Neck nontender no lymphadenopathy. Lungs clear to auscultation bilaterally. Heart regular rhythm rate about 120 no murmur. Abdomen is soft. Nontender. Nondistended. Normal bowel sounds. No peritoneal signs. No signs of obstruction. No hernia or masses. Patient moving all 4 extremities. Calves are nontender without edema. Neurologically she is awake and alert. Test Results: None. Patient's had multiple visits in the past. She has had multiple abdominal CAT scans the vast majority of the time of been unremarkable. Emergency Department Course and Treatment: Discussed with the patient. Her exam and history do not warrant any further testing tonight. Her abdomen is benign. There is no signs of obstruction. She clinically does not look dehydrated. Treatment Plan: Discharged home. Fluids and rest. Continue her current Crohn's medications. Follow-up with her GI doctor as needed. Disposition: Discharge Impression: Multiple somatic complaints History of Crohn's disease This note was generated with [employer] dictation software. It may contain incorrect words, spelling, and punctuation that were not noted in review of the chart prior to signing ED Disposition - Plan for ED Patient: Referrals: Araseli Bueno MD [Primary Care Provider] -
--- NOTE | 2019-08-12 05:26 | ED.DEP ---
ED Disposition - Plan for ED Patient: Disposition: Home or Assisted Living Referrals: Araseli Bueno MD [Primary Care Provider] - As Needed Additional Instructions: Continue your current medications. Plenty of fluids and rest. Follow-up with your GI doctor if not improving.
== END 2019-08-12 05:34 | disposition home or self-care (01) ==
LOC: ED 05:33
PROVIDERS: Emergency Provider Emergency Medicine; PCP Internal Medicine
DX: K50.90 Crohn's disease, unspecified, without complications (principal); B19.10 Unspecified viral hepatitis B without hepatic coma; D64.9 Anemia, unspecified; Z87.891 Personal history of nicotine dependence
CPT/HCPCS: 99282

== ENCOUNTER → 2019-11-20 | Outpatient (CLI) | payer OTHER, MEDICARE, SELFPAY | END | disposition home or self-care (01) | LOC: MTDU 11-21 13:05 | PROVIDERS: PCP Internal Medicine; Referring Provider Clinical Nurse Specialist; Visit Provider Clinical Nurse Specialist | DX: Z11.59 Encounter for screening for other viral diseases (principal) | CPT/HCPCS: 87635; C9803; U0003 ==

== ENCOUNTER 2019-11-23 01:00 | Emergency (ER) | payer OTHER, MEDICARE, SELFPAY ==
[2019-11-23 01:01] VITALS: BP 154/91; PULSE 86; RESP 15; TEMP 36.6; O2SAT 100; BMI 45.5
--- NOTE | 2019-11-23 01:14 | RAD_ITS ---
STUDY: X-RAY CHEST REASON FOR EXAM: Female, 39 years old. Upper abdominal and rib pain started , TECHNIQUE: Single AP portable view of the chest. COMPARISON: None. FINDINGS: Mediporte seen on the right side. The lungs are clear and expanded. There is no demonstrated pleural abnormality. Normal size heart. Normal mediastinum and rolan. Normal visualized pulmonary arteries. Normal visualized aortic arch and descending thoracic aorta. Normal visualized thoracic spine. Normal visualized ribs, clavicles, and shoulders. There is no demonstrated abnormality of the visualized soft tissue structures of the upper abdomen. RAD/Chest PA and Lateral IMPRESSION: Normal x-ray examination of the chest. Electronically Signed: Rj Patricia, at 2:39 EDT Tel , Service support ,
--- NOTE | 2019-11-23 01:16 | ED.DCSUM_ITS ---
- ER Visit Summary Date of Service: 11/23/19 Chief Complaint: Epigastric abdominal pain, bilateral rib pain History of Present Illness: The patient is a 39 F who presents with the above symptoms. Is been ongoing for 2 days. The patient's daughter was sick but tested negative for coronavirus. This patient also tested negative for coronavirus. However, her doctor put her on a azithromycin, Flonase and prednisone. 2 days ago she developed epigastric abdominal pain and pain in her bilateral ribs. She denies nausea or vomiting. No fever. She denies any significant cough. She has a history of Crohn's and she is wondering if the medications are affecting her Crohn's disease. Physical Examination: Vital signs reviewed. HEENT exam unremarkable. Heart is regular rate and rhythm without murmurs. Lungs are clear to auscultation. Abdomen is soft with epigastric tenderness. There is no guarding or rebound tenderness. Extremities reveal no edema. Skin exam normal. Neurologic exam normal. Test Results: White blood cell count 12.3, hemoglobin 7.9 which is baseline. Chloride 109. Liver enzymes and lipase normal. Chest x-ray is normal as well Emergency Department Course and Treatment: Patient was given a GI cocktail but still complained the pain so I gave her a dose of Toradol. I do not see any acute causes for her pain. At this point that she can be discharged home. She will continue her medications and will call her doctor for follow-up. Treatment Plan: [] Disposition: Discharge Impression: Epigastric abdominal pain This note was generated with [employer] dictation software. It may contain incorrect words, spelling, and punctuation that were not noted in review of the chart prior to signing ED Disposition - Plan for ED Patient: Disposition: Home or Assisted Living Instructions: ED Abdominal Pain Unkn Cause Fem Referrals: Araseli Bueno MD [Primary Care Provider] -
[2019-11-23] MEDS: Mag Hydrox/Al Hydrox/Simeth 30 ML UDC PO (01:30)
[2019-11-23 02:20] LABS: Absolute Lymphocyte Count 4.84 X10^3/uL (0.83-4.51); Absolute Neutrophil Count 6.5 X10^3/uL (2.0-7.7); Basophil# 0.06 X10^3/uL; Basophil% 0.5 % (0-1); Eosinophil# 0.01 X10^3/uL; Eosinophils% 0.1 % (0-5); Hematocrit 29.1 % (37-47); Hemoglobin 7.9 g/dL (12.0-15.0); Lymphocyte # 4.84 X10^3/ul (4.0); Lymphocyte % 39.4 % (19-41); Mean Corp Hgb Conc 27.1 g/dL (32-36); Mean Corpuscular Hgb 17.8 pg (27.0-32.0); Mean Corpuscular Volume 65.5 fL (81-99); Mean Platelet Vol. 10.7 fl (6.2-12.0); Monocyte% 6.5 % (0-10); NRBC Flagged by Analyzer 0 % (0-5); Neutrophil # 6.53 X10^3/uL (2.7-7.7); Neutrophil % 53.2 % (47-70); POSITIVE MORPHOLOGY YES; Platelet Count 319 K/mm3 (150-450); RBC Distribution Width CV 19.2 % (11.6-14.6); RBC Distribution Width SD 44.3 fl (35.1-43.9); Red Blood Count 4.44 M/mm3 (4.2-5.4); White Blood Count 12.3 K/mm3 (4.4-11.0)
[2019-11-23 02:28] LABS: Differential Indicated SCAN CRITERIA MET
[2019-11-23 02:34] LABS: ALB/GLOB Ratio 0.7 RATIO (0.9-2.4); AST(SGOT) 13 U/L (15-37); Alanine Aminotransfer ALT/SGPT 20 U/L (13-56); Albumin, Serum 3.4 g/dL (3.2-5.0); Alkaline Phosphatase 66 U/L (45-117); Anion Gap 6 (5-15); BUN 14 mg/dL (7-18); BUN/Creat Ratio 14.4 RATIO (10-20); Calcium,Total 8.7 mg/dL (8.5-10.1); Chloride 109 mmol/L (98-107); Creatinine, Serum 0.97 mg/dL (0.55-1.02); EST Glomerular Filtration Rate 67 mL/min (>60); Est Glom Filt Rate - Afr Amer 81 mL/min (>60); Estimated Creatinine Clearance 88.97 ml/min; Glucose 105 mg/dL (74-106); Lipase 104 U/L (73-393); Potassium 3.5 mmol/L (3.5-5.1); Protein, Total 8.4 g/dL (6.4-8.2); Sodium Level 140 mmol/L (136-145)
[2019-11-23] MEDS: Ketorolac 30 MG/ML Syringe IV (02:47)
[2019-11-23 02:53] VITALS: BP 138/77; PULSE 63; RESP 15; O2SAT 97
[2019-11-23 03:41] LABS: Platelet Estimate ADEQUATE (ADEQ)
[2019-11-23 03:42] LABS: Anisocytosis 1+; Hypochromasia 2+; Microcytosis 3+; Reactive Lymphocyte 1+
== END 2019-11-23 02:54 | disposition home or self-care (01) ==
PROVIDERS: Emergency Provider Emergency Medicine; PCP Internal Medicine
DX: R10.13 Epigastric pain (principal); K50.90 Crohn's disease, unspecified, without complications; B19.10 Unspecified viral hepatitis B without hepatic coma; Z72.0 Tobacco use
CPT/HCPCS: 36591; 71046; 80053; 83690; 85025; 96374; 99284; A4216

== ENCOUNTER → 2020-06-26 09:40 | Outpatient (CLI) | payer OTHER, MEDICARE, SELFPAY ==
[2020-06-26 10:02] VITALS: BP 130/85; PULSE 77; RESP 16; TEMP 35.8; O2SAT 100; BMI 44.6
[2020-06-26 10:43] VITALS: BP 137/76; PULSE 77; RESP 16; TEMP 35.7; O2SAT 100
[2020-06-26 11:43] VITALS: BP 136/80; PULSE 73; RESP 16; TEMP 36; O2SAT 100
[2020-06-26 12:44] VITALS: BP 154/73; PULSE 73; RESP 16; TEMP 35.9; O2SAT 100
[2020-06-26] MEDS: 0.9% NaCl Peripheral Flush Adult/Peds IV (12:44)
== END ==
PROVIDERS: PCP Internal Medicine; Referring Provider Internal Medicine; Visit Provider Internal Medicine
DX: D64.9 Anemia, unspecified (principal); K50.90 Crohn's disease, unspecified, without complications
CPT/HCPCS: 36415; 36430; 86850; 86900; 86901; 86920; 86922; J7040; P9016; A4216

== ENCOUNTER 2020-10-23 02:18 | Emergency (ER) | payer MEDICARE, OTHER, SELFPAY ==
[2020-10-23 02:19] VITALS: BP 167/108; PULSE 99; RESP 18; TEMP 36.8; O2SAT 100; BMI 45.3
[2020-10-23 03:24] LABS: Bacteria 0 SEEN /hpf (None Seen); Mucous, Urine 0 SEEN /hpf (<or=2+); Red Blood Cells-Urine 0 SEEN /hpf (0-5); White Blood Cells 0 SEEN /hpf (0-5)
--- NOTE | 2020-10-23 03:45 | CT_ITS ---
STUDY: CT ABDOMEN AND PELVIS WITH CONTRAST REASON FOR EXAM: Female, 40 years old. Abdominal pain; history of Crohn''s with bowel resections, appendectomy, cholecystectomy RADIATION DOSAGE (If Supplied By Facility): CTDIvol = ( 18.74 ) mGy, DLP = ( 1353.74 ) mGycm TECHNIQUE: Transaxial images were obtained from the dome of the diaphragm to the symphysis pubis without oral contrast. IV 100mL Isovue-300 was administered. Sagittal and coronal images were reconstructed. Individualized dose optimization techniques were used for this CT. COMPARISON: 02/28/2019 FINDINGS: The visualized lung bases are unremarkable. The visualized portions of the heart are within normal limits. Normal liver. There are surgical clips in the gallbladder fossa consistent with a prior cholecystectomy. Normal spleen. Normal pancreas. Normal bilateral adrenal glands. Normal right kidney. Punctate nonobstructive right renal collecting system calculus. Normal left kidney. Normal visualized stomach. Normal small intestine. Normal colon. There are surgical clips in the region of the appendix consistent with a prior appendectomy. Normal abdominal aorta. Normal inferior vena cava. Normal retroperitoneum. Normal urinary bladder. Normal visualized uterus. Fat-containing ventral hernias. There are mild degenerative changes of the visualized lumbar spine. CT/Abdomen/Pelvis W IV Cont ONLY IMPRESSION: No acute abnormal finding in the abdomen or pelvis. Electronically Signed: Gustavo Abrams MD at 4:52 EDT Tel , Service support ,
--- NOTE | 2020-10-23 03:45 | EDS_ITS ---
HPI History of Present Illness Chief Complaint: Abd Pain Narrative Narrative: 40-year-old female with history of Crohn's disease presenting with nausea, diarrhea x3 days. She is not had a fever. She is concerned for a Crohn's flare. Patient is on Remicade. She gets this every 6 weeks. Patient describes her pain as diffuse all over her abdomen with worsening on the left lower quadrant. Patient denies black or bloody stools. Patient also states that she has been itching lately. She is concerned she has a rash. She has not taken anything for itching. [facility] Medical History (Updated 10/23/20 @ 02:23 by Ibeth Pittman) Acute anxiety Anemia Crohns disease GERD (gastroesophageal reflux disease) GI problem Heart murmur Hepatitis B Hidradenitis suppurativa High blood pressure History of blood transfusion History of MRSA infection IBS (irritable bowel syndrome) Obesity Psoriasis Sinus problem Vitamin deficiency Home Medications azathioprine 50 mg PO DAILY@0800 11/20/12 [History Last Taken 04/19/16] lamivudine 100 mg PO DAILY 11/20/12 [History Last Taken 04/19/16] omeprazole 20 mg PO DAILY 10/24/13 [History Last Taken 03/06/18 05:00] lorazepam 1 mg PO DAILY PRN PRN 03/02/18 [History Last Taken 03/06/18 05:00] infliximab [Remicade] 1 dose IV .COMPLEX 04/02/18 [History Last Taken Unknown] atenolol 25 mg PO DAILY 07/26/18 [History Last Taken Unknown] multivitamin 1 tab PO DAILY 06/26/20 [History Last Taken Unknown] ondansetron 4 mg PO Q8H PRN PRN #10 tab 10/23/20 [Rx Last Taken Unknown] Allergy/AdvReac Type Severity Reaction Status Date / Time No Known Allergies Allergy Verified 10/23/20 02:22 Family History (Updated 01/17/18 @ 09:45 by Marli Chowdary) Father Hypertension Anemia Mother Arthritis Hypertension Anemia Brother Asthma History of psychiatric care Son Asthma Daughter Severe allergy Aunt Hypertension Uncle Arthritis Hypertension Asthma Grandmother Arthritis Asthma Hypertension Other Breast cancer Cancer Cervical cancer Colon cancer Surgical History (Updated 07/26/18 @ 03:[address] Tony Mcmahon MD) Hidradenitis suppurativa POWERPORT SMALL BOWEL SURGERIES Surgically constructed arteriovenous fistula Social History (Updated 03/28/18 @ 09:[address] Maikol Feliciano MD) Smoking Status: Current every day smoker tobacco type: cigarettes Tobacco: How many years used: 27 second hand exposure: Yes alcohol intake: current alcohol intake frequency: a few times a month Alcohol type: wine substance use type: does not use what type of physical activity do you participate in: walking seatbelt use: always additional social history: SUN EXPOSURE: FREQUENTLY DOES NOT USE ASPIRIN DOES NOT USE IBUPROFEN ROS ROS ED Constitutional Constitutional ED: Denies chills or fever(s) Eyes Eyes: Denies blurry vision or diplopia ENT ENT ED: Denies rhinorrhea or sore throat Cardiovascular Cardiovascular: Denies chest pain or palpitations Respiratory/Chest Respiratory/Chest: Denies cough, dyspnea or sputum Gastrointestinal Gastrointestinal: Reports abdominal pain, diarrhea and nausea Musculoskeletal Musculoskeletal: Denies arthralgias or myalgias Integumentary Reports rash Neurologic Neurologic: Denies headache(s) or paresthesias Psychiatric Psychiatric: Denies anxiety or depression EXAM Physical Exam Const Vital Signs: 10/23/20 02:19 Temperature 98.3 F Temperature Source Temporal Pulse Rate 99 Respiratory Rate 18 Blood Pressure 167/108 H Blood Pressure Mean 127 Pulse Ox 100 Oxygen Delivery Method Room Air Positive well nourished General Appearance ED: NAD; Negative for pallor HEENT Reports moist mucous membranes Negative for trauma Eyes PERRL and EOMs intact bilaterally Resp normal respiratory effort and clear to auscultation bilaterally Cardio regular rate and regular rhythm GI GI Narrative: Diffuse generalized tenderness. Abdomen nonperitoneal. Extremity normal to inspection General Extremety ED: Negative for tenderness Neuro oriented x3 and CN's II-XII intact bilaterally Sensorium / Orientation: alert Psych mental status grossly normal Skin no rashes or lesions noted General Skin Exam: Negative for jaundice or pallor MDM MDM MDM Narrative Medical decision making narrative: Patient presenting with diffuse crampy abdominal pain and diarrhea. Patient was given Dilaudid and Zofran with improvement of her symptoms. Her lab works within normal limits. Urinalysis is negative. CT of the abdomen and pelvis is negative for acute intra-abdominal process. Although the patient has a history of Crohn's disease I do not see any signs of Crohn's flare. I feel she is safe to be discharged home with Zofran for nausea. I did not find a rash on examination but the patient is complaining of pruritic sensation. I counseled her she could try Benadryl at home. Patient will be discharged home in stable condition. Impression: 1. Abdominal pain 2. History of Crohn's disease 3. Pruritus Lab Data Attestation: I reviewed the patient's lab results. Labs: Laboratory Results - last 24 hr 10/23/20 10/23/20 10/23/20 03:05 03:16 03:16 WBC 7.7 RBC 5.02 Hgb 8.7 L Hct 31.7 L MCV 63.1 L MCH 17.3 L MCHC 27.4 L RDW Std Deviation 40.7 RDW Coeff of Renny 18.6 H Plt Count 284 MPV TNP Immature Gran % (Auto) 0.000 Neut % (Auto) 31.6 L Lymph % (Auto) 47.0 H [place] % (Auto) 8.7 Eos % (Auto) 11.8 H Baso % (Auto) 0.9 Absolute Neuts (auto) 2.5 Absolute Lymphs (auto) 3.64 Nucleated RBC % 0 Sodium 140 Potassium 3.7 Chloride 109 H Carbon Dioxide 26.0 Anion Gap 5 BUN 6 L Creatinine 0.93 Estim Creat Clear Calc 88.98 Est GFR (MDRD) Af Amer 85 Est GFR (MDRD) Non-Af 70 BUN/Creatinine Ratio 6.4 L Glucose 103 Calcium 8.6 Lipase Serum , Qual Urine Color Yellow Urine Clarity Clear Urine pH 6.5 Ur Specific [place] 1.005 Urine Protein Negative Urine Glucose (UA) Normal Urine Ketones Negative Urine Occult Blood Negative Urine Nitrite Negative Urine Bilirubin Negative Urine Urobilinogen Normal Ur Leukocyte Esterase Negative Urine RBC 0 SEEN Urine WBC 0 SEEN Ur Squamous Epith Cells 0-5 SEEN Urine Bacteria 0 SEEN Urine Mucus 0 SEEN 10/23/20 10/23/20 03:16 03:16 WBC RBC Hgb Hct MCV MCH MCHC RDW Std Deviation RDW Coeff of [place]enny Plt Count MPV Immature Gran % (Auto) Neut % (Auto) Lymph % (Auto) [place] % (Auto) Eos % (Auto) Baso % (Auto) Absolute Neuts (auto) Absolute Lymphs (auto) Nucleated RBC % Sodium Potassium Chloride Carbon Dioxide Anion Gap BUN Creatinine Estim Creat Clear Calc Est GFR (MDRD) Af Amer Est GFR (MDRD) Non-Af BUN/Creatinine Ratio Glucose Calcium Lipase 110 Serum , Qual NEGATIVE Urine Color Urine Clarity Urine pH Ur Specific [place] Urine Protein Urine Glucose (UA) Urine Ketones Urine Occult Blood Urine Nitrite Urine Bilirubin Urine Urobilinogen Ur Leukocyte Esterase Urine RBC Urine WBC Ur Squamous Epith Cells Urine Bacteria Urine Mucus Radiography Diagnostic Testing: Radiology Impression Abdomen/Pelvis CT 10/23/20 03:45 IMPRESSION: No acute abnormal finding in the abdomen or pelvis. Electronically Signed: Gustavo Abrams MD at 4:52 EDT Tel , Service support , Discharge Plan Triage Chief Complaint: Abd Pain ED Provider: Neo Ramos Dx/Rx/DC Orders Instructions: ED Abdominal Pain Unkn Cause Fem Prescriptions: New ondansetron 4 mg tablet,disintegrating 4 mg PO Q8H PRN PRN (Reason: Nausea) Qty: 10 RF: 0 No Action azathioprine 50 MG tablet 50 mg PO DAILY@0800 RF: 0 lamivudine 150 MG tablet 100 mg PO DAILY RF: 0 omeprazole 20 MG capsule 20 mg PO DAILY RF: 0 lorazepam 1 MG tablet 1 mg PO DAILY PRN PRN (Reason: Anxiety) RF: 0 Remicade 100 MG/10 ML recon soln 1 dose IV .COMPLEX RF: 0 atenolol 25 MG tablet 25 mg PO DAILY RF: 0 multivitamin Tablet 1 tab PO DAILY RF: 0 Primary Care Provider: Araseli Bueno Referrals: Araseli Bueno MD [Primary Care Provider] - Disposition Disposition: Home, Self Care
[2020-10-23] MEDS: Ondansetron 4 MG/2 ML Vial IV (03:48)
[2020-10-23] MEDS: HYDROmorphone 0.5 MG/0.5 ML SYRINGE IV ×2 (03:49→05:37)
[2020-10-23 03:53] LABS: Absolute Lymphocyte Count 3.64 X10^3/uL (0.83-4.51); Absolute Neutrophil Count 2.5 X10^3/uL (2.0-7.7); Basophil# 0.07 X10^3/uL; Basophil% 0.9 % (0-1); Eosinophil# 0.91 X10^3/uL; Eosinophils% 11.8 % (0-5); Hematocrit 31.7 % (37-47); Hemoglobin 8.7 g/dL (12.0-15.0); Lymphocyte # 3.64 X10^3/ul (0.83-4.51); Mean Corp Hgb Conc 27.4 g/dL (32-36); Mean Corpuscular Hgb 17.3 pg (27.0-32.0); Mean Corpuscular Volume 63.1 fL (81-99); Monocyte# 0.67 X10^3/uL; Monocyte% 8.7 % (0-10); NRBC Flagged by Analyzer 0 % (0-5); Neutrophil # 2.45 X10^3/uL (2.7-7.7); Neutrophil % 31.6 % (47-70); Platelet Count 284 K/mm3 (150-450); RBC Distribution Width CV 18.6 % (11.6-14.6); RBC Distribution Width SD 40.7 fl (35.1-43.9); Red Blood Count 5.02 M/mm3 (4.2-5.4); White Blood Count 7.7 K/mm3 (4.4-11.0)
[2020-10-23 04:04] LABS: Color, Urine Yellow (Yellow); Glucose, Dipstick Normal (Normal); Ketone-Dipstick Negative (Negative); Leukocyte Esterase-Dipstick Negative /ul (Negative); Nitrite-Dipstick Negative (Negative); Occult Blood-Urine Negative /ul (Negative); Protein-Dipstick Negative (Negative); Specific Gravity, Urine 1.005 (1.002-1.030); Urine Bilirubin Dipstick Negative (Negative); Urine Clarity Clear (Clear); Urine Urobilinogen Normal (Normal); Urine pH 6.5 (5.0 - 8.0)
[2020-10-23 04:08] LABS: Internal QC Validated? YES +Cl - CLEAR BKGD; Pregnancy, Serum, hCG Quali. NEGATIVE Negative
[2020-10-23 04:13] LABS: Squamous Epithelial Cells - UA 0-5 SEEN /hpf (5-10)
[2020-10-23 04:14] LABS: Anion Gap 5 (5-15); BUN 6 mg/dL (7-18); BUN/Creat Ratio 6.4 RATIO (10-20); Calcium,Total 8.6 mg/dL (8.5-10.1); Chloride 109 mmol/L (98-107); Creatinine, Serum 0.93 mg/dL (0.55-1.02); EST Glomerular Filtration Rate 70 mL/min (>60); Est Glom Filt Rate - Afr Amer 85 mL/min (>60); Estimated Creatinine Clearance 88.98 ml/min; Glucose 103 mg/dL (74-106); Potassium 3.7 mmol/L (3.5-5.1); Sodium Level 140 mmol/L (136-145)
[2020-10-23 04:20] LABS: Lipase 110 U/L (73-393)
[2020-10-23 05:59] VITALS: BP 156/78; PULSE 82; RESP 18
== END 2020-10-23 06:00 | disposition home or self-care (01) ==
PROVIDERS: Emergency Provider Student in an Organized Health Care Education/Training Program; PCP Internal Medicine
DX: R10.84 Generalized abdominal pain (principal); K50.90 Crohn's disease, unspecified, without complications; L29.9 Pruritus, unspecified; I10 Essential (primary) hypertension; K21.9 Gastro-esophageal reflux disease without esophagitis; F41.9 Anxiety disorder, unspecified; F17.210 Nicotine dependence, cigarettes, uncomplicated; E66.9 Obesity, unspecified; Z68.42 Body mass index [BMI] 45.0-49.9, adult; Z79.899 Other long term (current) drug therapy; Z86.14 Personal history of Methicillin resistant Staphylococcus aureus infection
CPT/HCPCS: 36591; 74177; 80048; 81001; 83690; 84703; 85025; 96374; 96375; 96376; 99282; Q9967; A4216; J2405

== ENCOUNTER 2020-12-17 17:59 | Outpatient (CLI) | payer MEDICARE, SELFPAY ==
[2020-12-17 18:19] VITALS: BP 151/85; PULSE 90; RESP 16; TEMP 36.8; O2SAT 100; BMI 46.1
[2020-12-17] MEDS: 0.9 % NaCl (Sterile) Posiflush 10 mL IV (18:45)
[2020-12-17] MEDS: 0.9% Saline Lock 10 ML Syringe IV ×3 (19:10→20:02)
[2020-12-17 19:15] VITALS: BP 128/78; PULSE 77; RESP 16; TEMP 36.7; O2SAT 100
[2020-12-17] MEDS: DiphenhydrAMINE 50 MG/ML Syringe IV (19:17)
--- NOTE | 2020-12-17 19:23 | NURSING ---
PT C/O OF ITCHING. BENADRYL GIVEN. NO RASH NOTED. NO RESP DISTRESS NOTED.
[2020-12-17] MEDS: MethylPREDNISolone 125 MG/2 ML Vial IV (19:42)
--- NOTE | 2020-12-17 19:45 | NURSING ---
PT CONTINUES TO C/O OF ITCHING. BENADRYL NOT EFFECTIVE. GIVEN PRN SOLUMEDROL
[2020-12-17 20:14] VITALS: BP 139/93; PULSE 79; RESP 16; TEMP 36.6; O2SAT 100
== END 2020-12-17 20:15 | disposition home or self-care (01) ==
LOC: MS3OUT 18:00 → MS3 18:01
PROVIDERS: PCP Internal Medicine; Referring Provider Nurse Practitioner Adult Health; Visit Provider Nurse Practitioner Adult Health
DX: U07.1 COVID-19 (principal)
CPT/HCPCS: J7050; M0245; Q0245; A4216

== ENCOUNTER 2021-02-23 10:26 | Outpatient (CLI) | payer MEDICARE, OTHER, SELFPAY ==
[2021-02-23] MEDS: 0.9% NaCl Peripheral Flush Adult/Peds IV ×2 (11:04→16:09)
[2021-02-23] MEDS: 0.9% NaCl IVPB Med Flush (250 mL) 15 ML IV (11:05)
[2021-02-23] MEDS: DiphenhydrAMINE 50 MG/ML Syringe 25 MG IV ×2 (11:05→12:36)
[2021-02-23 11:11] VITALS: BP 144/81; PULSE 84; RESP 16; TEMP 35.8; O2SAT 99; BMI 48.9
== END 2021-02-23 23:59 | disposition short-term general hospital (02) ==
PROVIDERS: PCP Internal Medicine; Referring Provider Internal Medicine; Visit Provider Internal Medicine
DX: K50.90 Crohn's disease, unspecified, without complications (principal)
CPT/HCPCS: 96413; 96415; J7040; J7050; A4216; Q5103

== ENCOUNTER 2021-07-06 21:40 | Emergency (ER) | payer MEDICARE, OTHER, SELFPAY ==
[2021-07-06 21:41] VITALS: BP 162/96; PULSE 83; RESP 16; TEMP 36.2; O2SAT 96; BMI 98.3
--- NOTE | 2021-07-06 22:12 | EDS_ITS ---
HPI HPI - GI History of Present Illness Chief Complaint: Abd Pain Informant: patient Abdominal Pain/Flank Pain Onset: Days Context: Gradual Onset Timing: Continuous Quality: Aching and Stabbing Location: LUQ and LLQ Worsened by: Nothing Relieved by: Nothing Nausea/Vomiting/Emesis GI Symptom: Positive for Nausea and Vomiting Diarrhea/Melena/Hematochezia GI Symptom: Positive for Diarrhea; Negative for Melena and Hematochezia Onset: Days Stool Quality: Positive for Watery Associated Symptoms Associated Symptoms: Negative for Dysuria, Frequency and Hematuria Narrative Narrative: Patient presents with abdominal pain and diarrhea that has been constant for the past few days. Patient states she started with some nausea and vomiting as well. Patient states her vomiting subsided but she is still somewhat nauseated. Patient states this feels similar to prior flareups of her Crohn's disease. Patient describes her pain as aching and stabbing. Patient states it is mainly on the left side of her abdomen. Patient states nothing makes it worse and nothing makes it better. Patient denies any hematemesis or coffee-ground emesis. Patient denies any melena or hematochezia. Patient denies any dysuria, hematuria, or frequency. [facility] Medical History Acute anxiety Anemia Crohns disease GERD (gastroesophageal reflux disease) GI problem Heart murmur Hepatitis B Hidradenitis suppurativa High blood pressure History of blood transfusion History of MRSA infection IBS (irritable bowel syndrome) Obesity Psoriasis Sinus problem Vitamin deficiency Home Medications azathioprine 50 mg PO DAILY@0800 11/20/12 [History Last Taken 04/19/16] lamivudine 100 mg PO DAILY 11/20/12 [History Last Taken 04/19/16] omeprazole 40 mg PO DAILY 10/24/13 [History Last Taken 03/06/18 05:00] lorazepam 1 mg PO DAILY PRN PRN 03/02/18 [History Last Taken 03/06/18 05:00] infliximab [Remicade] 1 dose IV .COMPLEX 04/02/18 [History Last Taken Unknown] atenolol 25 mg PO DAILY 07/26/18 [History Last Taken Unknown] multivitamin 1 tab PO DAILY 06/26/20 [History Last Taken Unknown] albuterol sulfate INHALATION 12/17/20 [History Last Taken Unknown] budesonide-formoterol [Symbicort] INHALATION 12/17/20 [History Last Taken Unknown] cholecalciferol (vitamin D3) 50 mcg PO DAILY 12/17/20 [History Last Taken Unknown] cyclobenzaprine 10 mg PO TID PRN PRN 12/17/20 [History Last Taken Unknown] hydrocodone-acetaminophen 1 tab PO Q6H PRN PRN 3 Days #10 tablet 07/06/21 [Rx Last Taken Unknown] ondansetron 4 mg PO Q8H PRN PRN #10 tab 07/06/21 [Rx Last Taken Unknown] prednisone 60 mg PO DAILY #15 tablet 07/06/21 [Rx Last Taken Unknown] Allergy/AdvReac Type Severity Reaction Status Date / Time amoxicillin Allergy Hives Verified 07/06/21 21:43 clavulanic acid Allergy Hives Verified 07/06/21 21:43 [From Augmentin] levofloxacin [From Levaquin] Allergy Hives Verified 07/06/21 21:43 Family History Father Hypertension Anemia Mother Arthritis Hypertension Anemia Brother Asthma History of psychiatric care Son Asthma Daughter Severe allergy Aunt Hypertension Uncle Arthritis Hypertension Asthma Grandmother Arthritis Asthma Hypertension Other Breast cancer Cancer Cervical cancer Colon cancer Surgical History Hidradenitis suppurativa POWERPORT SMALL BOWEL SURGERIES Surgically constructed arteriovenous fistula Social History Smoking Status: Current every day smoker tobacco type: cigarettes Tobacco: How many years used: 27 second hand exposure: Yes alcohol intake: current alcohol intake frequency: a few times a month Alcohol type: wine substance use type: does not use what type of physical activity do you participate in: walking seatbelt use: always additional social history: SUN EXPOSURE: FREQUENTLY DOES NOT USE ASPIRIN DOES NOT USE IBUPROFEN ROS ROS ED Constitutional Constitutional ED: Denies chills or fever(s) Eyes Eyes: Denies blurry vision or change in vision ENT ENT ED: Reports sore throat; Denies rhinorrhea Cardiovascular Cardiovascular: Denies chest pain or palpitations Respiratory/Chest Respiratory/Chest: Denies cough or dyspnea Gastrointestinal Gastrointestinal: Reports abdominal pain, diarrhea, nausea and vomiting; Denies melena Genitourinary Genitourinary ED: Denies dysuria or hematuria Musculoskeletal Musculoskeletal: Denies back pain or neck pain Integumentary Reports rash; Denies abscess Neurologic Neurologic: Denies headache(s) or weakness Allergic/Immunologic Allergic/Immunologic ED: Denies mouth swelling or urticaria EXAM Physical Exam Const Vital Signs: 07/06/21 21:41 Temperature 97.1 F L Temperature Source Temporal Pulse Rate 83 Respiratory Rate 16 Blood Pressure 162/96 H Blood Pressure Mean 118 Pulse Ox 96 Oxygen Delivery Method Room Air Positive well nourished and well developed General Appearance ED: well developed HEENT Reports moist mucous membranes Neck supple and no JVD Resp normal respiratory effort and clear to auscultation bilaterally Cardio regular rate, regular rhythm and no murmurs GI normal to inspection, nondistended, normoactive bowel sounds and non-distended Auscultation: normoactive bowel sounds Palpation: soft and tender LLQ and LUQ Extremity normal to inspection General Extremety ED: Negative for edema or tenderness General Extremity: Negative for edema Neuro oriented x3, CN's II-XII intact bilaterally and no sensory deficits noted Sensorium / Orientation: alert Motor Exam: strength 5/5 throughout Psych mental status grossly normal Skin no rashes or lesions noted MDM MDM MDM Narrative Medical decision making narrative: Patient was given IV fluids, morphine, and Zofran. CBC shows a mild anemia with a hemoglobin of 8.7 and hematocrit 32.2. This is consistent with prior results. Platelets were normal. Comprehensive metabolic profile was within normal limits. Urinalysis does not show any evidence of urinary tract infection or hematuria. Serum hCG was negative. Patient was advised of her findings. Patient states her pain is only mildly improved on reevaluation. Patient was given a repeat dose of morphine here. Patient was also given a dose of prednisone here. Patient was given prescriptions for prednisone, Zofran, and a short course of [place]. Patient was instructed to follow-up with her primary care physician in 5 to 7 days. Patient understood and was agreeable with the plan. All questions were answered. Lab Data Attestation: I reviewed the patient's lab results. Labs: Laboratory Results - last 24 hr 07/06/21 07/06/21 07/06/21 22:10 22:10 22:24 WBC 9.3 RBC 5.12 Hgb 8.7 L Hct 32.2 L MCV 62.9 L MCH 17.0 L MCHC 27.0 L RDW Std Deviation 43.2 RDW Coeff of Renny 19.8 H Plt Count 325 MPV TNP Immature Gran % (Auto) 0.200 Neut % (Auto) 49.5 Lymph % (Auto) 40.6 [place] % (Auto) 7.7 Eos % (Auto) 1.3 Baso % (Auto) 0.7 Absolute Neuts (auto) 4.6 Absolute Lymphs (auto) 3.79 Nucleated RBC % 0 Diff Path Review May foll Platelet Estimate ADEQUATE RBC Morphology N CHROM Hypochromasia RARE Anisocytosis 1+ Microcytosis 1+ Sodium 138 Potassium 3.6 Chloride 107 Carbon Dioxide 26.0 Anion Gap 5 BUN 11 Creatinine 0.98 Estim Creat Clear Calc 83.58 Est GFR (MDRD) Af Amer 80 Est GFR (MDRD) Non-Af 66 BUN/Creatinine Ratio 11.3 Glucose 98 Calcium 8.9 Total Bilirubin 0.20 AST 19 ALT 25 Alkaline Phosphatase 77 Total Protein 8.3 H Albumin 3.4 Globulin 4.9 H Albumin/Globulin Ratio 0.7 L Serum , Qual Urine Color Straw Urine Clarity Clear Urine pH 6.5 Ur Specific [place] 1.005 Urine Protein Negative Urine Glucose (UA) Normal Urine Ketones Negative Urine Occult Blood Negative Urine Nitrite Negative Urine Bilirubin Negative Urine Urobilinogen Normal Ur Leukocyte Esterase Negative Urine RBC 0 SEEN Urine WBC 0 SEEN Ur Squamous Epith Cells 0-5 SEEN Urine Bacteria 1+ Urine Mucus 0 SEEN 07/06/21 22:45 WBC RBC Hgb Hct MCV MCH MCHC RDW Std Deviation RDW Coeff of [place]enny Plt Count MPV Immature Gran % (Auto) Neut % (Auto) Lymph % (Auto) [place] % (Auto) Eos % (Auto) Baso % (Auto) Absolute Neuts (auto) Absolute Lymphs (auto) Nucleated RBC % Diff Path Review Platelet Estimate RBC Morphology Hypochromasia Anisocytosis Microcytosis Sodium Potassium Chloride Carbon Dioxide Anion Gap BUN Creatinine Estim Creat Clear Calc Est GFR (MDRD) Af Amer Est GFR (MDRD) Non-Af BUN/Creatinine Ratio Glucose Calcium Total Bilirubin AST ALT Alkaline Phosphatase Total Protein Albumin Globulin Albumin/Globulin Ratio Serum , Qual NEGATIVE Urine Color Urine Clarity Urine pH Ur Specific [place] Urine Protein Urine Glucose (UA) Urine Ketones Urine Occult Blood Urine Nitrite Urine Bilirubin Urine Urobilinogen Ur Leukocyte Esterase Urine RBC Urine WBC Ur Squamous Epith Cells Urine Bacteria Urine Mucus Discharge Plan Triage Chief Complaint: Abd Pain ED Provider: Liot Waldron Dx/Rx/DC Orders Clinical Impression: Abdominal pain in female patient, Crohn's disease Instructions: ED Abdominal Pain Unkn Cause Fem, ED Crohn's Disease Prescriptions: New hydrocodone-acetaminophen [hydrocodone-acetaminophen] 1 TABLET tablet 1 tab PO Q6H PRN PRN (Reason: Pain) 3 Days Qty: 10 RF: 0 prednisone 20 MG tablet 60 mg PO DAILY Qty: 15 RF: 0 ondansetron [ondansetron] 4 MG tablet 4 mg PO Q8H PRN PRN (Reason: Nausea) Qty: 10 RF: 0 No Action azathioprine 50 MG tablet 50 mg PO DAILY@0800 RF: 0 lamivudine 150 MG tablet 100 mg PO DAILY RF: 0 omeprazole 20 MG capsule 40 mg PO DAILY RF: 0 lorazepam 1 MG tablet 1 mg PO DAILY PRN PRN (Reason: Anxiety) RF: 0 infliximab [Remicade] 100 MG/10 ML recon soln 1 dose IV .COMPLEX RF: 0 atenolol 25 MG tablet 25 mg PO DAILY RF: 0 multivitamin Tablet 1 tab PO DAILY RF: 0 cyclobenzaprine 10 mg tablet 10 mg PO TID PRN PRN (Reason: Muscle Spasm) RF: 0 cholecalciferol (vitamin D3) 50 mcg (2,000 unit) Capsule 50 mcg PO DAILY RF: 0 albuterol sulfate 90 mcg/actuation Hfa Aerosol Inhaler INHALATION RF: 0 budesonide-formoterol [Symbicort] 80-4.5 mcg/actuation Hfa Aerosol Inhaler INHALATION RF: 0 Primary Care Provider: Araseli Bueno Referrals: Araseli Bueno MD [Primary Care Provider] - 5-7 Days Disposition Disposition: Home, Self Care
[2021-07-06] MEDS: Ondansetron 4 MG/2 ML Vial IV ×2 (22:28→23:50)
[2021-07-06] MEDS: Morphine 4 MG/ML Syringe IV ×2 (22:28→23:50)
[2021-07-06 22:32] LABS: Mucous, Urine 0 SEEN /hpf (<or=2+); Red Blood Cells-Urine 0 SEEN /hpf (0-5); White Blood Cells 0 SEEN /hpf (0-5)
[2021-07-06] MEDS: 0.9% Normal Saline 1,000 ML 1000 ML IV (22:32)
[2021-07-06 22:38] LABS: Absolute Lymphocyte Count 3.79 X10^3/uL (0.83-4.51); Absolute Neutrophil Count 4.6 X10^3/uL (2.0-7.7); Basophil# 0.07 X10^3/uL; Basophil% 0.7 % (0-1); Eosinophil# 0.12 X10^3/uL; Eosinophils% 1.3 % (0-5); Hematocrit 32.2 % (37-47); Hemoglobin 8.7 g/dL (12.0-15.0); Lymphocyte # 3.79 X10^3/ul (0.83-4.51); Lymphocyte % 40.6 % (19-41); Mean Corpuscular Volume 62.9 fL (81-99); Monocyte# 0.72 X10^3/uL; Monocyte% 7.7 % (0-10); NRBC Flagged by Analyzer 0 % (0-5); Neutrophil # 4.62 X10^3/uL (2.7-7.7); Neutrophil % 49.5 % (47-70); POSITIVE MORPHOLOGY YES; Platelet Count 325 K/mm3 (150-450); RBC Distribution Width CV 19.8 % (11.6-14.6); RBC Distribution Width SD 43.2 fl (35.1-43.9); Red Blood Count 5.12 M/mm3 (4.2-5.4); White Blood Count 9.3 K/mm3 (4.4-11.0)
[2021-07-06 22:39] LABS: Differential Indicated SCAN CRITERIA MET
[2021-07-06 22:44] LABS: ALB/GLOB Ratio 0.7 RATIO (0.9-2.4); AST(SGOT) 19 U/L (15-37); Alanine Aminotransfer ALT/SGPT 25 U/L (13-56); Albumin, Serum 3.4 g/dL (3.2-5.0); Alkaline Phosphatase 77 U/L (45-117); Anion Gap 5 (5-15); BUN 11 mg/dL (7-18); BUN/Creat Ratio 11.3 RATIO (10-20); Calcium,Total 8.9 mg/dL (8.5-10.1); Chloride 107 mmol/L (98-107); Creatinine, Serum 0.98 mg/dL (0.55-1.02); EST Glomerular Filtration Rate 66 mL/min (>60); Est Glom Filt Rate - Afr Amer 80 mL/min (>60); Estimated Creatinine Clearance 83.58 ml/min; Globulin 4.9 g/dL (2.2-4.2); Glucose 98 mg/dL (74-106); Potassium 3.6 mmol/L (3.5-5.1); Protein, Total 8.3 g/dL (6.4-8.2); Sodium Level 138 mmol/L (136-145)
[2021-07-06 23:00] LABS: Color, Urine Straw (Yellow); Glucose, Dipstick Normal (Normal); Ketone-Dipstick Negative (Negative); Leukocyte Esterase-Dipstick Negative /ul (Negative); Nitrite-Dipstick Negative (Negative); Occult Blood-Urine Negative /ul (Negative); Protein-Dipstick Negative (Negative); Specific Gravity, Urine 1.005 (1.002-1.030); Urine Bilirubin Dipstick Negative (Negative); Urine Clarity Clear (Clear); Urine Urobilinogen Normal (Normal); Urine pH 6.5 (5.0 - 8.0)
[2021-07-06 23:05] LABS: Anisocytosis 1+; Hypochromasia RARE; Microcytosis 1+; Platelet Estimate ADEQUATE (ADEQ); Red Cell Morphology N CHROM NORMAL (NORM C&C)
[2021-07-06 23:13] LABS: Bacteria 1+ /hpf (None Seen); Squamous Epithelial Cells - UA 0-5 SEEN /hpf (5-10)
[2021-07-06 23:31] LABS: Internal QC Validated? YES +Cl - CLEAR BKGD; Pregnancy, Serum, hCG Quali. NEGATIVE Negative
[2021-07-06] MEDS: MethylPREDNISolone 125 MG/2 ML Vial 60 MG IV (23:50)
[2021-07-06 23:58] VITALS: BP 152/95; PULSE 75; RESP 16; O2SAT 100
[2021-07-06] MEDS: 0.9% Saline Lock 10 ML Syringe IV (23:58)
[2021-07-07 13:57] LABS: Pathologist Review Reviewed
== END 2021-07-07 00:03 | disposition home or self-care (01) ==
PROVIDERS: Emergency Provider Emergency Medicine; PCP Internal Medicine; Visit Provider Emergency Medicine
DX: R10.12 Left upper quadrant pain (principal); K50.90 Crohn's disease, unspecified, without complications; Z68.45 Body mass index [BMI] 70 or greater, adult; R10.32 Left lower quadrant pain; I10 Essential (primary) hypertension; D64.9 Anemia, unspecified; K21.9 Gastro-esophageal reflux disease without esophagitis; E66.9 Obesity, unspecified; F41.9 Anxiety disorder, unspecified; F17.210 Nicotine dependence, cigarettes, uncomplicated; Z79.899 Other long term (current) drug therapy
CPT/HCPCS: 36591; 80053; 81001; 84703; 85025; 87428; 87880; 96361; 96374; 96375; 96376; 99283; J7030; A4216; J2405

== ENCOUNTER 2021-10-05 21:39 | Emergency (ER) | payer MEDICARE, OTHER, SELFPAY ==
[2021-10-05 21:40] VITALS: BP 173/105; PULSE 99; RESP 15; TEMP 36.3; O2SAT 100; BMI 49.3
--- NOTE | 2021-10-05 22:51 | ED.VIS.GI ---
HPI HPI - GI History of Present Illness Chief Complaint: Abd Pain Informant: patient Abdominal Pain/Flank Pain Onset: Days (3) Context: Gradual Onset Timing: Continuous Quality: Sharp and Stabbing Location: LUQ, RLQ and LLQ Worsened by: Nothing Relieved by: Nothing Nausea/Vomiting/Emesis GI Symptom: Positive for Nausea; Negative for Vomiting Diarrhea/Melena/Hematochezia GI Symptom: Positive for Diarrhea Onset: Days (3) Associated Symptoms Associated Symptoms: Negative for Dysuria, Frequency or Hematuria Narrative Narrative: Patient presents with abdominal pain and diarrhea that has been getting progressively worse over the past 3 days. Patient states it is gradually getting worse. Patient states her pain is mainly over the lower abdomen. Patient states it started on the left side but is now mainly over the lower abdomen. Patient describes her pain as sharp and stabbing. Patient states nothing makes it better nothing makes it worse. Patient admits to some diarrhea for the past 3 days. Patient states she always has blood in her stools. Patient denies any hematemesis or coffee-ground emesis. Patient admits to nausea but denies any vomiting. Patient denies any urinary complaints. Patient denies any fevers or chills. [facility] Medical History Acute anxiety Anemia Crohns disease GERD (gastroesophageal reflux disease) GI problem Heart murmur Hepatitis B Hidradenitis suppurativa High blood pressure History of blood transfusion History of MRSA infection IBS (irritable bowel syndrome) Obesity Psoriasis Sinus problem Vitamin deficiency Home Medications azathioprine 50 mg tablet 50 mg PO DAILY@0800 11/20/12 [History Last Taken 04/19/16] lamivudine 150 mg tablet 100 mg PO DAILY LIVER ENZYMES 11/20/12 [History Last Taken 04/19/16] omeprazole 20 mg capsule,delayed release 40 mg PO DAILY GERD 10/24/13 [History Last Taken 03/06/18 05:00] lorazepam 1 mg tablet 1 mg PO DAILY PRN PRN Anxiety 03/02/18 [History Last Taken 03/06/18 05:00] infliximab 100 mg intravenous solution (Remicade) 1 dose IV .COMPLEX 04/02/18 [History Last Taken Unknown] atenolol 25 mg tablet 25 mg PO DAILY 07/26/18 [History Last Taken Unknown] multivitamin 1 tab PO DAILY 06/26/20 [History Last Taken Unknown] albuterol sulfate 90 mcg/actuation aerosol inhaler inhalation 12/17/20 [History Last Taken Unknown] budesonide-formoterol HFA 80 mcg-4.5 mcg/actuation aerosol inhaler (Symbicort) inhalation 12/17/20 [History Last Taken Unknown] cholecalciferol (vitamin D3) 50 mcg (2,000 unit) capsule 50 mcg PO DAILY 12/17/20 [History Last Taken Unknown] cyclobenzaprine 10 mg tablet 10 mg PO TID PRN PRN Muscle Spasm 12/17/20 [History Last Taken Unknown] ondansetron 4 mg disintegrating tablet 4 mg PO Q8H PRN PRN Nausea #10 tabs 07/06/21 [Rx Last Taken Unknown] prednisone 20 mg tablet 60 mg PO DAILY #15 TABLETS 07/06/21 [Rx Last Taken Unknown] hydrocodone-acetaminophen 5-325mg 5mg-325mg 1 tab PO Q6H PRN PRN Pain 3 days #10 TABLETS 10/06/21 [Rx Last Taken Unknown] Allergy/AdvReac Type Severity Reaction Status Date / Time amoxicillin Allergy Hives Verified 10/05/21 21:40 clavulanic acid Allergy Hives Verified 10/05/21 21:40 [From Augmentin] levofloxacin [From Levaquin] Allergy Hives Verified 10/05/21 21:40 Family History Father Hypertension Anemia Mother Arthritis Hypertension Anemia Brother Asthma History of psychiatric care Son Asthma Daughter Severe allergy Aunt Hypertension Uncle Arthritis Hypertension Asthma Grandmother Arthritis Asthma Hypertension Other Breast cancer Cancer Cervical cancer Colon cancer Surgical History Hidradenitis suppurativa POWERPORT SMALL BOWEL SURGERIES Surgically constructed arteriovenous fistula Social History Smoking Status: Current every day smoker tobacco type: cigarettes Tobacco: How many years used: 27 second hand exposure: Yes alcohol intake: current alcohol intake frequency: a few times a month Alcohol type: wine substance use type: does not use what type of physical activity do you participate in: walking seatbelt use: always additional social history: SUN EXPOSURE: FREQUENTLY DOES NOT USE ASPIRIN DOES NOT USE IBUPROFEN ROS ROS ED Constitutional Constitutional ED: Denies chills or fever(s) Eyes Eyes: Denies blurry vision or change in vision ENT ENT ED: Denies rhinorrhea or sore throat Cardiovascular Cardiovascular: Denies chest pain or palpitations Respiratory/Chest Respiratory/Chest: Denies cough or dyspnea Gastrointestinal Gastrointestinal: Reports abdominal pain, diarrhea and nausea; Denies vomiting Genitourinary Genitourinary ED: Denies dysuria or hematuria Musculoskeletal Musculoskeletal: Denies back pain or neck pain Integumentary Denies abscess or rash Neurologic Neurologic: Denies headache(s) or weakness Allergic/Immunologic Allergic/Immunologic ED: Denies mouth swelling or urticaria EXAM Physical Exam Const Vital Signs: 10/05/21 21:40 Temperature 97.3 F L Temperature Source Temporal Pulse Rate 99 Respiratory Rate 15 Blood Pressure 173/105 H Blood Pressure Mean 127 Pulse Ox 100 Oxygen Delivery Method Room Air Positive well nourished, well developed and obese General Appearance ED: well developed and NAD Nutritional Appearance: obese HEENT Reports moist mucous membranes Neck supple and no JVD Resp normal respiratory effort and clear to auscultation bilaterally Cardio regular rate, regular rhythm and no murmurs GI normal to inspection, nondistended, normoactive bowel sounds Palpation: soft and tender LLQ, RLQ and LUQ; Negative for guarding or rebound tenderness present Extremity normal to inspection General Extremety ED: Negative for edema or tenderness General Extremity: Negative for edema Neuro oriented x3, CN's II-XII intact bilaterally and no sensory deficits noted Sensorium / Orientation: alert Motor Exam: strength 5/5 throughout Psych mental status grossly normal Skin no rashes or lesions noted MDM MDM MDM Narrative Medical decision making narrative: Patient was given IV fluids, morphine, and Zofran. CBC shows mild anemia with a hemoglobin of 7.9 and hematocrit 29.2. This is consistent with prior results. Comprehensive metabolic profile was within normal limits. Lipase was normal. Serum hCG was negative. Urinalysis does not show any evidence of urinary tract infection or hematuria. Patient was still having significant pain on reevaluation. Patient was given a dose of Dilaudid. CT scan of the abdomen pelvis was obtained. There is no acute abdominal abnormality noted. This was interpreted by the radiologist and reviewed by myself. Patient is feeling better on reevaluation. Patient was advised of her findings. Patient was given a prescription for a short course of [place]. Patient was instructed to follow-up with her primary care physician in 5 to 7 days. Patient understood and was agreeable with the plan. All questions were answered. Lab Data Attestation: I reviewed the patient's lab results. Labs: Laboratory Results - last 24 hr 10/05/21 10/05/21 10/05/21 23:10 23:10 23:10 WBC 8.3 RBC 4.65 Hgb 7.9 L Hct 29.2 L MCV 62.8 L MCH 17.0 L MCHC 27.1 L RDW Std Deviation 43.9 RDW Coeff of Renny 20.3 H Plt Count 272 Immature Gran % (Auto) 0.400 Neut % (Auto) 51.5 Lymph % (Auto) 36.2 Sierra % (Auto) 9.9 Eos % (Auto) 1.3 Baso % (Auto) 0.7 Absolute Neuts (auto) 4.3 Absolute Lymphs (auto) 2.99 Nucleated RBC % 0 Anisocytosis 1+ Microcytosis 2+ Sodium 138 Potassium 3.7 Chloride 109 H Carbon Dioxide 25.0 Anion Gap 4 L BUN 8 Creatinine 0.98 Estim Creat Clear Calc 83.58 Est GFR (MDRD) Af Amer 80 Est GFR (MDRD) Non-Af 66 BUN/Creatinine Ratio 8.1 L Glucose 112 H Calcium 8.4 L Total Bilirubin 0.30 AST 16 ALT 20 Alkaline Phosphatase 77 Total Protein 7.8 Albumin 3.3 Globulin 4.5 H Albumin/Globulin Ratio 0.7 L Lipase 169 Serum , Qual NEGATIVE Urine Color Urine Clarity Urine pH Ur Specific [place] Urine Protein Urine Glucose (UA) Urine Ketones Urine Occult Blood Urine Nitrite Urine Bilirubin Urine Urobilinogen Ur Leukocyte Esterase Urine RBC Urine WBC Ur Squamous Epith Cells Urine Bacteria Urine Mucus 10/05/21 23:10 WBC RBC Hgb Hct MCV MCH MCHC RDW Std Deviation RDW Coeff of Renny Plt Count Immature Gran % (Auto) Neut % (Auto) Lymph % (Auto) Sierra % (Auto) Eos % (Auto) Baso % (Auto) Absolute Neuts (auto) Absolute Lymphs (auto) Nucleated RBC % Anisocytosis Microcytosis Sodium Potassium Chloride Carbon Dioxide Anion Gap BUN Creatinine Estim Creat Clear Calc Est GFR (MDRD) Af Amer Est GFR (MDRD) Non-Af BUN/Creatinine Ratio Glucose Calcium Total Bilirubin AST ALT Alkaline Phosphatase Total Protein Albumin Globulin Albumin/Globulin Ratio Lipase Serum , Qual Urine Color Yellow Urine Clarity Clear Urine pH 7.0 Ur Specific [place] 1.010 Urine Protein 15 H Urine Glucose (UA) Normal Urine Ketones Negative Urine Occult Blood Negative Urine Nitrite Negative Urine Bilirubin Negative Urine Urobilinogen Normal Ur Leukocyte Esterase Negative Urine RBC 0 SEEN Urine WBC 0 SEEN Ur Squamous Epith Cells 0-5 SEEN Urine Bacteria 1+ Urine Mucus 0 SEEN Radiography Diagnostic Testing: Clinical Impression(s) from Imaging Studies Abdomen/Pelvis CT 10/06/21 22:55 IMPRESSION: No acute findings in the abdomen or pelvis. Electronically Signed: Rj Rios MD at 1:36 EDT , Discharge Plan Triage Chief Complaint: Abd Pain ED Provider: Lito Waldron Dx/Rx/DC Orders Clinical Impression: Abdominal pain, Crohn's disease Instructions: ED Abdominal Pain Unkn Cause Fem Prescriptions: Continued hydrocodone-acetaminophen 1 TABLET tablet 1 tab PO Q6H PRN PRN (Reason: Pain) 3 Days Qty: 10 0RF No Action azathioprine 50 MG tablet 50 mg PO DAILY@0800 Label Comments: immunosuppressant lamivudine 150 MG tablet 100 mg PO DAILY Label Comments: antiviral omeprazole 20 MG capsule 40 mg PO DAILY Label Comments: stomach lorazepam 1 MG tablet 1 mg PO DAILY PRN PRN (Reason: Anxiety) infliximab [Remicade] 100 MG/10 ML recon soln 1 dose IV .COMPLEX Rx Instructions: EVERY 6 WEEKS atenolol 25 MG tablet 25 mg PO DAILY multivitamin Tablet 1 tab PO DAILY cyclobenzaprine 10 mg tablet 10 mg PO TID PRN PRN (Reason: Muscle Spasm) Label Comments: take 1 tablet by mouth three times a day if needed for muscle spasm cholecalciferol (vitamin D3) 50 mcg (2,000 unit) Capsule 50 mcg PO DAILY albuterol sulfate 90 mcg/actuation Hfa Aerosol Inhaler INHALATION budesonide-formoterol [Symbicort] 80-4.5 mcg/actuation Hfa Aerosol Inhaler INHALATION prednisone 20 MG tablet 60 mg PO DAILY Qty: 15 0RF ondansetron [ondansetron] 4 MG tablet 4 mg PO Q8H PRN PRN (Reason: Nausea) Qty: 10 0RF Primary Care Provider: Araseli Bueno Referrals: Araseli Bueno MD [Primary Care Provider] - 5-7 Days Disposition Disposition: Home, Self Care
[2021-10-05] MEDS: 0.9% Normal Saline 1,000 ML 1000 ML IV (23:15)
[2021-10-05] MEDS: Morphine 4 MG/ML Syringe IV (23:15)
[2021-10-05] MEDS: Ondansetron 4 MG/2 ML Vial IV (23:15)
[2021-10-05 23:23] LABS: Mucous, Urine 0 SEEN /hpf (<or=2+); Red Blood Cells-Urine 0 SEEN /hpf (0-5); White Blood Cells 0 SEEN /hpf (0-5)
[2021-10-05 23:37] LABS: Absolute Lymphocyte Count 2.99 X10^3/uL (0.83-4.51); Absolute Neutrophil Count 4.3 X10^3/uL (2.0-7.7); Basophil# 0.06 X10^3/uL; Basophil% 0.7 % (0-1); Eosinophil# 0.11 X10^3/uL; Eosinophils% 1.3 % (0-5); Hematocrit 29.2 % (37-47); Hemoglobin 7.9 g/dL (12.0-15.0); Lymphocyte # 2.99 X10^3/ul (0.83-4.51); Lymphocyte % 36.2 % (19-41); Mean Corp Hgb Conc 27.1 g/dL (32-36); Mean Corpuscular Volume 62.8 fL (81-99); Monocyte# 0.82 X10^3/uL; Monocyte% 9.9 % (0-10); NRBC Flagged by Analyzer 0 % (0-5); Neutrophil # 4.25 X10^3/uL (2.7-7.7); Neutrophil % 51.5 % (47-70); POSITIVE MORPHOLOGY YES; Platelet Count 272 K/mm3 (150-450); RBC Distribution Width CV 20.3 % (11.6-14.6); RBC Distribution Width SD 43.9 fl (35.1-43.9); Red Blood Count 4.65 M/mm3 (4.2-5.4); White Blood Count 8.3 K/mm3 (4.4-11.0)
[2021-10-05 23:41] LABS: Differential Indicated SCAN CRITERIA MET
[2021-10-05 23:46] LABS: Internal QC Validated? YES +Cl - CLEAR BKGD; Pregnancy, Serum, hCG Quali. NEGATIVE Negative
[2021-10-05 23:49] LABS: ALB/GLOB Ratio 0.7 RATIO (0.9-2.4); AST(SGOT) 16 U/L (15-37); Alanine Aminotransfer ALT/SGPT 20 U/L (13-56); Albumin, Serum 3.3 g/dL (3.2-5.0); Alkaline Phosphatase 77 U/L (45-117); Anion Gap 4 (5-15); BUN 8 mg/dL (7-18); BUN/Creat Ratio 8.1 RATIO (10-20); Calcium,Total 8.4 mg/dL (8.5-10.1); Chloride 109 mmol/L (98-107); Creatinine, Serum 0.98 mg/dL (0.55-1.02); EST Glomerular Filtration Rate 66 mL/min (>60); Est Glom Filt Rate - Afr Amer 80 mL/min (>60); Estimated Creatinine Clearance 83.58 ml/min; Globulin 4.5 g/dL (2.2-4.2); Glucose 112 mg/dL (74-106); Lipase 169 U/L (73-393); Potassium 3.7 mmol/L (3.5-5.1); Protein, Total 7.8 g/dL (6.4-8.2); Sodium Level 138 mmol/L (136-145)
[2021-10-05 23:50] LABS: Color, Urine Yellow (Yellow); Glucose, Dipstick Normal (Normal); Ketone-Dipstick Negative (Negative); Leukocyte Esterase-Dipstick Negative /ul (Negative); Nitrite-Dipstick Negative (Negative); Occult Blood-Urine Negative /ul (Negative); Protein-Dipstick 15 mg/dl (Negative); Urine Bilirubin Dipstick Negative (Negative); Urine Clarity Clear (Clear); Urine Urobilinogen Normal (Normal)
[2021-10-06 00:06] LABS: Bacteria 1+ /hpf (None Seen); Squamous Epithelial Cells - UA 0-5 SEEN /hpf (5-10)
[2021-10-06 00:09] LABS: Anisocytosis 1+; Microcytosis 2+
--- NOTE | 2021-10-06 00:51 | ED.RN ---
PT REQUESTING PAIN MEDS. MD AWARE. NO NEW ORDERS RECEIVED AT THIS TIME
[2021-10-06] MEDS: HYDROmorphone 1 MG/ML Syringe 0.5 MG IV (01:03)
[2021-10-06 02:19] VITALS: BP 146/77; PULSE 82; RESP 19
--- NOTE | 2021-10-06 02:20 | ED.RN ---
PORT DC WITH HEP FLUSH
--- NOTE | 2021-10-06 22:55 | CT_ITS ---
EXAM: CT ABDOMEN AND PELVIS WITH INTRAVENOUS CONTRAST CLINICAL INDICATION: Abdominal pain -- IV PO Contrast TECHNIQUE: Helically acquired images were obtained of the abdomen and pelvis with intravenous contrast. This CT exam was performed using one or more of the following dose reduction techniques: automated exposure control, adjustment of the mA and/or kV according to patient size, and/or use of iterative reconstruction technique. This report was created using [email or web address] report generation technology. CONTRAST: Oral and amp; IV Gastrografin and amp; 100mL Isovue-300 COMPARISON: 10/23/2020 FINDINGS: LOWER THORAX: Unremarkable. Lung bases are clear. No cardiomegaly. No significant pericardial effusion. ABDOMEN: LIVER: Unremarkable. Homogeneous. No focal mass. GALLBLADDER AND BILE DUCTS: There are surgical clips from a cholecystectomy. No intra- or extrahepatic biliary ductal dilation. PANCREAS: Unremarkable. No focal cystic or solid mass. SPLEEN: Unremarkable. Normal size without focal cystic or solid mass. ADRENALS: Unremarkable. No nodules. KIDNEYS AND URETERS: Unremarkable. Normal renal size and position. No hydronephrosis. STOMACH AND BOWEL: Unremarkable. No stomach or bowel distention. No focal inflammatory change. PELVIS: APPENDIX: No evidence of acute appendicitis. BLADDER: Unremarkable. REPRODUCTIVE: Unremarkable as visualized. No mass. ABDOMEN and PELVIS: INTRAPERITONEAL SPACE: Unremarkable. No ascites or other fluid collection. No free air. BONES/JOINTS: Unremarkable. No suspicious lytic or blastic abnormality. SOFT TISSUES: Unremarkable. No discrete abdominal or pelvic wall hernia. VASCULATURE: Unremarkable. Abdominal aorta is non-dilated. LYMPH NODES: Unremarkable. No enlarged lymph nodes. CT/Abdomen/Pelvis WITH Contrast IMPRESSION: No acute findings in the abdomen or pelvis. Electronically Signed: Rj Rios MD at 1:36 EDT ,
== END 2021-10-06 02:25 | disposition home or self-care (01) ==
PROVIDERS: Emergency Provider Emergency Medicine; PCP Internal Medicine; Visit Provider Emergency Medicine
DX: K50.90 Crohn's disease, unspecified, without complications (principal); Z68.42 Body mass index [BMI] 45.0-49.9, adult; F17.210 Nicotine dependence, cigarettes, uncomplicated; E66.9 Obesity, unspecified; I10 Essential (primary) hypertension; Z79.899 Other long term (current) drug therapy
CPT/HCPCS: 36591; 74177; 80053; 81001; 83690; 84703; 85025; 96361; 96374; 96375; 99284; J7030; Q9967; A4216; J2405

== ENCOUNTER 2022-01-24 02:10 | Emergency (ER) | payer MEDICARE, SELFPAY ==
[2022-01-24 02:11] VITALS: BP 170/108; PULSE 101; RESP 20; TEMP 37.1; O2SAT 98; BMI 49.4
--- NOTE | 2022-01-24 02:24 | RAD_ITS ---
EXAM: XR CHEST, 2 VIEWS CLINICAL INDICATION: cough, sob/wheezing cough, sob/wheezing TECHNIQUE: Frontal and lateral views of the chest. This report was created using [employer] report generation technology. COMPARISON: Chest x-ray 11/23/2019 FINDINGS: LUNGS AND PLEURAL SPACES: Unremarkable. No consolidation or edema. No pneumothorax. No effusion. HEART: Unremarkable. Cardiac silhouette not enlarged. MEDIASTINUM: Central airways and mediastinal contour are unremarkable. BONES/JOINTS: Unremarkable. SOFT TISSUES: Unremarkable. TUBES, LINES AND DEVICES: There is a right subclavian Port-A-Cath with its tip overlying the superior vena cava. RAD/Chest PA and Lateral IMPRESSION: 1. Port-A-Cath is in stable position. 2. No evidence for acute cardiopulmonary pathology. Electronically Signed: Misha Veloz MD at 2:44 EST Reading Location ID and State: [facility] / [place] , Service support ,
--- NOTE | 2022-01-24 02:25 | EDS_ITS ---
HPI HPI - URI History of Present Illness Chief Complaint: General Illness Informant: patient Onset/Context/Timing Onset: Weeks (2) Context: Gradual Onset Timing: Continuous Quality: prod cough, KENT Current Severity: Moderate Maximum Severity: Moderate Worsened by: - (exertion, coughing) Relieved by: - (rest, albuterol) Associated Symptoms Associated Symptoms: Positive for Nasal Congestion, Diarrhea, Shortness of Breath, Productive Cough (yellow-green, nonbloody sputum) and - (Low back aching); Negative for Nausea, Vomiting or Chest Pain Narrative Narrative: Patient has had a cough for 2 weeks now, still productive. Some shortness of breath but no chest tightness, she does not think she has a history of asthma or COPD but has been prescribed albuterol with a nebulizer in the past and has been using, helping when she is short of breath/wheezing. She took a treatment just prior to coming here this morning and it helped, she has been compliant with her blood pressure medication which she usually takes in the morning and it is about 2:30 AM right now so she is due for it soon. She had fevers for the first 4 or 5 days but not since then. She tested negative for COVID and influenza 2 or 3 days into the illness, she denies any orthopnea or leg edema, she presents because she is concerned that she is still coughing and wheezing. She has Crohn's disease, she is on biologic injections for that, and she has developed diarrhea now for the past several days but no blood or changes in her chronic mild abdominal discomfort that she associates with her Crohn's. No nausea or vomiting and has been drinking fluids well. She was on benzonatate and a decongestant but has not been on an antibiotic for this. ROS ROS ED Constitutional Constitutional ED: Denies chills or fever(s) ENT ENT ED: Reports nasal congestion, rhinorrhea and sore throat; Denies ear pain or facial pain Cardiovascular Cardiovascular: Denies chest pain, orthopnea or palpitations Respiratory/Chest Respiratory/Chest: Reports cough, dyspnea, dyspnea on exertion and sputum; Denies orthopnea Gastrointestinal Gastrointestinal: Reports abdominal pain and diarrhea; Denies hematochezia, melena, nausea or vomiting Genitourinary Genitourinary ED: Denies dysuria or hematuria Musculoskeletal Musculoskeletal: Reports back pain and other Details: Low back pain across the low back but worse on the left where patient feels a lump, all of which is worse with movement and certain positions and better with resting and other positions. ; Denies myalgias or neck pain Integumentary Denies abscess or rash Neurologic Neurologic: Denies headache(s), paresthesias or weakness Psychiatric Psychiatric: Denies depression or suicidal thoughts Endocrine Endocrinology: Denies polydipsia or polyuria [facility] Medical History Acute anxiety Anemia Crohns disease GERD (gastroesophageal reflux disease) GI problem Heart murmur Hepatitis B Hidradenitis suppurativa High blood pressure History of blood transfusion History of MRSA infection IBS (irritable bowel syndrome) Obesity Psoriasis Sinus problem Vitamin deficiency Home Medications azathioprine 50 mg tablet (Imuran) 50 mg PO DAILY@0800 11/20/12 [History Last Taken 04/19/16] lamivudine 150 mg tablet (Epivir) 100 mg PO DAILY LIVER ENZYMES 11/20/12 [History Last Taken 04/19/16] omeprazole 20 mg capsule,delayed release 40 mg PO DAILY GERD 10/24/13 [History Last Taken 03/06/18 05:00] lorazepam 1 mg tablet 1 mg PO DAILY PRN PRN Anxiety 03/02/18 [History Last Taken 03/06/18 05:00] infliximab 100 mg intravenous solution (Remicade) 1 dose IV .COMPLEX 04/02/18 [History Last Taken Unknown] atenolol 25 mg tablet 25 mg PO DAILY 07/26/18 [History Last Taken Unknown] multivitamin 1 tab PO DAILY 06/26/20 [History Last Taken Unknown] albuterol sulfate 90 mcg/actuation aerosol inhaler 1 puff inhalation Q6H PRN sob 12/17/20 [History Last Taken Unknown] budesonide-formoterol HFA 80 mcg-4.5 mcg/actuation aerosol inhaler (Symbicort) inhalation 12/17/20 [History Last Taken Unknown] cholecalciferol (vitamin D3) 50 mcg (2,000 unit) capsule 50 mcg PO DAILY 12/17/20 [History Last Taken Unknown] cyclobenzaprine 10 mg tablet 10 mg PO TID PRN PRN Muscle Spasm 12/17/20 [History Last Taken Unknown] azithromycin 250 mg tablet See Rx Instructions PO .COMPLEX #6 tabs 01/24/22 [Rx Last Taken Unknown] benzonatate 100 mg capsule 100 mg PO TID PRN Cough 01/24/22 [History Last Taken Unknown] loratadine 10 mg tablet 10 mg PO DAILY 01/24/22 [History Last Taken Unknown] Allergy/AdvReac Type Severity Reaction Status Date / Time amoxicillin Allergy Hives Verified 10/05/21 21:40 clavulanic acid Allergy Hives Verified 10/05/21 21:40 [From Augmentin] levofloxacin [From Levaquin] Allergy Hives Verified 10/05/21 21:40 Family History Father Hypertension Anemia Mother Arthritis Hypertension Anemia Brother Asthma History of psychiatric care Son Asthma Daughter Severe allergy Aunt Hypertension Uncle Arthritis Hypertension Asthma Grandmother Arthritis Asthma Hypertension Other Breast cancer Cancer Cervical cancer Colon cancer Surgical History Hidradenitis suppurativa POWERPORT SMALL BOWEL SURGERIES Surgically constructed arteriovenous fistula Social History Smoking Status: Current every day smoker tobacco type: cigarettes Tobacco: How many years used: 27 second hand exposure: Yes alcohol intake: current alcohol intake frequency: a few times a month Alcohol type: wine substance use type: does not use what type of physical activity do you participate in: walking seatbelt use: always additional social history: SUN EXPOSURE: FREQUENTLY DOES NOT USE ASPIRIN DOES NOT USE IBUPROFEN EXAM Physical Exam Const Vital Signs: 01/24/22 02:11 01/24/22 02:19 Temperature 98.7 F Temperature Source Temporal Pulse Rate 101 H Respiratory Rate 20 H Respiratory Pattern Normal Blood Pressure 170/108 H Blood Pressure Mean 128 Pulse Ox 98 Oxygen Delivery Method Room Air Positive well nourished, well developed and obese General Appearance ED: well developed and NAD Nutritional Appearance: obese HEENT Reports moist mucous membranes normocephalic and atraumatic Throat: Negative for posterior oropharynx abnormal Eyes PERRL and EOMs intact bilaterally Neck no lymphadenopathy, supple and no meningeal signs Resp normal respiratory effort and clear to auscultation bilaterally Cardio no murmurs Cardio Narrative: Mildly tachycardic Rate: regular rate Rhythm: regular rhythm GI non-tender and non-distended Auscultation: normoactive bowel sounds Back/Spine no CVA tenderness and normal ROM Back/Spine Narrative: No vertebral tenderness. No rash. Tender in the upper lumbar paraspinal muscles bilaterally worse on the left, no palpable masses. Extremity normal to inspection and full ROM Neuro oriented x3, CN's II-XII intact bilaterally and no sensory deficits noted Sensorium / Orientation: alert Motor Exam: strength 5/5 throughout Psych mental status grossly normal Skin Lesions: no lesions Rashes: no rashes MDM MDM MDM Narrative Medical decision making narrative: 2 view chest x-ray was obtained and on my interpretation there is no acute infiltrate/abnormality. She was amenable to an injection of Toradol for her low back pain which I suspect is muscular. Her blood pressure is up here, but I suspect that is because she is due for her blood pressure medication in a couple of hours, and she just did some breathing treatments at home prior to coming here. She has had symptoms of bronchitis without an acute sinus infection in my opinion, for the past 2 weeks. Given that she is on biologics for her Crohn's and has relative immunocompromise state, I think it would be reasonable to treat her empirically with an antibiotic, however there is the risk of worsening her diarrhea. I gave her the option. She understands the risk of worsening diarrhea but prefers to try the antibiotic, she has tolerated azithromycin well in the past, she does understand that if we do that she cannot discontinue it with the effects going away quickly, I will prescribe her that and advise eating yogurt and/or a probiotic daily and she is comfortable with that overall plan. Repeat blood pressure prior to discharge 160/90, a little lower than it was earlier. Radiography Diagnostic Testing: Clinical Impression(s) from Imaging Studies Chest X-Ray 01/24/22 02:24 IMPRESSION: 1. Port-A-Cath is in stable position. 2. No evidence for acute cardiopulmonary pathology. Electronically Signed: Misha Veloz MD at 2:44 EST , Discharge Plan Triage Chief Complaint: General Illness ED Provider: Clyde Tirado Dx/Rx/DC Orders Clinical Impression: Acute bronchitis, Acquired immunocompromised state, Acute diarrhea, Episode of hypertension, Musculoskeletal back pain Instructions: ED Upper Resp Infec Abx Tx Prescriptions: New azithromycin 250 mg tablet See Rx Instructions .ROUTE .COMPLEX Qty: 6 0RF Rx Instructions: For 250 mg dose pack: take 500 mg today (day 1), then 250 mg for 4 days (days 2-5) No Action azathioprine [Imuran] 50 MG tablet 50 mg PO DAILY@0800 Label Comments: immunosuppressant lamivudine [Epivir] 150 MG tablet 100 mg PO DAILY Label Comments: antiviral omeprazole 20 MG capsule 40 mg PO DAILY Label Comments: stomach lorazepam 1 MG tablet 1 mg PO DAILY PRN PRN (Reason: Anxiety) infliximab [Remicade] 100 MG/10 ML recon soln 1 dose IV .COMPLEX Rx Instructions: EVERY 6 WEEKS atenolol 25 MG tablet 25 mg PO DAILY multivitamin Tablet 1 tab PO DAILY cyclobenzaprine 10 mg tablet 10 mg PO TID PRN PRN (Reason: Muscle Spasm) Label Comments: take 1 tablet by mouth three times a day if needed for muscle spasm cholecalciferol (vitamin D3) 50 mcg (2,000 unit) Capsule 50 mcg PO DAILY albuterol sulfate 90 mcg/actuation Hfa Aerosol Inhaler 1 puff INHALATION Q6H PRN (Reason: sob) budesonide-formoterol [Symbicort] 80-4.5 mcg/actuation Hfa Aerosol Inhaler INHALATION benzonatate 100 mg Capsule 100 mg PO TID PRN (Reason: Cough) loratadine 10 mg tablet 10 mg PO DAILY Label Comments: take 1 tablet by mouth once daily Primary Care Provider: Araseli Bueno Referrals: Araseli Bueno MD [Primary Care Provider] - 1 Week if not improving Disposition Disposition: Home, Self Care
[2022-01-24] MEDS: Ketorolac 60 MG/2 ML Vial IM (02:50)
[2022-01-24 02:52] VITALS: BP 160/90
[2022-01-24 03:05] VITALS: BP 160/90; PULSE 79; RESP 18; O2SAT 96
== END 2022-01-24 03:06 | disposition home or self-care (01) ==
PROVIDERS: Emergency Provider Emergency Medicine; PCP Internal Medicine; Visit Provider Emergency Medicine
DX: J20.9 Acute bronchitis, unspecified (principal); D84.9 Immunodeficiency, unspecified; R19.7 Diarrhea, unspecified; I10 Essential (primary) hypertension; M54.50 Low back pain, unspecified; F17.210 Nicotine dependence, cigarettes, uncomplicated
CPT/HCPCS: 71046; 96372; 99282

== ENCOUNTER 2022-07-28 18:00 | Emergency (ER) | payer MEDICARE, SELFPAY ==
[2022-07-28 18:01] VITALS: BP 200/91; PULSE 95; RESP 14; TEMP 36.1; O2SAT 97; BMI 50.1
[2022-07-28 18:17] VITALS: BP 185/131; PULSE 91; RESP 18; O2SAT 100
--- NOTE | 2022-07-28 18:22 | EX.ED.DYSGE1 ---
HPI <KIMBERLYN Little - Last Filed: 07/28/22 20:25> History of Present Illness Chief Complaint: Lower Extremity Injury Narrative Narrative: Patient is a 42-year-old female with history of hepatitis B, chronic disease who presents to the emergency department with right knee pain. Patient was on vacation, she states that she was holding up her bags and she missed stepped on the stairs. Patient states that she hyperextended her right knee. Patient states that this was on Monday evening, she spent Monday in the air and made at home earlier this morning. Patient states that the pain is getting worse with walking. She is here for evaluation [facility] <KIMBERLYN Little - Last Filed: 07/28/22 20:25> [facility] Medical History Acute anxiety Anemia Crohns disease GERD (gastroesophageal reflux disease) GI problem Heart murmur Hepatitis B Hidradenitis suppurativa High blood pressure History of blood transfusion History of MRSA infection IBS (irritable bowel syndrome) Obesity Psoriasis Sinus problem Vitamin deficiency Home Medications azathioprine 50 mg tablet (Imuran) 50 mg PO DAILY@0800 11/20/12 [History Last Taken 04/19/16] lamivudine 150 mg tablet (Epivir) 100 mg PO DAILY LIVER ENZYMES 11/20/12 [History Last Taken 04/19/16] omeprazole 20 mg capsule,delayed release 40 mg PO DAILY GERD 10/24/13 [History Last Taken 03/06/18 05:00] lorazepam 1 mg tablet 1 mg PO DAILY PRN PRN Anxiety 03/02/18 [History Last Taken 03/06/18 05:00] infliximab 100 mg intravenous solution (Remicade) 1 dose IV .COMPLEX 04/02/18 [History Last Taken Unknown] atenolol 25 mg tablet 25 mg PO DAILY 07/26/18 [History Last Taken Unknown] multivitamin 1 tab PO DAILY 06/26/20 [History Last Taken Unknown] albuterol sulfate 90 mcg/actuation aerosol inhaler 1 puff inhalation Q6H PRN sob 12/17/20 [History Last Taken Unknown] budesonide-formoterol HFA 80 mcg-4.5 mcg/actuation aerosol inhaler (Symbicort) inhalation 12/17/20 [History Last Taken Unknown] cholecalciferol (vitamin D3) 50 mcg (2,000 unit) capsule 50 mcg PO DAILY 12/17/20 [History Last Taken Unknown] cyclobenzaprine 10 mg tablet 10 mg PO TID PRN PRN Muscle Spasm 12/17/20 [History Last Taken Unknown] azithromycin 250 mg tablet See Rx Instructions PO .COMPLEX #6 tabs 01/24/22 [Rx Last Taken Unknown] benzonatate 100 mg capsule 100 mg PO TID PRN Cough 01/24/22 [History Last Taken Unknown] loratadine 10 mg tablet 10 mg PO DAILY 01/24/22 [History Last Taken Unknown] naproxen 500 mg tablet (Naprosyn) 500 mg PO BID PRN pain #20 tabs 07/28/22 [Rx Last Taken Unknown] tramadol 50 mg tablet 50 mg PO Q8H PRN pain #14 tabs 07/28/22 [Rx Last Taken Unknown] Allergy/AdvReac Type Severity Reaction Status Date / Time amoxicillin Allergy Hives Verified 07/28/22 18:00 clavulanic acid Allergy Hives Verified 07/28/22 18:00 [From Augmentin] levofloxacin [From Levaquin] Allergy Hives Verified 07/28/22 18:00 Family History Father Hypertension Anemia Mother Arthritis Hypertension Anemia Brother Asthma History of psychiatric care Son Asthma Daughter Severe allergy Aunt Hypertension Uncle Arthritis Hypertension Asthma Grandmother Arthritis Asthma Hypertension Other Breast cancer Cancer Cervical cancer Colon cancer Surgical History Hidradenitis suppurativa POWERPORT SMALL BOWEL SURGERIES Surgically constructed arteriovenous fistula Social History Smoking Status: Current every day smoker tobacco type: cigarettes Tobacco: How many years used: 27 second hand exposure: Yes alcohol intake: current alcohol intake frequency: a few times a month Alcohol type: wine substance use type: does not use what type of physical activity do you participate in: walking seatbelt use: always additional social history: SUN EXPOSURE: FREQUENTLY DOES NOT USE ASPIRIN DOES NOT USE IBUPROFEN ROS <KIMBERLYN Little - Last Filed: 07/28/22 20:25> ROS ED ROS Narrative Constitutional: Negative for fever, chills, weight loss, weakness Eyes: Negative for vision loss, vision change, double vision ENT: Negative for any sore throat, ear pain, congestion Cardiovascular: Negative for any chest pain, tightness, palpitations Respiratory: Negative for any cough, sputum production, hemoptysis, dyspnea, dyspnea on exertion, orthopnea Gastrointestinal: Negative for any abdominal pain, nausea, vomiting, diarrhea, constipation, blood in stool, blood in vomit : Negative for any urinary frequency, dysuria, retention, blood in urine Muscle skeletal: Negative for any muscle joint pain, stiffness, myalgias, arthralgias, neck pain, back pain. Positive right knee pain Neurological: Negative for any headache, syncope, numbness or tingling, dizziness Skin: Negative for any rashes, lumps, itching, abrasions, lacerations Psychiatric: Negative for any depression, anxiety, stress, suicidal ideation, homicidal ideation Hematologic: Negative for any easy bruising, excessive bruising, easy bleeding Allergies: Negative for any eczema, hives, rash EXAM <KIMBERLYN Little - Last Filed: 07/28/22 20:25> Physical Exam Narrative Exam Narrative: Vital signs reviewed. Extremities: No peripheral edema, no signs of gross trauma or deformity. Active full range of motion of all extremities. Patient does have an intact extensor mechanism. Patient has worsening pain to the medial knee as well as to the inferior patella. Knee joint appears to be intact. Neuro: Cranial nerves II through XII intact, no focal neurological deficits. Skin: Clean dry and intact with no rash, purpura, petechiae, vesicles or pustules. Backs/flank: No CVA tenderness, no midline spinal tenderness, no deformity. Psych: Normal mood and affect. No SI, HI or acute psychosis. Const Vital Signs: 07/28/22 18:01 07/28/22 18:17 Temperature 97 F L Temperature Source Temporal Pulse Rate 95 91 Respiratory Rate 14 18 Blood Pressure 200/91 H 185/131 H Blood Pressure Mean 127 149 Pulse Ox 97 100 Oxygen Delivery Method Room Air Room Air Positive well nourished and well developed General Appearance ED: well developed <Dr. Clyde Tirado MD - Last Filed: 07/28/22 22:53> Physical Exam Const Vital Signs: 07/28/22 18:01 07/28/22 18:17 Temperature 97 F L Temperature Source Temporal Pulse Rate 95 91 Respiratory Rate 14 18 Blood Pressure 200/91 H 185/131 H Blood Pressure Mean 127 149 Pulse Ox 97 100 Oxygen Delivery Method Room Air Room Air [facility] <KIMBERLYN Little - Last Filed: 07/28/22 20:25> [facility] Radiography Diagnostic Testing: Clinical Impression(s) from Imaging Studies Knee X-Ray 07/28/22 18:40 IMPRESSION: No definite acute or significant abnormality seen. Electronically Signed: Aram Cuba MD at 19:11 EDT , Treatment and Re-Evaluation :: All radiologic examinations were read, reviewed by the emergency department attending. From these reads, a plan of care will be put in place.Patient presents to the emergency department with right knee injury. Patient did receive x-rays of the right knee, this shows no definite acute or significant abnormality seen. There is no evidence of any fracture. Patient was given a [place] for the pain. Patient placed in a Luis wrap. She will be given anti-inflammatories for home instructed to follow-up with orthopedics. Patient replaced on anti-inflammatory as well as tramadol patient will follow-up outpatient <Dr. Clyde Tirado MD - Last Filed: 07/28/22 22:53> [facility] Radiography Diagnostic Testing: Clinical Impression(s) from Imaging Studies Knee X-Ray 07/28/22 18:40 IMPRESSION: No definite acute or significant abnormality seen. Electronically Signed: Aram Cuba MD at 19:11 EDT , Treatment and Re-Evaluation Comments:: Seen and evaluated independently and in conjunction with nurse practitioner. Agree with notes above unless documented otherwise. Stumbled while carrying heavy luggage with acute persistent pain in the right knee and difficulty bending Exam: Limited range of motion but extensor mechanism intact right knee, probable effusion with diffuse joint space tenderness, ligaments intact and stable within the limits of exam but very limited evaluation of ACL PCL due to patient very limited flexion. Neurovascular intact distally. X-rays 4 views of the right knee negative on my interpretation, radiology in agreement. Close a patient follow-up advised along with an Luis wrap, NSAIDs, crutches, and rest with reevaluation after the effusion is down. Discharge Plan Triage Chief Complaint: Lower Extremity Injury ED Midlevel Provider: Gustavo King ED Provider: Clyde Tirado Dx/Rx/DC Orders Clinical Impression: Knee sprain Instructions: ED Knee Sprain, ED Muscle Strain, Extremity Prescriptions: New naproxen [Naprosyn] 500 mg tablet 500 mg PO BID PRN (Reason: pain) Qty: 20 0RF tramadol 50 mg tablet 50 mg PO Q8H PRN (Reason: pain) Qty: 14 0RF No Action azathioprine [Imuran] 50 MG tablet 50 mg PO DAILY@0800 Label Comments: immunosuppressant lamivudine [Epivir] 150 MG tablet 100 mg PO DAILY Label Comments: antiviral omeprazole 20 MG capsule 40 mg PO DAILY Label Comments: stomach lorazepam 1 MG tablet 1 mg PO DAILY PRN PRN (Reason: Anxiety) infliximab [Remicade] 100 MG/10 ML recon soln 1 dose IV .COMPLEX Rx Instructions: EVERY 6 WEEKS atenolol 25 MG tablet 25 mg PO DAILY multivitamin Tablet 1 tab PO DAILY cyclobenzaprine 10 mg tablet 10 mg PO TID PRN PRN (Reason: Muscle Spasm) Label Comments: take 1 tablet by mouth three times a day if needed for muscle spasm cholecalciferol (vitamin D3) 50 mcg (2,000 unit) Capsule 50 mcg PO DAILY albuterol sulfate 90 mcg/actuation Hfa Aerosol Inhaler 1 puff INHALATION Q6H PRN (Reason: sob) budesonide-formoterol [Symbicort] 80-4.5 mcg/actuation Hfa Aerosol Inhaler INHALATION benzonatate 100 mg Capsule 100 mg PO TID PRN (Reason: Cough) loratadine 10 mg tablet 10 mg PO DAILY Label Comments: take 1 tablet by mouth once daily azithromycin 250 mg tablet See Rx Instructions .ROUTE .COMPLEX Qty: 6 0RF Rx Instructions: For 250 mg dose pack: take 500 mg today (day 1), then 250 mg for 4 days (days 2-5) Stand Alone Forms: ED Work / School Excuse Primary Care Provider: Araseli Bueno Referrals: Araseli Bueno MD [Primary Care Provider] - Lv Biggs MD [Med Staff - Active Staff] - Activity Restrictions/Additional Instructions: Please use medication as needed. Disposition Disposition: Home, Self Care Discharge Date/Time: 07/28/22 20:43
--- NOTE | 2022-07-28 18:40 | RAD_ITS ---
STUDY: X-RAY - RIGHT KNEE REASON FOR EXAM: Female, 42 years old. fall TECHNIQUE: 4 view(s) of the knee. COMPARISON: None. FINDINGS: Normal visualized distal femur. Normal visualized proximal tibia and fibula. Normal proximal tibiofibular articulation. There is no demonstrated fracture. Normal medial femorotibial compartment. Normal lateral femorotibial compartment. Normal patellofemoral articulation. There is no demonstrated joint effusion. The soft tissue structures are unremarkable. RAD/Knee 4 or More Views IMPRESSION: No definite acute or significant abnormality seen. Electronically Signed: Aram Cuba MD at 19:11 EDT ,
[2022-07-28] MEDS: HYDROcodone Bitartrate/Apap 5/325 Tablet PO ×2 (18:43→20:41)
== END 2022-07-28 20:43 | disposition home or self-care (01) ==
PROVIDERS: Emergency Provider Emergency Medicine; PCP Internal Medicine; Visit Provider Emergency Medicine
DX: S83.91XA Sprain of unspecified site of right knee, initial encounter (principal); F17.210 Nicotine dependence, cigarettes, uncomplicated; X58.XXXA Exposure to other specified factors, initial encounter
CPT/HCPCS: 73564; 99284

== ENCOUNTER 2022-09-28 21:39 | Emergency (ER) | payer MEDICARE, SELFPAY ==
[2022-09-28 21:44] VITALS: BP 190/103; PULSE 85; RESP 16; TEMP 35.9; O2SAT 100; BMI 48.8
[2022-09-28 21:47] VITALS: BP 190/103; PULSE 86; RESP 16; TEMP 35.9; O2SAT 100
--- NOTE | 2022-09-28 21:48 | RAD_ITS ---
STUDY: X-RAY CHEST REASON FOR EXAM: Female, 42 years old. WHEEZING TECHNIQUE: Single AP portable view of the chest. COMPARISON: 01/24/2022 FINDINGS: Right subclavian chest port which is unchanged. The lungs are clear and expanded. There is no demonstrated pleural abnormality. Normal size heart. Normal mediastinum and rolan. Normal visualized pulmonary arteries. Normal visualized aortic arch and descending thoracic aorta. Normal visualized thoracic spine. Normal visualized ribs, clavicles, and shoulders. There is no demonstrated abnormality of the visualized soft tissue structures of the upper abdomen. RAD/Chest 1 View (Portable) IMPRESSION: No active disease. Electronically Signed: Jani Crump MD at 21:59 EDT ,
--- NOTE | 2022-09-28 22:22 | EDS_ITS ---
HPI History of Present Illness Chief Complaint: Shortness of Breath Informant: patient Narrative Narrative: 4 days sinus congestion mild chest congestion and chronic muscle aches. Increasing diarrhea for 2 days. History of Crohn disease on immunosuppressants followed by Dr. Chase at [facility]. Multiple surgeries for Crohn's. She had COVID in the past she had the first two vaccinations. She states this feels different. Denies sick contacts. Denies asthma or COPD. States that occasional bloody stools as typical for her. No home testing performed. She states she received the COVID antibody in the past when she had her infection. She was never hospitalized. [facility] Medical History Acute anxiety Anemia Crohns disease GERD (gastroesophageal reflux disease) GI problem Heart murmur Hepatitis B Hidradenitis suppurativa High blood pressure History of blood transfusion History of MRSA infection IBS (irritable bowel syndrome) Obesity Psoriasis Sinus problem Vitamin deficiency Home Medications azathioprine 50 mg tablet (Imuran) 50 mg PO DAILY@0800 11/20/12 [History Last Taken 04/19/16] omeprazole 20 mg capsule,delayed release 40 mg PO DAILY GERD 10/24/13 [History Last Taken 03/06/18 05:00] lorazepam 1 mg tablet 1 mg PO DAILY PRN PRN Anxiety 03/02/18 [History Last Taken 03/06/18 05:00] infliximab 100 mg intravenous solution (Remicade) 1 dose IV .COMPLEX 04/02/18 [History Last Taken Unknown] atenolol 25 mg tablet 25 mg PO DAILY 07/26/18 [History Last Taken Unknown] multivitamin 1 tab PO DAILY 06/26/20 [History Last Taken Unknown] albuterol sulfate 90 mcg/actuation aerosol inhaler 1 puff inhalation Q6H PRN sob 12/17/20 [History Last Taken Unknown] cholecalciferol (vitamin D3) 50 mcg (2,000 unit) capsule 50 mcg PO DAILY 12/17/20 [History Last Taken Unknown] loratadine 10 mg tablet 10 mg PO DAILY 01/24/22 [History Last Taken Unknown] colestipol 1 gram tablet 1 g PO BID 09/28/22 [History Last Taken Unknown] dulaglutide 0.75 mg/0.5 mL subcutaneous pen injector (Trulicity) 0.75 mg subcut .WEEK 09/28/22 [History Last Taken Unknown] entecavir 1 mg tablet 1 mg PO Q24H 09/28/22 [History Last Taken Unknown] fluticasone furoate 100 mcg-vilanterol 25 mcg/dose inhalation powder (Breo Ellipta) 1 inh inhalation Q24H 09/28/22 [History Last Taken Unknown] zolpidem 10 mg tablet 10 mg PO QHS PRN PRN insomnia 09/28/22 [History Last Taken Unknown] Allergy/AdvReac Type Severity Reaction Status Date / Time amoxicillin Allergy Hives Verified 09/28/22 21:39 clavulanic acid Allergy Hives Verified 09/28/22 21:39 [From Augmentin] levofloxacin [From Levaquin] Allergy Hives Verified 09/28/22 21:39 Family History Father Hypertension Anemia Mother Arthritis Hypertension Anemia Brother Asthma History of psychiatric care Son Asthma Daughter Severe allergy Aunt Hypertension Uncle Arthritis Hypertension Asthma Grandmother Arthritis Asthma Hypertension Other Breast cancer Cancer Cervical cancer Colon cancer Surgical History Hidradenitis suppurativa POWERPORT SMALL BOWEL SURGERIES Surgically constructed arteriovenous fistula Social History Smoking Status: Current every day smoker tobacco type: cigarettes Tobacco: How many years used: 27 second hand exposure: Yes alcohol intake: current alcohol intake frequency: a few times a month Alcohol type: wine substance use type: does not use what type of physical activity do you participate in: walking seatbelt use: always additional social history: SUN EXPOSURE: FREQUENTLY DOES NOT USE ASPIRIN DOES NOT USE IBUPROFEN ROS ROS ED Constitutional Constitutional ED: Denies chills, fever(s) or sweats Eyes Eyes: Denies change in vision ENT ENT ED: Reports other Details: Sinus congestion ; Denies dysphagia or sore throat Cardiovascular Cardiovascular: Denies chest pain, leg edema, palpitations or racing heartbeat Respiratory/Chest Respiratory/Chest: Denies cough, dyspnea or dyspnea on exertion Gastrointestinal Gastrointestinal: Reports diarrhea; Denies abdominal pain, nausea or vomiting Genitourinary Genitourinary ED: Denies dysuria, hematuria or urinary frequency Musculoskeletal Musculoskeletal: Reports myalgias; Denies back pain, extremity pain or neck pain Integumentary Denies rash or wounds Neurologic Neurologic: Denies headache(s), paresthesias or weakness EXAM Physical Exam Const Vital Signs: 09/28/22 21:44 09/28/22 21:47 09/28/22 23:05 Temperature 96.7 F L 96.7 F L Temperature Source Temporal Temporal Pulse Rate 85 86 Respiratory Rate 16 16 Respiratory Depth Respiratory Pattern Blood Pressure 190/103 H 190/103 H Blood Pressure Mean 132 132 Pulse Ox 100 100 Oxygen Delivery Method Room Air 09/28/22 23:05 09/28/22 23:05 09/28/22 23:06 Temperature Temperature Source Pulse Rate 86 Respiratory Rate 16 Respiratory Depth Normal Respiratory Pattern Normal Blood Pressure 165/101 H Blood Pressure Mean 122 Pulse Ox 98 100 Oxygen Delivery Method Room Air Room Air Room Air Positive well nourished and well developed General Appearance ED: well developed and NAD HEENT Reports moist mucous membranes normocephalic and atraumatic Eyes PERRL, EOMs intact bilaterally and conjunctivae normal General Eye ED: Yes normal appearance of both eyes Neck no lymphadenopathy and supple General: Negative for tenderness Chest Wall Chest: Negative for tenderness Resp normal respiratory effort and normal air movement Effort and Inspection: symmetric chest movement; Negative for respiratory distress Cardio regular rate, regular rhythm and no murmurs Peripheral Pulses: pulses 2+ throughout GI normal to inspection, nondistended, normoactive bowel sounds and non-tender Palpation: Negative for guarding or rebound tenderness present Back/Spine no CVA tenderness and no thoracic nor lumbar tenderness Extremity normal to inspection General Extremety ED: Negative for edema or tenderness General Extremity: Negative for edema Neuro oriented x3 and no sensory deficits noted Sensorium / Orientation: awake and alert Skin no rashes or lesions noted and no wounds MDM MDM MDM Narrative Medical decision making narrative: Interventions / MDM: Differential diagnosis: Viral syndrome, Crohn's disease Diagnosis considered but do not suspect: Nonsurgical abdomen My EKG interpretation: N/A Imaging independently reviewed and interpreted by myself: N/A External documents reviewed: N/A Test considered but not ordered:N/A ED course: Patient vital stable presenting with viral COVID type symptoms with diarrhea and myalgias and cough. Rapid COVID and flu negative. Nonsurgical abdominal pain with Crohn's history. Labs were obtained white count of 10.1 creatinine 0.95. Requested pain medicines half milligram Dilaudid Zofran was given. Reevaluation discussed results. Clinically stable. White count not greater than 15, so no indication for steroids at this time with her Crohn's history. She will be called her GI doctor Dr. Chase for outpatient follow-up. All questions were answered. Re-evaluation: stable, Disposition discussed with patient/family/significant other: Patient Case discussed with consulting clinician: N/A This note was generated with SureVisit dictation software. It may contain incorrect words, spelling, and punctuation that were not noted in checking the note before signing. Lab Data Attestation: I reviewed the patient's lab results. Labs: Laboratory Results - last 24 hr 09/28/22 22:40 WBC 10.1 RBC 5.26 Hgb 10.6 L Hct 36.7 L MCV 69.8 L MCH 20.2 L MCHC 28.9 L RDW Std Deviation 44.7 H RDW Coeff of Renny 18.4 H Plt Count 234 MPV TNP Immature Gran % (Auto) 0.300 Neut % (Auto) 51.8 Lymph % (Auto) 39.3 [place] % (Auto) 6.3 Eos % (Auto) 1.4 Baso % (Auto) 0.9 Absolute Neuts (auto) 5.2 Absolute Lymphs (auto) 3.96 Nucleated RBC % 0 Sodium 138 Potassium 3.4 L Chloride 108 H Carbon Dioxide 26.0 Anion Gap 4 L BUN 7 Creatinine 0.95 Estim Creat Clear Calc 88.12 Est GFR (MDRD) Af Amer 82 Est GFR (MDRD) Non-Af 68 BUN/Creatinine Ratio 7.3 L Glucose 87 Calcium 8.3 L Radiography Diagnostic Testing: Clinical Impression(s) from Imaging Studies Chest X-Ray 09/28/22 21:48 IMPRESSION: No active disease. Electronically Signed: Jani Crump MD at 21:59 EDT , Discharge Plan Triage Chief Complaint: Shortness of Breath ED Provider: Silverio Morejon Dx/Rx/DC Orders Clinical Impression: Acute viral syndrome, Crohn's disease Instructions: ED Crohn's Disease, ED Viral Syndrome (Adult) Prescriptions: No Action azathioprine [Imuran] 50 MG tablet 50 mg PO DAILY@0800 Patient Comments: immunosuppressant omeprazole 20 MG capsule 40 mg PO DAILY Patient Comments: stomach lorazepam 1 MG tablet 1 mg PO DAILY PRN PRN (Reason: Anxiety) infliximab [Remicade] 100 MG/10 ML recon soln 1 dose IV .COMPLEX Rx Instructions: EVERY 6 WEEKS atenolol 25 MG tablet 25 mg PO DAILY multivitamin Tablet 1 tab PO DAILY cholecalciferol (vitamin D3) 50 mcg (2,000 unit) Capsule 50 mcg PO DAILY albuterol sulfate 90 mcg/actuation Hfa Aerosol Inhaler 1 puff INHALATION Q6H PRN (Reason: sob) loratadine 10 mg tablet 10 mg PO DAILY Patient Comments: take 1 tablet by mouth once daily Trulicity 0.75 mg/0.5 mL pen injector 0.75 mg SUBCUT .WEEK Patient Comments: inject 0.75 milligram subcutaneously every week entecavir 1 mg tablet 1 mg PO Q24H Patient Comments: take 1 tablet by mouth once daily colestipol 1 gram tablet 1 g PO BID Patient Comments: take 1 tablet by mouth twice a day fluticasone furoate-vilanterol [Breo Ellipta] 100-25 mcg/dose blister with device 1 inh INHALATION Q24H Patient Comments: inhale 1 puff by mouth as directed once daily zolpidem 10 mg tablet 10 mg PO QHS PRN PRN (Reason: insomnia) Patient Comments: take 1 tablet by mouth at bedtime if needed for insomnia Stand Alone Forms: ED Work / School Excuse Primary Care Provider: Araseli Bueno Referrals: Araseli Bueno MD [Primary Care Provider] - Activity Restrictions/Additional Instructions: COVID and flu are negative. Chest x-ray negative. Labs stable. Follow-up with your PCP and Dr. Chase with your Crohn's history. May continue Tylenol as needed for pain control. Avoid NSAIDs due to your Crohn's history. Disposition Disposition: Home, Self Care Discharge Date/Time: 09/29/22 00:24
[2022-09-28 22:47] LABS: Absolute Lymphocyte Count 3.96 X10^3/uL (0.83-4.51); Absolute Neutrophil Count 5.2 X10^3/uL (2.0-7.7); Basophil# 0.09 X10^3/uL; Basophil% 0.9 % (0-1); Eosinophil# 0.14 X10^3/uL; Eosinophils% 1.4 % (0-5); Hematocrit 36.7 % (37-47); Hemoglobin 10.6 g/dL (12.0-15.0); Lymphocyte # 3.96 X10^3/ul (0.83-4.51); Lymphocyte % 39.3 % (19-41); Mean Corp Hgb Conc 28.9 g/dL (32-36); Mean Corpuscular Hgb 20.2 pg (27.0-32.0); Mean Corpuscular Volume 69.8 fL (81-99); Monocyte# 0.63 X10^3/uL; Monocyte% 6.3 % (0-10); NRBC Flagged by Analyzer 0 % (0-5); Neutrophil # 5.22 X10^3/uL (2.7-7.7); Neutrophil % 51.8 % (47-70); Platelet Count 234 K/mm3 (150-450); RBC Distribution Width CV 18.4 % (11.6-14.6); RBC Distribution Width SD 44.7 fl (35.1-43.9); Red Blood Count 5.26 M/mm3 (4.2-5.4); White Blood Count 10.1 K/mm3 (4.4-11.0)
[2022-09-28] MEDS: HYDROmorphone 0.5 MG/0.5 ML SYRINGE IV (22:58)
[2022-09-28] MEDS: Ondansetron 4 MG/2 ML Vial IV (22:58)
[2022-09-28 23:05] VITALS: O2SAT 98
[2022-09-28 23:06] VITALS: BP 165/101; PULSE 86; RESP 16; O2SAT 100
[2022-09-28 23:13] LABS: Anion Gap 4 (5-15); BUN 7 mg/dL (7-18); BUN/Creat Ratio 7.3 RATIO (10-20); Calcium,Total 8.3 mg/dL (8.5-10.1); Chloride 108 mmol/L (98-107); Creatinine, Serum 0.95 mg/dL (0.55-1.02); EST Glomerular Filtration Rate 68 mL/min (>60); Est Glom Filt Rate - Afr Amer 82 mL/min (>60); Estimated Creatinine Clearance 88.12 ml/min; Glucose 87 mg/dL (74-106); Potassium 3.4 mmol/L (3.5-5.1); Sodium Level 138 mmol/L (136-145)
[2022-09-29] MEDS: oxyCODONE 5 MG Tablet PO (00:18)
== END 2022-09-29 00:24 | disposition home or self-care (01) ==
PROVIDERS: Emergency Provider Emergency Medicine; PCP Internal Medicine; Visit Provider Emergency Medicine
DX: B34.9 Viral infection, unspecified (principal); K50.90 Crohn's disease, unspecified, without complications; I10 Essential (primary) hypertension; F17.210 Nicotine dependence, cigarettes, uncomplicated; Z79.899 Other long term (current) drug therapy; Z86.16 Personal history of COVID-19
CPT/HCPCS: 71045; 80048; 85025; 87811; 94760; 96374; 96375; 99282; A4216; J2405

== ENCOUNTER 2022-12-10 05:21 | Emergency (ER) | payer MEDICARE, SELFPAY ==
[2022-12-10 05:21] VITALS: PULSE 86; RESP 16; TEMP 36.2; O2SAT 97; BMI 50.5
[2022-12-10 05:25] VITALS: BP 178/89
--- NOTE | 2022-12-10 05:32 | CT_ITS ---
STUDY: CT ABDOMEN AND PELVIS WITH CONTRAST REASON FOR EXAM: Female, 42 years old patient with abdominal pain and Crohn''s disease. RADIATION DOSAGE (If Supplied By Facility): CTDIvol = ( 31.43 ) mGy, DLP = ( 1893.78 ) mGycm TECHNIQUE: Transaxial images were obtained from the dome of the diaphragm to the symphysis pubis without oral contrast. 100 mL of IV Isovue-300 was administered. Sagittal and coronal images were reconstructed. Individualized dose optimization techniques were used for this CT. COMPARISON: CT of the abdomen and pelvis dated October 06, 2021. FINDINGS: The visualized lung bases are unremarkable. The visualized portions of the heart are within normal limits. Normal liver. There are surgical clips in the gallbladder fossa consistent with a prior cholecystectomy. Normal spleen. Normal pancreas. Normal bilateral adrenal glands. Normal right kidney. Normal left kidney. Normal visualized stomach. There is no obvious dilated bowel, ascites or pneumoperitoneum. The small bowel has a grossly normal appearance. There is stool and gas visible in the colon. There is non-visualization of the appendix. There is minimal atherosclerotic calcification of the abdominal aorta, without a demonstrated aneurysm. There is venous distention of the inferior vena cava (IVC). Normal retroperitoneum. Normal urinary bladder. Normal visualized uterus. Normal abdominal wall. Normal osseous structures. CT/Abdomen/Pelvis W IV Cont ONLY IMPRESSION: No CT evidence of acute intra-abdominal disease. Electronically Signed: Anuja Khoury MD at 6:30 EDT ,
--- NOTE | 2022-12-10 05:33 | ED.VIS.GI ---
HPI HPI - GI History of Present Illness Chief Complaint: Abd Pain Informant: patient Narrative Narrative: 42-year-old female with a history of Crohn's presenting with what feels like a flareup over the past 4 days or so. Pain that is left of umbilical, nausea with some occasional emesis, profuse diarrhea with mucus and blood, no more blood than usual but more diarrhea than usual. No hematemesis or coffee-ground emesis. No fevers or chills. She she states she has had approximately 14 abdominal surgeries throughout the past, including partial bowel resections, intra-abdominal fistula surgeries, and cholecystectomy/appendectomy. [facility] Medical History Acute anxiety Anemia Crohns disease GERD (gastroesophageal reflux disease) GI problem Heart murmur Hepatitis B Hidradenitis suppurativa High blood pressure History of blood transfusion History of MRSA infection IBS (irritable bowel syndrome) Obesity Psoriasis Sinus problem Vitamin deficiency Home Medications azathioprine 50 mg tablet (Imuran) 50 mg PO DAILY@0800 11/20/12 [History Last Taken 04/19/16] omeprazole 20 mg capsule,delayed release 20 - 40 mg PO DAILY GERD 10/24/13 [History Last Taken 03/06/18 05:00] lorazepam 1 mg tablet 1 mg PO DAILY PRN PRN Anxiety 03/02/18 [History Last Taken 03/06/18 05:00] infliximab 100 mg intravenous solution (Remicade) 1 dose IV .COMPLEX 04/02/18 [History Last Taken Unknown] multivitamin 1 tab PO DAILY 06/26/20 [History Last Taken Unknown] albuterol sulfate 90 mcg/actuation aerosol inhaler 1 puff inhalation Q6H PRN sob 12/17/20 [History Last Taken Unknown] cholecalciferol (vitamin D3) 50 mcg (2,000 unit) capsule 50 mcg PO DAILY 12/17/20 [History Last Taken Unknown] colestipol 1 gram tablet 1 g PO BID 09/28/22 [History Last Taken Unknown] dulaglutide 0.75 mg/0.5 mL subcutaneous pen injector (Trulicity) 0.75 mg subcut .WEEK 09/28/22 [History Last Taken Unknown] entecavir 1 mg tablet 1 mg PO Q24H 09/28/22 [History Last Taken Unknown] fluticasone furoate 100 mcg-vilanterol 25 mcg/dose inhalation powder (Breo Ellipta) 1 inh inhalation Q24H 09/28/22 [History Last Taken Unknown] zolpidem 10 mg tablet 10 mg PO QHS PRN PRN insomnia 09/28/22 [History Last Taken Unknown] atenolol 50 mg tablet 50 mg PO DAILY 12/10/22 [History Last Taken Unknown] bupropion HCl 150 mg tablet,12 hr sustained-release 150 mg PO Q12H 12/10/22 [History Last Taken Unknown] cyclobenzaprine 10 mg tablet 10 mg PO TID PRN muscle spasm 12/10/22 [History Last Taken Unknown] hydrocodone-acetaminophen 5-325mg 5mg-325mg 1 tab PO Q6H PRN PRN Pain 2 days #8 TABLETS 12/10/22 [Rx Last Taken Unknown] ondansetron 4 mg disintegrating tablet 8 mg (2 x 4 mg) PO Q8H PRN PRN Nausea #20 tabs 12/10/22 [Rx Last Taken Unknown] prednisone 10 mg tablet 10 mg PO UD #33 tabs 12/10/22 [Rx Last Taken Unknown] Allergy/AdvReac Type Severity Reaction Status Date / Time amoxicillin Allergy Hives Verified 12/10/22 05:22 clavulanic acid Allergy Hives Verified 12/10/22 05:22 [From Augmentin] levofloxacin [From Levaquin] Allergy Hives Verified 12/10/22 05:22 Family History Father Hypertension Anemia Mother Arthritis Hypertension Anemia Brother Asthma History of psychiatric care Son Asthma Daughter Severe allergy Aunt Hypertension Uncle Arthritis Hypertension Asthma Grandmother Arthritis Asthma Hypertension Other Breast cancer Cancer Cervical cancer Colon cancer Surgical History Hidradenitis suppurativa POWERPORT SMALL BOWEL SURGERIES Surgically constructed arteriovenous fistula Social History Smoking Status: Current every day smoker tobacco type: cigarettes Tobacco: How many years used: 27 second hand exposure: Yes alcohol intake: current alcohol intake frequency: a few times a month Alcohol type: wine substance use type: does not use what type of physical activity do you participate in: walking seatbelt use: always additional social history: SUN EXPOSURE: FREQUENTLY DOES NOT USE ASPIRIN DOES NOT USE IBUPROFEN ROS ROS ED Constitutional Constitutional ED: Reports malaise; Denies chills or fever(s) Eyes Eyes: Denies change in vision or diplopia ENT ENT ED: Denies rhinorrhea or sore throat Cardiovascular Cardiovascular: Denies chest pain or palpitations Respiratory/Chest Respiratory/Chest: Denies cough or dyspnea Gastrointestinal Gastrointestinal: Reports as per HPI, abdominal pain, diarrhea, hematochezia, nausea and vomiting; Denies hematemesis or melena Genitourinary Genitourinary ED: Denies dysuria or hematuria Musculoskeletal Musculoskeletal: Denies back pain or neck pain Integumentary Denies abscess or rash Neurologic Neurologic: Denies headache(s), paresthesias or weakness Psychiatric Psychiatric: Denies anxiety or suicidal thoughts EXAM Physical Exam Const Vital Signs: 12/10/22 05:21 12/10/22 05:25 Temperature 97.1 F L Temperature Source Temporal Pulse Rate 86 Respiratory Rate 16 Blood Pressure 178/89 H Blood Pressure Mean 118 Pulse Ox 97 Oxygen Delivery Method Room Air Positive well nourished, well developed and obese General Appearance ED: well developed and NAD Nutritional Appearance: obese HEENT Reports moist mucous membranes normocephalic and atraumatic Eyes PERRL and EOMs intact bilaterally Neck full ROM and supple Resp normal respiratory effort and clear to auscultation bilaterally Cardio regular rate, regular rhythm and no murmurs GI non-distended GI Narrative: Mild-moderate tenderness epigastrium, periumbilical without palpable hernia, left upper quadrant and left mid abdomen, the rest of her abdomen is benign. No guarding or rebound tenderness. Auscultation: normoactive bowel sounds Palpation: soft Back/Spine no CVA tenderness General Back: other FROM Extremity normal to inspection General Extremety ED: Negative for edema, pulses abnormal or tenderness General Extremity: Negative for edema or pulses abnormal Neuro oriented x3, CN's II-XII intact bilaterally and no sensory deficits noted Sensorium / Orientation: awake and alert Motor Exam: strength 5/5 throughout Psych mental status grossly normal and thought process normal Skin no rashes or lesions noted and no wounds MDM MDM MDM Narrative Medical decision making narrative: Differential here includes this Crohn's exacerbation is well as small bowel obstruction thought less likely since she is having profuse diarrhea and other intra-abdominal complications of Crohn's for which CT is indicated. This was essentially unremarkable I reviewed the images and the report which I agree with. Labs are noted as well which are normal. This is all essentially consistent with an acute Crohn's exacerbation. After treating her with IV fluids, Zofran, analgesics she is feeling much better and tolerating oral fluids. She is amenable to outpatient treatment with steroids and close outpatient follow-up with her GI specialist, she was given Solu-Medrol here to start the course, and prescribed a prednisone taper and Zofran. We discussed reasons to return she is comfortable with that plan. Lab Data Attestation: I reviewed the patient's lab results. Labs: Laboratory Results - last 24 hr 12/10/22 05:45 WBC 9.2 RBC 5.39 Hgb 11.9 L Hct 40.0 MCV 74.2 L MCH 22.1 L MCHC 29.8 L RDW Std Deviation 63.3 H RDW Coeff of Renny 24.2 H Plt Count 190 MPV TNP Immature Gran % (Auto) 0.200 Neut % (Auto) 44.7 L Lymph % (Auto) 45.0 H Towns % (Auto) 7.6 Eos % (Auto) 1.6 Baso % (Auto) 0.9 Absolute Neuts (auto) 4.1 Absolute Lymphs (auto) 4.15 Nucleated RBC % 0 Differential Comment SCANNED Atypical Lymphocytes RARE Hypochromasia 1+ Sodium 139 Potassium 3.4 L Chloride 110 H Carbon Dioxide 26.0 Anion Gap 3 L BUN 11 Creatinine 1.05 H Estim Creat Clear Calc 77.22 Est GFR (MDRD) Af Amer 73 Est GFR (MDRD) Non-Af 61 BUN/Creatinine Ratio 10.5 Glucose 107 H Calcium 8.4 L Total Bilirubin 0.20 AST 18 ALT 34 Alkaline Phosphatase 90 Total Protein 7.8 Albumin 3.3 Globulin 4.5 H Albumin/Globulin Ratio 0.7 L Lipase 40 Radiography Diagnostic Testing: Clinical Impression(s) from Imaging Studies Abdomen/Pelvis CT 12/10/22 05:32 IMPRESSION: No CT evidence of acute intra-abdominal disease. Electronically Signed: Anuja Khoury MD at 6:30 EDT , Discharge Plan Triage Chief Complaint: Abd Pain ED Provider: Clyde Tirado Dx/Rx/DC Orders Clinical Impression: Exacerbation of Crohn's disease without complication Instructions: Crohns Disease Dc Prescriptions: New prednisone 10 mg tablet 10 mg PO UD Qty: 33 0RF Rx Instructions: Take 4 tablets daily for 3 days, then 3 daily for 3 days, then 2 daily for 3 days, then 1 a day for 3 days then 1 QOD for 3 doses. hydrocodone-acetaminophen [hydrocodone-acetaminophen] 5-325 mg tablet 1 tab PO Q6H PRN PRN (Reason: Pain) 2 Days Qty: 8 0RF ondansetron [ondansetron] 4 mg tablet,disintegrating 8 mg PO Q8H PRN PRN (Reason: Nausea) Qty: 20 0RF No Action azathioprine [Imuran] 50 MG tablet 50 mg PO DAILY@0800 Patient Comments: immunosuppressant omeprazole 20 MG capsule 20 - 40 mg PO DAILY Patient Comments: stomach lorazepam 1 MG tablet 1 mg PO DAILY PRN PRN (Reason: Anxiety) infliximab [Remicade] 100 MG/10 ML recon soln 1 dose IV .COMPLEX Rx Instructions: EVERY 6 WEEKS multivitamin Tablet 1 tab PO DAILY cholecalciferol (vitamin D3) 50 mcg (2,000 unit) Capsule 50 mcg PO DAILY albuterol sulfate 90 mcg/actuation Hfa Aerosol Inhaler 1 puff INHALATION Q6H PRN (Reason: sob) atenolol 50 mg tablet 50 mg PO DAILY Patient Comments: take 1 tablet by mouth once daily cyclobenzaprine 10 mg tablet 10 mg PO TID PRN (Reason: muscle spasm) Patient Comments: take 1 tablet by mouth three times a day if needed for muscle spasm bupropion HCl 150 mg tablet sustained-release 12 hr 150 mg PO Q12H Patient Comments: take 1 tablet by mouth twice a day Trulicity 0.75 mg/0.5 mL pen injector 0.75 mg SUBCUT .WEEK Patient Comments: inject 0.75 milligram subcutaneously every week entecavir 1 mg tablet 1 mg PO Q24H Patient Comments: take 1 tablet by mouth once daily colestipol 1 gram tablet 1 g PO BID Patient Comments: take 1 tablet by mouth twice a day fluticasone furoate-vilanterol [Breo Ellipta] 100-25 mcg/dose blister with device 1 inh INHALATION Q24H Patient Comments: inhale 1 puff by mouth as directed once daily zolpidem 10 mg tablet 10 mg PO QHS PRN PRN (Reason: insomnia) Patient Comments: take 1 tablet by mouth at bedtime if needed for insomnia Primary Care Provider: Araseli Bueno Referrals: Araseli Bueno MD [Primary Care Provider] - (and/or your GI specialist WILLY) Disposition Disposition: Home, Self Care
[2022-12-10] MEDS: 0.9% Normal Saline (1000mL) 1,000 ML 1000 ML IV (05:44)
[2022-12-10] MEDS: Ondansetron 4 MG/2 ML Vial IV (05:44)
[2022-12-10] MEDS: Morphine 4 MG/ML Syringe IV (05:45)
[2022-12-10 05:54] LABS: Absolute Lymphocyte Count 4.15 X10^3/uL (0.83-4.51); Absolute Neutrophil Count 4.1 X10^3/uL (2.0-7.7); Basophil# 0.08 X10^3/uL; Basophil% 0.9 % (0-1); Eosinophil# 0.15 X10^3/uL; Eosinophils% 1.6 % (0-5); Hemoglobin 11.9 g/dL (12.0-15.0); Lymphocyte # 4.15 X10^3/ul (0.83-4.51); Mean Corp Hgb Conc 29.8 g/dL (32-36); Mean Corpuscular Hgb 22.1 pg (27.0-32.0); Mean Corpuscular Volume 74.2 fL (81-99); Monocyte% 7.6 % (0-10); NRBC Flagged by Analyzer 0 % (0-5); Neutrophil # 4.12 X10^3/uL (2.7-7.7); Neutrophil % 44.7 % (47-70); POSITIVE MORPHOLOGY YES; Platelet Count 190 K/mm3 (150-450); RBC Distribution Width CV 24.2 % (11.6-14.6); RBC Distribution Width SD 63.3 fl (35.1-43.9); Red Blood Count 5.39 M/mm3 (4.2-5.4); White Blood Count 9.2 K/mm3 (4.4-11.0)
[2022-12-10 05:55] LABS: Differential Indicated SCAN CRITERIA MET
[2022-12-10 06:08] LABS: ALB/GLOB Ratio 0.7 RATIO (0.9-2.4); AST(SGOT) 18 U/L (15-37); Alanine Aminotransfer ALT/SGPT 34 U/L (13-56); Albumin, Serum 3.3 g/dL (3.2-5.0); Alkaline Phosphatase 90 U/L (45-117); Anion Gap 3 (5-15); BUN 11 mg/dL (7-18); BUN/Creat Ratio 10.5 RATIO (10-20); Calcium,Total 8.4 mg/dL (8.5-10.1); Chloride 110 mmol/L (98-107); Creatinine, Serum 1.05 mg/dL (0.55-1.02); EST Glomerular Filtration Rate 61 mL/min (>60); Est Glom Filt Rate - Afr Amer 73 mL/min (>60); Estimated Creatinine Clearance 77.22 ml/min; Globulin 4.5 g/dL (2.2-4.2); Glucose 107 mg/dL (74-106); Lipase 40 U/L (13-75); Potassium 3.4 mmol/L (3.5-5.1); Protein, Total 7.8 g/dL (6.4-8.2); Sodium Level 139 mmol/L (136-145)
[2022-12-10 06:15] LABS: Atypical Lymphocyte RARE %; Differential Comment SCANNED; Hypochromasia 1+
[2022-12-10] MEDS: HYDROmorphone 1 MG/ML Syringe IV (06:26)
[2022-12-10] MEDS: MethylPREDNISolone 125 MG/2 ML Vial IV (06:54)
[2022-12-10 07:15] VITALS: PULSE 81; RESP 16
== END 2022-12-10 07:16 | disposition home or self-care (01) ==
PROVIDERS: Emergency Provider Emergency Medicine; PCP Internal Medicine; Visit Provider Emergency Medicine
DX: K50.90 Crohn's disease, unspecified, without complications (principal); F17.210 Nicotine dependence, cigarettes, uncomplicated; E66.9 Obesity, unspecified; K21.9 Gastro-esophageal reflux disease without esophagitis; Z79.899 Other long term (current) drug therapy
CPT/HCPCS: 36591; 74177; 80053; 83690; 85025; 96361; 96374; 96375; 99282; J7030; Q9967; A4216; J2405

== ENCOUNTER 2023-04-11 19:26 | Emergency (ER) | payer MEDICARE, SELFPAY ==
[2023-04-11 19:27] VITALS: BP 158/127; PULSE 93; RESP 20; TEMP 36; O2SAT 98; BMI 47.8
--- NOTE | 2023-04-11 21:01 | ED.VIS.FEGU ---
HPI HPI - Female History of Present Illness Chief Complaint: Complaint Informant: patient Bleeding Issue: Negative for Vaginal bleeding Associated Symptoms Associated Symptoms: Positive for Dysuria Narrative Narrative: 43-year-old female history of Crohn's disease been treated since 2004. States she think she may have a UTI with cloudy urine and just mild discomfort. No fever or chills. No vomiting. She also has loose stools with her Crohn's. Complaining of left earache. No recent antibiotics or hospitalization. Prior similar symptoms: Yes Recent Illness/Hospitalization: No PFSH PFSH Medical History Acute anxiety Anemia Crohns disease GERD (gastroesophageal reflux disease) GI problem Heart murmur Hepatitis B Hidradenitis suppurativa High blood pressure History of blood transfusion History of MRSA infection IBS (irritable bowel syndrome) Obesity Psoriasis Sinus problem Vitamin deficiency Home Medications azathioprine 50 mg tablet (Imuran) 50 mg PO DAILY@0800 11/20/12 [History Last Taken 04/19/16] omeprazole 20 mg capsule,delayed release 20 - 40 mg PO DAILY GERD 10/24/13 [History Last Taken 03/06/18 05:00] lorazepam 1 mg tablet 1 mg PO DAILY PRN PRN Anxiety 03/02/18 [History Last Taken 03/06/18 05:00] infliximab 100 mg intravenous solution (Remicade) 1 dose IV .COMPLEX 04/02/18 [History Last Taken Unknown] multivitamin 1 tab PO DAILY 06/26/20 [History Last Taken Unknown] albuterol sulfate 90 mcg/actuation aerosol inhaler 1 puff inhalation Q6H PRN sob 12/17/20 [History Last Taken Unknown] cholecalciferol (vitamin D3) 50 mcg (2,000 unit) capsule 50 mcg PO DAILY 12/17/20 [History Last Taken Unknown] colestipol 1 gram tablet 1 g PO BID 09/28/22 [History Last Taken Unknown] dulaglutide 0.75 mg/0.5 mL subcutaneous pen injector (Trulicity) 0.75 mg subcut .WEEK 09/28/22 [History Last Taken Unknown] entecavir 1 mg tablet 1 mg PO Q24H 09/28/22 [History Last Taken Unknown] fluticasone furoate 100 mcg-vilanterol 25 mcg/dose inhalation powder (Breo Ellipta) 1 inh inhalation Q24H 09/28/22 [History Last Taken Unknown] zolpidem 10 mg tablet 10 mg PO QHS PRN PRN insomnia 09/28/22 [History Last Taken Unknown] atenolol 50 mg tablet 50 mg PO DAILY 12/10/22 [History Last Taken Unknown] bupropion HCl 150 mg tablet,12 hr sustained-release 150 mg PO Q12H 12/10/22 [History Last Taken Unknown] cyclobenzaprine 10 mg tablet 10 mg PO TID PRN muscle spasm 12/10/22 [History Last Taken Unknown] hydrocodone-acetaminophen 5-325mg 5mg-325mg 1 tab PO Q6H PRN PRN Pain 2 days #8 TABLETS 12/10/22 [Rx Last Taken Unknown] ondansetron 4 mg disintegrating tablet 8 mg (2 x 4 mg) PO Q8H PRN PRN Nausea #20 tabs 12/10/22 [Rx Last Taken Unknown] prednisone 10 mg tablet 10 mg PO UD #33 tabs 12/10/22 [Rx Last Taken Unknown] phenazopyridine 200 mg tablet (Pyridium) 200 mg PO TID #10 tabs 04/11/23 [Rx Last Taken Unknown] sulfamethoxazole 800 mg-trimethoprim 160 mg tablet (Bactrim DS) 1 tab PO BID 7 days #14 tabs 04/11/23 [Rx Last Taken Unknown] Allergy/AdvReac Type Severity Reaction Status Date / Time amoxicillin Allergy Hives Verified 04/11/23 19:27 clavulanic acid Allergy Hives Verified 04/11/23 19:27 [From Augmentin] levofloxacin [From Levaquin] Allergy Hives Verified 04/11/23 19:27 Family History Father Hypertension Anemia Mother Arthritis Hypertension Anemia Brother Asthma History of psychiatric care Son Asthma Daughter Severe allergy Aunt Hypertension Uncle Arthritis Hypertension Asthma Grandmother Arthritis Asthma Hypertension Other Breast cancer Cancer Cervical cancer Colon cancer Surgical History Hidradenitis suppurativa POWERPORT SMALL BOWEL SURGERIES Surgically constructed arteriovenous fistula Social History Smoking Status: Current every day smoker tobacco type: cigarettes Tobacco: How many years used: 27 second hand exposure: Yes alcohol intake: current alcohol intake frequency: a few times a month Alcohol type: wine substance use type: does not use what type of physical activity do you participate in: walking seatbelt use: always additional social history: SUN EXPOSURE: FREQUENTLY DOES NOT USE ASPIRIN DOES NOT USE IBUPROFEN ROS ROS ED ROS Narrative Dysuria. Cloudy urine. Loose stools. Review of Systems ROS Unobtainable: Denies due to encephalopathy Constitutional Constitutional ED: Denies chills or fever(s) Eyes Eyes: Denies blurry vision ENT ENT ED: Denies ear pain Cardiovascular Cardiovascular: Denies chest pain Respiratory/Chest Respiratory/Chest: Denies cough or dyspnea Gastrointestinal Gastrointestinal: Reports diarrhea; Denies abdominal pain, constipation, melena, nausea or vomiting Genitourinary Genitourinary ED: Reports dysuria; Denies hematuria Musculoskeletal Musculoskeletal: Denies arthralgias Neurologic Neurologic: Denies headache(s) Psychiatric Psychiatric: Denies anxiety Endocrine Endocrinology: Denies heat intolerance Hematologic/Lymphatic Hematologic/Lymphatic: Denies easy bleeding, easy bruising or lymphadenopathy Allergic/Immunologic Allergic/Immunologic ED: Denies mouth swelling, tongue swelling or urticaria EXAM Physical Exam Narrative Exam Narrative: Well-appearing middle-age female. Vital signs stable afebrile. Initial blood pressure is elevated 158/127. That will be rechecked. She does not look septic or toxic. She has no acute distress. She does not look dehydrated. HEENT exam pupils round reactive light. Right TM and canal normal. Left TM and canal normal. No erythema. No swelling of the canal. Eustachian tube nontender. Posterior pharynx moist and pink. No erythema or exudate. No trouble swallowing or breathing. Neck nontender no lymphadenopathy. Lungs clear to auscultation. Heart regular rhythm rate about 90 no murmur. Chest wall and ribs nontender. Abdomen soft nontender. Moving all 4 extremities. Nontender no edema. Back nontender. Neurologically she is awake and alert with no focal motor deficits. Const Vital Signs: 04/11/23 19:27 04/11/23 21:58 04/11/23 21:58 Temperature 96.8 F L Temperature Source Temporal Pulse Rate 93 86 Respiratory Rate 20 H 16 Blood Pressure 158/127 H 173/96 H 173/96 H Blood Pressure Mean 137 121 121 Pulse Ox 98 98 Oxygen Delivery Method Room Air Positive well nourished and well developed; Negative for cachectic, contractures or unkempt General Appearance ED: well developed and NAD; Negative for unkempt, cachectic, contractures, odor of alcohol detected or pallor Nutritional Appearance: Negative for cachectic HEENT Reports moist mucous membranes; Denies dry mucous membranes Negative for trauma or tenderness Mouth ED: No dry mucous membranes Mouth: No dry mucous membranes Eyes PERRL and EOMs intact bilaterally General Eye ED: Negative for pale conjunctiva or scleral icterus Neck no lymphadenopathy, supple and no JVD General: Negative for other Thyroid: Negative for tender Lymph Lymphatic: Negative for other Chest Wall inspection of chest normal and palpation of chest normal Chest: Negative for other Resp normal respiratory effort and clear to auscultation bilaterally Effort and Inspection: Negative for pain with movement Auscultation: Negative for rales, rhonchi or wheezes Cardio regular rate, regular rhythm, S1 normal heart sound, no murmurs and no JVD Rate: Negative for bradycardia or tachycardic Rhythm: Negative for abnormal rhythm GI normal to inspection, nondistended, normoactive bowel sounds, soft to palpation, non-tender, non-distended and no masses Auscultation: normoactive bowel sounds Palpation: Negative for tender, guarding or rigid Back/Spine no CVA tenderness General Back: Negative for CVA tenderness Cervical Spine: Negative for cervical spine tenderness Thoracic Spine / Upper Back: Negative for thoracic spinal tenderness Lumbar Spine / Lower Back: Negative for lumbar spinal tenderness Sacrum: Negative for other Extremity normal to inspection and full ROM General Extremety ED: Negative for edema or tenderness General Extremity: Negative for edema Neuro oriented x3 and CN's II-XII intact bilaterally Sensorium / Orientation: oriented to person, oriented to place and oriented to time; Negative for confused or lethargic Motor Exam: strength 5/5 throughout; Negative for general weakness or strength abnormal Psych mental status grossly normal Appearance: Negative for unkempt Attitude: No agitated Speech: No other Mood & Affect: Negative for depressed, anxious or tearful Skin no rashes or lesions noted and no wounds General Skin Exam: Negative for jaundice or pallor Rashes: No rashes noted Trauma: Negative for other MDM MDM MDM Narrative Medical decision making narrative: 43-year-old female left earache the ear appears normal. Dysuria organ to send urine for urinalysis. 7 mildly loose stools with her Crohn's but has not had any significant abdominal pain does not look dehydrated. Repeat exam patient doing well at 10:50 PM. She and I went over her urinalysis results. It is questionable if it is a UTI or not. 5-10 white cells and 1+ bacteria but is contaminated with epithelial cells and there is no nitrites. She preferred to be treated. She will be given a dose of Bactrim here. A prescription of Bactrim for 7 days. Pyridium and she was given 1 Percocet here for her Crohn's pain. Patient will follow-up with her primary care physician Dr. Meron Bueno at the [facility]. History & Record Review Discussion w/independent historian: Patient Additional record(s) reviewed:: Prior inpatient record, Prior outpatient record, Prior ED visit and Prior labs Lab Data Attestation: I reviewed the patient's lab results. Lab results narrative: Urinalysis shows contamination with 5-10 epithelial cells. 5-10 white cells and 1+ bacteria. Culture will be sent. Discussed with patient and she preferred to be treated at this time. Did not want a wait for culture. She Labs: Laboratory Results - last 24 hr 04/11/23 21:25 Urine Color Yellow Urine Clarity Clear Urine pH 6.5 Ur Specific [place] 1.015 Urine Protein 30 H Urine Glucose (UA) Normal Urine Ketones Negative Urine Occult Blood 25 H Urine Nitrite Negative Urine Bilirubin Negative Urine Urobilinogen Normal Ur Leukocyte Esterase 500 H Urine RBC 0-5 SEEN Urine WBC 5-10 SEEN Ur Squamous Epith Cells 5-10 SEEN Calcium Oxalate Crystal RARE Urine Bacteria 1+ Urine Mucus 0 SEEN Discharge Plan Triage Chief Complaint: Complaint Other Complaint: Diarrhea Ear Problem ED Provider: Román Herrera Dx/Rx/DC Orders Clinical Impression: History of Crohn's disease, Cystitis Instructions: ED Cystitis Female Adult Prescriptions: New phenazopyridine [Pyridium] 200 mg tablet 200 mg PO TID Qty: 10 0RF sulfamethoxazole-trimethoprim [Bactrim DS] 800-160 mg tablet 1 tab PO BID 7 Days Qty: 14 0RF No Action azathioprine [Imuran] 50 MG tablet 50 mg PO DAILY@0800 Patient Comments: immunosuppressant omeprazole 20 MG capsule 20 - 40 mg PO DAILY Patient Comments: stomach lorazepam 1 MG tablet 1 mg PO DAILY PRN PRN (Reason: Anxiety) infliximab [Remicade] 100 MG/10 ML recon soln 1 dose IV .COMPLEX Rx Instructions: EVERY 6 WEEKS multivitamin Tablet 1 tab PO DAILY cholecalciferol (vitamin D3) 50 mcg (2,000 unit) Capsule 50 mcg PO DAILY albuterol sulfate 90 mcg/actuation Hfa Aerosol Inhaler 1 puff INHALATION Q6H PRN (Reason: sob) atenolol 50 mg tablet 50 mg PO DAILY Patient Comments: take 1 tablet by mouth once daily cyclobenzaprine 10 mg tablet 10 mg PO TID PRN (Reason: muscle spasm) Patient Comments: take 1 tablet by mouth three times a day if needed for muscle spasm bupropion HCl 150 mg tablet sustained-release 12 hr 150 mg PO Q12H Patient Comments: take 1 tablet by mouth twice a day prednisone 10 mg tablet 10 mg PO UD Qty: 33 0RF Rx Instructions: Take 4 tablets daily for 3 days, then 3 daily for 3 days, then 2 daily for 3 days, then 1 a day for 3 days then 1 QOD for 3 doses. hydrocodone-acetaminophen [hydrocodone-acetaminophen] 5-325 mg tablet 1 tab PO Q6H PRN PRN (Reason: Pain) 2 Days Qty: 8 0RF ondansetron [ondansetron] 4 mg tablet,disintegrating 8 mg PO Q8H PRN PRN (Reason: Nausea) Qty: 20 0RF Trulicity 0.75 mg/0.5 mL pen injector 0.75 mg SUBCUT .WEEK Patient Comments: inject 0.75 milligram subcutaneously every week entecavir 1 mg tablet 1 mg PO Q24H Patient Comments: take 1 tablet by mouth once daily colestipol 1 gram tablet 1 g PO BID Patient Comments: take 1 tablet by mouth twice a day fluticasone furoate-vilanterol [Breo Ellipta] 100-25 mcg/dose blister with device 1 inh INHALATION Q24H Patient Comments: inhale 1 puff by mouth as directed once daily zolpidem 10 mg tablet 10 mg PO QHS PRN PRN (Reason: insomnia) Patient Comments: take 1 tablet by mouth at bedtime if needed for insomnia Primary Care Provider: Araseli Bueno Referrals: Araseli Bueno MD [Primary Care Provider] - As soon as possible Activity Restrictions/Additional Instructions: Plenty of fluids and rest. Cranberry juice for possible UTI. Your urine showed some signs of infection but also could be contaminated. I sent a urine culture. Your primary care physician can check that in 24 to 48 hours. You will be started on antibiotic Bactrim 1 pill twice a day for 7 days. Pyridium to help you with the discomfort. Call and follow-up your primary care physician. Disposition Disposition: Home, Self Care
[2023-04-11 21:30] LABS: Mucous, Urine 0 SEEN /hpf (<or=2+)
[2023-04-11 21:43] LABS: Color, Urine Yellow (Yellow); Glucose, Dipstick Normal (Normal); Ketone-Dipstick Negative (Negative); Leukocyte Esterase-Dipstick 500 /ul (Negative); Nitrite-Dipstick Negative (Negative); Occult Blood-Urine 25 /ul (Negative); Protein-Dipstick 30 mg/dl (Negative); Specific Gravity, Urine 1.015 (1.002-1.030); Urine Bilirubin Dipstick Negative (Negative); Urine Clarity Clear (Clear); Urine Urobilinogen Normal (Normal); Urine pH 6.5 (5.0 - 8.0)
[2023-04-11 21:48] LABS: Squamous Epithelial Cells - UA 5-10 SEEN /hpf (5-10)
[2023-04-11 21:49] LABS: Bacteria 1+ /hpf (None Seen); Calcium Oxalate Crystals Ur RARE /hpf (<or=2+); Red Blood Cells-Urine 0-5 SEEN /hpf (0-5); White Blood Cells 5-10 SEEN /hpf (0-5)
[2023-04-11 21:58] VITALS: BP 173/96; PULSE 86; RESP 16; O2SAT 98
[2023-04-11] MEDS: Phenazopyridine 95 MG Tablet 190 MG PO (23:02)
[2023-04-11] MEDS: Smz/Tmp Ds Tablet 1 TABLET PO (23:02)
[2023-04-11] MEDS: Oxycodone/Apap 5/325 Tablet PO (23:02)
[2023-04-11 23:04] VITALS: BP 175/90; PULSE 74; RESP 14; TEMP 36.9; O2SAT 100
== END 2023-04-11 23:05 | disposition home or self-care (01) ==
PROVIDERS: Emergency Provider Emergency Medicine; PCP Internal Medicine; Visit Provider Emergency Medicine
DX: N30.90 Cystitis, unspecified without hematuria (principal); K50.90 Crohn's disease, unspecified, without complications; F17.210 Nicotine dependence, cigarettes, uncomplicated; Z79.899 Other long term (current) drug therapy
CPT/HCPCS: 81001; 87077; 87086; 87088; 87186; 99285

== ENCOUNTER 2023-07-29 22:25 | Emergency (ER) | payer MEDICARE, SELFPAY ==
[2023-07-29 22:26] VITALS: BP 198/102; PULSE 81; RESP 15; TEMP 36.3; O2SAT 95
--- NOTE | 2023-07-29 22:48 | ED.VIS.GI ---
HPI HPI - GI History of Present Illness Chief Complaint: Abd Pain Informant: patient Narrative Narrative: More abdominal pain than usual for about the past 1.5 weeks, has a history of Crohn's. This pain has been mostly on the left side. For the past week or so she has had nausea some occasional vomiting without hematemesis, increase in her chronic diarrhea and some blood in her stool off-and-on. Not bleeding in large amounts but she usually does not have blood. She denies any fevers or chills. She has had multiple abdominal surgeries including large and small partial bowel resections for Crohn's and she has had 2 surgeries for rectovaginal fistulas. [facility] Medical History Acute anxiety Anemia Crohns disease GERD (gastroesophageal reflux disease) GI problem Heart murmur Hepatitis B Hidradenitis suppurativa High blood pressure History of blood transfusion History of MRSA infection IBS (irritable bowel syndrome) Obesity Psoriasis Sinus problem Vitamin deficiency Home Medications ?Medication ?Instructions ?Recorded ?Last Taken ?Type azathioprine 50 mg tablet (Imuran) 50 mg PO DAILY@0800 11/20/12 04/19/16 History omeprazole 20 mg capsule,delayed 20 - 40 mg PO DAILY GERD 10/24/13 03/06/18 05:00 History release lorazepam 1 mg tablet 1 mg PO DAILY PRN PRN Anxiety 03/02/18 03/06/18 05:00 History multivitamin 1 tab PO DAILY 06/26/20 Unknown History albuterol sulfate 90 mcg/actuation 1 puff inhalation Q6H PRN sob 12/17/20 Unknown History aerosol inhaler cholecalciferol (vitamin D3) 50 50 mcg PO DAILY 12/17/20 Unknown History mcg (2,000 unit) capsule colestipol 1 gram tablet 1 g PO BID 09/28/22 Unknown History entecavir 1 mg tablet 1 mg PO Q24H 09/28/22 Unknown History fluticasone furoate 100 1 inh inhalation Q24H 09/28/22 Unknown History mcg-vilanterol 25 mcg/dose inhalation powder (Breo Ellipta) zolpidem 10 mg tablet 10 mg PO QHS PRN PRN insomnia 09/28/22 Unknown History atenolol 50 mg tablet 50 mg PO DAILY 12/10/22 Unknown History cyclobenzaprine 10 mg tablet 10 mg PO TID PRN muscle spasm 12/10/22 Unknown History prednisone 10 mg tablet 10 mg PO UD #34 tabs 07/30/23 Unknown Rx Allergy/AdvReac Type Severity Reaction Status Date / Time amoxicillin Allergy Hives Verified 07/29/23 22:31 clavulanic acid (From Allergy Hives Verified 07/29/23 22:31 Augmentin) levofloxacin (From Levaquin) Allergy Hives Verified 07/29/23 22:31 Family History Father Hypertension Anemia Mother Arthritis Hypertension Anemia Brother Asthma History of psychiatric care Son Asthma Daughter Severe allergy Aunt Hypertension Uncle Arthritis Hypertension Asthma Grandmother Arthritis Asthma Hypertension Other Breast cancer Cancer Cervical cancer Colon cancer Surgical History Hidradenitis suppurativa POWERPORT SMALL BOWEL SURGERIES Surgically constructed arteriovenous fistula Social History Smoking Status: Current every day smoker tobacco type: cigarettes Tobacco: How many years used: 27 second hand exposure: Yes alcohol intake: current alcohol intake frequency: a few times a month Alcohol type: wine substance use type: does not use what type of physical activity do you participate in: walking seatbelt use: always additional social history: SUN EXPOSURE: FREQUENTLY DOES NOT USE ASPIRIN DOES NOT USE IBUPROFEN ROS ROS ED Constitutional Constitutional ED: Denies chills or fever(s) Eyes Eyes: Denies change in vision or diplopia ENT ENT ED: Denies rhinorrhea or sore throat Cardiovascular Cardiovascular: Denies chest pain or palpitations Respiratory/Chest Respiratory/Chest: Denies cough or dyspnea Gastrointestinal Gastrointestinal: Reports abdominal pain, diarrhea, hematochezia, nausea and vomiting; Denies melena Genitourinary Genitourinary ED: Denies dysuria or hematuria Musculoskeletal Musculoskeletal: Denies back pain or neck pain Integumentary Denies abscess or rash Neurologic Neurologic: Denies headache(s), paresthesias or weakness Psychiatric Psychiatric: Denies suicidal thoughts EXAM Physical Exam Const Vital Signs: 07/29/23 22:26 07/30/23 00:26 Temperature 97.4 F L 98.2 F Temperature Source Temporal Oral Pulse Rate 81 70 Respiratory Rate 15 16 Blood Pressure 198/102 H 168/89 H Blood Pressure Mean 134 115 Pulse Ox 95 98 Oxygen Delivery Method Room Air Room Air Positive well nourished and well developed Constitutional Narrative: well-appearing. General Appearance ED: well developed and NAD HEENT Reports moist mucous membranes normocephalic and atraumatic Eyes PERRL and EOMs intact bilaterally Neck full ROM and supple Resp normal respiratory effort and clear to auscultation bilaterally Cardio regular rate, regular rhythm and no murmurs GI non-distended GI Narrative: mild diffuse left sided tenderness w/o guarding or rebound Auscultation: normoactive bowel sounds Palpation: soft Back/Spine no CVA tenderness General Back: other FROM Extremity normal to inspection General Extremety ED: Negative for edema, pulses abnormal or tenderness General Extremity: Negative for edema or pulses abnormal Neuro oriented x3, CN's II-XII intact bilaterally and no sensory deficits noted Sensorium / Orientation: awake and alert Motor Exam: strength 5/5 throughout Psych mental status grossly normal and thought process normal Skin no rashes or lesions noted and no wounds MDM MDM MDM Narrative Medical decision making narrative: Given the patient's symptoms and history of Crohn's as well as fistulas, obtain blood work and a CT to rule out Crohn's complications such as bowel obstruction, fistula, intra-abdominal abscess. I reviewed the CT images as well as the result which I agree with, it is negative for any acute. Her symptoms are more consistent with Crohn's exacerbation. Her symptoms were treated. She was given IV fluids and felt better. She is tolerating p.o. I am going to start her on a steroid taper and have her follow-up with her GI specialist to is at [facility] in [place], and prior to discharge were going to see if she can produce some diarrhea that we can send for C. difficile to rule that out since she does have a history of that in the past. Lab Data Attestation: I reviewed the patient's lab results. Labs: Laboratory Results - last 24 hr 07/29/23 23:15 WBC 7.5 RBC 5.09 Hgb 12.7 Hct 40.3 MCV 79.2 L MCH 25.0 L MCHC 31.5 L RDW Std Deviation 42.4 RDW Coeff of Renny 14.7 H Plt Count 191 MPV 11.5 Immature Gran % (Auto) 0.300 Neut % (Auto) 42.3 L Lymph % (Auto) 48.2 H [place] % (Auto) 6.4 Eos % (Auto) 1.7 Baso % (Auto) 1.1 H Absolute Neuts (auto) 3.2 Absolute Lymphs (auto) 3.63 Nucleated RBC % 0 Sodium 139 Potassium 3.5 Chloride 107 Carbon Dioxide 25.0 Anion Gap 7 BUN 9 Creatinine 1.01 Est GFR (MDRD) Af Amer 76 Est GFR (MDRD) Non-Af 63 BUN/Creatinine Ratio 8.9 L Glucose 124 H Calcium 8.6 Total Bilirubin 0.20 AST 36 ALT 40 Alkaline Phosphatase 90 Total Protein 7.9 Albumin 3.2 Globulin 4.7 H Albumin/Globulin Ratio 0.7 L Radiography Diagnostic Testing: Clinical Impression(s) from Imaging Studies Abdomen/Pelvis CT 07/30/23 22:47 IMPRESSION: No acute finding in the abdomen or pelvis. No inflammatory changes. Nonobstructing right lower pole renal calculus. Electronically Signed: Juan Hernandez MD at 0:34 EDT , Discharge Plan Triage Chief Complaint: Abd Pain ED Provider: Clyde Tirado Dx/Rx/DC Orders Clinical Impression: Exacerbation of Crohn's disease Instructions: ED Crohn's Disease Prescriptions: New prednisone 10 mg tablet 10 mg PO UD Qty: 34 0RF Rx Instructions: Take 4 tablets daily for 4 days, then 3 daily for 3 days, then 2 daily for 3 days, then 1 a day for 3 days Continued azathioprine [Imuran] 50 MG tablet 50 mg PO DAILY@0800 Patient Comments: immunosuppressant omeprazole 20 MG capsule 20 - 40 mg PO DAILY Patient Comments: stomach lorazepam 1 MG tablet 1 mg PO DAILY PRN PRN (Reason: Anxiety) multivitamin Tablet 1 tab PO DAILY cholecalciferol (vitamin D3) 50 mcg (2,000 unit) Capsule 50 mcg PO DAILY albuterol sulfate 90 mcg/actuation Hfa Aerosol Inhaler 1 puff INHALATION Q6H PRN (Reason: sob) atenolol 50 mg tablet 50 mg PO DAILY Patient Comments: take 1 tablet by mouth once daily cyclobenzaprine 10 mg tablet 10 mg PO TID PRN (Reason: muscle spasm) Patient Comments: take 1 tablet by mouth three times a day if needed for muscle spasm entecavir 1 mg tablet 1 mg PO Q24H Patient Comments: take 1 tablet by mouth once daily colestipol 1 gram tablet 1 g PO BID Patient Comments: take 1 tablet by mouth twice a day fluticasone furoate-vilanterol [Breo Ellipta] 100-25 mcg/dose blister with device 1 inh INHALATION Q24H Patient Comments: inhale 1 puff by mouth as directed once daily zolpidem 10 mg tablet 10 mg PO QHS PRN PRN (Reason: insomnia) Patient Comments: take 1 tablet by mouth at bedtime if needed for insomnia Discontinued prednisone 10 mg tablet 10 mg PO UD Qty: 33 0RF Rx Instructions: Take 4 tablets daily for 3 days, then 3 daily for 3 days, then 2 daily for 3 days, then 1 a day for 3 days then 1 QOD for 3 doses. sulfamethoxazole-trimethoprim [Bactrim DS] 800-160 mg tablet 1 tab PO BID 7 Days Qty: 14 0RF Primary Care Provider: Araseli Bueno Referrals: Araseli Bueno MD [Primary Care Provider] - (Follow-up with your GI specialist next week when able, call for appointment) Activity Restrictions/Additional Instructions: Can start the prescription prednisone morning of 07/30 since she received IV steroids morning of 07/29 in ER. Print Language: Hungarian Disposition Disposition: Home, Self Care
[2023-07-29] MEDS: 0.9% Normal Saline (1000mL) 1,000 ML 999 ML IV (23:17)
[2023-07-29] MEDS: Morphine 4 MG/ML Syringe IV (23:19)
[2023-07-29] MEDS: Ketorolac 15 MG/ML Vial IV (23:23)
[2023-07-29] MEDS: Ondansetron 4 MG/2 ML Vial IV (23:24)
[2023-07-29 23:27] LABS: Absolute Lymphocyte Count 3.63 X10^3/uL (0.83-4.51); Absolute Neutrophil Count 3.2 X10^3/uL (2.0-7.7); Basophil# 0.08 X10^3/uL; Basophil% 1.1 % (0-1); Eosinophil# 0.13 X10^3/uL; Eosinophils% 1.7 % (0-5); Hematocrit 40.3 % (37-47); Hemoglobin 12.7 g/dL (12.0-15.0); Lymphocyte # 3.63 X10^3/ul (0.83-4.51); Lymphocyte % 48.2 % (19-41); Mean Corp Hgb Conc 31.5 g/dL (32-36); Mean Corpuscular Volume 79.2 fL (81-99); Mean Platelet Vol. 11.5 fl (6.2-12.0); Monocyte# 0.48 X10^3/uL; Monocyte% 6.4 % (0-10); NRBC Flagged by Analyzer 0 % (0-5); Neutrophil # 3.19 X10^3/uL (2.7-7.7); Neutrophil % 42.3 % (47-70); Platelet Count 191 K/mm3 (150-450); RBC Distribution Width CV 14.7 % (11.6-14.6); RBC Distribution Width SD 42.4 fl (35.1-43.9); Red Blood Count 5.09 M/mm3 (4.2-5.4); White Blood Count 7.5 K/mm3 (4.4-11.0)
[2023-07-29 23:43] LABS: ALB/GLOB Ratio 0.7 RATIO (0.9-2.4); AST(SGOT) 36 U/L (15-37); Alanine Aminotransfer ALT/SGPT 40 U/L (13-56); Albumin, Serum 3.2 g/dL (3.2-5.0); Alkaline Phosphatase 90 U/L (45-117); Anion Gap 7 (5-15); BUN 9 mg/dL (7-18); BUN/Creat Ratio 8.9 RATIO (10-20); Calcium,Total 8.6 mg/dL (8.5-10.1); Chloride 107 mmol/L (98-107); Creatinine, Serum 1.01 mg/dL (0.55-1.02); EST Glomerular Filtration Rate 63 mL/min (>60); Est Glom Filt Rate - Afr Amer 76 mL/min (>60); Globulin 4.7 g/dL (2.2-4.2); Glucose 124 mg/dL (74-106); Potassium 3.5 mmol/L (3.5-5.1); Protein, Total 7.9 g/dL (6.4-8.2); Sodium Level 139 mmol/L (136-145)
[2023-07-30 00:26] VITALS: BP 168/89; PULSE 70; RESP 16; TEMP 36.8; O2SAT 98
[2023-07-30] MEDS: Morphine 4 MG/ML Syringe IV (00:32)
[2023-07-30 02:00] VITALS: BP 169/93; PULSE 70; RESP 15; O2SAT 95
[2023-07-30] MEDS: oxyCODONE 5 MG Tablet PO (03:08)
[2023-07-30 03:10] VITALS: BP 169/93; PULSE 64; RESP 15; TEMP 37.1; O2SAT 95
[2023-07-30] MEDS: 0.9% Saline Lock 10 ML Syringe IV (03:44)
--- NOTE | 2023-07-30 22:47 | CT_ITS ---
STUDY: CT ABDOMEN AND PELVIS WITH CONTRAST REASON FOR EXAM: Female, 43 years old. left sided abd pain, crohn''s RADIATION DOSAGE (If Supplied By Facility): CTDIvol = ( 31.44 ) mGy, DLP = ( 1882.11 ) mGycm TECHNIQUE: IV 100mL Isovue-370 was administered. Transaxial images were obtained from the dome of the diaphragm to the symphysis pubis in the portal venous phase. Multiplanar coronal and sagittal images were reformatted. Individualized Dose Optimization Techniques Were Used For This CT. COMPARISON: Prior study dated: 09/14/2015 FINDINGS: LOWER CHEST: Lung bases are clear. No cardiomegaly or pericardial effusion. LIVER: The liver is normal in size, shape, and attenuation. No focal mass. GALLBLADDER AND BILIARY TREE: Cholecystectomy. No intra- or extrahepatic biliary ductal dilation. PANCREAS: No focal cystic or solid mass. SPLEEN: Normal size without focal cystic or solid mass. ADRENAL GLANDS: No nodules. KIDNEYS AND URETERS: Normal renal size and position. No hydronephrosis. 0.2 cm right lower pole renal calculus. PERITONEUM: No ascites or free air. No other fluid collection. BOWEL: The stomach is unremarkable. Normal caliber small bowel. There is no obstruction. No colonic wall thickening or inflammation. Minimal colonic diverticulosis without diverticulitis. The appendix is not seen. LYMPH NODES: No enlarged mesenteric or retroperitoneal lymph nodes. VESSELS: The aorta is normal in caliber with mild atherosclerotic calcification. URINARY BLADDER: Unremarkable. REPRODUCTIVE ORGANS: No pelvic masses. ABDOMINAL WALL: Small fat containing umbilical region hernia. BONES: No lytic or blastic abnormality. Mild degenerative change of the hips. CT/Abdomen/Pelvis W IV Cont ONLY IMPRESSION: No acute finding in the abdomen or pelvis. No inflammatory changes. Nonobstructing right lower pole renal calculus. Electronically Signed: Juan Hernandez MD at 0:34 EDT ,
== END 2023-07-30 03:45 | disposition home or self-care (01) ==
PROVIDERS: Emergency Provider Emergency Medicine; PCP Internal Medicine; Visit Provider Emergency Medicine
DX: K50.919 Crohn's disease, unspecified, with unspecified complications (principal); F17.210 Nicotine dependence, cigarettes, uncomplicated; Z79.51 Long term (current) use of inhaled steroids; Z79.899 Other long term (current) drug therapy
CPT/HCPCS: 36591; 74177; 80053; 85025; 96361; 96374; 96375; 96376; 99284; J7030; Q9967; A4216; J2405

== ENCOUNTER 2023-09-27 18:28 | Emergency (ER) | payer MEDICARE, SELFPAY ==
[2023-09-27 18:29] VITALS: BP 222/91; PULSE 86; RESP 18; TEMP 36.1; O2SAT 99
--- NOTE | 2023-09-27 18:45 | US_ITS ---
STUDY: ULTRASOUND OF THE FEMALE PELVIS - REASON FOR EXAM: Female, 43 years old. Vaginal bleeding LMP: Unknown. TECHNIQUE: Transvaginal TECHNICAL QUALITY: Adequate. COMPARISON: None. FINDINGS: The uterus is anteverted and is in a midline position. The uterus measures 9.3 x 6.1 x 3.8 cm. There is a Nabothian cyst of the cervix. The endometrium measures 14 mm in thickness, and is hyperechoic. There is no demonstrated endometrial mass. There is no demonstrated myometrial mass. I.U.D. - The patient does not have an I.U.D. The right ovary is non-visualized. The left ovary is visualized. The left ovary measures 1.9 x 1.5 x 1.1 cm. There is no left ovarian cyst or ovarian mass. There is no visualized left adnexal mass or complex lesion. There is normal arterial and normal venous vascularity. There is no fluid in the cul-de-sac. US/Transvaginal Non- IMPRESSION: Normal female pelvis. Electronically Signed: Clyde Serra MD at 20:33 EDT ,
[2023-09-27 19:29] LABS: Mucous, Urine 0 SEEN /hpf (<or=2+); Squamous Epithelial Cells - UA 0 SEEN /hpf (5-10)
[2023-09-27 19:32] LABS: Absolute Lymphocyte Count 3.28 X10^3/uL (0.83-4.51); Basophil# 0.08 X10^3/uL; Basophil% 0.8 % (0-1); Eosinophil# 0.15 X10^3/uL; Eosinophils% 1.5 % (0-5); Hematocrit 40.9 % (37-47); Hemoglobin 12.6 g/dL (12.0-15.0); Lymphocyte # 3.28 X10^3/ul (0.83-4.51); Lymphocyte % 32.6 % (19-41); Mean Corp Hgb Conc 30.8 g/dL (32-36); Mean Corpuscular Hgb 23.9 pg (27.0-32.0); Mean Corpuscular Volume 77.6 fL (81-99); Monocyte# 0.52 X10^3/uL; Monocyte% 5.2 % (0-10); NRBC Flagged by Analyzer 0 % (0-5); Neutrophil % 59.7 % (47-70); Platelet Count 175 K/mm3 (150-450); RBC Distribution Width CV 16.2 % (11.6-14.6); RBC Distribution Width SD 45.6 fl (35.1-43.9); Red Blood Count 5.27 M/mm3 (4.2-5.4); White Blood Count 10.1 K/mm3 (4.4-11.0)
[2023-09-27 19:33] LABS: Color, Urine Red (Yellow); Glucose, Dipstick Normal (Normal); Ketone-Dipstick 5 mg/dl (Negative); Leukocyte Esterase-Dipstick 25 /ul (Negative); Nitrite-Dipstick Negative (Negative); Occult Blood-Urine 250 /ul (Negative); Protein-Dipstick 500 mg/dl (Negative); Specific Gravity, Urine 1.025 (1.002-1.030); Urine Bilirubin Dipstick Negative (Negative); Urine Clarity Cloudy (Clear); Urine Urobilinogen Normal (Normal)
[2023-09-27 19:45] LABS: Red Blood Cells-Urine > 100 SEEN /hpf (0-5); White Blood Cells 0-5 SEEN /hpf (0-5)
[2023-09-27 19:46] LABS: Bacteria 1+ /hpf (None Seen)
[2023-09-27 19:55] LABS: ALB/GLOB Ratio 0.6 RATIO (0.9-2.4); AST(SGOT) 28 U/L (15-37); Alanine Aminotransfer ALT/SGPT 28 U/L (13-56); Albumin, Serum 3.2 g/dL (3.2-5.0); Alkaline Phosphatase 79 U/L (45-117); Anion Gap 7 (5-15); BUN 8 mg/dL (7-18); BUN/Creat Ratio 7.3 RATIO (10-20); Calcium,Total 8.9 mg/dL (8.5-10.1); Chloride 108 mmol/L (98-107); EST Glomerular Filtration Rate 57 mL/min (>60); Est Glom Filt Rate - Afr Amer 69 mL/min (>60); Globulin 5.1 g/dL (2.2-4.2); Glucose 138 mg/dL (74-106); Lipase 20 U/L (13-75); Potassium 3.4 mmol/L (3.5-5.1); Protein, Total 8.3 g/dL (6.4-8.2); Sodium Level 139 mmol/L (136-145)
[2023-09-27] MEDS: Ondansetron 4 MG/2 ML Vial IV (20:02)
[2023-09-27] MEDS: Morphine 4 MG/ML Syringe IV ×2 (20:02→20:47)
[2023-09-27] MEDS: 0.9% Normal Saline (1000mL) 1,000 ML 999 ML IV (20:02)
[2023-09-27 20:29] VITALS: BP 175/92; PULSE 99; RESP 18; O2SAT 97
[2023-09-27 21:03] LABS: Internal QC Validated? YES +Cl - CLEAR BKGD; Pregnancy, Urine Negative Negative
[2023-09-27 22:00] VITALS: BP 152/85; PULSE 88; RESP 17; O2SAT 96
--- NOTE | 2023-09-27 22:28 | EDS_ITS ---
HPI HPI - Female History of Present Illness Chief Complaint: Vag Bleeding Narrative Narrative: Patient is a 43-year-old female with a past medical history of Crohn's disease, hypertension, hepatitis B, hidradenitis suppurativa, anemia who presents to the emerged part with chief complaint of vaginal bleeding. Patient states that her menstrual [place] is usually irregular. She states that this morning she woke up and noted that she had some bleeding and noted that she had increased bleeding throughout the day and had been changing her pads approximately every 45 minutes. She states that she is also part of seeing large clots as well. Patient states that she has not had any think this happened in the past. She states that she is having normal bowel movements for herself denies any blood or black tarry stools. PFSH [facility] Medical History Psoriasis Vitamin deficiency GERD (gastroesophageal reflux disease) Heart murmur IBS (irritable bowel syndrome) High blood pressure GI problem History of blood transfusion Anemia Sinus problem Acute anxiety History of MRSA infection Obesity Hidradenitis suppurativa Crohns disease Hepatitis B Home Medications ?Medication ?Instructions ?Recorded ?Last Taken ?Type azathioprine 50 mg tablet (Imuran) 50 mg PO DAILY@0800 11/20/12 04/19/16 History omeprazole 20 mg capsule,delayed 20 - 40 mg PO DAILY GERD 10/24/13 03/06/18 05:00 History release lorazepam 1 mg tablet 1 mg PO DAILY PRN PRN Anxiety 03/02/18 03/06/18 05:00 History multivitamin 1 tab PO DAILY 06/26/20 Unknown History cholecalciferol (vitamin D3) 50 50 mcg PO DAILY 12/17/20 Unknown History mcg (2,000 unit) capsule colestipol 1 gram tablet 1 g PO BID 09/28/22 Unknown History entecavir 1 mg tablet 1 mg PO Q24H 09/28/22 Unknown History fluticasone furoate 100 1 inh inhalation Q24H 09/28/22 Unknown History mcg-vilanterol 25 mcg/dose inhalation powder (Breo Ellipta) atenolol 50 mg tablet 50 mg PO DAILY 12/10/22 Unknown History cyclobenzaprine 10 mg tablet 10 mg PO TID PRN muscle spasm 12/10/22 Unknown History Allergy/AdvReac Type Severity Reaction Status Date / Time amoxicillin Allergy Hives Verified 09/27/23 18:29 clavulanic acid (From Allergy Hives Verified 09/27/23 18:29 Augmentin) levofloxacin (From Levaquin) Allergy Hives Verified 09/27/23 18:29 Family History Father Hypertension Anemia Mother Arthritis Hypertension Anemia Brother Asthma History of psychiatric care Son Asthma Daughter Severe allergy Aunt Hypertension Uncle Arthritis Hypertension Asthma Grandmother Arthritis Asthma Hypertension Other Breast cancer Cancer Cervical cancer Colon cancer Surgical History POWERPORT SMALL BOWEL SURGERIES Hidradenitis suppurativa Surgically constructed arteriovenous fistula Social History household members: spouse Smoking Status: Former smoker Tobacco: How many years used: 27 second hand exposure: Yes alcohol intake: current alcohol intake frequency: a few times a month Alcohol type: wine substance use type: does not use what type of physical activity do you participate in: walking seatbelt use: always additional social history: SUN EXPOSURE: FREQUENTLY DOES NOT USE ASPIRIN DOES NOT USE IBUPROFEN ROS ROS ED ROS Narrative Constitutional: Denies any fevers, chills, lightheadedness, dizziness, headaches Eyes: Denies change in vision double vision blurry vision Cardiovascular: Denies chest pain or palpitations Respiratory: Denies coughing wheezing shortness of breath Abdomen: Complains of abdominal pain denies nausea vomiting diarrhea : Complains of vaginal bleeding as noted above denies any pain phonation, hematuria Neurological: Denies any numbness weakness, tingling EXAM Physical Exam Narrative Exam Narrative: General: Patient was lying in bed rest comfortably did not appear to be in acute distress Head: Atraumatic, normocephalic Eyes: PERRL bilaterally, EOMI bilateral, no conjunctival injection noted Neck: Soft, supple, trachea midline Cardiovascular: Regular rate and rhythm no murmurs gallops rubs noted Respiratory: Clear to auscultation bilaterally no rales rhonchi wheeze noted Abdomen: Soft, nondistended, some suprapubic tenderness on exam no rebound or guarding on exam, bowel sounds present x 4 Pelvic: Patient has dark red blood noted in the vaginal vault no active bleeding noted. Extremities: +5/5 strength noted in the bilateral upper and lower extremities Neurological: Patient follow commands knew that she was at [facility] years 2023 Const Vital Signs: 09/27/23 18:29 09/27/23 20:29 09/27/23 22:00 Temperature 96.9 F L Temperature Source Temporal Pulse Rate 86 99 88 Respiratory Rate 18 18 17 Blood Pressure 222/91 H 175/92 H 152/85 H Blood Pressure Mean 134 119 107 Pulse Ox 99 97 96 Oxygen Delivery Method Room Air Room Air Room Air MDM MDM MDM Narrative Medical decision making narrative: Patient is a 43-year-old female who presents to the emerged part with chief complaint of vaginal bleeding. Patient will have a workup performed here on the differential diagnose includes but not limited to menstrual cramps and menstrual cycle, , UTI. Once workup is obtained reviewed she will be reevaluated. Patient's CBC reviewed and showed no evidence of leukocytosis white blood count normal at 10.1, hemoglobin is 12.6, platelet count was noted to be normal at 175. Patient's sodium normal 139, potassium was 3.4, creatinine was 1.10. Patient's AST and ALT were 20 and 28 respectively. Patient's urinalysis showed 250 occult blood, 25 leukocyte esterase 0-5 white cells with 1+ bacteria she has no urinary symptoms therefore no antibiotics will be indicated at this point in time. Patient test was negative. Patient's ultrasound was reviewed as well and showed no acute abnormalities within the pelvis. Did discuss results with the patient and she would like to go home at this point time. I did advise her she was quite hypertensive when she arrived and this could likely be leading to her heavy bleeding. Her blood pressure did improve significantly from when she arrived. Her pain was under much better control and she did take some antihypertensives from home that she is prescribed. Patient was encouraged to follow-up with her [facility] in the outpatient setting as well as her primary care physician. She is encouraged return with worsening symptoms or other concerns. Patient and family members are at bedside are agreeable this plan all question concerns were answered. Lab Data Labs: Laboratory Results - last 24 hr 09/27/23 18:05 WBC 10.1 RBC 5.27 Hgb 12.6 Hct 40.9 MCV 77.6 L MCH 23.9 L MCHC 30.8 L RDW Std Deviation 45.6 H RDW Coeff of Renny 16.2 H Plt Count 175 MPV TNP Immature Gran % (Auto) 0.200 Neut % (Auto) 59.7 Lymph % (Auto) 32.6 [place] % (Auto) 5.2 Eos % (Auto) 1.5 Baso % (Auto) 0.8 Absolute Neuts (auto) 6.0 Absolute Lymphs (auto) 3.28 Nucleated RBC % 0 Sodium 139 Potassium 3.4 L Chloride 108 H Carbon Dioxide 24.0 Anion Gap 7 BUN 8 Creatinine 1.10 H Est GFR (MDRD) Af Amer 69 Est GFR (MDRD) Non-Af 57 L BUN/Creatinine Ratio 7.3 L Glucose 138 H Calcium 8.9 Total Bilirubin 0.50 AST 28 ALT 28 Alkaline Phosphatase 79 Total Protein 8.3 H Albumin 3.2 Globulin 5.1 H Albumin/Globulin Ratio 0.6 L Lipase 20 Urine Color Red Urine Clarity Cloudy Urine pH 5.0 Ur Specific [place] 1.025 Urine Protein 500 H Urine Glucose (UA) Normal Urine Ketones 5 H Urine Occult Blood 250 H Urine Nitrite Negative Urine Bilirubin Negative Urine Urobilinogen Normal Ur Leukocyte Esterase 25 H Urine RBC > 100 SEEN Urine WBC 0-5 SEEN Ur Squamous Epith Cells 0 SEEN Urine Bacteria 1+ Urine Mucus 0 SEEN Urine Test Negative Radiography Diagnostic Testing: Clinical Impression(s) from Imaging Studies Transvaginal US 09/27/23 18:45 IMPRESSION: Normal female pelvis. Electronically Signed: Clyde Serra MD at 20:33 EDT Reading Location ID and State: [facility] [place] , Service support , Discharge Plan Triage Chief Complaint: Vag Bleeding ED Provider: Travis Velasquez Dx/Rx/DC Orders Clinical Impression: Vaginal bleeding Prescriptions: No Action azathioprine [Imuran] 50 MG tablet 50 mg PO DAILY@0800 Patient Comments: immunosuppressant omeprazole 20 MG capsule 20 - 40 mg PO DAILY Patient Comments: stomach lorazepam 1 MG tablet 1 mg PO DAILY PRN PRN (Reason: Anxiety) multivitamin Tablet 1 tab PO DAILY cholecalciferol (vitamin D3) 50 mcg (2,000 unit) Capsule 50 mcg PO DAILY atenolol 50 mg tablet 50 mg PO DAILY Patient Comments: take 1 tablet by mouth once daily cyclobenzaprine 10 mg tablet 10 mg PO TID PRN (Reason: muscle spasm) Patient Comments: take 1 tablet by mouth three times a day if needed for muscle spasm entecavir 1 mg tablet 1 mg PO Q24H Patient Comments: take 1 tablet by mouth once daily colestipol 1 gram tablet 1 g PO BID Patient Comments: take 1 tablet by mouth twice a day fluticasone furoate-vilanterol [Breo Ellipta] 100-25 mcg/dose blister with device 1 inh INHALATION Q24H Patient Comments: inhale 1 puff by mouth as directed once daily Primary Care Provider: Araseli Bueno Referrals: Araseli Bueno MD [Primary Care Provider] - Activity Restrictions/Additional Instructions: Follow-up with your primary care physician and your [facility] in the outpatient setting. Return for worsening symptoms or other concerns as we discussed here in the emergency department. Print Language: Maltese Disposition Disposition: Home, Self Care
== END 2023-09-27 22:49 | disposition home or self-care (01) ==
PROVIDERS: Emergency Provider Emergency Medicine; PCP Internal Medicine; Visit Provider Emergency Medicine
DX: N93.9 Abnormal uterine and vaginal bleeding, unspecified (principal); K50.90 Crohn's disease, unspecified, without complications; I10 Essential (primary) hypertension; Z87.891 Personal history of nicotine dependence; Z79.899 Other long term (current) drug therapy
CPT/HCPCS: 76830; 80053; 81001; 81025; 83690; 85025; 96361; 96374; 96375; 96376; 99282; J7030; A4216; J2405

== ENCOUNTER 2023-11-09 06:41 | Day surgery (SDC) | payer MEDICARE, SELFPAY ==
--- NOTE | 2023-11-07 17:15 | PCM.HP.BLA ---
History and Physical Date of Admission: 11/09/23 HPI: The patient is a 43 year old female presenting for pre-operative visit. She is scheduled for hysteroscopy dilation and curettage, possible polyp resection if any are present and possible IUD insertion, for abnormal uterine bleeding and thickened endometrium on ultrasound on 11/09/23. Procedure discussed along with risks, benefits and complications. Other alternatives discussed for management. Consent form signed? Yes. PAST MEDICAL HISTORY PAST MEDICAL HISTORY Diagnosis Date ? Abdominal pain, other specified site 06/01/2006 ? Abnormal Pap smear 12/2007 LGSIL ? Acute gastritis without mention of hemorrhage ? Adenoma of breast, right ? Anal fistula ? Cataract bilateral ? Chronic hepatitis B (HCC) ? CHRONIC PAIN NEC 05/01/2008 ? Cough 06/21/2011 ? Crohn disease (HCC) ? DEBILITY NOS 07/24/2007 ? Duodenitis without mention of hemorrhage ? FOLLICULITIS///HAIR DISEASES NEC 07/27/2007 ? GERD (gastroesophageal reflux disease) ? Hematochezia ? HEMATOCHEZIA 05/10/2006 ? Hemorrhage of gastrointestinal tract, unspecified ? Hemorrhage of rectum and anus ? Hidradenitis 07/27/2007 ? Low blood potassium 12/26/2014 ? Other malaise and fatigue 07/24/2007 ? Palpitations 04/11/2008 ? PANIC ATTACKS 04/01/2008 ? PMH - PAST MEDICAL HISTORY OF duodenal ulcerations ? PMH - PAST MEDICAL HISTORY OF bile stasis ? PMH - PAST MEDICAL HISTORY OF Hydrenitis ? PONV (postoperative nausea and vomiting) ? Pustular psoriasis ? Pyoderma, unspecified 07/27/2007 ? Regional enteritis of unspecified site ? Rosacea cystular ? Tachycardia, unspecified 04/11/2008 ? Viral hepatitis B without mention of hepatic coma, chronic, without mention of hepatitis delta ? Vitamin D deficiency 03/17/2012 PAST SURGICAL HISTORY PAST SURGICAL HISTORY Procedure Laterality Date ? APPENDECTOMY HX 2004 During Crohn's surgery ? BIOPSY OF SKIN LESION Right 05/2018 Lesion removed from right thigh ? BX OF BREAST; INCISIONAL Right 05/12/2023 Ductal adenoma ? COLON SURGERY HX 2004 history of crohns S/P esection of terminal ileum ? COLONOSCOPY 05/04/2017 Ulcer at the anastomosis. Dr. Abhi Ramírez ? COLONOSCOPY 01/15/[address] Abhi Ramírez ? COLONOSCOPY 07/2019 interval 5 years at [facility] ? COLONOSCOPY 12/09/2021 ? COLONOSCOPY FLX DX W/COLLJ SPEC WHEN PFRMD 2004 Colonoscopy ? COLONOSCOPY FLX DX W/COLLJ SPEC WHEN PFRMD 07/17/2006 ? COLONOSCOPY FLX DX W/COLLJ SPEC WHEN PFRMD 01/20/2011 ? COLONOSCOPY SCREENING 11/24/2022 Dr Mcclain [facility] MAC anesthesia ? COLONOSCOPY W/BIOPSY SINGLE/MULTIPLE 05/06/2009 ? EGD W/O BRSH SPEC VARICIES INJ 11/24/2022 Dr Mcclain [facility] MAC anesthesia ? EXC SKIN HIDRADENITIS AX; COMPLEX 08/2009,has had 9more sugeries second in 09/26, axillary bilateral , groin bilateral one-03-06-18 ? INSJ TUNNELED CTR VAD W/SUBQ PORT AGE 5 YR/> 06/21/2011 RIght subclavian ? LYMPH NODE BIOPSY (SPECIFY LOCATION) HX 12/04/2018 superficial lymph node ? OFFICE LEEP 2008 ? PAST SURGICAL HISTORY OF 11/2008, 01/2008 Colposcopy ? REMOVAL GALLBLADDER 2004 ? SURG TX ANAL FISTULA 2ND STAGE 12/27/2006 ? TX ANAL FSTL TRANS/SUPRA/XTRASPHNCTRC INCL [place] 09/27/2006 [place] CURRENT MEDICATIONS Current Outpatient Medications Medication Sig Dispense Refill ? atenolol (TENORMIN) 50 mg tablet Take 1 tablet by mouth once daily. 90 tablet 3 ? ketoconazole (NIZORAL) 2 % shampoo Apply 1 application to affected area once daily as needed. Apply to scalp and lather as directed 120 mL 3 ? Chlorhexidine Gluconate (PERIDEX) 0.12 % solution Use 15 mL as instructed two times a day. Rinse around mouth for 30 seconds then expectorate. Use as directed. 118 mL 1 ? cyclobenzaprine (FLEXERIL) 10 mg tablet Take 1 tablet by mouth three times a day as needed for muscle spasm. 30 tablet 1 ? phenazopyridine (PYRIDIUM) 200 mg tablet Take 200 mg by mouth. ? colestipol (COLESTID) 1 gram tablet Take 1 g by mouth. ? LORazepam (ATIVAN) 1 mg tablet Take one tablet daily as needed (increasd anxiety) and one additional tablet prior to Remicade infusions. 60 tablet 0 ? dulaglutide (TRULICITY) 0.75 mg/0.5 mL pen injector Inject 0.75 mg subcutaneously one time a week. 4 Each 3 ? metFORMIN (GLUCOPHAGE) 500 mg tablet Take 1 tablet by mouth two times a day with meals. Start by taking 1 pill, once daily, after 1 week increase to twice daily 60 tablet 5 ? benzonatate (TESSALON PERLES) 100 mg capsule Take 1 capsule by mouth three times a day as needed for cough. (Patient not taking: Reported on 10/09/2023) 21 capsule 0 ? hydroCHLOROthiazide 12.5 mg capsule Take 1-2 capsules by mouth once daily as needed (swelling or blood presure over 140/90). 90 capsule 1 ? cholecalciferol, Vitamin D3, (VITAMIN D3) 1,250 mcg (50,000 unit) cap capsule Take 1 capsule by mouth one time a week. 4 capsule 11 ? albuterol (PROVENTIL) 2.5 mg /3 mL (0.083 %) nebulizer solution Use 3 mL via nebulizer every 4 hours as needed for wheezing/shortness of breath. Use over 5-15minutes. 60 mL 0 ? omeprazole (PRILOSEC) 40 mg capsule Take 1 capsule by mouth daily before breakfast. 1/2 hr before meal. 30 capsule 11 ? zolpidem (AMBIEN) 10 mg Take 1 tablet by mouth at bedtime as needed (insomnia) for up to 30 days. 30 tablet 0 ? fluticasone (FLONASE) 50 mcg/actuation nasal spray Use 2 Sprays in each nostril once daily. Rinse mouth after use. 9.9 mL 0 ? RENFLEXIS 100 mg injection Inject 1 Each intravenously every 6 weeks. ? albuterol HFA (PROAIR HFA) 90 mcg/actuation inhaler Inhale 2 Puffs as instructed every 6 hours as needed. 54 g 1 ? CPAP/BIPAP/OTHER The patient is using AutoPAP at home at a setting of 5-20 cmH2O. 1 Each 0 ? fluticasone-vilanterol (BREO ELLIPTA) 100-25 mcg/dose inhaler Inhale 1 Inhalation as instructed once daily. 60 Each 2 ? azaTHIOprine (IMURAN) 50 mg tablet Take 1 tablet by mouth once daily. 30 tablet 5 ? entecavir (BARACLUDE) 1 mg tablet Take 1 mg by mouth once daily. ? albuterol (PROVENTIL) 5 mg/mL nebu Inhale 0.5 mL as instructed one time only for 1 dose. 1 DOSE NOW - BACK OFFICE. PLACE 0.5 ML PER DROPPER AND 2.5 ML OF NORMAL SALINE INTO RESERVOIR. 1 mL 0 ? CPAP Initiate Auto PAP @ 5-20 cm of water with humidification. Mask (per patient preference) optional chin strap (if indicated) , filters, tubing, humidifier and lifetime supplies. 1 Device 0 ? diphenhydrAMINE (BENADRYL) 50 mg/mL injection Inject 25 mg intravenously as directed. 25mg IV push as premedication for Remicade infusion. MAY GIVE ADDITIONAL 25mg during infusion if patient complains of feeling jittery. 25 mL 0 ? lidocaine-prilocaine (EMLA) cream Apply to [facility] site 30-45 minutes prior to coming for infusion. 30 g 3 ? 0.9% NaCl Access implanted vascular access device (IVAD) as needed for flush, blood draw or treatment. Flush IVAD with 10-20 mL NS every 4 weeks and PRN when IVAD not in use. 2 Syringe 50 ? heparin 100 unit/mL syrg Access implanted vascular access device (IVAD) as needed for flush, blood draw or treatment. Before de-accessing port, flush with 10-20ml normal saline and follow with 5 mL heparin (100 units/mL) (if no heparin allergy). De-access port on treatment completion. 1 Syringe 50 No current facility-administered medications for this visit. ALLERGIES: Amoxicillin, Augmentin [Amoxicillin-Pot Clavulanate], Clavulanic Acid, and Levofloxacin PERSONAL HISTORY: SOCIAL HISTORY Social History Tobacco Use ? Smoking status: Former Current packs/day: 0.00 Average packs/day: 0.5 packs/day for 30.0 years (15.0 ttl pk-yrs) Types: Cigarettes Start date: 03/02/1993 Quit date: 03/02/2023 Years since quittin.6 ? Smokeless tobacco: Never Vaping Use ? Vaping status: Never Used Substance Use Topics ? Alcohol use: Yes Comment: Seldom ? Drug use: Never FAMILY HISTORY: FAMILY HISTORY FAMILY HISTORY Problem Relation Age of Onset ? Hypertension Mother ? Hypertension Father ? Cancer Father 58 Stomach ? No Known Problems Sister ? No Known Problems Brother ? Allergies Maternal Grandmother ? Hypertension Maternal Grandmother ? Thyroid Maternal Grandmother ? Cancer Maternal Grandfather prostate, colon, stomach ? Coronary Artery Disease Maternal Grandfather ? Hypertension Maternal Grandfather ? Stroke Maternal Grandfather ? No Known Problems Daughter ? No Known Problems Son ? Breast Cancer Maternal Aunt 50 ? Ovarian cancer No Family History REVIEW OF SYMPTOMS: GENERAL: denies fevers or chills ENDOCRINOLOGY: has not been on steroids Cardiology : denies palpitations or chest pain Respiratory: denies SOB or cough Hematology: denies history of prolonged bleeding or easy bruising or VTE Allergy: Denies history of personal or family history of allergy to anesthesia PHYSICAL EXAMINATION: VITALS: Last menstrual period 09/27/2023. GENERAL: The patient is well nourished, well hydrated in no acute distress. , The patient is oriented to time, place, and person. NECK: Supple. No lynphadenopathy, normal thyroid, no thyromegaly. LUNGS: Clear to auscultation bilaterally. no wheezes, rhonchi or rales HEART: Regular rate and rhythm, Normal heart sounds, and No murmurs or gallops IMPRESSION: Abnormal uterine bleeding, stenotic cervix, thickened endometrium on ultrasound PLAN: The risks/benefits/alternatives and personal involved for the planned hysteroscopy D&C, possible polyp resection, possible IUD insertion were reviewed with the patient. Her questions were answered to her satisfaction and she desires to proceed. Consent was signed. I reviewed with her postop instructions and expectations. I have reviewed and updated past medical and surgical history, medications and allergies Assessment & Plan Assessment/Plan (1) Abnormal uterine bleeding (AUB): (2) Endometrial thickening on ultrasound: (3) Stenosis, cervix:
[2023-11-09] VITALS (11 sets, daily range): BP systolic 136–174; BP diastolic 71–96; PULSE 83–99; RESP 16–18; TEMP 35.5–36.2; O2SAT 94–100; BMI 52.2
--- NOTE | 2023-11-09 | EMB_PTH ---
PATIENT: KIARA ORTIZCCT #:[id number] LOC: [facility] [place] U#:[id number] AGE/SX: 43/F ROOM: RE11/09/[address]: Dr. Estrella Cullen MD : 1980 BED: DIS: 11/09/2023 SPEC #: [id number] RECD: 11/09/23 12:47 STATUS: RHIANNA DEVRIES #: [id number] DEMOND: 11/09/23 00:[address]: Estrella Cullen DEPT: SURGICAL PATHOLOGY RECD BY: Rohit Martin ENTERED: 11/09/23 13:40 SP TYPE: ENDOM BX/C OTHR DR: Dr. Araseli Bueno MD Tissues: Endometrium, NOS Procedures: Surgery Specimen Level IV HEADER OPERATION: Hysteroscopy, D&C, polyp resection PRE-OP DIAGNOSIS: Abnormal uterine bleeding TISSUE SUBMITTED: Endometrial curettings and polyp MICROSCOPIC DIAGNOSIS Endometrial curettings and polyp: Polypoid fragments of disordered proliferative endometrium to focal simple hyperplasia without atypia. Focal glandular breakdown. Fragments of benign myometrium with changes suggestive of adenomyosis. AM 11/10/2023 MICROSCOPIC DESCRIPTION Slides are reviewed. GROSS DESCRIPTION Received in fixative is one container labeled with the patient's name and designated Endometrial curetting and polyp. The specimen consists of multiple irregular fragments of gillis soft tissue that in aggregate measure 7.5 x 3.0 x 0.3 cm. The specimen is totally submitted in three cassettes. 11/09/2023 TC:5 CPT:69102
[2023-11-09 07:23] LABS: Internal QC Validated? YES +Cl - CLEAR BKGD; Pregnancy, Urine Negative Negative; Record Kit Lot#,Urine Preg HCG0000772476
[2023-11-09] MEDS: Lactated Ringers 1,000 ML 15 ML IV (07:29)
[2023-11-09 07:30] LABS: Bedside Glucose 108 mg/dL (74-106)
--- NOTE | 2023-11-09 07:38 | PRE.ANES_ITS ---
ASA Classification* ASA Classification ASA Classification: 3 Assessment & Plan Anesthesia* Anesthesia Assessment Anesthesia Assessment: Discussed sedation and/or anesthesia options, risks, benefits, and alternatives with patient/parents/legal guardian/POA. Questions invited. The patient/parents/legal guardian/POA seems to understand and agrees to proceed with anesthesia plan. Reviewed the physical assessment, medical history, allergy history and patient home medications list prior to surgery/procedure/anesthetic and documented any changes. Performed airway and anesthesia risk assessments. Anesthesia Type Anesthesia Type: MAC (see written pre anesthesia record for full assessment) Anesthesia Focused Assessment* Airway Assessment Mouth opens: >3 cm Mallampati Score: III Focused Labs Anesthesia Preop lab: CBC WBC 10.1 K/mm3 (4.4-11.0) 09/27/23 18:05 RBC 5.27 M/mm3 (4.2-5.4) 09/27/23 18:05 Hgb 12.6 g/dL (12.0-15.0) 09/27/23 18:05 Hct 40.9 % (37-47) 09/27/23 18:05 Plt Count 175 K/mm3 (150-450) 09/27/23 18:05 CHEMISTRY Potassium 3.4 mmol/L (3.5-5.1) L 09/27/23 18:05 Sodium 139 mmol/L (136-145) 09/27/23 18:05 BUN 8 mg/dL (7-18) 09/27/23 18:05 Creatinine 1.10 mg/dL (0.55-1.02) H 09/27/23 18:05 Glucose 138 mg/dL (74-106) H 09/27/23 18:05 POC Glucose 108 mg/dL (74-106) H 11/09/23 07:10 COAG PT 12.7 SECONDS (11.7-14.9) 09/26/17 19:25 HCG, Quant < 1 mIU/mL (<9 non-preg) 03/19/15 10:04 Urine Test Negative Negative 11/09/23 06:50 Pre-Assessment Diagnosis/Proposed Procedure Planned Operative Procedure(s): HYSTEROSCOPY D &C LILETTA IUD INSERTION Anesthesia History 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 When Was Last Pacemaker Check QUESTION #4 FULL TEXT: You/Your Family Experience fever (hyperthermia) with Anesthesia Last Oral Intake Last Oral intake: Last Oral Intake NPO since Meds taken in AM with sips of water? Meds patient instructed to take am of surgery PONV PONV - construction supervisor/carpenter: PONV - construction supervisor/carpenter Female Yes 10/27/23 11:29 HX of Motion Sickness Yes 10/27/23 11:29 HX of N/V After Surgery Yes 10/27/23 11:29 Non-Smoker Yes 10/27/23 11:29 Duration of Surgery greater No 10/27/23 11:29 than 60 minutes Number of Risk Factors 4 10/27/23 11:29 PONV Score Severe Risk 10/27/23 11:29 Height & Weight Height & Weight: Anesthesia: Height & Weight Height 5 ft 11 in 09/27/23 18:29 Respiratory Assessment Respiratory Assessment - construction supervisor/carpenter: Respiratory Tract Infection Hx - construction supervisor/carpenter Hx Respiratory Tract Infection No 10/27/23 11:29 STOP Sleep Apnea STOP Sleep Apnea - construction supervisor/carpenter: STOP Sleep Apnea - construction supervisor/carpenter Hx Hypertension Yes: CONTROLLED WITH MED 10/27/23 11:29 Hx Sleep Apnea Yes 10/27/23 11:29 CPAP Yes 10/27/23 11:29 BIPAP No 10/27/23 11:29 Do you snore loudly (louder than talking or can be heard Do you often feel tired/ fatigued/ sleepy during daytime? Has anyone observed you stop breathing during sleep? STOP Results Positive 10/27/23 11:29 QUESTION #5 FULL TEXT : Do you snore loudly (louder than talking or can be heard through closed doors)? 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 Specify any problems Hx of Preganancy in last 3 No 10/27/23 11:29 Months Nurse Filling Out Transfusion DSCHRIBER 10/27/23 11:29 & Questions: Date: 10/27/23 10/27/23 11:29 Time: 11:30 10/27/23 11:29 Patient unable to answer at this time (ie. confused, unrespo /Reproduction History /Reproductive History - construction supervisor/carpenter: /Reproductive Hx- construction supervisor/carpenter Hx Now No 10/27/23 11:29 Gestational Age (in weeks): EDC: Hx Hx Para Hx Section SAB No 10/27/23 11:29 Active Medications Active Medications: Current Medications Generic Name Dose Route Start Last Admin Trade Name Freq PRN Reason Stop Dose Admin Lactated Ringer's 1,000 mls @ 15 mls/hr 11/09/23 07:00 11/09/23 07:29 IV 15 mls/hr .Q48H CHARLEE Administration PFSH Medical History Wears glasses Anxiety Diabetes Arthritis Hepatitis Back pain History of ulceration Gastric reflux Former smoker CPAP (continuous positive airway pressure) dependence Asthma Shortness of breath on exertion Leg cramps History of edema History of stress test History of rectal fissure Psoriasis Vitamin deficiency Heart murmur Anemia Obesity Hidradenitis suppurativa Crohns disease Hepatitis B Home Medications ?Medication ?Instructions ?Recorded ?Last Taken ?Type azathioprine 50 mg tablet (Imuran) 50 mg PO DAILY@0800 11/20/12 11/08/23 History omeprazole 20 mg capsule,delayed 20 - 40 mg PO DAILY GERD 10/24/13 11/09/23 H istory release lorazepam 1 mg tablet 1 mg PO DAILY PRN PRN Anxiety 03/02/18 11/09/23 History multivitamin 1 tab PO DAILY 06/26/20 11/02/23 History colestipol 1 gram tablet 1 g PO BID 09/28/22 11/06/23 History entecavir 1 mg tablet 1 mg PO DAILY 09/28/22 11/08/23 History fluticasone furoate 100 1 inh inhalation Q24H PRN SOB 09/28/22 Unknown History mcg-vilanterol 25 mcg/dose inhalation powder (Breo Ellipta) atenolol 50 mg tablet 50 mg PO DAILY 12/10/22 11/09/23 History cyclobenzaprine 10 mg tablet 10 mg PO TID PRN muscle spasm 12/10/22 11/08/23 History albuterol sulfate 90 mcg/actuation 2 puff inhalation Q6H PRN PRN 10/27/23 Unknown History aerosol inhaler shortness of breath or wheezing cholecalciferol (vitamin D3) 1,250 1,250 mcg PO MO 10/27/23 11/06/23 History mcg (50,000 unit) capsule hydrochlorothiazide 12.5 mg capsule 12.5 - 25 mg PO DAILY PRN edema 10/27/23 11/07/23 History infliximab-abda 100 mg intravenous 100 mg IV .EVERY 6 WEEKS CROHNS 10/27/23 10/20/23 History solution (Renflexis) metformin 500 mg tablet 500 mg PO BID 10/27/23 11/08/23 History Allergy/AdvReac Type Severity Reaction Status Date / Time amoxicillin Allergy Hives Verified 11/09/23 07:24 clavulanic acid (From Allergy Hives Verified 11/09/23 07:24 Augmentin) levofloxacin (From Levaquin) Allergy Hives Verified 11/09/23 07:24 Family History Father Hypertension Anemia Mother Arthritis Hypertension Anemia Brother Asthma History of psychiatric care Son Asthma Daughter Severe allergy Aunt Hypertension Uncle Arthritis Hypertension Asthma Grandmother Arthritis Asthma Hypertension Other Breast cancer Cancer Cervical cancer Colon cancer Surgical History History of lumpectomy of right breast POWERPORT SMALL BOWEL SURGERIES Hidradenitis suppurativa Social History household members: spouse Smoking Status: Former smoker Tobacco: How many years used: 27 second hand exposure: Yes alcohol intake: current alcohol intake frequency: a few times a month Alcohol type: wine substance use type: does not use what type of physical activity do you participate in: walking seatbelt use: always additional social history: SUN EXPOSURE: FREQUENTLY DOES NOT USE ASPIRIN DOES NOT USE IBUPROFEN Review of Systems (Anesthesia) ROS Narrative System reviewed and no additional complaints, except as documented.
[2023-11-09 07:48] LABS: Hematocrit 36.1 % (37-47); Mean Corp Hgb Conc 30.5 g/dL (32-36); Mean Corpuscular Hgb 22.5 pg (27.0-32.0); Mean Corpuscular Volume 73.8 fL (81-99); Mean Platelet Vol. 12.1 fl (6.2-12.0); Platelet Count 299 K/mm3 (150-450); RBC Distribution Width CV 15.1 % (11.6-14.6); RBC Distribution Width SD 40.2 fl (35.1-43.9); Red Blood Count 4.89 M/mm3 (4.2-5.4); White Blood Count 9.7 K/mm3 (4.4-11.0)
--- NOTE | 2023-11-09 08:41 | PCM.OPRPT ---
Report of Operation Date of Procedure: 11/09/23 Pre-Operative Diagnosis: AUB, endometrial polyps Post-Operative Diagnosis: same Surgery/Procedure Performed:: hysteroscopy D&C with polyp resection Description of Surgical Findings:: Normal cervix and vagina, lush endometrium w/ polypoid appearing lesion on lateral endometrial mae, possible anterior wall submucosal fibroid Surgeon: Estrella Cullen backpackers manager: None Type of Anesthesia: MAC/Supplemental/Local Anesthesiologist: Hernan Aggarwal Special Medications: none Specimen's removed: endometrial curettings polyp Drains: none Estimated Blood Loss (mL): 10 Fluids Replaced: 600 Description of Procedure: The patient was taken to the OR where she was prepped and draped in dorsal lithotomy position. The weighted speculum was placed in the vagina and the anterior lip of the cervix was grasped with a single-tooth tenaculum. A paracervical block was administered with 10 cc of dilute vasopressin solution that was 10 units of vasopressin and 20 cc of injectable saline.. The cervix was dilated serially with Hegar dilators. The Symphion hysteroscope was placed into the uterine cavity and the above findings were noted. Bilateral tubal ostia were identified. The resection device was readied and inserted. A visual D&C was done of the lush endometrium. There was some polypoid lesions along the lateral sidewalls. The anterior uterine wall bulged into the cavity slightly and may have been a submucosal anterior fibroid. This was resected until the cavity was normal in shape and size. The entire endometrium was curetted with the resection device. No other focal abnormalities were noted. There is a normal endocervical canal as I removed the scope.. The instruments were removed from the vagina. The specimen was handed off and sent to pathology. All sponge and needle counts were correct. Vaginal sweep was performed by me. The patient was awakened and taken to the recovery room in stable condition. Hysteroscopic fluid deficit was 850 cc of normal saline Grafts/Implants Used: none Procedure Start Time: 08:30 Procedure Stop Time: 09:12 Complications none Admit VTE Documentation VTE Present on Admission: No VTE Mechan Device Prophylaxis: SCD's VTE Pharm Prophylaxis ordered?: No Reason prophylaxis not ordered:: Procedure Not Indicated
[2023-11-09] MEDS: Vasopressin 20 UNITS/ML Vial (09:03)
[2023-11-09] MEDS: 0.9% Normal Saline (Pres. free 10 ML Vial (09:03)
--- NOTE | 2023-11-09 09:27 | PCM.POST.ANE ---
Anesthesia: Postop Eval I Current Vital Signs Temperature: 97.1 F Pulse Rate: 94 Blood Pressure: 172/92 Respiratory Rate: 16 Pulse Ox: 97 Oxygen Delivery Method: Room Air Assessment Airway patent: Yes Spontaneous unlabored respirations: Yes Mental status: Calm and Asleep (Arousable) nausea: No Vomiting: No Anesthesia Complication: No Fluid Hydration Crystalloid volume administer (ml): 600 Total IV fluid infused: 600 Progress Note Anesthesia document: Postop Eval 1 completed: Yes
--- NOTE | 2023-11-09 09:48 | PCM.POSTANE2 ---
Anesthesia Postop Eval I Sum Postop Eval Completion status Anesthesia document: Postop Eval 1 completed: Yes Anesthesia Postop Eval I Summary Anesthesia Postop Eval I Summary: Anesthesia Postop Eval I: Assessment Summary Airway patent Yes 11/09/23 09:29 Spontaneous unlabored Yes 11/09/23 09:29 respirations Mental status Calm,Asleep - 11/09/23 09:29 Arousable nausea No 11/09/23 09:29 Vomiting No 11/09/23 09:29 Anesthesia Postop Eval I: Fluid Summary Crystalloid volume administer 600 11/09/23 09:29 (ml) Colloids volume administered ( ml) Blood Product volume administered (ml) Total IV fluid infused 600 11/09/23 09:29 Anesthesia Postop Eval I: Summary Notes Anesthesia Complication No 11/09/23 09:29 Anesthesia Complication Comment: Post-operative progress note Anesthesia: Postop Eval II Evaluation Mental status: Awake Pain Level: 0 nausea: No Vomiting: No
--- NOTE | 2023-11-09 09:51 | POSTOPAN2_ITS ---
Anesthesia Postop Eval I Sum Postop Eval Completion status Anesthesia document: Postop Eval 1 completed: Yes Anesthesia Postop Eval I Summary Anesthesia Postop Eval I Summary: Anesthesia Postop Eval I: Assessment Summary Airway patent Yes 11/09/23 09:51 [email or web address] Spontaneous unlabored Yes 11/09/23 09:51 COMMODITY [email or web address] respirations Mental status Awake,Calm 11/09/23 09:51 COMMODITY [email or web address] nausea No 11/09/23 09:51 COMMODITY [email or web address] Vomiting No 11/09/23 09:51 COMMODITY [email or web address] Anesthesia Postop Eval I: Fluid Summary Crystalloid volume administer 600 11/09/23 09:51 COMMODITY [email or web address].MDOT (ml) Colloids volume administered ( ml) Blood Product volume administered (ml) Total IV fluid infused 600 11/09/23 09:51 COMMODITY [email or web address] Anesthesia Postop Eval I: Summary Notes Anesthesia Complication No 11/09/23 09:51 COMMODITY [email or web address] Anesthesia Complication Comment: Post-operative progress note Anesthesia: Postop Eval II Evaluation Mental status: Awake and Calm Pain Level: 0 nausea: No Vomiting: No Complications Anesthesia Complication: No
--- NOTE | 2023-11-09 09:51 | PCM.POST.ANE ---
Anesthesia: Postop Eval I Current Vital Signs Temperature: 97 F Pulse Rate: 90 Blood Pressure: 162/88 Respiratory Rate: 16 Pulse Ox: 94 Oxygen Delivery Method: Room Air Assessment Airway patent: Yes Spontaneous unlabored respirations: Yes Mental status: Awake and Calm nausea: No Vomiting: No Anesthesia Complication: No Fluid Hydration Crystalloid volume administer (ml): 600 Total IV fluid infused: 600 Progress Note Anesthesia document: Postop Eval 1 completed: Yes
--- NOTE | 2023-11-09 09:51 | PCM.POSTANE2 ---
Anesthesia Postop Eval I Sum Postop Eval Completion status Anesthesia document: Postop Eval 1 completed: Yes Anesthesia Postop Eval I Summary Anesthesia Postop Eval I Summary: Anesthesia Postop Eval I: Assessment Summary Airway patent Yes 11/09/23 09:51 INFORMATION [email or web address] Spontaneous unlabored Yes 11/09/23 09:51 INFORMATION OPERATOR.MDOT respirations Mental status Awake,Calm 11/09/23 09:51 INFORMATION OPERATOR.MDOT nausea No 11/09/23 09:51 INFORMATION OPERATOR.MDOT Vomiting No 11/09/23 09:51 INFORMATION [email or web address] Anesthesia Postop Eval I: Fluid Summary Crystalloid volume administer 600 11/09/23 09:51 INFORMATION OPERATOR.MDOT (ml) Colloids volume administered ( ml) Blood Product volume administered (ml) Total IV fluid infused 600 11/09/23 09:51 INFORMATION [email or web address].MDOT Anesthesia Postop Eval I: Summary Notes Anesthesia Complication No 11/09/23 09:51 INFORMATION OPERATOR.MDOT Anesthesia Complication Comment: Post-operative progress note Anesthesia: Postop Eval II Evaluation Mental status: Awake and Calm Pain Level: 0 nausea: No Vomiting: No Complications Anesthesia Complication: No
--- NOTE | 2023-11-09 11:40 | DCINST_ITS ---
Discharge Instructions Diet Discharge Diet: No restrictions Activity Return to work on:: 11/10/23 May resume sexual activity in: 2 weeks Lifting Restrictions: none Dressing / Incision Call your doctor if your incision/area has: Sudden Increased Bleeding and Foul Smelling Discharge Call your doctor if you observe: Fever of 101 or Higher and Using more than 1 pad per hour (for 2 hrs in a row) Follow Up Care Please Follow Up With: Estrella Cullen MD When: We will contact you with your pathology next week. you do not have to schedule a postop visit. Call [phone] or send a mychart with nonurgent questions Test Results: Test results from this visit will be discussed in further detail at your follow- up appointment, if applicable. Discharge Plan Admission Primary Reason for Your Visit: D&C and polyp resection Attending Provider: Estrella Cullen Primary Care Provider: Araseli Bueno Instructions Print Language: Salvadorean Discharge Orders/Prescriptions Prescriptions: No Action azathioprine [Imuran] 50 MG tablet 50 mg PO DAILY@0800 Patient Comments: immunosuppressant omeprazole 20 MG capsule 20 - 40 mg PO DAILY Patient Comments: stomach lorazepam 1 MG tablet 1 mg PO DAILY PRN PRN (Reason: Anxiety) multivitamin Tablet 1 tab PO DAILY atenolol 50 mg tablet 50 mg PO DAILY Patient Comments: take 1 tablet by mouth once daily cyclobenzaprine 10 mg tablet 10 mg PO TID PRN (Reason: muscle spasm) Patient Comments: take 1 tablet by mouth three times a day if needed for muscle spasm entecavir 1 mg tablet 1 mg PO DAILY Patient Comments: take 1 tablet by mouth once daily colestipol 1 gram tablet 1 g PO BID Patient Comments: take 1 tablet by mouth twice a day fluticasone furoate-vilanterol [Breo Ellipta] 100-25 mcg/dose blister with device 1 inh INHALATION Q24H PRN (Reason: SOB) Patient Comments: inhale 1 puff by mouth as directed once daily albuterol sulfate 90 mcg/actuation HFA aerosol inhaler 2 puff inhalation Q6H PRN PRN (Reason: shortness of breath or wheezing) metformin 500 mg tablet 500 mg PO BID hydrochlorothiazide 12.5 mg capsule 12.5 - 25 mg PO DAILY PRN (Reason: edema) cholecalciferol (vitamin D3) 1,250 mcg (50,000 unit) capsule 1,250 mcg PO MO Renflexis 100 mg recon soln 100 mg IV .EVERY 6 WEEKS Referrals / Follow Up: Araseli Bueno MD [Primary Care Provider] - Disposition Disposition (needs filled in before D/C Order can be placed): Home, Self Care
[2023-11-09] MEDS: 0.9 % NaCl (Sterile) Posiflush 10 mL IV (12:42)
[2023-11-09 17:24] LABS: ALB/GLOB Ratio 1.3 RATIO (0.9-2.4); AST(SGOT) 10 U/L (15-37); Alanine Aminotransfer ALT/SGPT 17 U/L (13-56); Albumin, Serum 4.1 g/dL (3.2-5.0); Alkaline Phosphatase 69 U/L (45-117); Anion Gap 7 (5-15); BUN 9 mg/dL (7-18); BUN/Creat Ratio 12.7 RATIO (10-20); Calcium,Total 9.5 mg/dL (8.5-10.1); Chloride 111 mmol/L (98-107); Creatinine, Serum 0.71 mg/dL (0.55-1.02); EST Glomerular Filtration Rate 95 mL/min (>60); Est Glom Filt Rate - Afr Amer 115 mL/min (>60); Estimated Creatinine Clearance 176.36 ml/min; Globulin 3.2 g/dL (2.2-4.2); Glucose 93 mg/dL (74-106); Potassium 3.8 mmol/L (3.5-5.1); Protein, Total 7.3 g/dL (6.4-8.2); Sodium Level 140 mmol/L (136-145)
== END 2023-11-09 12:49 | disposition home or self-care (01) ==
LOC: SDC 06:43 → AC 06:45
PROVIDERS: Anesthesiology; PCP Internal Medicine; Referring Provider Obstetrics & Gynecology; Visit Provider Obstetrics & Gynecology
PROC: 0UB98ZZ Excision of Uterus, Via Natural or Artificial Opening Endoscopic (ICD-10-PCS; CPT 58558; principal; 2023-11-09 08:20)
DX: N93.9 Abnormal uterine and vaginal bleeding, unspecified (principal); K50.90 Crohn's disease, unspecified, without complications; B18.1 Chronic viral hepatitis B without delta-agent; D25.0 Submucous leiomyoma of uterus; N80.03 Adenomyosis of the uterus; N88.2 Stricture and stenosis of cervix uteri; I10 Essential (primary) hypertension; K21.9 Gastro-esophageal reflux disease without esophagitis; Z79.899 Other long term (current) drug therapy; Z87.891 Personal history of nicotine dependence
CPT/HCPCS: 58558; 80053; 81025; 82962; 85027; 88305; J7120; A4216; J2405; J3490

== ENCOUNTER 2023-12-28 21:40 | Emergency (ER) | payer MEDICARE, SELFPAY ==
[2023-12-28 21:41] VITALS: BP 196/96; PULSE 83; RESP 19; TEMP 36.1; O2SAT 100
[2023-12-28 22:22] LABS: Mucous, Urine 0 SEEN /hpf (<or=2+)
--- NOTE | 2023-12-28 22:42 | CT_ITS ---
INDICATION: abdominal pain EXAMINATION: CT ABDOMEN AND PELVIS WITH CONTRAST - CT Abdomen And Pelvis W/ Contrast Injection TECHNIQUE: Helically acquired images were obtained of the abdomen and pelvis following IV contrast. A radiation dose optimization technique was used for this scan. IV Contrast dosage and agent: 100 cc [id number] Oral contrast: None. COMPARISON: 09/14/2015 FINDINGS: LOWER CHEST: Lung bases are clear. No cardiomegaly or pericardial effusion. LIVER: Homogeneous. No focal mass. GALLBLADDER AND BILIARY TREE: Cholecystectomy. No intra- or extrahepatic biliary ductal dilation. PANCREAS: No focal cystic or solid mass. SPLEEN: Normal size without focal cystic or solid mass. ADRENAL GLANDS: No nodules. KIDNEYS AND URETERS: Uniform enhancement. Nonobstructing right renal calculus. No hydronephrosis. PERITONEUM: No ascites or free air. BOWEL: No evidence of acute appendicitis. No abnormal bowel distention. No focal inflammatory change. LYMPH NODES: No enlarged mesenteric or retroperitoneal lymph nodes. VESSELS: Aorta is non-dilated. URINARY BLADDER: Nondistended. REPRODUCTIVE ORGANS: No pelvic masses. IUD in place. ABDOMINAL WALL: No discrete abdominal or pelvic wall hernia. BONES: No acute or aggressive abnormality. CT/Abdomen/Pelvis W IV Cont ONLY IMPRESSION: No acute findings in the abdomen or pelvis. Electronically Signed: Andrea Pickens MD at 0:11 EST ,
--- NOTE | 2023-12-28 22:43 | EX.ED.DYSGE1 ---
HPI History of Present Illness Chief Complaint: Abd Pain Informant: patient Narrative Narrative: 43-year-old female presenting to the emergency room with continued lower pelvic pain. She also notes upper abdominal pressure that radiates around towards the back. Associated with this includes nausea and a lack of appetite. Patient has a history of Crohn's disease follows with Nivia tejeda. She has had prior bowel obstruction partial colectomy appendectomy cholecystectomy. She states that on 12 17 she had an IUD placed. She has not had any fever or vaginal bleeding/discharge or foul smell. Patient notes that the lower abdominal pain has been there since the procedure. She has not talked with her doctor about the pain and has been taking ibuprofen for it. She notes that she is having bowel movements. She states this does not feel like a bowel obstruction. [facility] Medical History Abnormal uterine bleeding (AUB) COVID-19 Wears glasses Anxiety Diabetes Arthritis Hepatitis Back pain History of ulceration Gastric reflux Former smoker CPAP (continuous positive airway pressure) dependence Asthma Shortness of breath on exertion Leg cramps History of edema History of stress test History of rectal fissure Psoriasis Vitamin deficiency Heart murmur Anemia Obesity Hidradenitis suppurativa Crohns disease Hepatitis B Home Medications ?Medication ?Instructions ?Recorded ?Last Taken ?Type azathioprine 50 mg tablet (Imuran) 50 mg PO DAILY@0800 11/20/12 11/08/23 History omeprazole 20 mg capsule,delayed 20 - 40 mg PO DAILY GERD 10/24/13 11/09/23 History release lorazepam 1 mg tablet 1 mg PO DAILY PRN PRN Anxiety 03/02/18 11/09/23 History multivitamin 1 tab PO DAILY 06/26/20 11/02/23 History colestipol 1 gram tablet 1 g PO BID 09/28/22 11/06/23 History entecavir 1 mg tablet 1 mg PO DAILY 09/28/22 11/08/23 History fluticasone furoate 100 1 inh inhalation Q24H PRN SOB 09/28/22 Unknown History mcg-vilanterol 25 mcg/dose inhalation powder (Breo Ellipta) atenolol 50 mg tablet 50 mg PO DAILY 12/10/22 11/09/23 History cyclobenzaprine 10 mg tablet 10 mg PO TID PRN muscle spasm 12/10/22 11/08/23 History albuterol sulfate 90 mcg/actuation 2 puff inhalation Q6H PRN PRN 10/27/23 Unknown History aerosol inhaler shortness of breath or wheezing cholecalciferol (vitamin D3) 1,250 1,250 mcg PO MO 10/27/23 11/06/23 History mcg (50,000 unit) capsule hydrochlorothiazide 12.5 mg capsule 12.5 - 25 mg PO DAILY PRN edema 10/27/23 11/07/23 History infliximab-abda 100 mg intravenous 100 mg IV .EVERY 6 WEEKS CROHNS 10/27/23 10/20/23 History solution (Renflexis) metformin 500 mg tablet 500 mg PO BID 10/27/23 11/08/23 History Allergy/AdvReac Type Severity Reaction Status Date / Time amoxicillin Allergy Hives Verified 12/28/23 21:41 clavulanic acid (From Allergy Hives Verified 12/28/23 21:41 Augmentin) levofloxacin (From Levaquin) Allergy Hives Verified 12/28/23 21:41 Family History Father Hypertension Anemia Mother Arthritis Hypertension Anemia Brother Asthma History of psychiatric care Son Asthma Daughter Severe allergy Aunt Hypertension Uncle Arthritis Hypertension Asthma Grandmother Arthritis Asthma Hypertension Other Breast cancer Cancer Cervical cancer Colon cancer Surgical History History of lumpectomy of right breast POWERPORT SMALL BOWEL SURGERIES Hidradenitis suppurativa Social History household members: spouse Smoking Status: Former smoker Tobacco: How many years used: 27 second hand exposure: Yes alcohol intake: current alcohol intake frequency: a few times a month Alcohol type: wine substance use type: does not use what type of physical activity do you participate in: walking seatbelt use: always additional social history: SUN EXPOSURE: FREQUENTLY DOES NOT USE ASPIRIN DOES NOT USE IBUPROFEN ROS ROS ED Constitutional Constitutional ED: Denies chills, fever(s) or weight loss Eyes Eyes: Denies change in vision or diplopia ENT ENT ED: Denies ear pain, rhinorrhea or sore throat Cardiovascular Cardiovascular: Denies chest pain, orthopnea, palpitations or racing heartbeat Respiratory/Chest Respiratory/Chest: Denies cough, dyspnea or orthopnea Gastrointestinal Gastrointestinal: Reports abdominal pain, nausea and other Details: Pelvic pain ; Denies diarrhea or vomiting Genitourinary Genitourinary ED: Denies dysuria, hematuria or urinary frequency Musculoskeletal Musculoskeletal: Reports back pain; Denies arthralgias, myalgias or neck pain Integumentary Denies abscess or rash Neurologic Neurologic: Denies headache(s) or weakness Psychiatric Psychiatric: Denies anxiety, depression, suicidal ideation or suicidal thoughts Endocrine Endocrinology: Denies polydipsia, polyphagia or polyuria Allergic/Immunologic Allergic/Immunologic ED: Denies mouth swelling, tongue swelling or urticaria EXAM Physical Exam Narrative Exam Narrative: Patient clinically appears well sitting on the bed and watching TV. However she is noted to be rubbing her. Const Vital Signs: 12/28/23 21:41 12/28/23 23:41 12/29/23 01:00 Temperature 97 F L 98 F Temperature Source Temporal Pulse Rate 83 82 80 Respiratory Rate 19 H 18 16 Blood Pressure 196/96 H 142/75 H 142/80 H Blood Pressure Mean 129 97 100 Pulse Ox 100 97 100 Oxygen Delivery Method Room Air Room Air Positive well nourished, well developed and obese General Appearance ED: well developed and NAD Nutritional Appearance: obese HEENT Reports normocephalic, head/scalp atraumatic and moist mucous membranes Eyes PERRL and EOMs intact bilaterally Neck no lymphadenopathy, supple and no JVD Resp normal respiratory effort and clear to auscultation bilaterally Cardio regular rate, regular rhythm and no murmurs GI GI Narrative: Mild diffuse tenderness. No guarding or rebound. The heart is soft. No tympany. Inspection: Negative for abdominal distention Auscultation: normoactive bowel sounds Palpation: soft Back/Spine no CVA tenderness and normal ROM Extremity normal to inspection General Extremety ED: Negative for edema General Extremity: Negative for edema Neuro oriented x3 and CN's II-XII intact bilaterally Sensorium / Orientation: alert Motor Exam: strength 5/5 throughout Psych mental status grossly normal Mood & Affect: Negative for depressed or tearful Skin no rashes or lesions noted and no wounds MDM MDM MDM Narrative Medical decision making narrative: Differential diagnosis includes but not limited to pelvic abscess endometritis UTI small bowel obstruction colitis pancreatitis kidney stone Patient's white count is 10 hemoglobin 10.6 platelet count 259. BMP within normal limits liver enzymes within normal limits lipase 27 urinalysis with no overt infection slight contamination. Pelvic ultrasound demonstrates no acute findings. CT of the abdomen pelvis with IV contrast was obtained read by radiology reviewed by myself. This does not demonstrate any acute findings. Patient received a dose of morphine and later Toradol. At this point I believe the patient can be discharged home. Of asked that she follow-up with POLYGRAPH TECHNICIAN due to the continued pelvic discomfort status post her IUD placement. Patient to monitor for any new or worsening symptoms return if worsening or concerns History & Record Review Discussion w/independent historian: Patient and Significant other Lab Data Attestation: I reviewed the patient's lab results. Labs: Laboratory Results - last 24 hr 12/28/23 12/28/23 12/28/23 22:15 22:28 22:41 WBC 10.0 RBC 4.84 Hgb 10.6 L Hct 34.8 L MCV 71.9 L MCH 21.9 L MCHC 30.5 L RDW Std Deviation 41.5 RDW Coeff of Renny 16.2 H Plt Count 259 MPV 12.3 H Immature Gran % (Auto) 0.200 Neut % (Auto) 46.9 L Lymph % (Auto) 41.9 H Concho % (Auto) 8.1 Eos % (Auto) 2.0 Baso % (Auto) 0.9 Absolute Neuts (auto) 4.7 Absolute Lymphs (auto) 4.19 Nucleated RBC % 0 Differential Comment SCANNED Hypochromasia 1+ Sodium 141 Potassium 3.4 L Chloride 110 H Carbon Dioxide 26.0 Anion Gap 5 BUN 8 Creatinine 0.90 Est GFR (MDRD) Af Amer 87 Est GFR (MDRD) Non-Af 72 BUN/Creatinine Ratio 8.9 L Glucose 100 Calcium 8.5 Total Bilirubin 0.20 AST 19 ALT 26 Alkaline Phosphatase 75 Total Protein 7.8 Albumin 3.3 Globulin 4.5 H Albumin/Globulin Ratio 0.7 L Lipase 27 Urine Color Yellow Urine Clarity Clear Urine pH 7.0 Ur Specific Covel 1.010 Urine Protein Negative Urine Glucose (UA) Normal Urine Ketones Negative Urine Occult Blood 150 H Urine Nitrite Negative Urine Bilirubin Negative Urine Urobilinogen Normal Ur Leukocyte Esterase 100 H Urine RBC 0-5 SEEN Urine WBC 5-10 SEEN Ur Squamous Epith Cells 5-10 SEEN Urine Bacteria RARE Urine Mucus 0 SEEN Radiography Diagnostic Testing: Clinical Impression(s) from Imaging Studies Abdomen/Pelvis CT 12/28/23 22:42 IMPRESSION: No acute findings in the abdomen or pelvis. Electronically Signed: Andrea Pickens MD at 0:11 EST , Transvaginal US 12/28/23 22:46 IMPRESSION: IUD in place. No acute findings in the pelvis. Electronically Signed: Andrea Pickens MD at 0:30 EST , Discharge Plan Triage Chief Complaint: Abd Pain Other Complaint: Back ED Provider: Heber Atkinson Dx/Rx/DC Orders Clinical Impression: Acute pelvic pain, Abdominal pain, acute Instructions: Abdominal Pain Prescriptions: No Action azathioprine [Imuran] 50 MG tablet 50 mg PO DAILY@0800 Patient Comments: immunosuppressant omeprazole 20 MG capsule 20 - 40 mg PO DAILY Patient Comments: stomach lorazepam 1 MG tablet 1 mg PO DAILY PRN PRN (Reason: Anxiety) multivitamin Tablet 1 tab PO DAILY atenolol 50 mg tablet 50 mg PO DAILY Patient Comments: take 1 tablet by mouth once daily cyclobenzaprine 10 mg tablet 10 mg PO TID PRN (Reason: muscle spasm) Patient Comments: take 1 tablet by mouth three times a day if needed for muscle spasm entecavir 1 mg tablet 1 mg PO DAILY Patient Comments: take 1 tablet by mouth once daily colestipol 1 gram tablet 1 g PO BID Patient Comments: take 1 tablet by mouth twice a day fluticasone furoate-vilanterol [Breo Ellipta] 100-25 mcg/dose blister with device 1 inh INHALATION Q24H PRN (Reason: SOB) Patient Comments: inhale 1 puff by mouth as directed once daily albuterol sulfate 90 mcg/actuation HFA aerosol inhaler 2 puff inhalation Q6H PRN PRN (Reason: shortness of breath or wheezing) metformin 500 mg tablet 500 mg PO BID hydrochlorothiazide 12.5 mg capsule 12.5 - 25 mg PO DAILY PRN (Reason: edema) cholecalciferol (vitamin D3) 1,250 mcg (50,000 unit) capsule 1,250 mcg PO MO Renflexis 100 mg recon soln 100 mg IV .EVERY 6 WEEKS Primary Care Provider: Araseli Bueno Referrals: Araseli Bueno MD [Primary Care Provider] - 1-2 Days if not improving Activity Restrictions/Additional Instructions: I would recommend you calling your POLYGRAPH TECHNICIAN tomorrow to discuss your discomfort following the procedure. Print Language: Pakistani Disposition Disposition: Home, Self Care Discharge Date/Time: 12/29/23 01:20
[2023-12-28 22:44] LABS: Color, Urine Yellow (Yellow); Glucose, Dipstick Normal (Normal); Ketone-Dipstick Negative (Negative); Leukocyte Esterase-Dipstick 100 /ul (Negative); Nitrite-Dipstick Negative (Negative); Occult Blood-Urine 150 /ul (Negative); Protein-Dipstick Negative (Negative); Urine Bilirubin Dipstick Negative (Negative); Urine Clarity Clear (Clear); Urine Urobilinogen Normal (Normal)
[2023-12-28 22:45] LABS: Absolute Lymphocyte Count 4.19 X10^3/uL (0.83-4.51); Absolute Neutrophil Count 4.7 X10^3/uL (2.0-7.7); Basophil# 0.09 X10^3/uL; Basophil% 0.9 % (0-1); Hematocrit 34.8 % (37-47); Hemoglobin 10.6 g/dL (12.0-15.0); Lymphocyte # 4.19 X10^3/ul (0.83-4.51); Lymphocyte % 41.9 % (19-41); Mean Corp Hgb Conc 30.5 g/dL (32-36); Mean Corpuscular Hgb 21.9 pg (27.0-32.0); Mean Corpuscular Volume 71.9 fL (81-99); Mean Platelet Vol. 12.3 fl (6.2-12.0); Monocyte# 0.81 X10^3/uL; Monocyte% 8.1 % (0-10); NRBC Flagged by Analyzer 0 % (0-5); Neutrophil # 4.68 X10^3/uL (2.7-7.7); Neutrophil % 46.9 % (47-70); POSITIVE MORPHOLOGY YES; Platelet Count 259 K/mm3 (150-450); RBC Distribution Width CV 16.2 % (11.6-14.6); RBC Distribution Width SD 41.5 fl (35.1-43.9); Red Blood Count 4.84 M/mm3 (4.2-5.4)
--- NOTE | 2023-12-28 22:46 | US_ITS ---
INDICATION: IUD Placement (12/17) Pain EXAMINATION: Ultrasound US Transvaginal Non-OB TECHNIQUE: Transvaginal (for optimal evaluation of the adnexa) pelvic ultrasound was performed. Grayscale, spectral waveform, and color flow Doppler evaluation of the adnexa. COMPARISON: Pelvic ultrasound 09/27/2023, CT abdomen and pelvis 12/28/2023 FINDINGS: UTERUS: Anteverted. The uterus measures 8.9 x 4.5 x 4.4 cm. There is no uterine mass. The endometrial stripe measures 6 mm in AP diameter which is within normal limits. Echogenic portion of IUD identified in the endometrial canal. RIGHT OVARY: Nonvisualized due to overlying bowel gas. LEFT OVARY: Nonvisualized due to overlying bowel gas. FREE FLUID: None. US/Transvaginal Non- IMPRESSION: IUD in place. No acute findings in the pelvis. Electronically Signed: Andrea Pickens MD at 0:30 EST ,
[2023-12-28 22:47] LABS: Differential Indicated SCAN CRITERIA MET
[2023-12-28 22:50] LABS: Squamous Epithelial Cells - UA 5-10 SEEN /hpf (5-10)
[2023-12-28 22:52] LABS: Red Blood Cells-Urine 0-5 SEEN /hpf (0-5)
[2023-12-28 22:53] LABS: White Blood Cells 5-10 SEEN /hpf (0-5)
[2023-12-28 22:55] LABS: Bacteria RARE /hpf (None Seen)
[2023-12-28] MEDS: Morphine 4 MG/ML Syringe IV (23:00)
[2023-12-28] MEDS: Ondansetron 4 MG/2 ML Vial IV (23:00)
[2023-12-28 23:11] LABS: ALB/GLOB Ratio 0.7 RATIO (0.9-2.4); AST(SGOT) 19 U/L (15-37); Alanine Aminotransfer ALT/SGPT 26 U/L (13-56); Albumin, Serum 3.3 g/dL (3.2-5.0); Alkaline Phosphatase 75 U/L (45-117); Anion Gap 5 (5-15); BUN 8 mg/dL (7-18); BUN/Creat Ratio 8.9 RATIO (10-20); Calcium,Total 8.5 mg/dL (8.5-10.1); Chloride 110 mmol/L (98-107); EST Glomerular Filtration Rate 72 mL/min (>60); Est Glom Filt Rate - Afr Amer 87 mL/min (>60); Globulin 4.5 g/dL (2.2-4.2); Glucose 100 mg/dL (74-106); Potassium 3.4 mmol/L (3.5-5.1); Protein, Total 7.8 g/dL (6.4-8.2); Sodium Level 141 mmol/L (136-145)
[2023-12-28 23:15] LABS: Lipase 27 U/L (13-75)
[2023-12-28 23:16] LABS: Differential Comment SCANNED
[2023-12-28 23:17] LABS: Hypochromasia 1+
[2023-12-28 23:41] VITALS: BP 142/75; PULSE 82; RESP 18; O2SAT 97
[2023-12-29 01:00] VITALS: BP 142/80; PULSE 80; RESP 16; TEMP 36.6; O2SAT 100
[2023-12-29] MEDS: Ketorolac 30 MG/ML Syringe IV (01:05)
== END 2023-12-29 01:20 | disposition home or self-care (01) ==
PROVIDERS: Emergency Provider Emergency Medicine; PCP Internal Medicine; Referring Provider Emergency Medicine; Visit Provider Emergency Medicine
DX: R10.2 Pelvic and perineal pain (principal); K50.90 Crohn's disease, unspecified, without complications; E11.9 Type 2 diabetes mellitus without complications; Z87.891 Personal history of nicotine dependence; Z90.49 Acquired absence of other specified parts of digestive tract; K21.9 Gastro-esophageal reflux disease without esophagitis; J45.909 Unspecified asthma, uncomplicated; E66.9 Obesity, unspecified; Z97.5 Presence of (intrauterine) contraceptive device
CPT/HCPCS: 36591; 74177; 76830; 80053; 81001; 83690; 85025; 96374; 96375; 99285; Q9967; A4216; J2405

== ENCOUNTER 2024-01-27 16:30 | Emergency (ER) | payer MEDICARE, SELFPAY ==
[2024-01-27 16:31] VITALS: BP 189/112; PULSE 89; RESP 16; TEMP 36.7; O2SAT 100; BMI 50.6
--- NOTE | 2024-01-27 16:50 | RAD_ITS ---
STUDY: X-RAY CHEST REASON FOR EXAM: Female, 43 years old. cough TECHNIQUE: PA and lateral COMPARISON: September 28, 2022 FINDINGS: The lungs are clear and expanded. Tiny calcified granuloma in the right lower lobe There is no demonstrated pleural abnormality. Normal size heart. Normal mediastinum and rolan. Normal visualized pulmonary arteries. Normal visualized aortic arch and descending thoracic aorta. Right-sided Mediport catheter noted with tip at the atrial caval junction Normal visualized thoracic spine. Normal visualized ribs, clavicles, and shoulders. There is no demonstrated abnormality of the visualized soft tissue structures of the upper abdomen. No significant change since prior exam RAD/Chest PA and Lateral IMPRESSION: No acute cardiopulmonary pathology Electronically Signed: Giancarlo Vasquez MD at 17:26 EST ,
--- NOTE | 2024-01-27 16:50 | EX.ED.DYSGE1 ---
HPI History of Present Illness Chief Complaint: Cold Sx Narrative Narrative: Patient is a 43-year-old female with past medical history of hepatitis, Crohn's disease, hidradenitis suppurativa, hypertension who presents to the emergency department chief complaint of cough, runny nose and sore throat. Patient states that her sister and other people in her family are ill at this point time with rhinovirus and RSV. States that she has been sick about 3 days and has tried [id number] Sudafed, Mucinex and things were not improving therefore she came here for the valuation management as she is concerned that she may have pneumonia. Patient states that she has been compliant with her medications. Patient also complains of nausea and diarrhea. [facility] Medical History Abnormal uterine bleeding (AUB) COVID-19 Wears glasses Anxiety Diabetes Arthritis Hepatitis Back pain History of ulceration Gastric reflux Former smoker CPAP (continuous positive airway pressure) dependence Asthma Shortness of breath on exertion Leg cramps History of edema History of stress test History of rectal fissure Psoriasis Vitamin deficiency Heart murmur Anemia Obesity Hidradenitis suppurativa Crohns disease Hepatitis B Home Medications ?Medication ?Instructions ?Recorded ?Last Taken ?Type azathioprine 50 mg tablet (Imuran) 50 mg PO DAILY@0800 11/20/12 11/08/23 History omeprazole 20 mg capsule,delayed 20 - 40 mg PO DAILY GERD 10/24/13 11/09/23 History release lorazepam 1 mg tablet 1 mg PO DAILY PRN PRN Anxiety 03/02/18 11/09/23 History multivitamin 1 tab PO DAILY 06/26/20 11/02/23 History colestipol 1 gram tablet 1 g PO BID 09/28/22 11/06/23 History entecavir 1 mg tablet 1 mg PO DAILY 09/28/22 11/08/23 History fluticasone furoate 100 1 inh inhalation Q24H PRN SOB 09/28/22 Unknown History mcg-vilanterol 25 mcg/dose inhalation powder (Breo Ellipta) atenolol 50 mg tablet 50 mg PO DAILY 12/10/22 01/27/24 09:45 History cyclobenzaprine 10 mg tablet 10 mg PO TID PRN muscle spasm 12/10/22 11/08/23 History albuterol sulfate 90 mcg/actuation 2 puff inhalation Q6H PRN PRN 10/27/23 Unknown History aerosol inhaler shortness of breath or wheezing cholecalciferol (vitamin D3) 1,250 1,250 mcg PO MO 10/27/23 11/06/23 History mcg (50,000 unit) capsule hydrochlorothiazide 12.5 mg capsule 12.5 - 25 mg PO DAILY PRN edema 10/27/23 11/07/23 History infliximab-abda 100 mg intravenous 100 mg IV .EVERY 6 WEEKS CROHNS 10/27/23 10/20/23 History solution (Renflexis) metformin 500 mg tablet 500 mg PO BID 10/27/23 11/08/23 History Allergy/AdvReac Type Severity Reaction Status Date / Time amoxicillin Allergy Hives Verified 01/27/24 16:33 clavulanic acid (From Allergy Hives Verified 01/27/24 16:33 Augmentin) levofloxacin (From Levaquin) Allergy Hives Verified 01/27/24 16:33 Family History Father Hypertension Anemia Mother Arthritis Hypertension Anemia Brother Asthma History of psychiatric care Son Asthma Daughter Severe allergy Aunt Hypertension Uncle Arthritis Hypertension Asthma Grandmother Arthritis Asthma Hypertension Other Breast cancer Cancer Cervical cancer Colon cancer Surgical History History of lumpectomy of right breast POWERPORT SMALL BOWEL SURGERIES Hidradenitis suppurativa Social History household members: spouse Smoking Status: Former smoker Tobacco: How many years used: 27 second hand exposure: Yes alcohol intake: current alcohol intake frequency: a few times a month Alcohol type: wine substance use type: does not use what type of physical activity do you participate in: walking seatbelt use: always additional social history: SUN EXPOSURE: FREQUENTLY DOES NOT USE ASPIRIN DOES NOT USE IBUPROFEN ROS ROS ED ROS Narrative Constitutional: Denies any fevers, chills, headaches, lightness, dizziness Eyes ears, nose, throat: Complaint sore throat, runny nose and ear pressure bilaterally Cardiovascular: Complains of chest pressure especially when trying to cough denies palpitations Respiratory: Complains of cough and congestion Abdomen: Admits to nausea vomiting diarrhea as noted above denies abdominal pain : Denies any urinary symptoms Neurological: Denies numbness, weakness, tingling Musculoskeletal: Denies back pain Skin: Denies any new rashes or lesions EXAM Physical Exam Narrative Exam Narrative: General: Patient sitting at bedside resting comfortably did not appear to be in acute distress Head: Atraumatic, normocephalic Eyes, ears, nose, throat: Patient has mild posterior pharynx erythema noted, uvula midline, no tonsillar exudates noted, no concern for peritonsillar abscess, TMs visualized bilaterally no concern for infection Neck: Soft, supple, trachea midline Cardiovascular: Regular rate and rhythm no murmurs gallops rubs noted Respiratory: Clear to auscultation bilaterally no rales rhonchi or wheezes noted Abdomen: Soft, nondistended, nontender to palpation, bowel sounds present x 4 Extremities: +5/5 strength noted in the bilateral upper and lower extremities Neurological: Patient following commands knew that she was at [facility] year is 2023. NIH of 0 GCS 15 Skin: Warm, dry, intact Const Vital Signs: 01/27/24 16:31 01/27/24 16:45 01/27/24 17:22 Temperature 98.1 F Temperature Source Temporal Pulse Rate 89 80 Respiratory Rate 16 16 Respiratory Effort Short of Breath Respiratory Pattern Normal Blood Pressure 189/112 H 172/92 H Blood Pressure Mean 137 118 Pulse Ox 100 98 Oxygen Delivery Method Room Air Room Air 01/27/24 19:00 01/27/24 19:36 Temperature 97.5 F L Temperature Source Pulse Rate 68 66 Respiratory Rate 16 18 Respiratory Effort Respiratory Pattern Blood Pressure 187/102 H 189/110 H Blood Pressure Mean 130 136 Pulse Ox 99 100 Oxygen Delivery Method Room Air MDM MDM MDM Narrative Medical decision making narrative: Patient is a 43-year-old female who presents to the emergency department with a chief complaint of cough, congestion and sore throat. Patient will have a workup performed here on the differential diagnose includes but not limited to upper respiratory infection secondary to viral etiology, pneumonia. Once workup is obtained reviewed she will be reevaluated. Patient be given Decadron and Zofran. Patient CBC reviewed and showed no evidence leukocytosis white blood count normal at 10, hemoglobin was 10.6, platelet count was noted to be 259. Patient's sodium normal 141, potassium was 3.4, creatinine normal at 0.90. Patient's AST and ALT were 19 and 26 respectively patient's chest x-ray reviewed by myself and by radiology showed no acute cardiopulmonary pathology. Patient strep test was negative. Patient's full respiratory panel is pending and she would like to go home at this point time to follow-up on this in outpatient setting. Her blood pressure was elevated here in the emergency department however she is asymptomatic with this and states that she has been using Sudafed on a regular basis lately. I did give her 0.1 mg of clonidine. Advised her to continue to watch her blood pressure and follow-up with her primary care physician on this blood pressure. She was encouraged return with worsening symptoms or concerns. She would like to go home at this point time she is feeling better all question concerns answered discharged home in stable condition. Radiography Diagnostic Testing: Clinical Impression(s) from Imaging Studies Chest X-Ray 01/27/24 16:50 IMPRESSION: No acute cardiopulmonary pathology Electronically Signed: Giancarlo Vasquez MD at 17:26 EST , Discharge Plan Triage Chief Complaint: Cold Sx ED Provider: Travis Velasquez Dx/Rx/DC Orders Clinical Impression: Upper respiratory infection, viral, Hypertension Instructions: Blood Pressure Check Steps Prescriptions: No Action azathioprine [Imuran] 50 MG tablet 50 mg PO DAILY@0800 Patient Comments: immunosuppressant omeprazole 20 MG capsule 20 - 40 mg PO DAILY Patient Comments: stomach lorazepam 1 MG tablet 1 mg PO DAILY PRN PRN (Reason: Anxiety) multivitamin Tablet 1 tab PO DAILY atenolol 50 mg tablet 50 mg PO DAILY Patient Comments: take 1 tablet by mouth once daily cyclobenzaprine 10 mg tablet 10 mg PO TID PRN (Reason: muscle spasm) Patient Comments: take 1 tablet by mouth three times a day if needed for muscle spasm entecavir 1 mg tablet 1 mg PO DAILY Patient Comments: take 1 tablet by mouth once daily colestipol 1 gram tablet 1 g PO BID Patient Comments: take 1 tablet by mouth twice a day fluticasone furoate-vilanterol [Breo Ellipta] 100-25 mcg/dose blister with device 1 inh INHALATION Q24H PRN (Reason: SOB) Patient Comments: inhale 1 puff by mouth as directed once daily albuterol sulfate 90 mcg/actuation HFA aerosol inhaler 2 puff inhalation Q6H PRN PRN (Reason: shortness of breath or wheezing) metformin 500 mg tablet 500 mg PO BID hydrochlorothiazide 12.5 mg capsule 12.5 - 25 mg PO DAILY PRN (Reason: edema) cholecalciferol (vitamin D3) 1,250 mcg (50,000 unit) capsule 1,250 mcg PO MO Renflexis 100 mg recon soln 100 mg IV .EVERY 6 WEEKS Primary Care Provider: Araseli Bueno Referrals: Araseli Bueno MD [Primary Care Provider] - Activity Restrictions/Additional Instructions: Follow-up with your doctor in the outpatient setting. Return with worsening symptoms or any concerns. Continue supportive care with ensuring hydration as well as rotate Tylenol and ibuprofen [id number] for pain control. Keep a close eye on your blood pressure. Follow-up on the respiratory panel with your physician in the outpatient setting as well. Your chest x-ray here was negative and did not reveal any evidence of pneumonia. Strep test was negative follow-up on strep culture with your primary care physician Print Language: Yakut Disposition Disposition: Home, Self Care
--- NOTE | 2024-01-27 16:51 | EKG12_ITS ---
Test Reason : GENERAL Blood Pressure : */* mmHG Vent. Rate : 84 BPM Atrial Rate : 84 BPM P-R Int : 196 ms QRS Dur : 86 ms QT Int : 394 ms P-R-T Axes : 49 -8 10 degrees QTcB Int : 465 ms Normal sinus rhythm Moderate voltage criteria for LVH, may be normal variant ( R in aVL , [place] product ) Borderline ECG Confirmed by HEATHER PERALTA, FRANKO ([id number]), acquisitions editor PIERO DENISE ([id number]) on 01/31/2024 1:38:46 P M Referred By: Confirmed By: FRANKO ROMERO MD
[2024-01-27] MEDS: dexAMETHasone 4 MG Tablet 10 MG PO (17:20)
[2024-01-27] MEDS: Ondansetron ODT 4 MG Tablet PO (17:20)
[2024-01-27 17:22] VITALS: BP 172/92; PULSE 80; RESP 16; O2SAT 98
--- NOTE | 2024-01-27 18:27 | ED.RN ---
LAB CALLED FOR PROLONGED STREP READ TIME. RESPONSE, THEY ARE PUTTING ON NOW. IT WAS IN THE BOX UNDER SOMETHING.
[2024-01-27 19:00] VITALS: BP 187/102; PULSE 68; RESP 16; O2SAT 99
[2024-01-27 19:36] VITALS: BP 189/110; PULSE 66; RESP 18; TEMP 36.4; O2SAT 100
[2024-01-27] MEDS: cloNIDine HCl 0.1 MG Tablet PO (19:36)
== END 2024-01-27 19:52 | disposition home or self-care (01) ==
PROVIDERS: Emergency Provider Emergency Medicine; PCP Internal Medicine; Visit Provider Emergency Medicine
DX: J06.9 Acute upper respiratory infection, unspecified (principal); E11.9 Type 2 diabetes mellitus without complications; I10 Essential (primary) hypertension; Z79.84 Long term (current) use of oral hypoglycemic drugs; Z79.899 Other long term (current) drug therapy; Z86.16 Personal history of COVID-19; Z87.891 Personal history of nicotine dependence
CPT/HCPCS: 71046; 87633; 87651; 93005; 99284

== ENCOUNTER 2024-04-15 08:54 | Emergency (ER) | payer MEDICARE, SELFPAY ==
[2024-04-15 08:55] VITALS: BP 192/102; PULSE 89; RESP 18; TEMP 37.2; O2SAT 98; BMI 51.9
--- NOTE | 2024-04-15 09:10 | RAD_ITS ---
PROCEDURE: CHEST PA AND LATERAL REASON FOR EXAM: cough TECHNIQUE: Frontal and lateral views of the chest. COMPARISON: 01/27/2024. FINDINGS: Cardiomediastinal silhouette within normal limits. No focal consolidation. No effusion or pneumothorax. Similar granuloma on the right. Similar right chest wall port/catheter. Mild spondylosis. Upper abdominal surgical clips. RAD/Chest PA and Lateral IMPRESSION: 1. No visible acute cardiopulmonary findings. If unexplained symptoms persist, consider CT. 2. Additional description as above. Reading Location: [id number]
--- NOTE | 2024-04-15 09:11 | EX.ED.DYSGE1 ---
HPI History of Present Illness Chief Complaint: General Illness Narrative Narrative: Patient is a 44-year-old female past medical history of diabetes, otitis B, hidradenitis suppurativa, Crohn's disease who presents to the emergency department with a chief complaint of sore throat, cough, congestion, diarrhea. States that her son and girlfriend is also sick with similar symptoms. States that she has been ill for approximately 2 days now. Patient states that she has tried several [id number] medications including Sudafed which are not helping her symptoms therefore she came here for the valuation management. [facility] Medical History Abnormal uterine bleeding (AUB) COVID-19 Wears glasses Anxiety Diabetes Arthritis Hepatitis Back pain History of ulceration Gastric reflux Former smoker CPAP (continuous positive airway pressure) dependence Asthma Shortness of breath on exertion Leg cramps History of edema History of stress test History of rectal fissure Psoriasis Vitamin deficiency Heart murmur Anemia Obesity Hidradenitis suppurativa Crohns disease Hepatitis B Home Medications ?Medication ?Instructions ?Recorded ?Last Taken ?Type azathioprine 50 mg tablet (Imuran) 50 mg PO DAILY@0800 11/20/12 11/08/23 History omeprazole 20 mg capsule,delayed 20 - 40 mg PO DAILY GERD 10/24/13 11/09/23 History release lorazepam 1 mg tablet 1 mg PO DAILY PRN PRN Anxiety 03/02/18 11/09/23 History multivitamin 1 tab PO DAILY 06/26/20 11/02/23 History colestipol 1 gram tablet 1 g PO BID 09/28/22 11/06/23 History entecavir 1 mg tablet 1 mg PO DAILY 09/28/22 11/08/23 History fluticasone furoate 100 1 inh inhalation Q24H PRN SOB 09/28/22 Unknown History mcg-vilanterol 25 mcg/dose inhalation powder (Breo Ellipta) atenolol 50 mg tablet 50 mg PO DAILY 12/10/22 01/27/24 09:45 History cyclobenzaprine 10 mg tablet 10 mg PO TID PRN muscle spasm 12/10/22 11/08/23 History albuterol sulfate 90 mcg/actuation 2 puff inhalation Q6H PRN PRN 10/27/23 Unknown History aerosol inhaler shortness of breath or wheezing cholecalciferol (vitamin D3) 1,250 1,250 mcg PO MO 10/27/23 11/06/23 History mcg (50,000 unit) capsule hydrochlorothiazide 12.5 mg capsule 12.5 - 25 mg PO DAILY PRN edema 10/27/23 11/07/23 History infliximab-abda 100 mg intravenous 100 mg IV .EVERY 6 WEEKS CROHNS 10/27/23 10/20/23 History solution (Renflexis) metformin 500 mg tablet 500 mg PO BID 10/27/23 11/08/23 History dicyclomine 20 mg tablet 20 mg PO TID #30 tabs 04/15/24 Unknown Rx ondansetron 4 mg disintegrating 4 mg PO Q6H PRN nausea and 04/15/24 Unknown Rx tablet vomiting #20 tabs Allergy/AdvReac Type Severity Reaction Status Date / Time amoxicillin Allergy Hives Verified 04/15/24 08:55 clavulanic acid (From Allergy Hives Verified 04/15/24 08:55 Augmentin) levofloxacin (From Levaquin) Allergy Hives Verified 04/15/24 08:55 Family History Father Hypertension Anemia Mother Arthritis Hypertension Anemia Brother Asthma History of psychiatric care Son Asthma Daughter Severe allergy Aunt Hypertension Uncle Arthritis Hypertension Asthma Grandmother Arthritis Asthma Hypertension Other Breast cancer Cancer Cervical cancer Colon cancer Surgical History History of lumpectomy of right breast POWERPORT SMALL BOWEL SURGERIES Hidradenitis suppurativa Social History household members: spouse Smoking Status: Former smoker Tobacco: How many years used: 27 second hand exposure: Yes alcohol intake: current alcohol intake frequency: a few times a month Alcohol type: wine substance use type: does not use what type of physical activity do you participate in: walking seatbelt use: always additional social history: SUN EXPOSURE: FREQUENTLY DOES NOT USE ASPIRIN DOES NOT USE IBUPROFEN ROS ROS ED ROS Narrative Constitutional: Complains of chills and generalized not feeling well overall denies headache, lightness, dizziness Cardiovascular: Denies chest pain or palpitations Respiratory: Complains of cough as noted above denies shortness of breath Abdomen: Complains of diarrhea states that her Crohn's is flaring up from this denies any abdominal pain vomiting : Denies any urinary symptoms Neurological: Denies numbness, weakness, tingling Musculoskeletal: Denies back pain Skin: Denies rashes or lesions EXAM Physical Exam Narrative Exam Narrative: General: Patient is lying in bed rest comfortably did not appear to be in acute distress Head: Atraumatic, normocephalic Eyes: PERRL bilaterally, EOMI bilaterally, no conjunctival injection noted Neck: Soft, supple, trachea midline Cardiovascular: Regular rate and rhythm no murmurs gallops or rubs noted Respiratory: Clear to auscultation bilaterally no rales rhonchi or wheezes noted Abdomen: Soft, nondistended, nontender to palpation Extremities: +5/5 strength noted in the bilateral upper and lower extremities, radial pulses +2/4 in the bilateral extremities, no pedal edema exam Neurological: Patient following commands knew that she was at [facility] the year is 2024 Skin: Warm, dry, intact Const Vital Signs: 04/15/24 08:55 04/15/24 11:14 Temperature 98.9 F Temperature Source Oral Pulse Rate 89 77 Respiratory Rate 18 Blood Pressure 192/102 H 164/105 H Blood Pressure Mean 132 124 Pulse Ox 98 98 Oxygen Delivery Method Room Air MDM MDM MDM Narrative Medical decision making narrative: Patient is a 44-year-old female who presents to the emerged part with a chief complaint of cough, congestion, chills and diarrhea. On the differential diagnose includes Melamin to COVID, flu, other viral gastroenteritis/upper respiratory infection secondary viral etiology, pneumonia. Once workup is obtained reviewed she will be reevaluated. Patient be given Zofran and Tylenol. Patient's chest x-ray was read around 1:30 PM and showed no acute cardiopulmonary processes this was reviewed by myself and by radiology. Patient tested negative for strep throat, negative for COVID flu and RSV. Patient was advised to follow-up on her strep culture with her primary care physician. She was advised to continue supportive care should be given prescriptions for Bentyl and Zofran. She was advised to rotate Tylenol and ibuprofen [id number] for fever and pain control. She is encouraged return with worsening symptoms or concerns. She was given a dose of Decadron here for her sore throat. She would like to go home at this point, question concerns answered she was discharged home in stable condition. Radiography Diagnostic Testing: Clinical Impression(s) from Imaging Studies Chest X-Ray 04/15/24 09:10 IMPRESSION: 1. No visible acute cardiopulmonary findings. If unexplained symptoms persist, consider CT. 2. Additional description as above. Reading Location: [id number] Discharge Plan Triage Chief Complaint: General Illness ED Provider: Travis Velasquez Dx/Rx/DC Orders Clinical Impression: Viral upper respiratory tract infection, Sore throat Prescriptions: New dicyclomine 20 mg tablet 20 mg PO TID Qty: 30 0RF ondansetron 4 mg tablet,disintegrating 4 mg PO Q6H PRN (Reason: nausea and vomiting) Qty: 20 0RF No Action azathioprine [Imuran] 50 MG tablet 50 mg PO DAILY@0800 Patient Comments: immunosuppressant omeprazole 20 MG capsule 20 - 40 mg PO DAILY Patient Comments: stomach lorazepam 1 MG tablet 1 mg PO DAILY PRN PRN (Reason: Anxiety) multivitamin Tablet 1 tab PO DAILY atenolol 50 mg tablet 50 mg PO DAILY Patient Comments: take 1 tablet by mouth once daily cyclobenzaprine 10 mg tablet 10 mg PO TID PRN (Reason: muscle spasm) Patient Comments: take 1 tablet by mouth three times a day if needed for muscle spasm entecavir 1 mg tablet 1 mg PO DAILY Patient Comments: take 1 tablet by mouth once daily colestipol 1 gram tablet 1 g PO BID Patient Comments: take 1 tablet by mouth twice a day fluticasone furoate-vilanterol [Breo Ellipta] 100-25 mcg/dose blister with device 1 inh INHALATION Q24H PRN (Reason: SOB) Patient Comments: inhale 1 puff by mouth as directed once daily albuterol sulfate 90 mcg/actuation HFA aerosol inhaler 2 puff inhalation Q6H PRN PRN (Reason: shortness of breath or wheezing) metformin 500 mg tablet 500 mg PO BID hydrochlorothiazide 12.5 mg capsule 12.5 - 25 mg PO DAILY PRN (Reason: edema) cholecalciferol (vitamin D3) 1,250 mcg (50,000 unit) capsule 1,250 mcg PO MO Renflexis 100 mg recon soln 100 mg IV .EVERY 6 WEEKS Primary Care Provider: Araseli Bueno Referrals: Araseli Bueno MD [Primary Care Provider] - Activity Restrictions/Additional Instructions: Follow-up with your primary care physician outpatient setting. Take blood pressure medication as prescribed keep close by on your blood pressure if it is remaining running high you need to follow-up your primary care physician or return to the emergency department with any concerns. Follow-up on strep culture result with your primary care physician. Take prescriptions are sent to your pharmacy as prescribed. Ensure you are hydrating orally with plenty of fluids. You are given a dose of Decadron here this will continue to work over the next 2 to 3 days. Rotate Tylenol and ibuprofen [id number] when you do this he can take something every 3 hours max dose of Tylenol is 4000 mg max dose of ibuprofen is 3200 mg. Your chest x-ray did not show any evidence of pneumonia. Print Language: Chinese Disposition Disposition: Home, Self Care
--- NOTE | 2024-04-15 09:14 | EKG12_ITS ---
Test Reason : HTN Blood Pressure : */* mmHG Vent. Rate : 75 BPM Atrial Rate : 75 BPM P-R Int : 182 ms QRS Dur : 94 ms QT Int : 418 ms P-R-T Axes : 29 -7 14 degrees QTcB Int : 466 ms Normal sinus rhythm Minimal voltage criteria for LVH, may be normal variant ( [place] product ) Borderline ECG Confirmed by Capo Soto ([id number]), editor trade journal PIERO DENISE ([id number]) on 04/16/2024 10:59:30 AM Referred By: MOISES Confirmed By: Capo Soto
[2024-04-15] MEDS: Ondansetron ODT 4 MG Tablet PO (09:28)
[2024-04-15] MEDS: Acetaminophen 500 MG Tablet 1000 MG PO (09:57)
[2024-04-15 11:14] VITALS: BP 164/105; PULSE 77; O2SAT 98
[2024-04-15] MEDS: dexAMETHasone 4 MG Tablet 6 MG PO (12:54)
[2024-04-15] MEDS: Dicyclomine 10 MG Capsule 20 MG PO (14:07)
== END 2024-04-15 14:10 | disposition home or self-care (01) ==
PROVIDERS: Emergency Provider Emergency Medicine; PCP Internal Medicine; Visit Provider Emergency Medicine
DX: J02.9 Acute pharyngitis, unspecified (principal); E11.9 Type 2 diabetes mellitus without complications; Z86.16 Personal history of COVID-19; Z87.891 Personal history of nicotine dependence; Z79.84 Long term (current) use of oral hypoglycemic drugs
CPT/HCPCS: 71046; 87081; 87631; 87651; 93005; 99282

== ENCOUNTER 2024-05-08 09:34 | Emergency (ER) | payer MEDICARE, SELFPAY ==
[2024-05-08 09:35] VITALS: BP 184/106; PULSE 108; RESP 22; TEMP 37; O2SAT 100; BMI 50.6
--- NOTE | 2024-05-08 09:52 | RAD_ITS ---
PROCEDURE: CHEST PA AND LATERAL 05/08/2024 REASON FOR EXAM: COUGH TECHNIQUE: Frontal and lateral views of the chest. COMPARISON: Chest x-ray of 04/15/2024 RAD/Chest PA and Lateral IMPRESSION: Right subclavian central venous catheter with port appears unchanged. Lungs appear clear of acute disease, and unchanged. No pleural effusion or pneumothorax is noted. The cardiomediastinal silhouette is within the normal range, and unchanged. No interval osseous changes noted. No evidence of acute cardiopulmonary disease. Reading Location: [id number]
--- NOTE | 2024-05-08 09:55 | EX.ED.DYSGE1 ---
HPI History of Present Illness Chief Complaint: General Illness Informant: patient Narrative Narrative: Patient is a 44-year-old female with past medical history of Crohn's disease. She states her granddaughter has been sick recently. She reports that for the past 4 days she has had nasal congestion sore throat cough fatigue and muscle aches. She states that she is now progressing to loose stool/diarrhea consistent with an exacerbation of her Crohn's flare. She states she feels like symptoms are worsening and she also reports that she gets strep often and has concern for this and therefore comes in for evaluation. [facility] Medical History Encounter for intrauterine device placement Breast tumor FH: cholecystectomy Abnormal uterine bleeding (AUB) COVID-19 Wears glasses Anxiety Diabetes Arthritis Hepatitis Back pain History of ulceration Gastric reflux Former smoker CPAP (continuous positive airway pressure) dependence Asthma Shortness of breath on exertion Leg cramps History of edema History of stress test History of rectal fissure Psoriasis Vitamin deficiency Heart murmur Anemia Obesity Hidradenitis suppurativa Crohns disease Hepatitis B Home Medications ?Medication ?Instructions ?Recorded ?Last Taken ?Type azathioprine 50 mg tablet (Imuran) 50 mg PO DAILY@0800 11/20/12 11/08/23 History omeprazole 20 mg capsule,delayed 20 - 40 mg PO DAILY GERD 10/24/13 11/09/23 History release lorazepam 1 mg tablet 1 mg PO DAILY PRN PRN Anxiety 03/02/18 11/09/23 History multivitamin 1 tab PO DAILY 06/26/20 11/02/23 History colestipol 1 gram tablet 1 g PO BID 09/28/22 11/06/23 History entecavir 1 mg tablet 1 mg PO DAILY 09/28/22 11/08/23 History fluticasone furoate 100 1 inh inhalation Q24H PRN SOB 09/28/22 Unknown History mcg-vilanterol 25 mcg/dose inhalation powder (Breo Ellipta) atenolol 50 mg tablet 50 mg PO DAILY 12/10/22 01/27/24 09:45 History cyclobenzaprine 10 mg tablet 10 mg PO TID PRN muscle spasm 12/10/22 11/08/23 History albuterol sulfate 90 mcg/actuation 2 puff inhalation Q6H PRN PRN 10/27/23 Unknown History aerosol inhaler shortness of breath or wheezing cholecalciferol (vitamin D3) 1,250 1,250 mcg PO MO 10/27/23 11/06/23 History mcg (50,000 unit) capsule hydrochlorothiazide 12.5 mg capsule 12.5 - 25 mg PO DAILY PRN edema 10/27/23 11/07/23 History infliximab-abda 100 mg intravenous 100 mg IV .EVERY 6 WEEKS CROHNS 10/27/23 10/20/23 History solution (Renflexis) metformin 500 mg tablet 500 mg PO BID 10/27/23 11/08/23 History dicyclomine 20 mg tablet 20 mg PO TID #30 tabs 04/15/24 Unknown Rx ondansetron 4 mg disintegrating 4 mg PO Q6H PRN nausea and 04/15/24 Unknown Rx tablet vomiting #20 tabs entecavir 1 mg tablet 1 mg PO QDAY 04/16/24 Unknown History lorazepam 1 mg tablet 1 mg PO QDAY PRN 04/16/24 Unknown History codeine 10 mg-guaifenesin 100 mg/5 10 ml PO 4X/DAY PRN flu symptoms 7 05/08/24 Unknown Rx mL oral liquid (Guaifenesin AC) days #280 mL prednisone 20 mg tablet 40 mg (2 x 20 mg) PO DAILY 5 days 05/08/24 Unknown Rx #10 tabs sulfamethoxazole 800 1 tab PO BID 10 days #20 tabs 05/08/24 Unknown Rx mg-trimethoprim 160 mg tablet (Bactrim DS) Allergy/AdvReac Type Severity Reaction Status Date / Time amoxicillin Allergy Hives Verified 04/16/24 11:10 clavulanic acid (From Allergy Hives Verified 04/16/24 11:10 Augmentin) levofloxacin (From Levaquin) Allergy Hives Verified 04/16/24 11:10 Family History (Reviewed 04/16/24 @ 13:19 by Marika Armenta RADIOGRAPHER ANGIOGRAM, RADIOGRAPHER ANGIOGRAM-C) Father Hypertension Anemia Mother Arthritis Hypertension Anemia Brother Asthma History of psychiatric care Son Asthma Daughter Severe allergy Aunt Hypertension Uncle Arthritis Hypertension Asthma Grandmother Arthritis Asthma Hypertension Other Breast cancer Cancer Cervical cancer Colon cancer Surgical History (Reviewed 04/16/24 @ 13:19 by Marika Armenta RADIOGRAPHER ANGIOGRAM, RADIOGRAPHER ANGIOGRAM-C) History of intestinal surgery H/O lymph node excision History of lumpectomy of right breast POWERPORT SMALL BOWEL SURGERIES Hidradenitis suppurativa Social History (Reviewed 04/16/24 @ 13:19 by Marika Armenta RADIOGRAPHER ANGIOGRAM, RADIOGRAPHER ANGIOGRAM-C) household members: spouse Smoking Status: Former smoker Tobacco: How many years used: 27 second hand exposure: Yes alcohol intake: current alcohol intake frequency: a few times a month Alcohol type: wine substance use type: does not use what type of physical activity do you participate in: walking seatbelt use: always additional social history: SUN EXPOSURE: FREQUENTLY DOES NOT USE ASPIRIN DOES NOT USE IBUPROFEN ROS ROS ED Constitutional Constitutional ED: Reports chills, fever(s) and subjective Eyes Eyes: Denies blurry vision or change in vision ENT ENT ED: Reports rhinorrhea and sore throat; Denies ear pain Cardiovascular Cardiovascular: Denies chest pain Respiratory/Chest Respiratory/Chest: Reports cough; Denies dyspnea Gastrointestinal Gastrointestinal: Reports diarrhea and nausea; Denies abdominal pain or vomiting Genitourinary Genitourinary ED: Denies dysuria Musculoskeletal Musculoskeletal: Reports myalgias Integumentary Denies rash Neurologic Neurologic: Reports headache(s) Hematologic/Lymphatic Hematologic/Lymphatic: Denies easy bleeding or easy bruising Allergic/Immunologic Allergic/Immunologic ED: Denies mouth swelling or tongue swelling EXAM Physical Exam Const Vital Signs: 05/08/24 09:35 05/08/24 11:46 Temperature 98.6 F Temperature Source Temporal Pulse Rate 108 H 91 Respiratory Rate 22 H 22 H Blood Pressure 184/106 H 165/89 H Blood Pressure Mean 132 114 Pulse Ox 100 95 Oxygen Delivery Method Room Air Room Air Positive well nourished, well developed and obese General Appearance ED: well developed; Negative for pallor Nutritional Appearance: obese HEENT HEENT Narrative: Nasal mucosa is hyperemic and boggy Posterior pharynx displays diffuse erythema with +2-3 tonsillar hypertrophy bilaterally. Exudates are present as well. There is no trismus change in voice or difficulty with secretions; no obvious abscess formation Eyes PERRL and EOMs intact bilaterally General Eye ED: Negative for scleral icterus Neck supple and No no JVD Resp normal respiratory effort and clear to auscultation bilaterally Resp Narrative: Breath sounds are slight diminished throughout but overall clear to auscultation without nasal flaring retractions or accessory muscle use Cardio regular rhythm Rate: tachycardic and other Other Details: Slightly tachycardic rate with regular rhythm No murmurs rubs or gallop Radial and carotid pulses are equal and symmetric GI non-tender, non-distended and no masses GI Narrative: Abdomen is soft nontender and nondistended with hyperactive bowel sounds no voluntary guarding or rigidity or pulsatile mass Auscultation: hyperactive bowel sounds Palpation: soft Extremity normal to inspection Extremity Narrative: No asymmetric edema no pitting edema negative Homans' sign bilaterally Neuro oriented x3, CN's II-XII intact bilaterally and no sensory deficits noted Sensorium / Orientation: alert Motor Exam: strength 5/5 throughout Psych mental status grossly normal Skin no rashes or lesions noted and skin turgor normal General Skin Exam: Negative for jaundice or pallor MDM MDM MDM Narrative Medical decision making narrative: Patient arrived to the ER hypertensive but otherwise with stable vitals. Constellation of symptoms is concerning for viral infection such as COVID versus influenza versus RSV. With her sore throat and exudates she could also have viral versus bacterial pharyngitis. As she has a history of Crohn's disease and has been having diarrhea there is also concern for acute kidney injury or clinically significant electrolyte abnormality. Secondary to this basic blood work viral swab and a chest x-ray were obtained. Chest x-ray revealed no acute lung pathology. COVID influenza and RSV were negative. Strep swab is negative but clinically she has findings concerning for this and with her history of immunosuppression I do feel it is most appropriate that she be placed on antibiotics. White count is slightly elevated consistent with an inflammatory response but otherwise no signs of GUILHERME or electrolyte abnormality. Her bicarb on the basic metabolic panel was low and therefore there was concern this was lab error so VBG was obtained. Patient's pH is normal at 7.39. After being medicated in ER patient reports feeling better and on reevaluation remains in no acute distress. Therefore she can be placed on symptomatic medications and is otherwise safe for History & Record Review Discussion w/independent historian: Patient Lab Data Attestation: I reviewed the patient's lab results. Labs: Laboratory Results - last 24 hr 05/08/24 10:16 WBC 12.5 H RBC 4.86 Hgb 11.4 L Hct 36.4 L MCV 74.9 L MCH 23.5 L MCHC 31.3 L RDW Std Deviation 54.7 H RDW Coeff of Renny 20.5 H Plt Count 204 MPV 11.0 Immature Gran % (Auto) 0.400 Neut % (Auto) 68.0 Lymph % (Auto) 23.7 [place] % (Auto) 7.1 Eos % (Auto) 0.3 Baso % (Auto) 0.5 Absolute Neuts (auto) 8.5 H Absolute Lymphs (auto) 2.97 Nucleated RBC % 0 Platelet Estimate A Anisocytosis 1+ Sodium 137 Potassium 3.4 Chloride 104 Carbon Dioxide 12.5 L Anion Gap 21 H BUN 8 Creatinine 0.91 Estim Creat Clear Calc 133.53 Est GFR (MDRD) Non-Af 79 BUN/Creatinine Ratio 8.6 L Glucose 107 H Calcium 8.5 Magnesium 1.8 ABG Data ABG results: ABG 05/08/24 11:28 Specimen Type ANDREW Sample Site Not entered VBG pH 7.39 VBG pO2 55 H VBG HCO3 24 VBG Total CO2 25 VBG O2 Sat (Calc) 88 H VBG Base Excess -1 POC Mix VBG pCO2 Pt Tmp 39.6 L O2 Delivery Device Not entered Radiography Diagnostic Testing: Clinical Impression(s) from Imaging Studies Chest X-Ray 05/08/24 09:52 IMPRESSION: Right subclavian central venous catheter with port appears unchanged. Lungs appear clear of acute disease, and unchanged. No pleural effusion or pneumothorax is noted. The cardiomediastinal silhouette is within the normal range, and unchanged. No interval osseous changes noted. No evidence of acute cardiopulmonary disease. Reading Location: [address] Chest x-ray as interpreted by the emergency medicine physician reveals no acute infiltrate pneumothorax or pleural effusion Discharge Plan Triage Chief Complaint: General Illness ED Provider: Nickolas Isaac Dx/Rx/DC Orders Clinical Impression: Viral syndrome, Pharyngitis, Crohn's disease Instructions: ED Pharyngitis, Report Pending, ED Viral Syndrome (Adult) Prescriptions: New sulfamethoxazole-trimethoprim [Bactrim DS] 800-160 mg tablet 1 tab PO BID 10 Days Qty: 20 0RF prednisone 20 mg tablet 40 mg PO DAILY 5 Days Qty: 10 0RF codeine-guaifenesin [Guaifenesin AC] 10-100 mg/5 mL liquid 10 ml PO 4X/DAY PRN (Reason: flu symptoms) 7 Days Qty: 280 0RF No Action lorazepam 1 mg tablet 1 mg PO QDAY PRN entecavir 1 mg tablet 1 mg PO QDAY azathioprine [Imuran] 50 MG tablet 50 mg PO DAILY@0800 Patient Comments: immunosuppressant omeprazole 20 MG capsule 20 - 40 mg PO DAILY Patient Comments: stomach lorazepam 1 MG tablet 1 mg PO DAILY PRN PRN (Reason: Anxiety) multivitamin Tablet 1 tab PO DAILY atenolol 50 mg tablet 50 mg PO DAILY Patient Comments: take 1 tablet by mouth once daily cyclobenzaprine 10 mg tablet 10 mg PO TID PRN (Reason: muscle spasm) Patient Comments: take 1 tablet by mouth three times a day if needed for muscle spasm entecavir 1 mg tablet 1 mg PO DAILY Patient Comments: take 1 tablet by mouth once daily colestipol 1 gram tablet 1 g PO BID Patient Comments: take 1 tablet by mouth twice a day fluticasone furoate-vilanterol [Breo Ellipta] 100-25 mcg/dose blister with device 1 inh INHALATION Q24H PRN (Reason: SOB) Patient Comments: inhale 1 puff by mouth as directed once daily albuterol sulfate 90 mcg/actuation HFA aerosol inhaler 2 puff inhalation Q6H PRN PRN (Reason: shortness of breath or wheezing) metformin 500 mg tablet 500 mg PO BID hydrochlorothiazide 12.5 mg capsule 12.5 - 25 mg PO DAILY PRN (Reason: edema) cholecalciferol (vitamin D3) 1,250 mcg (50,000 unit) capsule 1,250 mcg PO MO Renflexis 100 mg recon soln 100 mg IV .EVERY 6 WEEKS dicyclomine 20 mg tablet 20 mg PO TID Qty: 30 0RF ondansetron 4 mg tablet,disintegrating 4 mg PO Q6H PRN (Reason: nausea and vomiting) Qty: 20 0RF Primary Care Provider: Araseli Bueno Referrals: Araseli Bueno MD [Primary Care Provider] - Activity Restrictions/Additional Instructions: Your workup is consistent with a viral URI which should take roughly 2 weeks to resolve. Your physical exam is also concerning for strep pharyngitis and therefore take the Bactrim as directed. Use the steroid to control inflammation and the cough syrup to help with your cold symptoms. Return to the ER should you have any further concerns Print Language: Liberian Disposition Disposition: Home, Self Care
[2024-05-08] MEDS: dexAMETHasone 10 MG/ML Vial IV (10:19)
[2024-05-08] MEDS: Morphine 4 MG/ML Syringe IV (10:19)
[2024-05-08] MEDS: 0.9% Normal Saline (1000mL) 1,000 ML 999 ML IV (10:19)
[2024-05-08] MEDS: Ondansetron 4 MG/2 ML Vial IV (10:19)
[2024-05-08 10:29] LABS: Absolute Lymphocyte Count 2.97 X10^3/uL (0.83-4.51); Absolute Neutrophil Count 8.5 X10^3/uL (2.0-7.7); Basophil# 0.06 X10^3/uL; Basophil% 0.5 % (0-1); Eosinophil# 0.04 X10^3/uL; Eosinophils% 0.3 % (0-5); Hematocrit 36.4 % (37-47); Hemoglobin 11.4 g/dL (12.0-15.0); Lymphocyte # 2.97 X10^3/ul (0.83-4.51); Lymphocyte % 23.7 % (19-41); Mean Corp Hgb Conc 31.3 g/dL (32-36); Mean Corpuscular Hgb 23.5 pg (27.0-32.0); Mean Corpuscular Volume 74.9 fL (81-99); Monocyte# 0.89 X10^3/uL; Monocyte% 7.1 % (0-10); NRBC Flagged by Analyzer 0 % (0-5); Neutrophil # 8.51 X10^3/uL (2.7-7.7); POSITIVE MORPHOLOGY YES; Platelet Count 204 K/mm3 (150-450); RBC Distribution Width CV 20.5 % (11.6-14.6); RBC Distribution Width SD 54.7 fl (35.1-43.9); Red Blood Count 4.86 M/mm3 (4.2-5.4); White Blood Count 12.5 K/mm3 (4.4-11.0)
[2024-05-08 11:01] LABS: Anion Gap 21 (5-15); BUN 8 mg/dL (4-19); BUN/Creat Ratio 8.6 RATIO (10-20); Calcium,Total 8.5 mg/dL (7.6-11.0); Carbon Dioxide 12.5 mmol/L (21.0-32.0); Chloride 104 mmol/L (98-108); Creatinine, Serum 0.91 mg/dL (0.70-1.20); EST Glomerular Filtration Rate 79 (>60); Estimated Creatinine Clearance 133.53 ml/min (50-250); Glucose 107 mg/dL (70-99); Magnesium 1.8 mg/dL (1.5-2.2); Potassium 3.4 mmol/L (3.3-5.1); Sodium Level 137 mmol/L (133-145)
[2024-05-08] MEDS: HYDROmorphone 1 MG/ML Syringe IV (11:22)
[2024-05-08 11:23] LABS: Anisocytosis 1+; Platelet Estimate A (ADEQ)
[2024-05-08 11:24] LABS: Differential Indicated SCAN CRITERIA MET
[2024-05-08 11:32] LABS: Blood Gas Specimen Type VEN; O2 Delivery Device Not entered; SITE Not entered; VBG BASE EXCESS -1 mmol/L (-1.0-3.5); VBG Bicarbonate 24 mmol/L (22-26); VBG PO2 55 mmHg (25-40); VBG SO2 88 % (50-70); VBG TCO2 25 mmol/L (23-33); VBG pCO2 39.6 mmHg (41-51); VBG pH 7.39 (7.32-7.42)
[2024-05-08 11:46] VITALS: BP 165/89; PULSE 91; RESP 22; O2SAT 95
== END 2024-05-08 12:22 | disposition home or self-care (01) ==
PROVIDERS: Emergency Provider Emergency Medicine; PCP Internal Medicine; Visit Provider Emergency Medicine
DX: J02.9 Acute pharyngitis, unspecified (principal); K50.90 Crohn's disease, unspecified, without complications; Z68.43 Body mass index [BMI] 50.0-59.9, adult; E11.9 Type 2 diabetes mellitus without complications; E66.9 Obesity, unspecified; Z79.84 Long term (current) use of oral hypoglycemic drugs; Z79.899 Other long term (current) drug therapy; Z86.16 Personal history of COVID-19; Z87.891 Personal history of nicotine dependence
CPT/HCPCS: 36591; 71046; 80048; 82803; 83735; 85025; 87631; 87651; 96361; 96374; 96375; 99282; A4216; J2405

== ENCOUNTER 2024-06-20 18:44 | Emergency (ER) | payer MEDICARE, SELFPAY ==
[2024-06-20 18:45] VITALS: BP 183/106; PULSE 90; RESP 18; TEMP 36.2; O2SAT 97
--- NOTE | 2024-06-20 19:57 | ED.VIS.GI ---
HPI HPI - GI History of Present Illness Chief Complaint: Diarrhea Detail of Chief Complaint: Diarrhea and abdominal pain Informant: patient Narrative Narrative: Patient presents to the emergency department complaint of diarrhea and abdominal pain. Patient states that initially she started with a cold last week. Now for the last 4 to 5 days she has had watery stool about 4-5 episodes per day. At times stool is more formed. She denies blood in her stool. She does have history of Crohn's. She has had partial colectomy related to her Crohn's. She has had multiple fistula repairs. She has had an appendectomy and cholecystectomy. Patient normally gets infusions of medication every 6 weeks for her Crohn's and has been doing well. She has a port in her right chest. [facility] Medical History Encounter for intrauterine device placement Breast tumor FH: cholecystectomy Abnormal uterine bleeding (AUB) COVID-19 Wears glasses Anxiety Diabetes Arthritis Hepatitis Back pain History of ulceration Gastric reflux Former smoker CPAP (continuous positive airway pressure) dependence Asthma Shortness of breath on exertion Leg cramps History of edema History of stress test History of rectal fissure Psoriasis Vitamin deficiency Heart murmur Anemia Obesity Hidradenitis suppurativa Crohns disease Hepatitis B Home Medications ?Medication ?Instructions ?Recorded ?Last Taken ?Type azathioprine 50 mg tablet (Imuran) 50 mg PO DAILY@0800 11/20/12 11/08/23 History omeprazole 20 mg capsule,delayed 20 - 40 mg PO DAILY GERD 10/24/13 11/09/23 History release lorazepam 1 mg tablet 1 mg PO DAILY PRN PRN Anxiety 03/02/18 11/09/23 History multivitamin 1 tab PO DAILY 06/26/20 11/02/23 History colestipol 1 gram tablet 1 g PO BID 09/28/22 11/06/23 History entecavir 1 mg tablet 1 mg PO DAILY 09/28/22 11/08/23 History fluticasone furoate 100 1 inh inhalation Q24H PRN SOB 09/28/22 Unknown History mcg-vilanterol 25 mcg/dose inhalation powder (Breo Ellipta) atenolol 50 mg tablet 50 mg PO DAILY 12/10/22 01/27/24 09:45 History cyclobenzaprine 10 mg tablet 10 mg PO TID PRN muscle spasm 12/10/22 11/08/23 History albuterol sulfate 90 mcg/actuation 2 puff inhalation Q6H PRN PRN 10/27/23 Unknown History aerosol inhaler shortness of breath or wheezing cholecalciferol (vitamin D3) 1,250 1,250 mcg PO MO 10/27/23 11/06/23 History mcg (50,000 unit) capsule hydrochlorothiazide 12.5 mg capsule 12.5 - 25 mg PO DAILY PRN edema 10/27/23 11/07/23 History infliximab-abda 100 mg intravenous 100 mg IV .EVERY 6 WEEKS CROHNS 10/27/23 10/20/23 History solution (Renflexis) metformin 500 mg tablet 500 mg PO BID 10/27/23 11/08/23 History dicyclomine 20 mg tablet 20 mg PO TID #30 tabs 04/15/24 Unknown Rx ondansetron 4 mg disintegrating 4 mg PO Q6H PRN nausea and 04/15/24 Unknown Rx tablet vomiting #20 tabs entecavir 1 mg tablet 1 mg PO QDAY 04/16/24 Unknown History lorazepam 1 mg tablet 1 mg PO QDAY PRN 04/16/24 Unknown History codeine 10 mg-guaifenesin 100 mg/5 10 ml PO 4X/DAY PRN flu symptoms 7 05/08/24 Unknown Rx mL oral liquid (Guaifenesin AC) days #280 mL prednisone 20 mg tablet 40 mg (2 x 20 mg) PO DAILY 5 days 05/08/24 Unknown Rx #10 tabs sulfamethoxazole 800 1 tab PO BID 10 days #20 tabs 05/08/24 Unknown Rx mg-trimethoprim 160 mg tablet (Bactrim DS) isotretinoin 40 mg capsule 40 mg PO BID 05/10/24 Unknown History omeprazole 40 mg capsule,delayed 40 mg PO DAILY 05/10/24 Unknown History release oxycodone-acetaminophen 5 mg-325 1 tab PO Q8H PRN pain 2 days #10 06/20/24 Unknown Rx mg tablet (Percocet) tabs Allergy/AdvReac Type Severity Reaction Status Date / Time amoxicillin Allergy Hives Verified 06/20/24 18:47 clavulanic acid (From Allergy Hives Verified 06/20/24 18:47 Augmentin) levofloxacin (From Levaquin) Allergy Hives Verified 06/20/24 18:47 Family History Father Hypertension Anemia Mother Arthritis Hypertension Anemia Brother Asthma History of psychiatric care Son Asthma Daughter Severe allergy Aunt Hypertension Uncle Arthritis Hypertension Asthma Grandmother Arthritis Asthma Hypertension Other Breast cancer Cancer Cervical cancer Colon cancer Surgical History History of intestinal surgery H/O lymph node excision History of lumpectomy of right breast POWERPORT SMALL BOWEL SURGERIES Hidradenitis suppurativa Social History household members: spouse Smoking Status: Former smoker Tobacco: How many years used: 27 second hand exposure: Yes alcohol intake: current alcohol intake frequency: a few times a month Alcohol type: wine substance use type: does not use what type of physical activity do you participate in: walking seatbelt use: always additional social history: SUN EXPOSURE: FREQUENTLY DOES NOT USE ASPIRIN DOES NOT USE IBUPROFEN ROS ROS ED Review of Systems ROS Unobtainable: other Constitutional Constitutional ED: Reports lethargy; Denies chills, fever(s), sweats or weight loss Eyes Eyes: Denies blurry vision, change in vision or diplopia ENT ENT ED: Denies rhinorrhea or sore throat Cardiovascular Cardiovascular: Denies chest pain, orthopnea or racing heartbeat Respiratory/Chest Respiratory/Chest: Denies cough, dyspnea, dyspnea on exertion, orthopnea or sputum Gastrointestinal Gastrointestinal: Reports abdominal pain and diarrhea; Denies nausea or vomiting Genitourinary Genitourinary ED: Denies dysuria, hematuria or urinary frequency Musculoskeletal Musculoskeletal: Denies arthralgias, back pain, myalgias or neck pain Integumentary Denies abscess, Abrasions or rash Neurologic Neurologic: Denies headache(s) or weakness Psychiatric Psychiatric: Denies anxiety, depression or suicidal thoughts Endocrine Endocrinology: Denies polydipsia, polyphagia or polyuria Hematologic/Lymphatic Hematologic/Lymphatic: Denies easy bleeding, easy bruising or lymphadenopathy Allergic/Immunologic Allergic/Immunologic ED: Denies mouth swelling, tongue swelling or urticaria EXAM Physical Exam Const Vital Signs: 06/20/24 18:45 06/20/24 21:44 Temperature 97.1 F L Temperature Source Oral Pulse Rate 90 78 Respiratory Rate 18 18 Blood Pressure 183/106 H 171/75 H Blood Pressure Mean 131 107 Pulse Ox 97 97 Oxygen Delivery Method Room Air Positive well nourished and well developed General Appearance ED: well developed and NAD HEENT Reports TM's clear and moist mucous membranes normocephalic and atraumatic; Negative for trauma or tenderness Tympanic Membrane ED: Yes TM's clear Eyes PERRL and EOMs intact bilaterally General Eye ED: Negative for pale conjunctiva or scleral icterus Neck no lymphadenopathy, supple and no JVD General: Negative for tenderness Chest Wall inspection of chest normal and palpation of chest normal Chest: Negative for tenderness Resp normal respiratory effort and clear to auscultation bilaterally Effort and Inspection: Negative for respiratory distress or pain with movement Auscultation: Negative for rhonchi, wheezes or diminished lung sounds Cardio regular rate, regular rhythm, S1 normal heart sound, S2 normal heart sound and no murmurs Peripheral Pulses: pulses 2+ throughout GI normal to inspection, nondistended, normoactive bowel sounds, soft to palpation, non-distended and no masses GI Narrative: Mild diffuse tenderness. No rebound, rigidity, or peritoneal signs. No mass palpated. Back/Spine no CVA tenderness and no thoracic nor lumbar tenderness Extremity normal to inspection General Extremety ED: Negative for edema General Extremity: Negative for edema Neuro oriented x3, CN's II-XII intact bilaterally, no sensory deficits noted and gait normal Sensorium / Orientation: awake, alert, oriented to person, oriented to place and oriented to time Motor Exam: strength 5/5 throughout and strength abnormal Psych mental status grossly normal Skin no rashes or lesions noted and no wounds MDM MDM MDM Narrative Medical decision making narrative: Patient presents with diarrhea x 4 to 5 days. She had URI symptoms prior to that. She has history of Crohn's. Complaining of abdominal pain and Bentyl is not helping. IV line established. CBC with differential obtained showing an 11.3 with hemoglobin 12.1 and platelet count of 218. Chemistries unremarkable. Lactate normal at less than 1 and LFTs were normal. Lipase normal at 20. hCG was negative. Urinalysis without evidence for infection. CT scan of the abdomen pelvis with IV contrast was essentially unremarkable. While in department she was given morphine and Zofran. She was given a liter normal saline fluid bolus. She did provide a stool sample for which I ordered enteric pathogen's. She has not been on antibiotics. The stool she gave was mostly formed however. At this point she will be discharged home with a prescription for Percocet for pain. I suspect likely a viral gastroenteritis. Advised to follow-up with primary care physician within next 3 to 5 days. Discharged to home stable condition Lab Data Attestation: I reviewed the patient's lab results. Labs: Laboratory Results - last 24 hr 06/20/24 06/20/24 06/20/24 19:26 20:10 20:16 WBC 11.3 H RBC 4.97 Hgb 12.1 Hct 38.6 MCV 77.7 L MCH 24.3 L MCHC 31.3 L RDW Std Deviation 45.7 H RDW Coeff of Renny 16.4 H Plt Count 218 MPV 12.0 Immature Gran % (Auto) 0.400 Neut % (Auto) 53.9 Lymph % (Auto) 38.6 Craig % (Auto) 5.3 Eos % (Auto) 1.1 Baso % (Auto) 0.7 Absolute Neuts (auto) 6.1 Absolute Lymphs (auto) 4.37 Nucleated RBC % 0 Sodium 138 Potassium 3.5 Chloride 105 Carbon Dioxide 21.7 Anion Gap 11 BUN 7 Creatinine 0.94 Est GFR (MDRD) Non-Af 76 BUN/Creatinine Ratio 7.9 L Glucose 131 H Lactic Acid < 1.0 Calcium 8.3 Total Bilirubin 0.29 AST 20 ALT 13 Alkaline Phosphatase 62 Total Protein 7.9 Albumin 3.8 Globulin 4.1 Albumin/Globulin Ratio 0.9 Lipase 20 Serum , Qual NEGATIVE Urine Color Urine Clarity Urine pH Ur Specific [place] Urine Protein Urine Glucose (UA) Urine Ketones Urine Occult Blood Urine Nitrite Urine Bilirubin Urine Urobilinogen Ur Leukocyte Esterase Urine RBC Urine WBC Ur Squamous Epith Cells Urine Bacteria Urine Mucus 06/20/24 21:21 WBC RBC Hgb Hct MCV MCH MCHC RDW Std Deviation RDW Coeff of Renny Plt Count MPV Immature Gran % (Auto) Neut % (Auto) Lymph % (Auto) Craig % (Auto) Eos % (Auto) Baso % (Auto) Absolute Neuts (auto) Absolute Lymphs (auto) Nucleated RBC % Sodium Potassium Chloride Carbon Dioxide Anion Gap BUN Creatinine Est GFR (MDRD) Non-Af BUN/Creatinine Ratio Glucose Lactic Acid Calcium Total Bilirubin AST ALT Alkaline Phosphatase Total Protein Albumin Globulin Albumin/Globulin Ratio Lipase Serum , Qual Urine Color Straw Urine Clarity Clear Urine pH 7.0 Ur Specific [place] 1.005 Urine Protein 30 H Urine Glucose (UA) Normal Urine Ketones Negative Urine Occult Blood 10 H Urine Nitrite Negative Urine Bilirubin Negative Urine Urobilinogen Normal Ur Leukocyte Esterase 100 H Urine RBC 0 SEEN Urine WBC 5-10 SEEN Ur Squamous Epith Cells 10-25 SEEN Urine Bacteria 0 SEEN Urine Mucus 0 SEEN Radiography Diagnostic Testing: Clinical Impression(s) from Imaging Studies Abdomen/Pelvis CT 06/20/24 20:57 IMPRESSION: 1. No acute findings in the abdomen and pelvis. 2. Punctate right interpolar region calculus without hydronephrosis. 3. Hepatic steatosis. No focal lesion. [facility] Dis[facility] Triage Chief Complaint: Diarrhea ED Provider: Gisele Mcnair Dx/Rx/DC Orders Clinical Impression: Diarrhea, Abdominal pain Instructions: ED Diarrhea, Viral (Adult), ED Diarrhea, Unknown Cause Prescriptions: New oxycodone-acetaminophen [Percocet] 5-325 mg tablet 1 tab PO Q8H PRN (Reason: pain) 2 Days Qty: 10 0RF No Action lorazepam 1 mg tablet 1 mg PO QDAY PRN entecavir 1 mg tablet 1 mg PO QDAY omeprazole 40 mg capsule,delayed release(DR/EC) 40 mg PO DAILY isotretinoin 40 mg capsule 40 mg PO BID azathioprine [Imuran] 50 MG tablet 50 mg PO DAILY@0800 Patient Comments: immunosuppressant omeprazole 20 MG capsule 20 - 40 mg PO DAILY Patient Comments: stomach lorazepam 1 MG tablet 1 mg PO DAILY PRN PRN (Reason: Anxiety) multivitamin Tablet 1 tab PO DAILY atenolol 50 mg tablet 50 mg PO DAILY Patient Comments: take 1 tablet by mouth once daily cyclobenzaprine 10 mg tablet 10 mg PO TID PRN (Reason: muscle spasm) Patient Comments: take 1 tablet by mouth three times a day if needed for muscle spasm entecavir 1 mg tablet 1 mg PO DAILY Patient Comments: take 1 tablet by mouth once daily colestipol 1 gram tablet 1 g PO BID Patient Comments: take 1 tablet by mouth twice a day fluticasone furoate-vilanterol [Breo Ellipta] 100-25 mcg/dose blister with device 1 inh INHALATION Q24H PRN (Reason: SOB) Patient Comments: inhale 1 puff by mouth as directed once daily sulfamethoxazole-trimethoprim [Bactrim DS] 800-160 mg tablet 1 tab PO BID 10 Days Qty: 20 0RF prednisone 20 mg tablet 40 mg PO DAILY 5 Days Qty: 10 0RF codeine-guaifenesin [Guaifenesin AC] 10-100 mg/5 mL liquid 10 ml PO 4X/DAY PRN (Reason: flu symptoms) 7 Days Qty: 280 0RF albuterol sulfate 90 mcg/actuation HFA aerosol inhaler 2 puff inhalation Q6H PRN PRN (Reason: shortness of breath or wheezing) metformin 500 mg tablet 500 mg PO BID hydrochlorothiazide 12.5 mg capsule 12.5 - 25 mg PO DAILY PRN (Reason: edema) cholecalciferol (vitamin D3) 1,250 mcg (50,000 unit) capsule 1,250 mcg PO MO Renflexis 100 mg recon soln 100 mg IV .EVERY 6 WEEKS dicyclomine 20 mg tablet 20 mg PO TID Qty: 30 0RF ondansetron 4 mg tablet,disintegrating 4 mg PO Q6H PRN (Reason: nausea and vomiting) Qty: 20 0RF Primary Care Provider: Araseli Bueno Referrals: Araseli Bueno MD [Primary Care Provider] - 3-5 Days Print Language: Mongolian Disposition Disposition: Home, Self Care
[2024-06-20 20:09] LABS: Absolute Lymphocyte Count 4.37 X10^3/uL (0.83-4.51); Absolute Neutrophil Count 6.1 X10^3/uL (2.0-7.7); Basophil# 0.08 X10^3/uL; Basophil% 0.7 % (0-1); Eosinophil# 0.13 X10^3/uL; Eosinophils% 1.1 % (0-5); Hematocrit 38.6 % (37-47); Hemoglobin 12.1 g/dL (12.0-15.0); Lymphocyte # 4.37 X10^3/ul (0.83-4.51); Lymphocyte % 38.6 % (19-41); Mean Corp Hgb Conc 31.3 g/dL (32-36); Mean Corpuscular Hgb 24.3 pg (27.0-32.0); Mean Corpuscular Volume 77.7 fL (81-99); Monocyte% 5.3 % (0-10); NRBC Flagged by Analyzer 0 % (0-5); Neutrophil # 6.09 X10^3/uL (2.7-7.7); Neutrophil % 53.9 % (47-70); POSITIVE MORPHOLOGY YES; Platelet Count 218 K/mm3 (150-450); RBC Distribution Width CV 16.4 % (11.6-14.6); RBC Distribution Width SD 45.7 fl (35.1-43.9); Red Blood Count 4.97 M/mm3 (4.2-5.4); White Blood Count 11.3 K/mm3 (4.4-11.0)
[2024-06-20 20:13] LABS: Differential Indicated SCAN CRITERIA MET
[2024-06-20] MEDS: 0.9% Normal Saline (1000mL) 1,000 ML 999 ML IV (20:17)
[2024-06-20 20:39] LABS: ALB/GLOB Ratio 0.9 RATIO (0.9-2.4); AST(SGOT) 20 U/L (<=31); Alanine Aminotransfer ALT/SGPT 13 U/L (<=34); Albumin, Serum 3.8 g/dL (3.5-5.0); Alkaline Phosphatase 62 U/L (35-104); Anion Gap 11 (5-15); BUN 7 mg/dL (4-19); BUN/Creat Ratio 7.9 RATIO (10-20); Calcium,Total 8.3 mg/dL (7.6-11.0); Carbon Dioxide 21.7 mmol/L (21.0-32.0); Chloride 105 mmol/L (98-108); Creatinine, Serum 0.94 mg/dL (0.70-1.20); EST Glomerular Filtration Rate 76 (>60); Globulin 4.1 g/dL (2.2-4.2); Glucose 131 mg/dL (70-99); Lipase 20 U/L (13-75); Potassium 3.5 mmol/L (3.3-5.1); Protein, Total 7.9 g/dL (5.9-8.4); Sodium Level 138 mmol/L (133-145); Total Bilirubin 0.29 mg/dL (0.00-1.30)
[2024-06-20 20:41] LABS: Internal QC Validated? YES +Cl - CLEAR BKGD; Pregnancy, Serum, hCG Quali. NEGATIVE Negative
[2024-06-20 20:42] LABS: Record Kit Lot#, Serum Preg. 929381
[2024-06-20 20:45] LABS: Lactic Acid < 1.0 mmol/L (0.0-2.0)
--- NOTE | 2024-06-20 20:57 | CT_ITS ---
PROCEDURE: ABDOMEN/PELVIS W IV CONT ONLY 06/20/2024 REASON FOR EXAM: ABDOMINAL PAIN, HISTORY OF CROHNS TECHNIQUE: Abdomen and pelvis CT with intravenous contrast. Coronal and Sagittal reconstruction series were provided. PATIENT PREPARATION: Per protocol ORAL CONTRAST TYPE: None. AMOUNT: mL CONTRAST: Omnipaque 350 VOLUME: 100 mL Not Provided Gauge IV One or more dose reduction techniques were used (e.g., Automated exposure control, adjustment of the mA and/or kV according to patient size, use of iterative reconstruction technique. COMPARISON: CT abdomen and pelvis 12/28/2023 FINDINGS: Lung bases: None Liver: Hepatic steatosis. No focal lesion. Gallbladder: No ductal dilation. Status post cholecystectomy. Spleen: Normal size. Pancreas: Normal size without evidence of mass surrounding inflammation or ductal dilation. Adrenals: Unremarkable. Kidneys: Punctate right interpolar region calculus, without hydronephrosis. Bladder: Urinary bladder is unremarkable. Reproductive Organs: IUD is noted within the endometrium. Small left adnexal cyst. Bowel: Stomach is unremarkable. No bowel dilation or wall thickening. Moderate colonic stool. Appendix: Status post appendectomy. Lymph nodes: No suspicious lymph node enlargement. Vasculature: The abdominal aorta and IVC are normal. Peritoneum / Retroperitoneum: No ascites. No pneumoperitoneum. Bones: No suspicious osseous lesions. Soft tissues: Unremarkable. CT/Abdomen/Pelvis W IV Cont ONLY IMPRESSION: 1. No acute findings in the abdomen and pelvis. 2. Punctate right interpolar region calculus without hydronephrosis. 3. Hepatic steatosis. No focal lesion. Reading Location: [facility]
[2024-06-20 21:28] LABS: Color, Urine Straw (Yellow); Glucose, Dipstick Normal (Normal); Ketone-Dipstick Negative (Negative); Leukocyte Esterase-Dipstick 100 /ul (Negative); Nitrite-Dipstick Negative (Negative); Occult Blood-Urine 10 /ul (Negative); Protein-Dipstick 30 mg/dl (Negative); Specific Gravity, Urine 1.005 (1.002-1.030); Urine Bilirubin Dipstick Negative (Negative); Urine Clarity Clear (Clear); Urine Urobilinogen Normal (Normal)
[2024-06-20 21:29] LABS: Bacteria 0 SEEN /hpf (None Seen); Mucous, Urine 0 SEEN /hpf (<or=2+); Red Blood Cells-Urine 0 SEEN /hpf (0-5)
[2024-06-20] MEDS: Ondansetron 4 MG/2 ML Vial IV (21:42)
[2024-06-20] MEDS: Morphine 4 MG/ML Syringe IV (21:42)
[2024-06-20 21:44] VITALS: BP 171/75; PULSE 78; RESP 18; O2SAT 97
[2024-06-20 21:46] LABS: Squamous Epithelial Cells - UA 10-25 SEEN /hpf (5-10)
[2024-06-20 21:47] LABS: White Blood Cells 5-10 SEEN /hpf (0-5)
[2024-06-20 22:03] VITALS: BP 155/78; PULSE 69; RESP 18; TEMP 36.6; O2SAT 99
[2024-06-20] MEDS: 0.9% Saline Lock 10 ML Syringe IV (22:15)
== END 2024-06-20 22:15 | disposition home or self-care (01) ==
PROVIDERS: Emergency Provider Emergency Medicine; PCP Internal Medicine; Visit Provider Emergency Medicine
DX: R19.7 Diarrhea, unspecified (principal); K50.90 Crohn's disease, unspecified, without complications; E11.9 Type 2 diabetes mellitus without complications; R10.9 Unspecified abdominal pain; Z90.49 Acquired absence of other specified parts of digestive tract; Z79.84 Long term (current) use of oral hypoglycemic drugs; Z79.899 Other long term (current) drug therapy; Z86.16 Personal history of COVID-19; Z87.891 Personal history of nicotine dependence
CPT/HCPCS: 36591; 74177; 80048; 80053; 81001; 83605; 83690; 84703; 85025; 87506; 96361; 96374; 96375; 99284; Q9967; A4216; J2405

== ENCOUNTER 2024-08-12 19:47 | Emergency (ER) | payer MEDICARE, SELFPAY ==
[2024-08-12 19:50] VITALS: BP 189/92; PULSE 88; RESP 20; TEMP 36.8; O2SAT 100
[2024-08-12 19:52] VITALS: BP 189/92; PULSE 88; RESP 20; TEMP 36.8; O2SAT 100
[2024-08-12 22:39] VITALS: BP 175/108; PULSE 85; RESP 18; TEMP 36.7; O2SAT 100
--- NOTE | 2024-08-12 22:42 | RAD_ITS ---
PROCEDURE: CHEST PA AND LATERAL 08/12/2024 REASON FOR EXAM: COUGH TECHNIQUE: CHEST PA AND LATERAL COMPARISON: Chest radiograph dated 05/08/2024 FINDINGS: Hardware: Right chest port with tip at the superior cavoatrial junction, unchanged Mediastinum: The mediastinal contour is stable. Lungs: No focal consolidation or pleural effusion. Bones: Unremarkable for age RAD/Chest PA and Lateral IMPRESSION: No acute cardiopulmonary abnormality. Reading Location: [facility]
[2024-08-12 22:43] VITALS: BMI 54.3
--- NOTE | 2024-08-12 22:44 | EX.ED.DYSGE1 ---
HPI History of Present Illness Chief Complaint: General Illness Informant: patient Onset/Context/Timing Onset: Weeks (1) Context: Gradual Onset Timing: Continuous Quality: Tightness Location: Chest Worsened by: Laying flat Relieved by: Nothing Narrative Narrative: Patient presents with sore throat and cough that has been getting worse over the past week. Patient states she is coughing up some green-yellow sputum at times. Patient states she had a fever up to 102. Patient states that her fever broke yesterday. Patient admits to some tightness in her chest. Patient states this is worse when she lays flat. Patient admits to some nausea, vomiting, and diarrhea. Patient states she was seen at the urgent care and had a rapid strep, COVID, influenza, and RSV swab which were all negative. Patient states she was prescribed Mucinex and Tessalon. Patient states she has been taking this without any relief. [facility] Medical History Encounter for intrauterine device placement Breast tumor FH: cholecystectomy Abnormal uterine bleeding (AUB) COVID-19 Wears glasses Anxiety Diabetes Arthritis Hepatitis Back pain History of ulceration Gastric reflux Former smoker CPAP (continuous positive airway pressure) dependence Asthma Shortness of breath on exertion Leg cramps History of edema History of stress test History of rectal fissure Psoriasis Vitamin deficiency Heart murmur Anemia Obesity Hidradenitis suppurativa Crohns disease Hepatitis B Home Medications ?Medication ?Instructions ?Recorded ?Last Taken ?Type azathioprine 50 mg tablet (Imuran) 50 mg PO DAILY@0800 11/20/12 11/08/23 History omeprazole 20 mg capsule,delayed 20 - 40 mg PO DAILY GERD 10/24/13 11/09/23 History release multivitamin 1 tab PO DAILY 06/26/20 11/02/23 History fluticasone furoate 100 1 inh inhalation Q24H PRN SOB 09/28/22 Unknown History mcg-vilanterol 25 mcg/dose inhalation powder (Breo Ellipta) atenolol 50 mg tablet 50 mg PO DAILY 12/10/22 01/27/24 09:45 History cyclobenzaprine 10 mg tablet 10 mg PO TID PRN muscle spasm 12/10/22 11/08/23 History albuterol sulfate 90 mcg/actuation 2 puff inhalation Q6H PRN PRN 10/27/23 Unknown History aerosol inhaler shortness of breath or wheezing cholecalciferol (vitamin D3) 1,250 1,250 mcg PO MO 10/27/23 11/06/23 History mcg (50,000 unit) capsule hydrochlorothiazide 12.5 mg capsule 12.5 - 25 mg PO DAILY PRN edema 10/27/23 11/07/23 History infliximab-abda 100 mg intravenous 100 mg IV .EVERY 6 WEEKS CROHNS 10/27/23 10/20/23 History solution (Renflexis) metformin 500 mg tablet 500 mg PO BID 10/27/23 11/08/23 History entecavir 1 mg tablet 1 mg PO QDAY 04/16/24 Unknown History lorazepam 1 mg tablet 1 mg PO QDAY PRN anxiety 04/16/24 Unknown History methylprednisolone 4 mg tablets in 4 mg PO UD ##1 08/13/24 Unknown Rx a dose pack Allergy/AdvReac Type Severity Reaction Status Date / Time amoxicillin Allergy Hives Verified 08/12/24 19:53 clavulanic acid (From Allergy Hives Verified 08/12/24 19:53 Augmentin) levofloxacin (From Levaquin) Allergy Hives Verified 08/12/24 19:53 Family History Father Hypertension Anemia Mother Arthritis Hypertension Anemia Brother Asthma History of psychiatric care Son Asthma Daughter Severe allergy Aunt Hypertension Uncle Arthritis Hypertension Asthma Grandmother Arthritis Asthma Hypertension Other Breast cancer Cancer Cervical cancer Colon cancer Surgical History History of intestinal surgery H/O lymph node excision History of lumpectomy of right breast POWERPORT SMALL BOWEL SURGERIES Hidradenitis suppurativa Social History household members: spouse Smoking Status: Former smoker Tobacco: How many years used: 27 second hand exposure: Yes alcohol intake: current alcohol intake frequency: a few times a month Alcohol type: wine substance use type: does not use what type of physical activity do you participate in: walking seatbelt use: always additional social history: SUN EXPOSURE: FREQUENTLY DOES NOT USE ASPIRIN DOES NOT USE IBUPROFEN ROS ROS ED Constitutional Constitutional ED: Reports fever(s); Denies chills Eyes Eyes: Denies blurry vision or change in vision ENT ENT ED: Reports sore throat; Denies rhinorrhea Cardiovascular Cardiovascular: Reports chest pain; Denies palpitations Respiratory/Chest Respiratory/Chest: Reports cough and dyspnea Gastrointestinal Gastrointestinal: Reports diarrhea, nausea and vomiting Genitourinary Genitourinary ED: Denies dysuria or hematuria Musculoskeletal Musculoskeletal: Reports back pain; Denies neck pain Integumentary Denies abscess or rash Neurologic Neurologic: Denies headache(s) or weakness Allergic/Immunologic Allergic/Immunologic ED: Denies mouth swelling or urticaria EXAM Physical Exam Const Vital Signs: 08/12/24 19:50 08/12/24 19:52 08/12/24 22:39 Temperature 98.2 F 98.2 F 98.1 F Temperature Source Oral Oral Oral Pulse Rate 88 88 85 Respiratory Rate 20 H 20 H 18 Respiratory Pattern Blood Pressure 189/92 H 189/92 H 175/108 H Blood Pressure Mean 124 124 130 Pulse Ox 100 100 100 Oxygen Delivery Method Room Air Room Air Room Air 08/12/24 22:55 08/12/24 23:00 08/13/24 00:00 Temperature 98.1 F 98 F Temperature Source Oral Oral Pulse Rate 78 84 77 Respiratory Rate 20 H 20 H 16 Respiratory Pattern Normal Blood Pressure 187/112 H 170/103 H Blood Pressure Mean 137 125 Pulse Ox 100 100 Oxygen Delivery Method Room Air Room Air Positive well nourished and well developed Constitutional Narrative: BMI is 54.4 General Appearance ED: well developed and NAD HEENT Reports moist mucous membranes HEENT Narrative: There is no tenderness over the frontal or maxillary sinuses. Neck supple and no JVD Chest Wall inspection of chest normal and palpation of chest normal Resp normal respiratory effort Auscultation: wheezes scattered wheezes and diminished lung sounds Cardio regular rate and regular rhythm GI non-tender and non-distended Neuro oriented x3, CN's II-XII intact bilaterally and no sensory deficits noted Sensorium / Orientation: alert Motor Exam: strength 5/5 throughout Psych mental status grossly normal MDM MDM MDM Narrative Medical decision making narrative: Differential diagnosis includes pneumonia, bronchitis, and viral upper respiratory infection. Chest x-ray will be obtained to assess for pneumonia and bronchitis. History & Record Review Discussion w/independent historian: Patient Additional record(s) reviewed:: Prior ED visit and Prior labs Radiography Chest X-Ray - ED: 2 View, Read by ED Physician, Read by Radiologist and No Acute Disease Diagnostic Testing: Clinical Impression(s) from Imaging Studies Chest X-Ray 08/12/24 22:42 IMPRESSION: No acute cardiopulmonary abnormality. Reading Location: [facility] and lateral chest x-ray was obtained. There are 2 views. On my independent interpretation, lung naranjo are clear. There is normal cardiac silhouette. Bony thorax is normal. There is no acute process noted. Radiologist also interpreted the x-ray and agrees. Treatment and Re-Evaluation :: Patient was given a DuoNeb aerosol here. Patient was advised of her findings. Patient is feeling somewhat better on reevaluation. Patient states that she has had similar symptoms in the past which have improved with a Medrol Dosepak. Patient was given a prescription for Medrol Dosepak. Patient was instructed to follow-up with her primary care physician in 5 to 7 days. Patient was instructed to return if worse in any way. Patient understood and was agreeable with the plan. All questions were answered. Discharge Plan Triage Chief Complaint: General Illness ED Provider: Lito Waldron Dx/Rx/DC Orders Clinical Impression: Acute bronchitis, Viral upper respiratory infection Instructions: ED URI, Viral, No Abx (Adult) Prescriptions: New methylprednisolone 4 mg tablets,dose pack 4 mg PO UD Qty: 1 0RF No Action lorazepam 1 mg tablet 1 mg PO QDAY PRN (Reason: anxiety) entecavir 1 mg tablet 1 mg PO QDAY azathioprine [Imuran] 50 MG tablet 50 mg PO DAILY@0800 Patient Comments: immunosuppressant omeprazole 20 MG capsule 20 - 40 mg PO DAILY Patient Comments: stomach multivitamin Tablet 1 tab PO DAILY atenolol 50 mg tablet 50 mg PO DAILY Patient Comments: take 1 tablet by mouth once daily cyclobenzaprine 10 mg tablet 10 mg PO TID PRN (Reason: muscle spasm) Patient Comments: take 1 tablet by mouth three times a day if needed for muscle spasm fluticasone furoate-vilanterol [Breo Ellipta] 100-25 mcg/dose blister with device 1 inh INHALATION Q24H PRN (Reason: SOB) Patient Comments: inhale 1 puff by mouth as directed once daily albuterol sulfate 90 mcg/actuation HFA aerosol inhaler 2 puff inhalation Q6H PRN PRN (Reason: shortness of breath or wheezing) metformin 500 mg tablet 500 mg PO BID hydrochlorothiazide 12.5 mg capsule 12.5 - 25 mg PO DAILY PRN (Reason: edema) cholecalciferol (vitamin D3) 1,250 mcg (50,000 unit) capsule 1,250 mcg PO MO Renflexis 100 mg recon soln 100 mg IV .EVERY 6 WEEKS Primary Care Provider: Araseli Bueno Referrals: Araseli Bueno MD [Primary Care Provider] - 5-7 Days Print Language: Chinese Disposition Disposition: Home, Self Care
[2024-08-12 22:55] VITALS: PULSE 78; RESP 20
[2024-08-12 23:00] VITALS: BP 187/112; PULSE 84; RESP 20; TEMP 36.7; O2SAT 100
[2024-08-13] VITALS: BP 170/103; PULSE 77; RESP 16; TEMP 36.6; O2SAT 100
[2024-08-13 00:26] VITALS: BP 164/104; PULSE 77; RESP 18; TEMP 36.6; O2SAT 100
== END 2024-08-13 00:27 | disposition home or self-care (01) ==
PROVIDERS: Emergency Provider Emergency Medicine; PCP Internal Medicine; Visit Provider Emergency Medicine
DX: J20.9 Acute bronchitis, unspecified (principal); Z68.43 Body mass index [BMI] 50.0-59.9, adult; E11.9 Type 2 diabetes mellitus without complications; E66.9 Obesity, unspecified; Z79.84 Long term (current) use of oral hypoglycemic drugs; Z79.899 Other long term (current) drug therapy; Z86.16 Personal history of COVID-19; Z87.891 Personal history of nicotine dependence
CPT/HCPCS: 71046; 94640; 99282

== ENCOUNTER 2024-09-10 20:31 | Emergency (ER) | payer MEDICARE, SELFPAY ==
[2024-09-10 20:34] VITALS: BP 181/101; PULSE 80; RESP 18; TEMP 36.9; O2SAT 100
[2024-09-10 20:38] VITALS: BP 181/101; PULSE 80; RESP 18; TEMP 36.9; O2SAT 100
[2024-09-10 20:57] VITALS: BMI 53.4
[2024-09-10 21:05] LABS: Mucous, Urine 0 SEEN /hpf (<or=2+)
[2024-09-10 21:16] LABS: Color, Urine Yellow (Yellow); Glucose, Dipstick Normal (Normal); Ketone-Dipstick Negative (Negative); Leukocyte Esterase-Dipstick 500 /ul (Negative); Nitrite-Dipstick Negative (Negative); Occult Blood-Urine 150 /ul (Negative); Protein-Dipstick 100 mg/dl (Negative); Specific Gravity, Urine 1.010 (1.002-1.030); Urine Bilirubin Dipstick Negative (Negative)
--- NOTE | 2024-09-10 21:27 | CT_ITS ---
PROCEDURE: ABDOMEN/PELVIS W IV CONT ONLY 09/10/2024 REASON FOR EXAM: ABD PAIN, HX OF CROHN'S TECHNIQUE: ABDOMEN/PELVIS W IV CONT ONLY Coronal and Sagittal reconstruction series were provided. CONTRAST: Isovue 370 VOLUME: 96 mL One or more dose reduction techniques were used (e.g., Automated exposure control, adjustment of the mA and/or kV according to patient size, use of iterative reconstruction technique. RADIATION DOSE SUMMARY: CTDlvol: 71 mGy DLP: 1950 mGycm COMPARISON: 06/20/2024 FINDINGS: Under aerated lung bases. Normal heart size. Status post cholecystectomy. Unremarkable liver, pancreas, spleen, adrenal glands and left kidney. There are 2, 1 mm right renal calcification. No hydronephrosis or ureteral stone. Fat stranding surrounding the bladder, possible cystitis. IUD in uterus. Normal ovaries. No retroperitoneal or pelvic adenopathy. There is inguinal adenopathy, usually reactive. No free air. Nondistended bowel. No signs of appendicitis. No acute large bowel findings. Mild lumbar spine degeneration. Rectus muscle diastasis and small umbilical fat hernia. There is indurated skin asymmetric to the right, extending to the labial region. Correlate for possible cellulitis. CT/Abdomen/Pelvis W IV Cont ONLY IMPRESSION: Cystitis. Possible cellulitis in the labial region, asymmetric to the right. Reading Location: [place] [id number]
[2024-09-10 21:38] LABS: Red Blood Cells-Urine 25-50 SEEN /hpf (0-5)
[2024-09-10 21:39] LABS: Squamous Epithelial Cells - UA 0-5 SEEN /hpf (5-10)
[2024-09-10 21:41] LABS: Internal QC Validated? YES +Cl - CLEAR BKGD
[2024-09-10 21:42] LABS: Pregnancy, Urine Negative Negative; Record Kit Lot#,Urine Preg 962302
[2024-09-10 22:00] VITALS: BP 176/90; PULSE 75; RESP 18; TEMP 36.9; O2SAT 98
[2024-09-10] MEDS: 0.9% Normal Saline (1000mL) 1,000 ML 999 ML IV (22:54)
[2024-09-10 23:00] VITALS: BP 163/94; PULSE 72; RESP 18; TEMP 36.9; O2SAT 100
[2024-09-10 23:10] LABS: Hematocrit 39.0 % (37-47); Hemoglobin 12.0 g/dL (12.0-15.0); Immature Granulocytes Count 0.010 X10^3/uL (0.0-0.0); Mean Corp Hgb Conc 30.8 g/dL (32-36); Mean Corpuscular Volume 78.2 fL (81-99); Mean Platelet Vol. 12.2 fl (6.2-12.0); NRBC Flagged by Analyzer 0 % (0-5); POSITIVE MORPHOLOGY YES; Platelet Count 261 K/mm3 (150-450); RBC Distribution Width CV 16.1 % (11.6-14.6); RBC Distribution Width SD 45.9 fl (35.1-43.9); Red Blood Count 4.99 M/mm3 (4.2-5.4); White Blood Count 9.0 K/mm3 (4.4-11.0)
[2024-09-10 23:18] LABS: Internal QC Validated? YES +Cl - CLEAR BKGD; Pregnancy, Serum, hCG Quali. NEGATIVE Negative; Record Kit Lot#, Serum Preg. 0000962302
[2024-09-10 23:20] LABS: Differential Indicated SCAN CRITERIA MET
[2024-09-10 23:36] LABS: AST(SGOT) 31 U/L (<=31); Alanine Aminotransfer ALT/SGPT 25 U/L (<=34); Albumin, Serum 3.9 g/dL (3.5-5.0); Alkaline Phosphatase 66 U/L (35-104); Anion Gap 12 (5-15); BUN 7 mg/dL (4-19); BUN/Creat Ratio 7.2 RATIO (10-20); Calcium,Total 9.1 mg/dL (7.6-11.0); Carbon Dioxide 24.6 mmol/L (21.0-32.0); Chloride 106 mmol/L (98-108); Estimated Creatinine Clearance 120.78 ml/min (50-250); Globulin 4.3 g/dL (2.2-4.2); Glucose 139 mg/dL (70-99); Lipase 21 U/L (13-75); Potassium 3.7 mmol/L (3.3-5.1)
--- NOTE | 2024-09-10 23:36 | EX.ED.DYSGE1 ---
HPI History of Present Illness Chief Complaint: Complaint Narrative Narrative: Patient is a 44-year-old female with past medical history Crohn's, diabetes, anxiety, asthma, hidradenitis suppurativa, hepatitis B who presented to the emergency department with a chief complaint concern for urinary tract infection as well as abdominal pain. Patient states that she recently had a colonoscopy at a outside facility in [place] and notes that she is still being worked up for Crohn's flare. She states that she recently started having burning with urination, frequency and not feeling well. She states that she tried Bentyl, Tylenol, ibuprofen without relief therefore she came here for further evaluation management. Patient states that she is left multiple messages with her doctor in and they did not answer. [facility] Medical History Encounter for intrauterine device placement Breast tumor FH: cholecystectomy Abnormal uterine bleeding (AUB) COVID-19 Wears glasses Anxiety Diabetes Arthritis Hepatitis Back pain History of ulceration Gastric reflux Former smoker CPAP (continuous positive airway pressure) dependence Asthma Shortness of breath on exertion Leg cramps History of edema History of stress test History of rectal fissure Psoriasis Vitamin deficiency Heart murmur Anemia Obesity Hidradenitis suppurativa Crohns disease Hepatitis B Home Medications ?Medication ?Instructions ?Recorded ?Last Taken ?Type azathioprine 50 mg tablet (Imuran) 50 mg PO DAILY@0800 11/20/12 11/08/23 History omeprazole 20 mg capsule,delayed 20 - 40 mg PO DAILY GERD 10/24/13 11/09/23 History release multivitamin 1 tab PO DAILY 06/26/20 11/02/23 History fluticasone furoate 100 1 inh inhalation Q24H PRN SOB 09/28/22 Unknown History mcg-vilanterol 25 mcg/dose inhalation powder (Breo Ellipta) atenolol 50 mg tablet 50 mg PO DAILY 12/10/22 01/27/24 09:45 History cyclobenzaprine 10 mg tablet 10 mg PO TID PRN muscle spasm 12/10/22 11/08/23 History albuterol sulfate 90 mcg/actuation 2 puff inhalation Q6H PRN PRN 10/27/23 Unknown History aerosol inhaler shortness of breath or wheezing cholecalciferol (vitamin D3) 1,250 1,250 mcg PO MO 10/27/23 11/06/23 History mcg (50,000 unit) capsule hydrochlorothiazide 12.5 mg capsule 12.5 - 25 mg PO DAILY PRN edema 10/27/23 11/07/23 History infliximab-abda 100 mg intravenous 100 mg IV .EVERY 6 WEEKS CROHNS 10/27/23 10/20/23 History solution (Renflexis) metformin 500 mg tablet 500 mg PO BID 10/27/23 11/08/23 History entecavir 1 mg tablet 1 mg PO QDAY 04/16/24 Unknown History lorazepam 1 mg tablet 1 mg PO QDAY PRN anxiety 04/16/24 Unknown History dicyclomine 20 mg tablet 20 mg PO TID 09/10/24 Unknown History ibuprofen 600 mg tablet 600 mg PO Q6H PRN PRN pain 09/10/24 Unknown History fluconazole 150 mg tablet 150 mg PO X1 1 dose #1 TAB 09/11/24 Unknown Rx sulfamethoxazole 800 1 tab PO BID 5 days #10 tabs 09/11/24 Unknown Rx mg-trimethoprim 160 mg tablet Allergy/AdvReac Type Severity Reaction Status Date / Time amoxicillin Allergy Hives Verified 09/10/24 20:34 clavulanic acid (From Allergy Hives Verified 09/10/24 20:34 Augmentin) levofloxacin (From Levaquin) Allergy Hives Verified 09/10/24 20:34 Family History Father Hypertension Anemia Mother Arthritis Hypertension Anemia Brother Asthma History of psychiatric care Son Asthma Daughter Severe allergy Aunt Hypertension Uncle Arthritis Hypertension Asthma Grandmother Arthritis Asthma Hypertension Other Breast cancer Cancer Cervical cancer Colon cancer Surgical History History of intestinal surgery H/O lymph node excision History of lumpectomy of right breast POWERPORT SMALL BOWEL SURGERIES Hidradenitis suppurativa Social History household members: spouse Smoking Status: Former smoker Tobacco: How many years used: 27 second hand exposure: Yes alcohol intake: current alcohol intake frequency: a few times a month Alcohol type: wine substance use type: does not use what type of physical activity do you participate in: walking seatbelt use: always additional social history: SUN EXPOSURE: FREQUENTLY DOES NOT USE ASPIRIN DOES NOT USE IBUPROFEN ROS ROS ED ROS Narrative Constitutional: Denies fevers, chills, headache Cardiovascular: Denies chest pain Respiratory: No shortness of breath Abdomen: Complains of abdominal pain as noted above : Complains urinary symptoms as noted above Neurological: Denies any numbness, wheeze, tingling Musculoskeletal: Denies back pain Skin: Denies rashes or lesions EXAM Physical Exam Narrative Exam Narrative: General: Patient lying in bed rest comfortably did not appear to be acute distress Head: Atraumatic, normocephalic Eyes: PERRL bilaterally, EOMI by, no conjunctival injection noted Neck: Soft, supple, trachea midline Cardiovascular: Regular rate and rhythm Respiratory: Clear to auscultation bilaterally Abdomen: Soft, nondistended, diffuse tenderness to palpation no rebound or guarding on exam Extremities: +5/5 strength noted in the bilateral lower extremities, radial pulse +2/4 in the bilateral upper extremities Neurological: Patient on commands that she was at [facility] the year is 2024 Skin: Warm, dry, tact no rashes or lesions noted Const Vital Signs: 09/10/24 20:34 09/10/24 20:38 09/10/24 22:00 Temperature 98.4 F 98.4 F 98.5 F Temperature Source Oral Oral Oral Pulse Rate 80 80 75 Respiratory Rate 18 18 18 Blood Pressure 181/101 H 181/101 H 176/90 H Blood Pressure Mean 127 127 118 Pulse Ox 100 100 98 Oxygen Delivery Method Room Air Room Air Room Air 09/10/24 23:00 09/11/24 00:00 Temperature 98.4 F 98.5 F Temperature Source Oral Oral Pulse Rate 72 72 Respiratory Rate 18 16 Blood Pressure 163/94 H 178/85 H Blood Pressure Mean 117 116 Pulse Ox 100 100 Oxygen Delivery Method Room Air Room Air MDM MDM MDM Narrative Medical decision making narrative: Patient is a 44-year-old female who presents to the emergency department chief complaint of abdominal pain as well as concern for urinary tract infection. On the differential diagnosis includes but not limited to UTI, pyelonephritis, bowel obstruction, pancreatitis, cholecystitis, Crohn's flare. Once workup is obtained reviewed she will be reevaluated. Patient will be given morphine Zofran and fluids. Patient's CBC was reviewed and showed no evidence leukocytosis white blood count normal at 9, hemoglobin stable 12, platelet count normal at 261. Patient sodium normal at 143, potassium 3.7, creatinine was normal at 1.04. Patient AST and ALT normal at 31 and 25 respectively lipase 21 normal. Patient test negative. Patient urinalysis was significant for urinary tract infection with 500 leukocyte esterase greater than 100 white cells with 2+ bacteria. Patient given first dose of Bactrim here in the emergency department. Patient CT abdomen and pelvis showed evidence of cystitis possible cellulitis in the labial region asymmetric to the right. When inquiring about this she states that she does not have any skin changes that she is aware of except for her hidradenitis suppurativa. Patient was advised to follow-up on the urine culture with her physician. She is requesting a prescription for Diflucan as when she takes antibiotic she gets yeast infection this will also be sent to the pharmacy. 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 She is advised return with worsening symptoms or any other concerns. She is agreeable this plan all course concerns answered she was discharged home stable condition Lab Data Labs: Laboratory Results - last 24 hr 09/10/24 09/10/24 20:51 22:50 WBC 9.0 RBC 4.99 Hgb 12.0 Hct 39.0 MCV 78.2 L MCH 24.0 L MCHC 30.8 L RDW Std Deviation 45.9 H RDW Coeff of Renny 16.1 H Plt Count 261 MPV 12.2 H Immature Gran % (Auto) 0.100 Neut % (Auto) 50.2 Lymph % (Auto) 39.2 [place] % (Auto) 6.1 Eos % (Auto) 3.8 Baso % (Auto) 0.6 Absolute Neuts (auto) 4.5 Absolute Lymphs (auto) 3.53 Nucleated RBC % 0 Differential Comment SCANNED Platelet Estimate ADEQUATE RBC Morphology NORM C+C Sodium 143 Potassium 3.7 Chloride 106 Carbon Dioxide 24.6 Anion Gap 12 BUN 7 Creatinine 1.04 Estim Creat Clear Calc 120.78 Est GFR (MDRD) Non-Af 68 BUN/Creatinine Ratio 7.2 L Glucose 139 H Calcium 9.1 Total Bilirubin 0.28 AST 31 ALT 25 Alkaline Phosphatase 66 Total Protein 8.1 Albumin 3.9 Globulin 4.3 H Albumin/Globulin Ratio 0.9 Lipase 21 Serum , Qual NEGATIVE Urine Color Yellow Urine Clarity Cloudy Urine pH 6.0 Ur Specific Barton 1.010 Urine Protein 100 H Urine Glucose (UA) Normal Urine Ketones Negative Urine Occult Blood 150 H Urine Nitrite Negative Urine Bilirubin Negative Urine Urobilinogen Normal Ur Leukocyte Esterase 500 H Urine RBC 25-50 SEEN Urine WBC >100 SEEN Ur Squamous Epith Cells 0-5 SEEN Urine Bacteria 2+ Urine Mucus 0 SEEN Urine Test Negative Radiography Diagnostic Testing: Clinical Impression(s) from Imaging Studies Abdomen/Pelvis CT 09/10/24 21:27 IMPRESSION: Cystitis. Possible cellulitis in the labial region, asymmetric to the right. Reading Location: [place] [id number] Discharge Plan Triage Chief Complaint: Complaint ED Provider: Travis Velasquez Dx/Rx/DC Orders Clinical Impression: Abdominal pain, Hidradenitis, Crohn's disease, Urinary tract infection Prescriptions: New sulfamethoxazole-trimethoprim 800-160 mg tablet 1 tab PO BID 5 Days Qty: 10 0RF fluconazole 150 mg tablet 150 mg PO X1 Qty: 1 0RF No Action lorazepam 1 mg tablet 1 mg PO QDAY PRN (Reason: anxiety) entecavir 1 mg tablet 1 mg PO QDAY azathioprine [Imuran] 50 MG tablet 50 mg PO DAILY@0800 Patient Comments: immunosuppressant omeprazole 20 MG capsule 20 - 40 mg PO DAILY Patient Comments: stomach multivitamin Tablet 1 tab PO DAILY atenolol 50 mg tablet 50 mg PO DAILY Patient Comments: take 1 tablet by mouth once daily cyclobenzaprine 10 mg tablet 10 mg PO TID PRN (Reason: muscle spasm) Patient Comments: take 1 tablet by mouth three times a day if needed for muscle spasm fluticasone furoate-vilanterol [Breo Ellipta] 100-25 mcg/dose blister with device 1 inh INHALATION Q24H PRN (Reason: SOB) Patient Comments: inhale 1 puff by mouth as directed once daily albuterol sulfate 90 mcg/actuation HFA aerosol inhaler 2 puff inhalation Q6H PRN PRN (Reason: shortness of breath or wheezing) metformin 500 mg tablet 500 mg PO BID hydrochlorothiazide 12.5 mg capsule 12.5 - 25 mg PO DAILY PRN (Reason: edema) cholecalciferol (vitamin D3) 1,250 mcg (50,000 unit) capsule 1,250 mcg PO MO Renflexis 100 mg recon soln 100 mg IV .EVERY 6 WEEKS dicyclomine 20 mg tablet 20 mg PO TID ibuprofen 600 mg tablet 600 mg PO Q6H PRN PRN (Reason: pain) Primary Care Provider: Araseli Bueno Referrals: Araseli Bueno MD [Primary Care Provider] - Activity Restrictions/Additional Instructions: Follow your primary care physician outpatient setting as well as your tourist escort. Take the antibiotics as prescribed follow-up on urine culture with your doctor. Return with worsening symptoms or any concerns your blood work did not show any acute findings tonight and your CT of your abdomen and pelvis did not show any acute findings either. Print Language: Cape Verdean Disposition Disposition: Home, Self Care
[2024-09-11] VITALS: BP 178/85; PULSE 72; RESP 16; TEMP 36.9; O2SAT 100
[2024-09-11] MEDS: Smz/Tmp Ds Tablet 1 TABLET PO (00:21)
[2024-09-11 00:34] LABS: Differential Comment SCANNED
[2024-09-11 00:35] LABS: Red Cell Morphology NORM C+C NORMAL (NORM C&C)
[2024-09-11 00:43] VITALS: BP 193/86; PULSE 71; RESP 18; TEMP 36.6; O2SAT 100
== END 2024-09-11 00:48 | disposition home or self-care (01) ==
PROVIDERS: Emergency Provider Emergency Medicine; PCP Internal Medicine; Visit Provider Emergency Medicine
DX: N39.0 Urinary tract infection, site not specified (principal); K50.90 Crohn's disease, unspecified, without complications; E11.9 Type 2 diabetes mellitus without complications; L73.2 Hidradenitis suppurativa; Z87.891 Personal history of nicotine dependence; R10.9 Unspecified abdominal pain; F41.9 Anxiety disorder, unspecified; B96.20 Unspecified Escherichia coli [E. coli] as the cause of diseases classified elsewhere; Z90.49 Acquired absence of other specified parts of digestive tract; K21.9 Gastro-esophageal reflux disease without esophagitis; Z79.899 Other long term (current) drug therapy; J45.909 Unspecified asthma, uncomplicated; Z79.51 Long term (current) use of inhaled steroids; Z79.84 Long term (current) use of oral hypoglycemic drugs
CPT/HCPCS: 74177; 80053; 81001; 81025; 83690; 84703; 85025; 87077; 87086; 87088; 87186; 96361; 96374; 96375; 96376; 99284; A4216; J2405

== ENCOUNTER 2024-11-14 18:09 | Emergency (ER) | payer MEDICARE, SELFPAY ==
[2024-11-14 18:10] VITALS: BP 186/96; PULSE 87; RESP 22; TEMP 36.3; O2SAT 99
--- NOTE | 2024-11-14 19:08 | EX.ED.DYSGE1 ---
HPI History of Present Illness Chief Complaint: General Illness Detail of Chief Complaint: Initially upper respiratory SX, now abdominal pain with 10 BMs with blood Informant: patient Onset/Context/Timing Onset: Days (Initial symptoms started 4 days ago.) Context: Sudden Onset Timing: Continuous and Waxes and wanes Quality: Runny nose, congestion and sinus pain initially. Now abdominal pain with b Location: Initially upper respiratory now GI Current Severity: Moderate Maximum Severity: Moderate Worsened by: Nothing Relieved by: Nothing Associated Symptoms Associated Symptoms: Frequency Narrative Narrative: Patient is a 44-year-old. She reports she has prediabetes. Her last A1c was February 2024. Her A1c was 5.5. She initially complained of upper respiratory tract infectious symptoms and sinus pain. This resolved after 2 days. She now complains of generalized abdominal pain with 10 bowel movements that are mushy and blood is noted. She does have a history of Crohn's. She states she normally has 3-6 bowel movements per day depending on what she eats. She denies documented fever. She denies chills. She denies headache. She does complain of some facial discomfort. She denies sore throat. There is no change in voice. No difficulty swallowing. She denies chest pain, pressure tightness or heaviness. She denies pain with breathing. She denies blood in her urine or discomfort with urination. She has not noted a rash. Prior similar symptoms: Yes Recent Illness/Hospitalization: No PFSH [facility] Medical History Encounter for intrauterine device placement Breast tumor FH: cholecystectomy Abnormal uterine bleeding (AUB) COVID-19 Wears glasses Anxiety Diabetes Arthritis Hepatitis Back pain History of ulceration Gastric reflux Former smoker CPAP (continuous positive airway pressure) dependence Asthma Shortness of breath on exertion Leg cramps History of edema History of stress test History of rectal fissure Psoriasis Vitamin deficiency Heart murmur Anemia Obesity Hidradenitis suppurativa Crohns disease Hepatitis B Home Medications ?Medication ?Instructions ?Recorded ?Last Taken ?Type azathioprine 50 mg tablet (Imuran) 50 mg PO DAILY@0800 11/20/12 11/08/23 History omeprazole 20 mg capsule,delayed 20 - 40 mg PO DAILY GERD 10/24/13 11/09/23 History release multivitamin 1 tab PO DAILY 06/26/20 11/02/23 History fluticasone furoate 100 1 inh inhalation Q24H PRN SOB 09/28/22 Unknown History mcg-vilanterol 25 mcg/dose inhalation powder (Breo Ellipta) atenolol 50 mg tablet 50 mg PO DAILY 12/10/22 01/27/24 09:45 History cyclobenzaprine 10 mg tablet 10 mg PO TID PRN muscle spasm 12/10/22 11/08/23 History albuterol sulfate 90 mcg/actuation 2 puff inhalation Q6H PRN PRN 10/27/23 Unknown History aerosol inhaler shortness of breath or wheezing cholecalciferol (vitamin D3) 1,250 1,250 mcg PO MO 10/27/23 11/06/23 History mcg (50,000 unit) capsule hydrochlorothiazide 12.5 mg capsule 12.5 - 25 mg PO DAILY PRN edema 10/27/23 11/07/23 History infliximab-abda 100 mg intravenous 100 mg IV .EVERY 6 WEEKS CROHNS 10/27/23 10/20/23 History solution (Renflexis) metformin 500 mg tablet 500 mg PO BID 10/27/23 11/08/23 History entecavir 1 mg tablet 1 mg PO QDAY 04/16/24 Unknown History lorazepam 1 mg tablet 1 mg PO QDAY PRN anxiety 04/16/24 Unknown History ibuprofen 600 mg tablet 600 mg PO Q6H PRN PRN pain 09/10/24 Unknown History Allergy/AdvReac Type Severity Reaction Status Date / Time amoxicillin Allergy Hives Verified 11/14/24 18:09 clavulanic acid (From Allergy Hives Verified 11/14/24 18:09 Augmentin) levofloxacin (From Levaquin) Allergy Hives Verified 11/14/24 18:09 Family History Father Hypertension Anemia Mother Arthritis Hypertension Anemia Brother Asthma History of psychiatric care Son Asthma Daughter Severe allergy Aunt Hypertension Uncle Arthritis Hypertension Asthma Grandmother Arthritis Asthma Hypertension Other Breast cancer Cancer Cervical cancer Colon cancer Surgical History History of intestinal surgery H/O lymph node excision History of lumpectomy of right breast POWERPORT SMALL BOWEL SURGERIES Hidradenitis suppurativa Social History household members: spouse Smoking Status: Former smoker Tobacco: How many years used: 27 second hand exposure: Yes alcohol intake: current alcohol intake frequency: a few times a month Alcohol type: wine substance use type: does not use what type of physical activity do you participate in: walking seatbelt use: always additional social history: SUN EXPOSURE: FREQUENTLY DOES NOT USE ASPIRIN DOES NOT USE IBUPROFEN ROS ROS ED Constitutional Constitutional ED: Denies chills, fever(s), subjective or sweats Eyes Eyes: Denies blurry vision or change in vision ENT ENT ED: Reports rhinorrhea; Denies ear pain or sore throat Cardiovascular Cardiovascular: Denies chest pain, orthopnea, palpitations or paroxysmal nocturnal dyspnea Respiratory/Chest Respiratory/Chest: Reports cough; Denies dyspnea, dyspnea on exertion, orthopnea, paroxysmal nocturnal dyspnea or sputum Gastrointestinal Gastrointestinal: Reports abdominal pain and nausea; Denies constipation, diarrhea, melena or vomiting Genitourinary Genitourinary ED: Reports urinary frequency; Denies dysuria or hematuria Musculoskeletal Musculoskeletal: Reports back pain and other Details: Patient reports bilateral back pain. There is no precipitating, exacerbating or alleviating factors. ; Denies arthralgias or myalgias Integumentary Denies Abrasions or rash Neurologic Neurologic: Reports headache(s); Denies paresthesias or weakness Psychiatric Psychiatric: Denies anxiety or depression Endocrine Endocrinology: Denies cold intolerance or heat intolerance Hematologic/Lymphatic Hematologic/Lymphatic: Reports systems reviewed and no addt'l complaints, except as documented EXAM Physical Exam Const Vital Signs: 11/14/24 18:10 11/14/24 19:11 11/14/24 19:11 Temperature 97.4 F L 98.8 F Temperature Source Temporal Oral Pulse Rate 87 80 Respiratory Rate 22 H 16 Respiratory Effort Normal Non-Labored Respiratory Pattern Normal Blood Pressure 186/96 H 179/97 H Blood Pressure Mean 126 124 Pulse Ox 99 98 Oxygen Delivery Method Room Air Room Air 11/14/24 20:00 11/14/24 21:00 Temperature 98.4 F 98.3 F Temperature Source Oral Oral Pulse Rate 80 76 Respiratory Rate 18 18 Respiratory Effort Respiratory Pattern Blood Pressure 147/66 H 166/83 H Blood Pressure Mean 93 110 Pulse Ox 99 97 Oxygen Delivery Method Room Air Room Air Positive well nourished and well developed Constitutional Narrative: BMI is greater than 50. General Appearance ED: well developed; Negative for cyanotic, diaphoretic or pallor HEENT Reports moist mucous membranes HEENT Narrative: Head is atraumatic and normocephalic. Ears normal. Nares patent. Posterior pharynx normal. Eyes PERRL and EOMs intact bilaterally General Eye ED: Negative for pale conjunctiva or scleral icterus Neck no lymphadenopathy, supple and no JVD Chest Wall inspection of chest normal and palpation of chest normal Resp normal respiratory effort and clear to auscultation bilaterally Cardio regular rate, regular rhythm, S1 normal heart sound, S2 normal heart sound and no murmurs GI normal to inspection, nondistended, normoactive bowel sounds, non-distended and no masses; Negative for non-tender or hepatosplenomegaly GI Narrative: Body habitus limits abdominal exam. She does have tenderness. Palpation: Negative for guarding Back/Spine no CVA tenderness Cervical Spine: Negative for cervical spine tenderness Thoracic Spine / Upper Back: Negative for thoracic spinal tenderness Lumbar Spine / Lower Back: Negative for lumbar spinal tenderness Extremity normal to inspection Neuro oriented x3 and CN's II-XII intact bilaterally Sensorium / Orientation: alert Psych mental status grossly normal Skin no rashes or lesions noted, no wounds and skin turgor normal General Skin Exam: Negative for jaundice or pallor MDM MDM MDM Narrative Medical decision making narrative: Suspect patient initially had a viral upper respiratory infection. This may have exacerbated her Crohn's disease. She does have tenderness throughout with multiple bloody stools will obtain CT to see if she has an acute flare. With her complaint of frequency need to evaluate blood sugar since she is on metformin for prediabetes . Also to evaluate for possible urinary tract infection. Lab Data Attestation: I reviewed the patient's lab results. Lab results narrative: CBC reveals microcytic indices. Basic metabolic panel is unremarkable. Glucose slight elevated 109 with normal CO2 anion gap. Urinalysis is positive for protein, blood and leukoesterase. Negative for nitrites. Micro reveals 0-5 RBCs, 5-10 WBCs with 1+ bacteria and 0-5 epithelial cells. Labs: Laboratory Results - last 24 hr 11/14/24 11/14/24 19:10 19:20 WBC 7.6 RBC 5.11 Hgb 12.2 Hct 38.8 MCV 75.9 L MCH 23.9 L MCHC 31.4 L RDW Std Deviation 43.2 RDW Coeff of Renny 15.9 H Plt Count 202 MPV 12.1 H Immature Gran % (Auto) 0.100 Neut % (Auto) 45.5 L Lymph % (Auto) 46.2 H Harlan % (Auto) 5.8 Eos % (Auto) 1.5 Baso % (Auto) 0.9 Absolute Neuts (auto) 3.4 Absolute Lymphs (auto) 3.49 Nucleated RBC % 0 Differential Comment SCANNED Sodium 138 Potassium 3.6 Chloride 104 Carbon Dioxide 24.0 Anion Gap 11 BUN 8 Creatinine 0.88 Estim Creat Clear Calc 143.20 Est GFR (MDRD) Non-Af 83 BUN/Creatinine Ratio 9.6 L Glucose 109 H Lactic Acid 1.2 Calcium 8.8 Urine Color Yellow Urine Clarity Clear Urine pH 6.0 Ur Specific [place] 1.015 Urine Protein 15 H Urine Glucose (UA) Normal Urine Ketones Negative Urine Occult Blood 10 H Urine Nitrite Negative Urine Bilirubin Negative Urine Urobilinogen Normal Ur Leukocyte Esterase 500 H Urine RBC 0-5 SEEN Urine WBC 5-10 SEEN Ur Squamous Epith Cells 0-5 SEEN Urine Bacteria 1+ Urine Mucus 0 SEEN Patient and significant other were informed that CAT scan is normal. Her workup is unremarkable. Will discharge to home. She has has no questions. Therefore will discharge to home Radiography Diagnostic Testing: Clinical Impression(s) from Imaging Studies Abdomen/Pelvis CT 11/14/24 20:10 IMPRESSION: No acute intra-abdominal or pelvic abnormality. Intrauterine device in satisfactory position. No CT evidence of active Crohn's flare, obstruction, or abscess. Reading Location: [id number] CT was reviewed by ia. The radiologist read no evidence of active Crohn's flare, obstruction or abscess. Patient was last seen in the emergency room on September 10 of this year. Patient was seen by Dr. Travis Velasquez at that time. Patient was seen in June 2024 for general illness. Disposition was to home. Her diagnosis was acute bronchitis due to viral upper respiratory infection Discharge Plan Triage Chief Complaint: General Illness ED Provider: Linda,Bebo Dx/Rx/DC Orders Clinical Impression: Abdominal pain of unknown cause, Hematochezia, Hx of Crohn's disease, Body mass index (BMI) greater than 50, Smoker Instructions: ED Abdominal Pain Unkn Cause Fem Prescriptions: No Action lorazepam 1 mg tablet 1 mg PO QDAY PRN (Reason: anxiety) entecavir 1 mg tablet 1 mg PO QDAY azathioprine [Imuran] 50 MG tablet 50 mg PO DAILY@0800 Patient Comments: immunosuppressant omeprazole 20 MG capsule 20 - 40 mg PO DAILY Patient Comments: stomach multivitamin Tablet 1 tab PO DAILY atenolol 50 mg tablet 50 mg PO DAILY Patient Comments: take 1 tablet by mouth once daily cyclobenzaprine 10 mg tablet 10 mg PO TID PRN (Reason: muscle spasm) Patient Comments: take 1 tablet by mouth three times a day if needed for muscle spasm fluticasone furoate-vilanterol [Breo Ellipta] 100-25 mcg/dose blister with device 1 inh INHALATION Q24H PRN (Reason: SOB) Patient Comments: inhale 1 puff by mouth as directed once daily albuterol sulfate 90 mcg/actuation HFA aerosol inhaler 2 puff inhalation Q6H PRN PRN (Reason: shortness of breath or wheezing) metformin 500 mg tablet 500 mg PO BID hydrochlorothiazide 12.5 mg capsule 12.5 - 25 mg PO DAILY PRN (Reason: edema) cholecalciferol (vitamin D3) 1,250 mcg (50,000 unit) capsule 1,250 mcg PO MO Renflexis 100 mg recon soln 100 mg IV .EVERY 6 WEEKS ibuprofen 600 mg tablet 600 mg PO Q6H PRN PRN (Reason: pain) Primary Care Provider: Araseli Bueno Referrals: Araseli Bueno MD [Primary Care Provider, Internal Medicine] - 3-5 Days if not improving Print Language: Irish Disposition Disposition: Home, Self Care
[2024-11-14 19:11] VITALS: BP 179/97; PULSE 80; RESP 16; TEMP 37.1; O2SAT 98; BMI 53.7
[2024-11-14] MEDS: 0.9% Normal Saline (1000mL) 1,000 ML 999 ML IV (19:22)
[2024-11-14 19:44] LABS: Mucous, Urine 0 SEEN /hpf (<or=2+)
[2024-11-14 19:47] LABS: Color, Urine Yellow (Yellow); Glucose, Dipstick Normal (Normal); Ketone-Dipstick Negative (Negative); Leukocyte Esterase-Dipstick 500 /ul (Negative); Nitrite-Dipstick Negative (Negative); Occult Blood-Urine 10 /ul (Negative); Protein-Dipstick 15 mg/dl (Negative); Specific Gravity, Urine 1.015 (1.002-1.030); Urine Bilirubin Dipstick Negative (Negative)
[2024-11-14 19:52] LABS: Anion Gap 11 (5-15); BUN 8 mg/dL (4-19); BUN/Creat Ratio 9.6 RATIO (10-20); Calcium,Total 8.8 mg/dL (7.6-11.0); Carbon Dioxide 24.0 mmol/L (21.0-32.0); Chloride 104 mmol/L (98-108); Estimated Creatinine Clearance 143.20 ml/min (50-250); Glucose 109 mg/dL (70-99); Potassium 3.6 mmol/L (3.3-5.1)
[2024-11-14 19:56] LABS: Hematocrit 38.8 % (37-47); Hemoglobin 12.2 g/dL (12.0-15.0); Immature Granulocytes Count 0.010 X10^3/uL (0.0-0.0); Mean Corp Hgb Conc 31.4 g/dL (32-36); Mean Corpuscular Volume 75.9 fL (81-99); Mean Platelet Vol. 12.1 fl (6.2-12.0); NRBC Flagged by Analyzer 0 % (0-5); POSITIVE COUNT YES; Platelet Count 202 K/mm3 (150-450); RBC Distribution Width CV 15.9 % (11.6-14.6); RBC Distribution Width SD 43.2 fl (35.1-43.9); Red Blood Count 5.11 M/mm3 (4.2-5.4); White Blood Count 7.6 K/mm3 (4.4-11.0)
[2024-11-14 19:57] LABS: Differential Indicated SCAN CRITERIA MET
[2024-11-14 19:58] LABS: Red Blood Cells-Urine 0-5 SEEN /hpf (0-5); Squamous Epithelial Cells - UA 0-5 SEEN /hpf (5-10)
[2024-11-14 20:00] VITALS: BP 147/66; PULSE 80; RESP 18; TEMP 36.9; O2SAT 99
--- NOTE | 2024-11-14 20:10 | CT_ITS ---
PROCEDURE: ABDOMEN/PELVIS W IV CONT ONLY 11/14/2024 REASON FOR EXAM: BLOODY DIARRHEA X 10, HX CROHN'S, PRIOR SBO TECHNIQUE: Procedure Code: [id number] Modality: CT Procedure: ABDOMEN/PELVIS W IV CONT ONLY Coronal and Sagittal reconstruction series were provided. One or more dose reduction techniques were used (e.g., Automated exposure control, adjustment of the mA and/or kV according to patient size, use of iterative reconstruction technique. FINDINGS: Mild atherosclerosis of a normal caliber abdominal aorta. The peripheral soft tissues are unremarkable. No acute osseous abnormalities. The liver is unremarkable. Surgically absent gallbladder. The pancreas, spleen, and adrenals are unremarkable. Symmetric enhancement of the bilateral kidneys. No hydroureteronephrosis. The urinary bladder is unremarkable. Intrauterine device in satisfactory position. Normal caliber large and small bowel without surrounding inflammatory changes. Absent appendix and may be surgically absent. Correlate with surgical history. CT/Abdomen/Pelvis W IV Cont ONLY IMPRESSION: No acute intra-abdominal or pelvic abnormality. Intrauterine device in satisfactory position. No CT evidence of active Crohn's flare, obstruction, or abscess. Reading Location: [id number]
[2024-11-14 20:20] LABS: Differential Comment SCANNED
[2024-11-14 21:00] VITALS: BP 166/83; PULSE 76; RESP 18; TEMP 36.8; O2SAT 97
[2024-11-14 21:54] VITALS: BP 163/88; PULSE 76; RESP 20; TEMP 36.6; O2SAT 96
== END 2024-11-14 21:55 | disposition home or self-care (01) ==
PROVIDERS: Emergency Provider Emergency Medicine; PCP Internal Medicine; Visit Provider Emergency Medicine
DX: R10.84 Generalized abdominal pain (principal); Z68.43 Body mass index [BMI] 50.0-59.9, adult; K92.1 Melena; R73.03 Prediabetes; E66.9 Obesity, unspecified; Z79.84 Long term (current) use of oral hypoglycemic drugs; Z77.22 Contact with and (suspected) exposure to environmental tobacco smoke (acute) (chronic); Z86.16 Personal history of COVID-19; Z87.891 Personal history of nicotine dependence
CPT/HCPCS: 36591; 74177; 80048; 81001; 83605; 85025; 87077; 87086; 87088; 96361; 96374; 96375; 96376; 99285; Q9967; A4216; J2405